=== PATIENT | female | born 1985 | race Caucasian/White ===

== ENCOUNTER 2025-06-04 10:20 | Day surgery (SDC) | payer MEDICAID, SELFPAY ==
--- NOTE | 2025-05-11 07:14 | EKG12_ITS ---
Test Reason : PREOP Blood Pressure : */* mmHG Vent. Rate : 87 BPM Atrial Rate : 87 BPM P-R Int : 132 ms QRS Dur : 80 ms QT Int : 376 ms P-R-T Axes : 75 63 38 degrees QTcB Int : 452 ms Normal sinus rhythm Normal ECG Confirmed by Bossman Krueger ([id number]), department editor JOCELIN HUERTAS ([id number]) on 05/12/2025 7:16:15 AM Referred By: Irene Vazquez Confirmed By: Bossman Krueger
[2025-05-11 07:55] LABS: Hematocrit 38.0 % (37-47); Hemoglobin 13.5 g/dL (12.0-15.0); Mean Corp Hgb Conc 35.5 g/dL (32-36); Mean Corpuscular Volume 86.2 fL (81-99); Mean Platelet Vol. 9.7 fl (6.2-12.0); Platelet Count 249 K/mm3 (150-450); RBC Distribution Width CV 12.2 % (11.6-14.6); RBC Distribution Width SD 38.3 fl (35.1-43.9); Red Blood Count 4.41 M/mm3 (4.2-5.4); White Blood Count 4.8 K/mm3 (4.4-11.0)
[2025-05-11 08:55] LABS: AST(SGOT) 21 U/L (<=31); Alanine Aminotransfer ALT/SGPT 23 U/L (<=34); Albumin, Serum 4.3 g/dL (3.5-5.0); Alkaline Phosphatase 61 U/L (35-104); Anion Gap 11 (5-15); BUN 15 mg/dL (4-19); BUN/Creat Ratio 16.5 RATIO (10-20); Calcium,Total 9.4 mg/dL (7.6-11.0); Carbon Dioxide 27.3 mmol/L (21.0-32.0); Chloride 103 mmol/L (98-108); Globulin 2.2 g/dL (2.2-4.2); Glucose 106 mg/dL (70-99); Potassium 4.1 mmol/L (3.3-5.1)
[2025-05-11 08:56] LABS: Magnesium 2.0 mg/dL (1.5-2.2)
--- NOTE | 2025-05-12 10:08 | PAT.ANESEVAL ---
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 When Was Last Pacemaker Check QUESTION #4 FULL TEXT: You/Your Family Experience fever (hyperthermia) with Anesthesia Last Oral Intake Last Oral intake: Last Oral Intake NPO since Meds taken in AM with sips of water? Meds patient instructed to take am of surgery PONV PONV - hooker machine tender: PONV - hooker machine tender Female Yes 05/07/25 11:04 HX of Motion Sickness Yes 05/07/25 11:04 HX of N/V After Surgery No 05/07/25 11:04 Non-Smoker Yes 05/07/25 11:04 Duration of Surgery greater Yes 05/07/25 11:04 than 60 minutes Number of Risk Factors 4 05/07/25 11:04 PONV Score Severe Risk 05/07/25 11:04 Respiratory Assessment Respiratory Assessment - hooker machine tender: Respiratory Tract Infection Hx - hooker machine tender Hx Respiratory Tract Infection No 05/07/25 11:04 STOP Sleep Apnea STOP Sleep Apnea - hooker machine tender: STOP Sleep Apnea - hooker machine tender Hx Hypertension Yes: CONTROLLED WITH MED 05/07/25 11:04 Hx Sleep Apnea Yes 05/07/25 11:04 CPAP Yes 05/07/25 11:04 BIPAP No 05/07/25 11:04 Do you snore loudly (louder No 05/07/25 11:04 than talking or can be heard Do you often feel tired/ No 05/07/25 11:04 fatigued/ sleepy during daytime? Has anyone observed you stop No 05/07/25 11:04 breathing during sleep? STOP Results Positive 05/07/25 11:04 QUESTION #5 FULL TEXT : Do you snore loudly (louder than talking or can be heard through closed doors)? 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 Specify any problems Hx of Preganancy in last 3 N/A 05/07/25 11:04 Months Nurse Filling Out Transfusion [facility] 05/07/25 11:04 & Questions: Date: 05/07/25 05/07/25 11:04 Time: 11:05 05/07/25 11:04 Patient unable to answer at this time (ie. confused, unrespo /Reproduction History /Reproductive History - hooker machine tender: /Reproductive Hx- hooker machine tender Hx Now No 05/07/25 11:04 Gestational Age (in weeks): EDC: Hx Hx Para Hx Section SAB No 05/07/25 11:04 [facility] [place] Medical History (Updated 05/07/25 @ 11:13 by Janelle Fine) Wears glasses Wears contact lenses Depression Anxiety Marijuana use Blackout Non-smoker Hypertension History of Holter monitoring History of panic attacks History of echocardiogram Cardiology follow-up encounter GERD (gastroesophageal reflux disease) Home Medications ?Medication ?Instructions ?Recorded ?Last Taken ?Type buspirone 5 mg tablet 5 mg PO DAILY PRN anxiety 05/07/25 Unknown History cetirizine 10 mg tablet (24Hour 10 mg PO DAILY 05/07/25 Unknown History Allergy) cyclobenzaprine 10 mg tablet 10 mg PO TID PRN PRN muscle spasm 05/07/25 Unknown History desvenlafaxine succinate 50 mg 50 mg PO DAILY 05/07/25 Unknown History tablet,extended release 24 hr fluticasone propionate 50 1 spray intranasal DAILY 05/07/25 Unknown History mcg/actuation nasal spray,suspension (24 Hour Allergy Relief) hydrochlorothiazide 25 mg tablet 25 mg PO DAILY 05/07/25 Unknown History meloxicam 15 mg tablet 15 mg PO DAILY PRN moderate pain 05/07/25 Unknown History montelukast 10 mg tablet 10 mg PO QHS 05/07/25 Unknown History omeprazole 20 mg capsule,delayed 20 mg PO DAILY 05/07/25 Unknown History release Allergy/AdvReac Type Severity Reaction Status Date / Time No Known Allergies Allergy Verified 05/07/25 11:00 Surgical History (Updated 05/07/25 @ 11:13 by Janelle Fine) History of wisdom tooth extraction History of tubal ligation History of loop electrical excision procedure (LEEP) History of tonsillectomy and adenoidectomy Social History Smoking Status: Never smoker Audit: Pertinent Findings Pertinent Findings EKG Perinent findings: 01/2025: NSR Echo (EF%) pertinent findings: 02/2023: LVEF 60% with no RWM abnormalities; normal study. Consult pertinent findings: 04/2025: Mild ascending aorta dilation noted on noncontrast CT. Health Inspector elect to monitor and repeat chest CT in 1-2 years Additional pertinent findings: 7-day holter: Predominantly SR, overall normal monitor study Recommendation Anesthesia Recommendation Anesthesia recommendation: OPTIMIZED for anesthesia
[2025-06-04] VITALS (12 sets, daily range): BP systolic 128–154; BP diastolic 90–114; PULSE 87–111; RESP 16–18; TEMP 36.1–37; O2SAT 93–108; BMI 32.0
--- NOTE | 2025-06-04 10:54 | PRE.ANES_ITS ---
ASA Classification* ASA Classification ASA Classification: 2 Assessment & Plan Anesthesia* Anesthesia Assessment Anesthesia Assessment: Discussed sedation and/or anesthesia options, risks, benefits, and alternatives with patient/parents/legal guardian/POA. Questions invited. The patient/parents/legal guardian/POA seems to understand and agrees to proceed with anesthesia plan. Reviewed the physical assessment, medical history, allergy history and patient home medications list prior to surgery/procedure/anesthetic and documented any changes. Performed airway and anesthesia risk assessments. Anesthesia Type Anesthesia Type: General Anesthesia Focused Assessment* Airway Assessment Mouth opens: >3 cm Mallampati Score: II Labs Anesthesia Preop lab: CBC WBC, (4.4-11.0) 4.8 K/mm3 05/11/25, : RBC, (4.2-5.4) 4.41 M/mm3 05/11/25, : Hgb, (12.0-15.0) 13.5 g/dL 05/11/25, : Hct, (37-47) 38.0 % 05/11/25, : Plt Count, (150-450) 249 K/mm3 05/11/25, : CHEMISTRY Potassium, (3.3-5.1) 4.1 mmol/L 05/11/25, : Sodium, (133-145) 140 mmol/L 05/11/25, : Magnesium, (1.5-2.2) 2.0 mg/dL 05/11/25, : BUN, (4-19) 15 mg/dL 05/11/25, : Creatinine, (0.70-1.20) 0.88 mg/dL 05/11/25, : Glucose, (70-99) 106 mg/dL H 05/11/25, : COAG Pre-Assessment Diagnosis/Proposed Procedure Planned Operative Procedure(s): (B) Hysterectomy, TLH, Salpingectomy, Cystoscopy Anesthesia History 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 When Was Last Pacemaker Check QUESTION #4 FULL TEXT: You/Your Family Experience fever (hyperthermia) with Anesthesia Last Oral Intake Last Oral intake: Last Oral Intake NPO since Meds taken in AM with sips of water? Meds patient instructed to take am of surgery PONV PONV - natural resources instructor: PONV - natural resources instructor Female Yes 05/07/25 11:04 HX of Motion Sickness Yes 05/07/25 11:04 HX of N/V After Surgery No 05/07/25 11:04 Non-Smoker Yes 05/07/25 11:04 Duration of Surgery greater Yes 05/07/25 11:04 than 60 minutes Number of Risk Factors 4 05/07/25 11:04 PONV Score Severe Risk 05/07/25 11:04 Height & Weight Height & Weight: Anesthesia: Height & Weight Weight: 86.183 kg 05/20/25 08:56 Respiratory Assessment Respiratory Assessment - natural resources instructor: Respiratory Tract Infection Hx - natural resources instructor Hx Respiratory Tract Infection No 05/07/25 11:04 STOP Sleep Apnea STOP Sleep Apnea - natural resources instructor: STOP Sleep Apnea - natural resources instructor Hx Hypertension Yes: CONTROLLED WITH MED 05/07/25 11:04 Hx Sleep Apnea Yes 05/07/25 11:04 CPAP Yes 05/07/25 11:04 BIPAP No 05/07/25 11:04 Do you snore loudly (louder No 05/07/25 11:04 than talking or can be heard Do you often feel tired/ No 05/07/25 11:04 fatigued/ sleepy during daytime? Has anyone observed you stop No 05/07/25 11:04 breathing during sleep? STOP Results Positive 05/07/25 11:04 QUESTION #5 FULL TEXT : Do you snore loudly (louder than talking or can be heard through closed doors)? 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 Specify any problems Hx of Preganancy in last 3 N/A 05/07/25 11:04 Months Nurse Filling Out Transfusion [facility] 05/07/25 11:04 & Questions: Date: 05/07/25 05/07/25 11:04 Time: 11:05 05/07/25 11:04 Patient unable to answer at this time (ie. confused, unrespo /Reproduction History /Reproductive History - natural resources instructor: /Reproductive Hx- natural resources instructor Hx Now No 05/07/25 11:04 Gestational Age (in weeks): EDC: Hx Hx Para Hx Section SAB No 05/07/25 11:04 Does the father of the baby or his family experience fever w Father of the baby Malignant Hypertension history comment Active Medications Active Medications: Current Medications Generic Name Dose Route Start Last Admin Trade Name Freq PRN Reason Stop Dose Admin Lactated Ringer's 1,000 mls @ 40 mls/hr 05/21/25 07:30 IV .Q25H ANIA Lactated Ringer's 1,000 mls @ 40 mls/hr 05/21/25 07:30 IV .Q25H ANIA PFSH Medical History Wears glasses Wears contact lenses Depression Anxiety Marijuana use Blackout Non-smoker Hypertension History of Holter monitoring History of panic attacks History of echocardiogram Cardiology follow-up encounter GERD (gastroesophageal reflux disease) Home Medications ?Medication ?Instructions ?Recorded ?Last Taken ?Type buspirone 5 mg tablet 5 mg PO DAILY PRN anxiety Unknown History cetirizine 10 mg tablet (24Hour 10 mg PO DAILY 5 Unknown History Allergy) cyclobenzaprine 10 mg tablet 10 mg PO TID PRN PRN musc le spasm 05/07/25 Unknown History desvenlafaxine succinate 50 mg 50 mg PO DAILY 05/07/25 Unknown History tablet,extended release 24 hr fluticasone propionate 50 1 spray intranasal DAILY Unknown History mcg/actuation nasal spray,suspension (24 Hour Allergy Relief) hydrochlorothiazide 25 mg tablet 25 mg PO DAILY Unknown History meloxicam 15 mg tablet 15 mg PO DAILY PRN moderate pain 05/07/25 Unknown History montelukast 10 mg tablet 10 mg PO QHS 05/07/25 Unknow n History omeprazole 20 mg capsule,delayed 20 mg PO DAILY Unknown History release Allergy/AdvReac Type Severity Reaction Status Date / Time No Known Allergies Allergy Verified 05/07/25 11:00 Surgical History History of wisdom tooth extraction History of tubal ligation History of loop electrical excision procedure (LEEP) History of tonsillectomy and adenoidectomy Social History Smoking Status: Never smoker Review of Systems (Anesthesia) ROS Narrative System reviewed and no additional complaints, except as documented.
[2025-06-04 11:01] LABS: Internal QC Validated? YES +Cl - CLEAR BKGD; Pregnancy, Urine Negative Negative; Record Kit Lot#,Urine Preg 0000980607
--- OUTSIDE RECORDS SUMMARY | 2025-06-04 11:05 | XMS RPT_ITS | CCD ---
Author Organization [facility] Care Team Providers Care Finished Cigar Maker Name Role Phone No, Physician Unavailable Unavailable NO, PHYSICIAN Unavailable Unavailable CONN, ORIN CAPO Unavailable Unavail able CONN, ORIN CAPO Unavailable Unavail able CONN, ORIN CAPO Unavailable Unavail able NO, PHYSICIAN Unavailable Unavailable Na Arcos Unavailable Unavailable Na Arcos Unavailable Unavailable Gabriel Rivera Unavailable Unavailable Patricia Dominique Unavailable Unavailable None, No PCP Unavailable Unavailable Kobi Fontana Unavailable Unavailable Sepideh Amador Unavailable Unavailable [facility], NEURODIAG Unavailable Eduardo montoya No, Physician Primary Care Provider Unavailabl e Na Arcos Unavailable [phone] Unavailable Unavailable Patricia Dominique Unavailable Na Arcos Unavailable Bilderback, Ramila Unavailable Unavailabl e Unavailable Unavailable Yaneli Malik Unavailable YANELI MALIK Referring Unavailable YANELI MALIK Attending Unavailable YANELI MALIK Primary Care Unavailable Layne Vivar Unavailable [phone] Yaneli Perez Primary Care Provider Yaneli Malik Unavailable Unavailable Marcella Cheung Unavailable Unavailable Ms. Yaneli Malik Primary Care Unavailable Ms. Yaneli Malik Attending Unavailable Ms. Yaneli Malik Referring Unavailable Malik, Ms. Yaneli Marylin Primary Care Unavailable Malik, Ms. Yaneli Marylin Attending Unavailable Malik, Ms. Yaneli Marylin Referring Unavailable Malik, Ms. Yaneli Marylin Referring Unavailable Malik, Ms. Yaneli Marylin Primary Care Unavailable Malik, Ms. Yaneli Marylin Attending Unavailable Malik, Ms. Yaneli Marylin Referring Unavailable Malik, Ms. Yaneli Marylin Attending Unavailable Malik, Ms. Yaneli Marylin Primary Care Unavailable Malik, Ms. Yaneli Marylin Referring Unavailable Malik, Ms. Yaneli Marylin Attending Unavailable Malik, Ms. Yaneli Marylin Primary Care Unavailable Malik, Ms. Yaneli Marylin Referring Unavailable Malik, Ms. Yaneli Marylin Attending Unavailable Malik, Ms. Yaneli Marylin Primary Care Unavailable Malik, Ms. Yaneli Marylin Primary Care Unavailable Malik, Ms. Yaneli Marylin Attending Unavailable Malik, Ms. Yaneli Marylin Referring Unavailable Malik, Ms. Ynaeli Marylin Primary Care Unavailable Malik, Ms. Yaneli Marylin Attending Unavailable Malik, Ms. Yaneli Marylin Referring Unavailable DO MARCELLA CHEUNG Attending Unavailab le Malik, Ms. Yaneli Marylin Primary Care Unavailable Unavailable Primary Care Provider Unavailabl e Pino CHRISTIAN, Yaneli K Primary Care Provider Rosalva SALGADO, Kobi Bansal Unavailable Grayson SALGADO, Elieser Collins Unavailable Pino CHRISTIAN, Yaneli Escamilla Primary Care Provider [phone] Pino SPLICER OPERATOR-GINO, Yaneli K Primary Care Provider Rosalva SALGADO, Kobi Bansal Unavailable Grayson SALGADO, Elieser Collins Unavailable No, Physician Primary Care Provider UnavailYANELI Castro Primary Care Unavailable JOCELIN HOPKINS Attending Unavailable NO, PHYSICIAN Primary Care Unavailable YANELI MALIK Referring Unavailable YANELI MALIK Admitting Unavailable YANELI MALIK K Primary Care Unavailable ESTUARDO DENISE Attending Unavailable FREDERIC MALIK Referring Unavailable YANELI MALIK K Primary Care Unavailable FREDERIC MALIK Referring Unavailable YANELI MALIK Primary Care Unavailable YANELI MALIK Referring Unavailable YANELI MALIK Primary Care Unavailable YANELI MALIK K Referring Unavailable ELIZABETH MALIKIDI K Primary Care Unavailable YANELI MALIK K Referring Unavailable YANELI MALIK K Primary Care Unavailable YANELI MALIK K Primary Care Unavailable KLAUS STRICKLAND Referring Unavailable MALIK, YANELI K Primary Care Unavailable MALIK, YANELI K Referring Unavailable MALIK, YANELI K Primary Care Unavailable KOBI SOL Referring Unavailable MALIK, YANELI K Primary Care Unavailable Rosalva SALGADO, Kobi Bansal Unavailable Elieser Garcia MD Unavailable FREDERIC MALIK Attending Unavailable MALIK, YANELI K Primary Care Unavailable MALIK, YANELI K Attending Unavailable MALIK, YANELI K Primary Care Unavailable RFEDERIC MALIK Attending Unavailable MALIK, YANELI K Primary Care Unavailable FREDERIC MALIK Attending Unavailable MALIK, YANELI K Primary Care Unavailable KLAUS STRICKLAND Attending Unavailable MALIK, YANELI K Primary Care Unavailable MALIK, YANELI K Attending Unavailable MALIK, YANELI K Primary Care Unavailable MALIK, YANELI K Attending Unavailable MALIK, YANELI K Primary Care Unavailable MALIK, YANELI K Attending Unavailable MALIK, YANELI K Primary Care Unavailable MALIK, YANELI K Attending Unavailable MALIK, YANELI K Primary Care Unavailable MALIK, YANELI K Attending Unavailable MALIK, YANELI K Primary Care Unavailable MALIK, YANELI K Attending Unavailable MALIK, YANELI K Primary Care Unavailable KLAUS STRICKLAND Attending Unavailable MALIK, YANELI K Referring Unavailable MALIK, YANELI K Primary Care Unavailable LESLEY VAZQUEZ Attending Unavailable MALIK, YANELI K Primary Care Unavailable WISMIGUEL A, LESLEY Attending Unavailable MALIK, YANELI K Primary Care Unavailable ANGEL CARTER Attending Unavailable MALIK, YANELI K Primary Care Unavailable ANGEL CARTER Referring Unavailable MALIK, YANELI K Primary Care Unavailable HAANGEL RUEDA Referring Unavailable MALIK, YANELI K Primary Care Unavailable LESLEY VAZQUEZ Attending Unavailable MALIK, YANELI K Primary Care Unavailable Lesley Vazquez Referring Unavailable Nathan Francis Unavailable Malik, Yaneli Primary Care Unavailable Lesley Vazquez Attending Unavailable Allergies Allergy Classification Reported Allergen(s) Allergy Type Date of Onset Reaction(s) Facility (11 sources) Seasonal allergy; Translations: [SEASONAL ALLERGIES] Allergy to substance 9 Other: See Comments [facility] Work Phone: Medications Current Medications Medication Drug Class(es) Dates Sig (Normalized) Sig (Original) acetaminophen 325 mg / HYDROcodone bitartrate 5 mg oral tablet (1 source) Opioid Agonist Start: 02-20-2023 take 1 tablet by mouth every six hours hydrocodone-acetam inophen 5 mg-325 mg oral tablet ; 1 tab(s) orally every 6 hours Quantity: 12 Refills: 0 Ordered: 20-Feb-2023 Marcella Cheung Start: 20-Feb-2023 Generic Substitution Allowed Comments: Caution federal law prohibits the transfer of this drug to any person other than the person for whom it was prescribed.May cause drowsiness. Alcohol may intensify this effect. Use care when operating dangerous machinery.This product contains acetaminophen. Do not use with any other product containing acetaminophen to prevent possible liver damage.Using more of this medication than prescribed may cause serious breathing problems. Comment on above: Caution [place] law prohibits the transfer of this drug to any person other than the person for whom it was prescribed.May cause drowsiness. Alcohol may intensify this effect. Use care when operating dangerous machinery.This product contains acetaminophen. Do not use with any other product containing acetaminophen to prevent possible liver damage.Using more of this medication than prescribed may cause serious breathing problems. amoxicillin 875 mg / clavulanate 125 mg oral tablet (4 sources) Penicillin-class Antibacterial Start: 06-09-2024 End: 06-26-2024 take 1 tablet by mouth twice daily amoxicillin-pot clavulanate (Augmentin) 875-125 mg tablet Indications: Acute non-recurrent maxillary sinusitis Take 1 tablet (875 mg) by mouth 2 times a day for 10 days. 20 tablet 06/09/2024 06/26/2024 Discontinued (Therapy completed) Start: 09-09-2023 End: 09-19-2023 take 1 tablet by mouth twice daily amoxicillin-pot clavulanate (Augmentin) 875-125 mg tablet Indications: Left ear pain Take 1 tablet (875 mg) by mouth 2 times a day for 10 days. 20 tablet 0 09/09/2023 09/19/2023 Active azithromycin 250 mg oral tablet (3 sources) Macrolide Antimicrobial Start: 02-05-2023 End: 02-10-2023 azithromycin (Zithromax) 250 mg tablet Indications: Acute non-recurrent maxillary sinusitis Take 2 tablets (500 mg) by mouth once daily for 1 day, THEN 1 tablet (250 mg) once daily for 4 days. Take 2 tabs (500 mg) by mouth today, than 1 daily for 4 days.. 6 tablet 0 02/05/2023 02/10/2023 Active Start: 08-09-2021 Azithromycin 2 50 MG Oral Tablet TAKE 2 TABLETS ON DAY 1 THEN TAKE 1 TABLET A DAY FOR 4 DAYS. Quantity: 1 Refills: 0 Ordered: 09-Aug-2021 Pino JULISYaneli Start : 09-Aug-2021 Active Start: 03-29-2021 Azithromycin 2 50 MG Oral Tablet TAKE 2 TABLETS ON DAY 1 THEN TAKE 1 TABLET A DAY FOR 4 DAYS. Quantity: 1 Refills: 0 Ordered: 29-Mar-2021 Josselyn JLUIS Na Start : 29-Mar-2021 Active baclofen 10 mg oral tablet (5 sources) gamma-Aminobutyric Acid-ergic Agonist Start: 04-17-2018 baclofen (LIORESAL) 10 MG tablet Indications: Trapezius strain, left, subsequent encounter Take one tablet three times a day as needed for back pain and spasms.. 30 tablet 04/17/2018 Active benzonatate 100 mg oral capsule (5 sources) Non-narcotic Antitussive Start: 02-05-2023 End: 02-15-2023 take 1 capsule by mouth three times daily as needed for cough benzonatate (Tessalon) 100 mg capsule Indications: Upper respiratory infection with cough and congestion Take 1 capsule (100 mg) by mouth 3 times a day as needed for cough for up to 10 days. Do not crush or chew. 30 capsule 0 02/05/2023 02/15/2023 Active Start: 11-14-2020 End: 03-27-2021 take 1 capsule by mouth three times daily as needed Benzonatate 100 MG Oral Capsule TAKE 1 CAPSULE 3 TIMES DAILY NEEDED. Quantity: 30 Refills: 0 Ordered: 14-Nov-2020 Patricia Dominique DO Start : 14-Nov-2020 End : 27-Mar-2021 Complete busPIRone hydrochloride 5 mg oral tablet (20 sources) Start: 11-22-2023 take 1 tablet by mouth three times daily busPIRone (Buspar) 5 mg tablet Indications: Anxiety take 1 tablet by mouth three times a day 90 tablet 2 11/22/2023 Active Start: 01-22-2023 take 1 tablet by chau th every eight hours busPIRone (BUSPAR) 5 mg tablet Take 5 mg by mouth q 8 HR. 01/22/2023 Active Start: 01-22-2023 take 1 tablet by chau three times daily busPIRone (Buspar) 5 mg tablet Indications: Anxiety Take 1 tablet (5 mg) by mouth 3 times a day. 90 tablet 0 01/22/2023 Active Comment on above: Take 5 mg by mouth q 8 HR. cetirizine hydrochloride 5 mg oral tablet (20 sources) Histamine-1 Receptor Antagonist take 1 tablet by mouth once daily cetirizine (ZyrTEC) 5 mg tablet Take 1 tablet (5 mg) by mouth once daily. Active take 1 tablet by mouth once thomas y cetirizine (ZYRTEC) 10 mg tablet Take 10 mg by mouth once daily. Active cholecalciferol 0.05 mg oral tablet (20 sources) Vitamin D take 1 tablet by mouth once daily cholecalciferol (Vitamin D-3) 50 MCG (2000 UT) tablet Take 1 tablet (2,000 Units) by mouth once daily. 0 Active Vitamin D TABS R efills: 0 Active Vitamin D TABS R efills: 0 DO Active ciprofloxacin 3 mg/ml / dexamethasone 1 mg/ml otic suspension (2 sources) Corticosteroid, Quinolone Antimicrobial Start: 06-26-2024 End: 07-31-2024 ciprofloxacin-dexamethasone (CiproDEX) otic suspension Indications: Fluid level behind tympanic membrane of right ear Administer 4 drops into the right ear 2 times a day. 7.5 mL 06/26/2024 07/31/2024 Discontinued (Therapy completed) cyclobenzaprine hydrochloride 10 mg oral tablet (20 sources) Muscle Relaxant Start: 06-18-2024 End: 06-26-2024 take 1 tablet by mouth three times daily as needed for muscle spasms cyclobenzaprine (Flexeril) 10 mg tablet Indications: Acute exacerbation of chronic low back pain Take 1 tablet (10 mg) by mouth 3 times a day as needed for muscle spasms. 90 tablet 06/26/2024 Active Start: 02-20-2023 End: 02-26-2023 take 1 tablet by mouth three times daily cyclobenzaprine 10 mg oral tablet ; 1 tab(s) orally 3 times a day Quantity: 21 Refills: 0 Ordered: 20-Feb-2023 Marcella Cheung Start: 20-Feb-2023 End: 26-Feb-2023 Generic Substitution Allowed Comments: May cause drowsiness. Alcohol may intensify this effect. Use care when operating dangerous machinery.Obtain medical advice before taking any non-prescription drugs as some may affect the action of this medication. Start: 06-08-2022 take 1 tablet by chau th at bedtime as needed Cyclobenzaprine HCl - 5 MG Oral Tablet TAKE 1 TABLET AT BEDTIME NEEDED. Quantity: 30 Refills: 1 Ordered: 08-Jun-2022 Yaneli Perez Start : 08-Jun-2022 Active Start: 08-09-2021 take 1 tablet by chau th three times daily as needed Cyclobenzaprine HCl - 5 MG Oral Tablet TAKE 1 TABLET 3 TIMES DAILY NEEDED. Quantity: 21 Refills: 0 Ordered: 09-Aug-2021 Yaneli Perez Start : 09-Aug-2021 Active Comment on above: May cause drowsiness . Alcohol may intensify this effect. Use care when operating dangerous machinery.Obtain medical advice before taking any non-prescription drugs as some may affect the action of this medication. 24 hr desvenlafaxine succinate 50 mg extended release oral tablet (20 sources) Serotonin and Norepinephrine Reuptake Inhibitor Start: 025 take 1 tablet by mouth once daily desvenlafaxine (Pristiq) 50 mg 24 hr tablet Indications: Anxiety Take 1 tablet (50 mg) by mouth once daily. 90 tablet 1 04/27/2025 Active Start: 02-23-2025 End: 04-27-2025 take 1 tablet by mouth once daily desvenlafaxine succinate (Pristiq) 50 mg 24 hr tablet Indications: Anxiety Take 1 tablet (50 mg) by mouth once daily. 30 tablet 1 02/23/2025 04/27/2025 Discontinued (Reorder) Start: 01-13-2025 End: 02-23-2025 take 1 tablet by mouth once daily, then take 1 tablet by mouth every twenty-four hours desvenlafaxine ER (PRISTIQ) 25 mg 24 hr tablet Take 25 mg by mouth once daily. 01/13/2025 Active dextromethorphan hydrobromide 3 mg/ml / promethazine hydrochloride 1.25 mg/ml oral solution (2 sources) Phenothiazine, Uncompetitive H-eigtyl-L-aspartate Receptor Antagonist, Sigma-1 Agonist Start: 07-02-2023 End: 08-01-2023 take 5 mL by mouth every four hours for cough promethazine-DM (Phenergan-DM) 6.25-15 mg/5 mL syrup Indications: Cough present for greater than 3 weeks Take 5 mL by mouth every 4 hours if needed for cough. 240 mL 0 07/02/2023 08/01/2023 Active ergocalciferol, vitamin D2, (VITAMIN D2 ORAL) (7 sources) End: 01-14-2025 take 1 tablet by mouth once daily ergocalciferol, vitamin D2, (VITAMIN D2 ORAL) Take 1 tablet by mouth once daily. 01/14/2025 Discontinued (Other) take 1 tablet by mouth once thomas y ergocalciferol, vitamin D2, (VITAMIN D2 ORAL) Take 1 tablet by mouth once daily. 0 Active ergocalciferol, vitamin D2, (VITAMIN D2 ORAL) Take by mouth. 0 Active Comment on above: Take by mouth. Take 1 tablet by chau once daily. fluticasone propionate 0.05 mg/actuat metered dose nasal spray (20 sources) Corticosteroid take 1 spray(s) nasal route once daily fluticasone (Flonase) 50 mcg/actuation nasal spray Administer 1 spray into each nostril once daily. Shake gently. Before first use, prime pump. After use, clean tip and replace cap. Active take 2 spray(s) nasal route once daily fluticasone (FLONASE ALLERGY RELIEF) 50 mcg/actuation nasal spray Use 2 sprays in each nostril once daily. Active hydroCHLOROthiazide 25 mg oral tablet (20 sources) Thiazide Diuretic Start: 01-13-2025 take 1 tablet by mouth once daily hydroCHLOROthiazide (HYDRODiuril) 25 mg tablet Indications: Primary hypertension Take 1 tablet (25 mg) by mouth once daily. 90 tablet 1 02/18/2025 Active Start: 09-29-2024 End: 01-13-2025 take 1 tablet by mouth once daily hydroCHLOROthiazide (Microzide) 12.5 mg tablet Indications: Primary hypertension Take 1 tablet (12.5 mg) by mouth once daily. 90 tablet 1 09/29/2024 01/13/2025 Discontinued (Dose adjustment) Start: 06-26-2024 End: 07-31-2024 take 1 tablet by mouth once daily hydroCHLOROthiazide (Microzide) 12.5 mg tablet Indications: Primary hypertension Take 1 tablet (12.5 mg) by mouth once daily. 90 tablet 1 07/31/2024 Active ibuprofen 600 mg oral tablet (20 sources) Nonsteroidal Anti-inflammatory Drug Start: 01-10-2024 take 1 tablet by mouth every six hours for pain ibuprofen 600 mg tablet Indications: Acute pain of left knee Take 1 tablet (600 mg) by mouth every 6 hours if needed for mild pain (1 - 3) or moderate pain (4 - 6) for up to 30 doses. 30 tablet 01/10/2024 Active Start: 01-10-2024 End: 01-10-2024 take 600 mg by mouth once at mealtime as needed for pain 600 mg, oral, Once, On Sat01/10/24 at 1010, For 1 dose, May administer with food to reduce GI upset., If ordered PRN for pain, nurse is permitted to administer this medication for higher pain scores based on patient preference? Yes levonorgestrel 0.626672 mg/hr intrauterine system (20 sources) Progestin, Progestin-containing Intrauterine Device Start: 05-01-2023 End: 04-29-2028 levonorgestrel (Mirena) 21 mcg/24 hours (8 yrs) 52 mg IUD 52 mg by intrauterine route. 05/01/2023 04/29/2028 Active Start: 05-01-2023 End: 04-29-2028 levonorgestrel (MIRENA) 21 m cg/24 hours (8 yrs) 52 mg IUD Indications: Encounter for IUD insertion , Menorrhagia with regular cycle 1 Each by INTRAUTERINE route as directed. 1 Each 05/01/2023 04/29/2028 Active Comment on above: 1 Each by INTRAUTERI NE route as directed. lidocaine 0.05 mg/mg medicated patch (1 source) Antiarrhythmic, Amide Local Anesthetic Start: Lidoderm 5% topical film ; Apply topically to affected area every 12 hours Quantity: 12 Refills: 0 Ordered: 20-Feb-2023 Marcella Cheung Start: 20-Feb-2023 Generic Substitution Allowed Comments: For external use only.Remove old patch prior to applying a new patch. Comment on above: For external use onl y.Remove old patch prior to applying a new patch. loratadine 10 mg oral tablet (20 sources) End: loratadine (CLARITIN) 10 mg tablet Take 10 mg by mouth. 01/14/2025 Discontinued Comment on above: Take 10 mg by mouth. meloxicam 15 mg oral tablet (20 sources) Nonsteroidal Anti-inflammatory Drug Start: 3 End: 4 take 1 tablet by mouth once daily as needed for pain meloxicam (Mobic) 15 mg tablet Indications: Acute exacerbation of chronic low back pain Take 1 tablet (15 mg) by mouth once daily as needed for moderate pain (4 - 6). 90 tablet 1 06/26/2024 Active Start: 06-08-2022 take 1 tablet by chau once daily as needed Meloxicam 7.5 MG Oral Tablet TAKE 1 TABLET DAILY NEEDED. Quantity: 30 Refills: 0 Ordered: 08-Jun-2022 Yaneli Perez Start : 08-Jun-2022 Active miSOPROStol 0.2 mg oral tablet (5 sources) Prostaglandin E1 Analog Start: 04-10-2023 End: 01-14-2025 miSOPROStol (CYTOTEC) 200 mcg tablet Indications: Menorrhagia with regular cycle Insert 2 tablets vaginally night prior to EMB and 2 tablets morning of procedure. Each dose should be in vagina for 6-8 hours. 4 tablet 04/10/2023 01/14/2025 Discontinued Comment on above: Insert 2 tablets vag inally night prior to EMB and 2 tablets morning of procedure. Each dose should be in vagina for 6-8 hours. montelukast 10 mg oral tablet (20 sources) Leukotriene Receptor Antagonist Start: 04-27-2025 take 1 tablet by mouth once daily at bedtime montelukast (Singulair) 10 mg tablet Indications: Seasonal allergies Take 1 tablet (10 mg) by mouth once daily at bedtime. 90 tablet 1 04/27/2025 Active Start: 09-25-2018 End: 04-27-2025 take 1 tablet by mouth once daily at bedtime montelukast (Singulair) 10 mg tablet Indications: Seasonal allergies Take 1 tablet (10 mg) by mouth once daily at bedtime. 90 tablet 1 09/29/2024 04/27/2025 Discontinued (Reorder) Comment on above: Take 10 mg by mouth daily at bedtime. omeprazole 20 mg delayed release oral capsule (20 sources) Proton Pump Inhibitor Start: 04-07-2025 take 1 capsule by mouth once daily omeprazole (PriLOSEC) [address] capsule Indications: Heartburn Take 1 capsule (20 mg) by mouth once daily. 90 capsule 1 04/07/2025 Active Start: 03-02-2024 End: 09-08-2024 take 1 capsule by mouth once daily omeprazole (PriLOSEC) [address] capsule Indications: Heartburn Take 1 capsule (20 mg) by mouth once daily. 90 capsule 1 09/08/2024 Active Start: 07-22-2023 take 1 capsule by mo uth once daily omeprazole (PriLOSEC) [address] capsule Indications: Heartburn take 1 capsule by mouth once daily 90 capsule 1 07/22/2023 Active Start: 02-05-2023 omeprazole (DE ILOSEC) 10 mg capsule 02/05/2023 Active Start: 01-22-2023 take 1 capsule by mo uth once daily omeprazole (PriLOSEC) [address] capsule Indications: Heartburn Take 1 capsule (20 mg) by mouth once daily. Do not crush or chew. 90 capsule 1 01/22/2023 Active 24 hr venlafaxine 75 mg extended release oral tablet (20 sources) Serotonin and Norepinephrine Reuptake Inhibitor Start: 08-11-2024 End: 02-23-2025 take 1 tablet by mouth once daily venlafaxine 75 mg 24 hr tablet Indications: Anxiety Take 1 tablet (75 mg) by mouth once daily. 90 tablet 1 08/11/2024 02/23/2025 Discontinued (Side effects) Start: 06-26-2023 take 1 tablet by chau th once daily venlafaxine 75 mg 24 hr tablet Indications: Anxiety take 1 tablet by mouth once daily 90 tablet 1 01/24/2024 Active Start: 01-20-2019 take 1 tablet by chau th once daily venlafaxine 75 mg 24 hr tablet Indications: Anxiety Take 1 tablet (75 mg) by mouth once daily. 30 tablet 5 12/25/2022 Active take 3 tablets by mo uth once daily venlafaxine (EFFEXOR) 25 mg tablet Take 75 mg by mouth once daily. Pt. Weaning off medication Active Comment on above: Take 75 mg by mouth once daily. vitamin b12 0.5 mg oral tablet (20 sources) Vitamin B12 End: 01-14-2025 take 1 tablet by mouth once daily cyanocobalamin (VITAMIN B-12) 500 mcg tab tab(s) Take 1 tablet by mouth once daily. 01/14/2025 Discontinued take 0.5 tablet by mouth once da jerrica cyanocobalamin (Vitamin B-12) 1,000 mcg tablet Take 0.5 tablets (500 mcg) by mouth once daily. 0 Active take 1 tablet by mouth once thomas y Vitamin B-12 1000 MCG Oral Tablet TAKE 1 TABLET DAILY DIRECTED. Quantity: 0 Refills: 0 Ordered: 30-Aug-2020 DO Active Vitamin B12 TABS Refills: 0 Active Vitamin B12 TABS Refills: 0 DO Active Comment on above: Take by mouth. Take 1 tablet by chau th once daily. Completed/Discontinued Medications Medication Drug Class(es) Dates Sig (Normalized) Sig (Original) acetaminophen 325 mg / oxyCODONE hydrochloride 5 mg oral tablet (2 sources) Opioid Agonist Start: 11-12-2021 End: 11-13-2021 take 1 tablet by mouth every eight hours as needed Percocet 5 mg-325 mg oral tablet ; 1 tab(s) orally every 8 hours, As Needed -for pain Quantity: 6 Refills: 0 Ordered: 12-Nov-2021 Carol Cooneyine Start: 12-Nov-2021 End: 13-Nov-2021 Generic Substitution Allowed Comments: Caution federal law prohibits the transfer of this drug to any person other than the person for whom it was prescribed.May cause drowsiness. Alcohol may intensify this effect. Use care when operating dangerous machinery.This prescription cannot be refilled.This product contains acetaminophen. Do not use with any other product containing acetaminophen to prevent possible liver damage.Using more of this medication than prescribed may cause serious breathing problems. Comment on above: Caution federal law prohibits the transfer of this drug to any person other than the person for whom it was prescribed.May cause drowsiness. Alcohol may intensify this effect. Use care when operating dangerous machinery.This prescription cannot be refilled.This product contains acetaminophen. Do not use with any other product containing acetaminophen to prevent possible liver damage.Using more of this medication than prescribed may cause serious breathing problems. amoxicillin 875 mg oral tablet (2 sources) Penicillin-class Antibacterial Start: 04-10-2021 End: 08-09-2021 take 1 tablet by mouth once daily Amoxicillin 875 MG Oral Tablet TAKE 1 TABLET EVERY 12 HOURS DAILY. Quantity: 14 Refills: 0 Ordered: 10-Apr-2021 [id number] Meyer Start : 10-Apr-2021 End : 09-Aug-2021 Complete cephalexin 500 mg oral tablet (4 sources) Cephalosporin Antibacterial Start: 11-21-2020 End: 03-27-2021 take 1 tablet by mouth twice daily Cephalexin 500 MG Oral Tablet TAKE 1 TABLET TWICE DAILY. Quantity: 14 Refills: 0 Ordered: 21-Nov-2020 Na Meyer Start : 21-Nov-2020 End : 27-Mar-2021 Complete cloNIDine hydrochloride 0.1 mg oral tablet (1 source) Central alpha-2 Adrenergic Agonist Start: 06-18-2024 End: 06-18-2024 take 0.1 mg by mouth once 0.1 mg, oral, Once, On Jaky 06/18/24 at 1535, For 1 dose fexofenadine hydrochloride 180 mg oral tablet (6 sources) Histamine-1 Receptor Antagonist Blanca Allergy 180 MG Oral Tablet Refills: 0 Active iohexol (OMNIPaque) 350 mg iodine/mL solution 70 mL (1 source) Start: 01-16-2024 End: 01-16-2024 70 mL, intravenous, Once in imaging, Starting on Jaky 01/16/24 at 1115, For 1 dose 1 ml ketorolac tromethamine 30 mg/ml injection (2 sources) Nonsteroidal Anti-inflammatory Drug, Cyclooxygenase Inhibitor Start: 06-18-2024 End: 06-18-2024 inject 30 mg by intramuscular injection once 30 mg, intramuscular, Once, On Jaky 06/18/24 at 1415, For 1 dose Start: 08-16-2021 take 1 tablet by chau th three times daily after mealtime Ketorolac Tromethamine 10 MG Oral Tablet TAKE 1 TABLET 3 TIMES DAILY AFTER MEALS. Quantity: 6 Refills: 0 Ordered: 16-Aug-2021 Yaneli Perez Start : 16-Aug-2021 Active multivitamin/ferrous sulfate (ONE DAILY MULTIVITAMIN-IRON ORAL) ( sources) End: 12-30-2024 multivitamin/ferrous sulfate (ONE DAILY MULTIVITAMIN-IRON ORAL) Take by mouth. 12/30/2024 Discontinued (Entered in Error) multivitamin/hans corrina sulfate (ONE DAILY MULTIVITAMIN-IRON ORAL) Take by mouth. Active ondansetron 4 mg disintegrating oral tablet (4 sources) Serotonin-3 Receptor Antagonist Start: 11-21-2020 End: 03-27-2021 take 1 tablet by mouth every eight hours as needed for nausea Ondansetron 4 MG Oral Tablet Disintegrating TAKE 1 TABLET Every 8 hours PRN for nausea Quantity: 6 Refills: 0 Ordered: 21-Nov-2020 Na Meyer Start : 21-Nov-2020 End : 27-Mar-2021 Complete 2 ml orphenadrine citrate 30 mg/ml injection (1 source) Muscle Relaxant Start: 06-18-2024 End: 06-18-2024 inject 60 mg by intramuscular injection once 60 mg, intramuscular, Once, On [facility] 06/18/24 at 1415, For 1 dose predniSONE 20 mg oral tablet (20 sources) Corticosteroid Start: 09-08-2024 End: 01-13-2025 predniSONE (Deltasone) 20 mg tablet Indications: Acute exacerbation of chronic low back pain Take 3 tabs (60mg) daily for 3 days, then take 2 tabs (40mg) daily for 3 days, then take 1 tab (20mg) daily for 3 days. 18 tablet 09/08/2024 01/13/2025 Discontinued (Therapy completed) Start: 06-08-2022 predniSONE 20 MG Oral Tablet Take 3 tablets (60 mg) for 3 days, then 2 tablets (40 mg) for 3 days, then 1 tablet (20 mg) for 3 days. Quantity: 18 Refills: 0 Ordered: 08-Jun-2022 Yaneli Perez Start : 08-Jun-2022 Active Start: 03-29-2021 take 2 tablets by [facility] once daily at mealtime predniSONE 20 MG Oral Tablet TAKE 2 TABLETS DAILY WITH FOOD Quantity: 10 Refills: 0 Ordered: 29-Mar-2021 Na Meyer Start : 29-Mar-2021 Active Start: 04-17-2018 End: 05-08-2018 predniSONE (DELTASONE) 20 MG tablet Indications: Trapezius strain, left, subsequent encounter Take 3 tablets for 4 days, 2 tablets for 4 days, 1 tablet for 4 days and 1/2 tablet for 2 days with food.. 25 tablet 0 04/17/2018 05/08/2018 Discontinued End: 05-08-2018 take 1 tablet by mouth once daily predniSONE (DELTASONE) 10 MG tablet Take 10 mg by mouth daily. 05/08/2018 Discontinued sulfamethoxazole 800 mg / trimethoprim 160 mg oral tablet (2 sources) Dihydrofolate Reductase Inhibitor Antibacterial, Sulfonamide Antimicrobial Start: 12-31-2019 take 1 tablet by mouth twice daily at mealtime Sulfamethoxazole-Trimethoprim 800-160 MG Oral Tablet TAKE 1 TABLET TWICE DAILY WITH FOOD. Quantity: 6 Refills: 0 Na Meyer Start : 31-Dec-2019 Active SUMAtriptan 25 mg oral tablet (4 sources) Serotonin-1b and Serotonin-1d Receptor Agonist Start: 11-21-2020 End: 03-27-2021 take 1 tablet by mouth every two hours as needed, then take 8 tablets by mouth once daily as needed SUMAtriptan Succinate 25 MG Oral Tablet TAKE 1 TABLET EVERY 2 HOURS NEEDED FOR MIGRAINE. MAXIMUM 8 TABLETS DAILY. Quantity: 12 Refills: 0 Ordered: 21-Nov-2020 Na Meyer Start : 21-Nov-2020 End : 27-Mar-2021 Complete tiZANidine 4 mg oral capsule (1 source) Central alpha-2 Adrenergic Agonist End: 04-17-2018 tiZANidine (ZANAFLEX) 4 MG capsule Take by mouth 3 (three) times a day. 04/17/2018 Discontinued 1 ml triamcinolone acetonide 40 mg/ml injection (2 sources) Corticosteroid Start: 04-01-2024 End: 04-01-2024 triamcinolone acetonide (Kenalog-40) injection 40 mg Start: 04-01-2024 End: 04-01-2024 40 mg, intra-articular, Once PRN Procedure, Starting on Sat04/01/24 at 1240, For 1 dose Problems Active Problems Problem Classification Problem Date Documented Date Episodic/Chronic Anxiety disorders (20 sources) Anxiety; Translations: [Anxiety state, unspecified] Onset: 02-18-2007 Resolved: 07-29-2015 01-22-2023 Chronic Aortic; peripheral; and visceral artery aneurysms (3 sources) Ascending aorta dilatation; Translations: [Thoracic aortic ectasia] Onset: 04-12-2025 04-12-2025 Chronic Coma; stupor; and brain damage (6 sources) Daytime somnolence; Translations: [Excessive daytime sleepiness] Episodic Deficiency and other anemia (2 sources) Pancytopenia; Translations: [Other pancytopenia] 01-16-2024 Chronic Deficiency and other anemia (2 sources) Other pancytopenia; Translations: [Other pancytopenia (Multi)] Onset: 01-16-2024 Chronic Diseases of white blood cells (1 source) Neutropenia; Translations: [Neutropenia, unspecified] 10-11-2023 Chronic Disorders of lipid metabolism (20 sources) Hyperlipidemia; Translations: [Hyperlipidemia, unspecified] Onset: 12-09-2011 01-22-2023 Chronic Essential hypertension (20 sources) Essential hypertension; Translations: [Essential (primary) hypertension] Onset: 06-26-2024 06-26-2024 Chronic Fever of unknown origin (2 sources) Fever; Translations: [Fever, unspecified] 07-02-2023 Episodic Fracture of lower limb (20 sources) Closed fracture proximal phalanx, toe ; Translations: [Closed fracture of one or more phalanges of foot] Onset: 01-22-2023 Resolved: 01-22-2023 11-12-2021 Episodic Headache; including migraine (20 sources) Migraine; Translations: [Migraine, unspecified, without mention of intractable migraine without mention of status migrainosus] Onset: 06-05-2007 01-22-2023 Chronic Headache; including migraine (2 sources) Headache; including migraine; Translations: [Headache, unspecified] Onset: 12-30-2024 Malaise and fatigue (20 sources) Fatigue; Translations: [Other malaise and fatigue] Episodic Menstrual disorders (7 sources) Menorrhagia; Translations: [Excessive and frequent menstruation with regular cycle] Onset: 01-14-2025 04-10-2023 Chronic Mood disorders (20 sources) Mild major depression, single episode; Translations: [Major depressive disorder, single episode, mild] Onset: 01-22-2023 01-22-2023 Chronic Nonspecific chest pain (9 sources) Chest pain; Translations: [Chest pain, unspecified] Onset: 04-17-2018 12-30-2024 Episodic Other and unspecified benign neoplasm (10 sources) Melanocytic nevus; Translations: [Benign neoplasm of skin, site unspecified] Episodic Other circulatory disease (1 source) Elevated blood pressure; Translations: [Elevated blood-pressure reading, without diagnosis of hypertension] 06-18-2024 Episodic Other connective tissue disease (11 sources) Muscle pain; Translations: [Myalgia and myositis, unspecified] Episodic Other connective tissue disease (14 sources) Synovial cyst of left popliteal space; Translations: [Synovial cyst of popliteal space [Johansen], left knee] Onset: 02-11-2025 02-11-2025 Episodic Other connective tissue disease (2 sources) Synovial cyst of popliteal space [Johansen], left knee; Translations: [Synovial cyst of popliteal space (Johansen), left knee] Onset: 02-11-2025 Episodic Other ear and sense organ disorders (1 source) Otalgia, left ear; Translations: [Otalgia, unspecified] 09-09-2023 Episodic Other female genital disorders (1 source) Abnormal uterine bleeding; Translations: [Abnormal uterine and vaginal bleeding, unspecified] 06-05-2023 Chronic Other female genital disorders (3 sources) Pain in female genitalia on intercourse; Translations: [Unspecified dyspareunia] 01-14-2025 Chronic Other female genital disorders (1 source) Other specified abnormal uterine and vaginal bleeding; Translations: [DUB (dysfunctional uterine bleeding)] Onset: 02-11-2025 Chronic Other female genital disorders (1 source) Unspecified dyspareunia; Translations: [Dyspareunia in female] Onset: 01-14-2025 Chronic Other female genital disorders (1 source) History of dysplasia of cervix; Translations: [Personal history of cervical dysplasia] 04-11-2023 Episodic Other female genital disorders (1 source) Vaginal discharge; Translations: [Other specified noninflammatory disorders of vagina] 01-14-2025 Episodic Other female genital disorders (1 source) Other specified conditions associated with female genital organs and menstrual cycle; Translations: [Uterine cramping] Onset: 02-11-2025 Episodic Other lower respiratory disease (1 source) Cough; Translations: [Acute cough] 02-05-2023 Episodic Other lower respiratory disease (2 sources) Persistent cough; Translations: [Cough present for greater than 3 weeks] 07-02-2023 Episodic Other lower respiratory disease (3 sources) Dyspnea; Translations: [Dyspnea, unspecified] 12-30-2024 Episodic Other lower respiratory disease (2 sources) Dyspnea, unspecified; Translations: [Dyspnea, unspecified] Onset: 12-30-2024 Episodic Other nervous system disorders (15 sources) Carpal tunnel syndrome; Translations: [Carpal tunnel syndrome, unspecified upper limb] Onset: 02-18-2007 Resolved: 07-29-2015 12-04-2011 Chronic Other nervous system disorders (5 sources) Other chronic pain; Translations: [Other chronic pain] Onset: 06-26-2024 Chronic Other nervous system disorders (5 sources) Paresthesia of lower extremity; Translations: [Anesthesia of skin] 09-08-2024 Episodic Other nervous system disorders (1 source) Numbness; Translations: [Anesthesia of skin] 10-26-2024 Episodic Other non-traumatic joint disorders (1 source) Pain in wrist Episodic Other non-traumatic joint disorders (7 sources) Acute ankle pain; Translations: [Pain in right ankle and joints of right foot] 02-11-2025 Episodic Other non-traumatic joint disorders (4 sources) Pain in right ankle and joints of right foot; Translations: [Pain in right ankle and joints of right foot] Onset: 02-11-2025 Episodic Other nutritional; endocrine; and metabolic disorders (14 sources) Body mass index 30+ - obesity; Translations: [Body Mass Index 30.0-30.9, adult] Chronic Other nutritional; endocrine; and metabolic disorders (4 sources) Obesity; Translations: [Obesity, unspecified] Onset: 01-22-2023 01-22-2023 Chronic Other nutritional; endocrine; and metabolic disorders (20 sources) Obesity caused by energy imbalance; Translations: [Obesity, unspecified] Onset: 01-22-2023 03-05-2023 Chronic Other nutritional; endocrine; and metabolic disorders (2 sources) Other obesity due to excess calories; Translations: [Other obesity due to excess calories] Onset: 04-27-2025 Chronic Other nutritional; endocrine; and metabolic disorders (2 sources) Body mass index (BMI) 33.0-33.9, adult; Translations: [Body mass index (BMI) 33.0-33.9, adult] Onset: 04-27-2025 Chronic Other skin disorders (4 sources) Mass of skin of back; Translations: [Localized swelling, mass and lump, trunk] 02-23-2025 Episodic Other skin disorders (4 sources) Localized swelling, mass and lump, trunk; Translations: [Localized swelling, mass and lump, trunk] Onset: 02-23-2025 Episodic Other upper respiratory disease (2 sources) Seasonal allergy; Translations: [Other seasonal allergic rhinitis] Onset: 04-27-2025 04-27-2025 Chronic Other upper respiratory disease (2 sources) Other seasonal allergic rhinitis; Translations: [Other seasonal allergic rhinitis] Onset: 04-27-2025 Chronic Other upper respiratory infections (20 sources) Acute upper respiratory infection; Translations: [Acute upper respiratory infections of unspecified site] Resolved: 08-09-2021 02-05-2023 Episodic Residual codes; unclassified (2 sources) Hypersomnia; Translations: [Hypersomnia, unspecified] 01-15-2025 Chronic Residual codes; unclassified (4 sources) Hypersomnia, unspecified; Translations: [Hypersomnia, unspecified] Onset: 01-13-2025 Chronic Residual codes; unclassified (1 source) Family history of other diseases of the digestive system; Translations: [Family history of other diseases of the digestive system] Onset: 02-20-2023 Episodic Residual codes; unclassified (1 source) Family history of disorders of kidney and ureter; Translations: [Family history of disorders of kidney and ureter] Onset: 02-20-2023 Episodic Residual codes; unclassified (2 sources) Pain; Translations: [Pain] Onset: 03-11-2025 Episodic Spondylosis; intervertebral disc disorders; other back problems (20 sources) Lumbar spondylosis; Translations: [Lumbar spondylosis with myelopathy] Onset: 02-18-2007 Resolved: 07-02-2023 01-22-2023 Chronic Sprains and strains (20 sources) Strain of other muscles, fascia and tendons at shoulder and upper arm level, left arm, subsequent encounter; Translations: [Strain of neck muscle] Onset: 04-17-2018 Resolved: 04-27-2025 01-15-2024 Episodic Unclassified (2 sources) INJURY TO TOE 05-08-2022 Comment on above: INJURY TO TOE Unclassified (1 source) Closed displaced fracture of proximal phalanx of lesser toe of right foot, initial encounter 11-12-2021 Unclassified (1 source) Back pain, acute 02-20-2023 Unclassified (1 source) Cyst of right ovary 02-20-2023 Unclassified (2 sources) Other low back pain; Translations: [Other low back pain] Onset: 02-20-2023 Unclassified (2 sources) Chronic pain of left knee 09-08-2024 Unclassified (4 sources) Sprain of right ankle 02-11-2025 Unclassified (2 sources) Low back pain, unspecified; Translations: [Low back pain, unspecified] Onset: 06-18-2024 Unclassified (1 source) Obesity, class 1; Translations: [Obesity, class 1] Onset: 04-27-2025 Unclassified (1 source) Chronic left-sided low back pain, unspecified whether sciatica present; Translations: [Chronic left-sided low back pain, unspecified whether sciatica present] Onset: 01-14-2025 Urinary tract infections (2 sources) Urinary tract infectious disease; Translations: [UTI (urinary tract infection)] Episodic Past or Other Problems Problem Classification Problem Date Documented Da te Episodic/Chronic Abdominal pain (8 sources) Right flank pain; Translations: [Unspecified abdominal pain] Onset: 3 02-20-2023 Episodic Comment on above: RIGHT FLANK PAIN Calculus of urinary tract (20 sources) Calculus of kidney; Translations: [Kidney stone] Onset: 3 Resolved: 4 03-05-2023 Episodic Cancer of cervix (20 sources) High grade squamous intraepithelial lesion on cervical Papanicolaou smear; Translations: [High grade squamous intraepithelial lesion on cytologic smear of cervix (HGSIL)] Onset: 9 Resolved: 3 01-22-2023 Episodic Cancer; other and unspecified primary (14 sources) H/O: neoplasm; Translations: [Personal history of other specified diseases] Resolved: 2 Episodic Cardiac dysrhythmias (20 sources) Tachycardia; Translations: [Tachycardia, unspecified] Onset: 3 01-22-2023 Episodic Contraceptive and procreative management (3 sources) Intrauterine contraceptive device in situ; Translations: [Encounter for routine checking of intrauterine contraceptive device] Onset: 5 06-05-2023 Episodic Diabetes mellitus without complication (20 sources) Hyperglycemia; Translations: [Impaired fasting glucose] Onset: 3 07-02-2023 Episodic Disorders of teeth and jaw (20 sources) Temporomandibular [id number] syndrome; Translations: [Other specified temporomandibular joint disorders] Onset: 3 07-02-2023 Episodic Genitourinary symptoms and ill-defined conditions (20 sources) Dysuria; Translations: [History of urinary tract infection] Onset: 3 Resolved: 1 Episodic Headache; including migraine (20 sources) Headache; Translations: [Headache] Onset: 7 Resolved: 3 07-29-2015 Episodic Immunizations and screening for infectious disease (20 sources) Contact with or exposure to other viral diseases; Translations: [Exposure to COVID-19 virus] Onset: 5 Resolved: 2 04-11-2023 Episodic Inflammation; infection of eye (except that caused by tuberculosis or sexually transmitteddisease) (20 sources) Punctate keratitis of left eye; Translations: [Punctate keratitis, left eye] Onset: 6 Resolved: 3 01-22-2023 Chronic Lymphadenitis (2 sources) Lymphadenopathy of head AND/OR neck; Translations: [Localized enlarged lymph nodes] 01-16-2024 Episodic Nutritional deficiencies (20 sources) Cobalamin deficiency; Translations: [Other B-complex deficiencies] Onset: 3 07-02-2023 Episodic Other circulatory disease (2 sources) Elevated blood-pressure reading, without diagnosis of hypertension; Translations: [Elevated blood-pressure reading, without diagnosis of hypertension] Onset: 4 Episodic Other connective tissue disease (20 sources) Pain in toe; Translations: [Pain in limb] Resolved: 3 Episodic Other connective tissue disease (9 sources) History of clinical finding in subject; Translations: [Personal history of other musculoskeletal disorders] Resolved: 3 Episodic Other female genital disorders (20 sources) Cervical intraepithelial neoplasia grade 2; Translations: [Moderate cervical dysplasia] Onset: 6 Resolved: 3 01-22-2023 Episodic Other female genital disorders (1 source) Other specified noninflammatory disorders of vagina; Translations: [Vaginal discharge] Onset: 5 Episodic Other gastrointestinal disorders (20 sources) Heartburn; Translations: [Heartburn] Onset: 3 01-22-2023 Episodic Other gastrointestinal disorders (1 source) Heartburn; Translations: [Heartburn] Onset: 3 Episodic Other infections; including parasitic (20 sources) H/O: viral illness; Translations: [Personal history of other infectious and parasitic diseases] Resolved: 1 Episodic Other lower respiratory disease (20 sources) Apnea; Translations: [Apnea] Resolved: 3 Episodic Other lower respiratory disease (20 sources) Snoring; Translations: [Other respiratory abnormalities] Onset: 5 01-15-2025 Episodic Other lower respiratory disease (20 sources) H/O: respiratory disease; Translations: [Personal history of other diseases of respiratory system] Resolved: 3 Episodic Other lower respiratory disease (2 sources) Snoring; Translations: [Snoring] Onset: 5 Episodic Other nervous system disorders (20 sources) Spinal cord disease; Translations: [Unspecified disease of spinal cord] Onset: 3 Resolved: 3 01-22-2023 Chronic Other nervous system disorders (20 sources) Paresthesia; Translations: [Disturbance of skin sensation] Onset: 3 Resolved: 3 01-22-2023 Episodic Other nervous system disorders (14 sources) History of otitis media; Translations: [Personal history of other disorders of nervous system and sense organs] Resolved: 2 Episodic Other nervous system disorders (4 sources) Anesthesia of skin; Translations: [Anesthesia of skin] Onset: 5 Episodic Other nervous system disorders (4 sources) Paresthesia of skin; Translations: [Paresthesia of skin] Onset: 5 Episodic Other non-traumatic joint disorders (20 sources) Joint pain; Translations: [Pain in joint, site unspecified] Onset: 3 Resolved: 3 07-02-2023 Episodic Other non-traumatic joint disorders (20 sources) Pain in left knee; Translations: [Pain in joint, lower leg] Onset: 4 Resolved: 5 01-28-2024 Episodic Other nutritional; endocrine; and metabolic disorders (20 sources) Lactose intolerance, unspecified; Translations: [Intolerance to lactose] Onset: 3 Resolved: 3 01-22-2023 Chronic Other screening for suspected conditions (not mental disorders or infectious disease) (20 sources) Abnormal cytology findings; Translations: [Magnetic resonance imaging of cervical spine abnormal] Onset: 5 Resolved: 2 04-11-2023 Episodic Other skin disorders (20 sources) Loss of hair; Translations: [Alopecia, unspecified] Resolved: 3 Episodic Otitis media and related conditions (20 sources) Acute otitis media; Translations: [Unspecified otitis media] Onset: 4 Resolved: 2 06-26-2024 Episodic Ovarian cyst (20 sources) Cyst of ovary; Translations: [Other and unspecified ovarian cyst] Onset: 3 02-20-2023 Episodic Residual codes; unclassified (20 sources) Daytime somnolence; Translations: [Hypersomnia, unspecified] Resolved: 3 Chronic Residual codes; unclassified (20 sources) H/O: urinary anomaly; Translations: [Personal history of unspecified urinary disorder] Resolved: 1 Episodic Screening and history of mental health and substance abuse codes (20 sources) H/O: anxiety state; Translations: [Personal history of other mental disorders] Onset: 3 Resolved: 3 01-22-2023 Episodic Sexually transmitted infections (not HIV or hepatitis) (20 sources) Human papillomavirus deoxyribonucleic acid test positive, high risk on cervical specimen; Translations: [Cervical high risk human papillomavirus (HPV) DNA test positive] Onset: 9 Resolved: 3 01-22-2023 Episodic Spondylosis; intervertebral disc disorders; other back problems (20 sources) Acute back pain with sciatica; Translations: [Lumbago] Onset: 3 Resolved: 5 02-20-2023 Episodic Unclassified (1 source) Trapezius strain, left, subsequent encounter Unclassified (20 sources) Onset: 3 Resolved: 5 02-05-2023 Unclassified (3 sources) Patient encounter status 01-14-2025 Unclassified (2 sources) Low back pain, unspecified; Translations: [Low back pain, unspecified] Onset: 4 Unclassified (1 source) Obesity, class 1; Translations: [Obesity, class 1] Onset: 5 Viral infection (20 sources) Disease caused by 2019-nCoV; Translations: [Other specified viral infection] Resolved: 2 Episodic NEGATED: Highlighted row has not occurred!Residual codes; unclassified (19 sources) Disease Episodic Results Test Name Value Interpretation Reference Range Facility MR/PATJessica 05-12-2025 MR/PAT.[facility] Medical Records Department [address] [place] [address] PAT - Anesthesia 05/12/25 1008 MR#: [id number] Acct: [id number] Name: WILLIAM SOMMER Rep #: [id number] : [id number] 39 From: Fabrice Bonilla MD PCP: PRICILLA Echeverria [place] [facility] [place] Race: C [place] [facility] [place] Pre-Assessment Diagnosis/Proposed Procedure Planned Operative Procedure(s): (B) Hysterectomy, TLH, Salpingectomy, Cystoscopy Anesthesia History Anesthesia History - photo mask inspector: Anesthesia History - photo mask inspector Hx Hospitalization No 05/07/25 11:04 Any Problems With Anesthesia No 05/07/25 11:04 Cholinesterase deficiency No 05/07/25 11:04 You/Your Family Experience No 05/07/25 11:04 fever (hyperthermia) with Relationship Recent Exposure to Contagious Disease Does patient have nerve No 05/07/25 11:04 stimulator Patient instructed to have device shut off --Does patient have Pacemaker or ICD? When Was Last Pacemaker Check QUESTION #4 FULL TEXT: You/Your Family Experience fever (hyperthermia) with Anesthesia Last Oral Intake Last Oral intake: Last Oral Intake NPO since Meds taken in AM with sips of water? Meds patient instructed to take am of surgery PONV PONV - photo mask inspector: PONV - photo mask inspector Female Yes 05/07/25 11:04 HX of Motion Sickness Yes 05/07/25 11:04 HX of N/V After Surgery No 05/07/25 11:04 Non-Smoker Yes 05/07/25 11:04 Duration of Surgery greater Yes 05/07/25 11:04 than 60 minutes Number of Risk Factors 4 05/07/25 11:04 PONV Score Severe Risk 05/07/25 11:04 Respiratory Assessment Respiratory Assessment - photo mask inspector: Respiratory Tract Infection Hx - photo mask inspector Hx Respiratory Tract Infection No 05/07/25 11:04 STOP Sleep Apnea STOP Sleep Apnea - photo mask inspector: STOP Sleep Apnea - photo mask inspector Hx Hypertension Yes: CONTROLLED WITH MED 05/07/25 11:04 Hx Sleep Apnea Yes 05/07/25 11:04 CPAP Yes 05/07/25 11:04 BIPAP No 05/07/25 11:04 Do you snore loudly (louder No 05/07/25 11:04 than talking or can be heard Do you often feel tired/ No 05/07/25 11:04 fatigued/ sleepy during daytime? Has anyone observed you stop No 05/07/25 11:04 breathing during sleep? STOP Results Positive 05/07/25 11:04 QUESTION #5 FULL TEXT : Do you snore loudly (louder than talking or can be heard through closed doors)? 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 [facility] MCH (RBC) [Entitic mass] 30 pg 26.0 - 34.0 pg [facility] MCHC (RBC) [Mass/Vol] 35.2 g/dL 32.0 - 36.0 g/dL [facility] MCV (RBC) [Entitic vol] 85 fL 80 - 100 fL [facility] Monocytes (Bld) [#/Vol] 0.43 10*3/uL [facility] Monocytes/100 WBC (Bld) 6.5 % 2.0 - 10.0 % [facility] Neutrophils (Bld) [#/Vol] 3.29 10*3/uL [facility] Comment on above: Percent differential counts (%) should be interpreted in the context of the absolute cell counts (cells/uL). Neutrophils/100 WBC (Bld) 50 % 40.0 - 80.0 % [facility] Nucleated RBC/100 WBC (Bld) [Ratio] 0 % [facility] Platelets (Bld) [#/Vol] 297 10*3/uL [facility] RBC (Bld) [#/Vol] 4.86 10*6/uL [facility] WBC (Bld) [#/Vol] 6.6 10*3/uL [facility] Basophils (Bld) [#/Vol] 0.02 x10*3/uL Normal 0.00-0.10 [facility] Comment on above: Performed By: #### 5 7021-8 #### PENNY ARREDONDO ([id number]) [facility] ([facility]) [address] [place] [address] 16631 Basophils/100 WBC (Bld) 0.3 % Normal 0.0-2.0 [facility] Comment on above: Performed By: #### 5 7021-8 #### PENNY ARREDONDO ([id number]) [facility] ([facility]) [address] [place] [address] 81004 Eosinophils (Bld) [#/Vol] 0.05 x10*3/uL Normal 0.00-0.70 [facility] Comment on above: Performed By: #### 5 7021-8 #### PENNY ARREDONDO ([id number]) [facility] ([facility]) [address] [place] [address] 85901 Eosinophils/100 WBC (Bld) 0.8 % Normal 0.0-6.0 [facility] Comment on above: Performed By: #### 5 7021-8 #### PENNY ARREDONDO ([id number]) [facility] ([facility]) [address] [place] [address] 45090 Erythrocyte distribution width (RBC) [Ratio] 12.1 % Normal 11.5-14.5 [facility] Comment on above: Performed By: #### 5 7021-8 #### PENNY ARREDONDO ([id number]) [facility] ([facility]) [address] [place] [address] 08057 Hematocrit (Bld) [Volume fraction] 41.5 % Normal 36.0-46.0 [facility] Comment on above: Performed By: #### 5 7021-8 #### PENNY ARREDONDO ([id number]) [facility] ([facility]) [address] [place] [address] 36348 Hemoglobin (Bld) [Mass/Vol] 14.6 g/dL Normal 12.0-16.0 [facility] Comment on above: Performed By: #### 5 7021-8 #### PENNY ARREDONDO ([id number]) [facility] ([facility]) [address] [place] [address] 83738 Immature granulocytes (Bld) [#/Vol] 0.02 x10*3/uL Normal 0.00-0.70 [facility] Comment on above: Performed By: #### 5 7021-8 #### PENNY ARREDONDO ([id number]) [facility] ([facility]) [address] [place] [address] 86620 Immature granulocytes/100 WBC (Bld) 0.3 % Normal 0.0-0.9 [facility] Comment on above: Result Comment: Amalia ture Granulocyte Count (IG) includes promyelocytes, myelocytes and metamyelocytes but does not include bands. Percent differential counts (%) should be interpreted in the context of the absolute cell counts (cells/UL). Performed By: #### 5 7021-8 #### PENNY ARREDONDO ([id number]) [facility] ([facility]) [address] [place] [address] 37683 Lymphocytes (Bld) [#/Vol] 2.77 x10*3/uL Normal 1.20-4.80 [facility] Comment on above: Performed By: #### 5 7021-8 #### PENNY ARREDONDO ([id number]) [facility] ([facility]) [address] [place] [address] 41391 Lymphocytes/100 WBC (Bld) 42.1 % Normal 13.0-44.0 [facility] Comment on above: Performed By: #### 5 7021-8 #### PENNY ARREDONDO ([id number]) [facility] ([facility]) [address] [place] [address] 34517 MCH (RBC) [Entitic mass] 30.0 pg Normal 26.0-34.0 [facility] Comment on above: Performed By: #### 5 7021-8 #### PENNY ARREDONDO ([id number]) [facility] ([facility]) [address] [place] [address] 03194 MCHC (RBC) [Mass/Vol] 35.2 g/dL Normal 32.0-36.0 [facility] Comment on above: Performed By: #### 5 7021-8 #### PENNY ARREDONDO ([id number]) [facility] ([facility]) [address] [place] [address] 36328 MCV (RBC) [Entitic vol] 85 fL Normal 80-100 [facility] Comment on above: Performed By: #### 5 7021-8 #### PENNY ARREDONDO ([id number]) [facility] ([facility]) [address] [place] [address] 18617 Monocytes (Bld) [#/Vol] 0.43 x10*3/uL Normal 0.10-1.00 [facility] Comment on above: Performed By: #### 5 7021-8 #### PENNY ARREDONDO ([id number]) [facility] ([facility]) [address] [place] [address] 80180 Monocytes/100 WBC (Bld) 6.5 % Normal 2.0-10.0 [facility] Comment on above: Performed By: #### 5 7021-8 #### PENNY ARREDONDO ([id number]) [facility] ([facility]) [address] [place] [address] 20300 Neutrophils (Bld) [#/Vol] 3.29 x10*3/uL Normal 1.20-7.70 [facility] Comment on above: Result Comment: Perc ent differential counts (%) should be interpreted in the context of the absolute cell counts (cells/uL). Performed By: #### 5 7021-8 #### PENNY ARREDONDO ([id number]) [facility] ([facility]) [address] [place] [address] 76474 Neutrophils/100 WBC (Bld) 50.0 % Normal 40.0-80.0 [facility] Comment on above: Performed By: #### 5 7021-8 #### PENNY ARREDONDO ([id number]) [facility] ([facility]) [address] [place] [address] 35427 Nucleated RBC/100 WBC (Bld) [Ratio] 0.0 /100 WBCs Normal 0.0-0.0 [facility] Comment on above: Performed By: #### 5 7021-8 #### PENNY ARREDONDO ([id number]) [facility] ([facility]) [address] [place] [address] 62462 Platelets (Bld) [#/Vol] 297 x10*3/uL Normal 150-450 [facility] Comment on above: Performed By: #### 5 7021-8 #### PENNY ARREDONDO ([id number]) [facility] ([facility]) [address] [place] [address] 95914 RBC (Bld) [#/Vol] 4.86 x10*6/uL Normal 4.00-5.20 [facility] Comment on above: Performed By: #### 5 7021-8 #### PENNY ARREDONDO ([id number]) [facility] ([facility]) [address] [place] [address] 37938 WBC (Bld) [#/Vol] 6.6 x10*3/uL Normal 4.4-11.3 [facility] Comment on above: Performed By: #### 5 7021-8 #### PENNY ARREDONDO ([id number]) [facility] ([facility]) [address] [place] [address] HEAD WO IV CONTRASTon CT HEAD WO IV CONTRAST Interpreted By: Kemar Rosales, STUDY: CT HEAD WO IV CONTRAST; 12/30/2024 3:02 pm INDICATION: Signs/Symptoms:head pressure. hypertension. COMPARISON: None. ACCESSION NUMBER(S): [id number] ORDERING CLINICIAN: ESTUARDO DENISE TECHNIQUE: Noncontrast axial CT scan of head was performed. Angled reformats in brain and bone windows were generated. The images were reviewed in bone, brain, blood and soft tissue windows. FINDINGS: CSF Spaces: The ventricles, sulci and basal cisterns are within normal limits. There is no extraaxial fluid collection. Parenchyma: The finney-white differentiation is intact. There is no mass effect or midline shift. There is no intracranial hemorrhage. Calvarium: The calvarium is unremarkable. Paranasal sinuses and mastoids: Visualized paranasal sinuses and mastoids are clear. IMPRESSION: No evidence of acute cortical infarct or intracranial hemorrhage. No evidence of intracranial hemorrhage or displaced skull fracture. MACRO: None Signed by: Kemar Rosales 12/30/2024 3:14 PM Dictation workstation: [id number] [facility] CT Head WO contraston 2024 No evidence of acute cortical infarct or intracranial hemorrhage. No evidence of intracranial hemorrhage or displaced skull fracture. MACRO: None Signed by: Kemar Rosales 12/30/2024 3:14 PM Dictation workstation: [id number] [facility]ODAL Interpreted By: Kemar Morrison, STUDY: CT HEAD WO IV CONTRAST; 12/30/2024 3:02 pm INDICATION: Signs/Symptoms:head pressure. hypertension. COMPARISON: None. ACCESSION NUMBER(S): [id number] ORDERING CLINICIAN: ESTUARDO DENISE TECHNIQUE: Noncontrast axial CT scan of head was performed. Angled reformats in brain and bone windows were generated. The images were reviewed in bone, brain, blood and soft tissue windows. FINDINGS: CSF Spaces: The ventricles, sulci and basal cisterns are within normal limits. There is no extraaxial fluid collection. Parenchyma: The finney-white differentiation is intact. There is no mass effect or midline shift. There is no intracranial hemorrhage. Calvarium: The calvarium is unremarkable. Paranasal sinuses and mastoids: Visualized paranasal sinuses and mastoids are clear. [facility] Kemar Rosales MD - 12/30/2024 Interpreted By: Kemar Rosales, STUDY: CT HEAD WO IV CONTRAST; 12/30/2024 3:02 pm INDICATION: Signs/Symptoms:head pressure. hypertension. COMPARISON: None. ACCESSION NUMBER(S): [id number] ORDERING CLINICIAN: ESTUARDO LEMASTERS TECHNIQUE: Noncontrast axial CT scan of head was performed. Angled reformats in brain and bone windows were generated. The images were reviewed in bone, brain, blood and soft tissue windows. FINDINGS: CSF Spaces: The ventricles, sulci and basal cisterns are within normal limits. There is no extraaxial fluid collection. Parenchyma: The finney-white differentiation is intact. There is no mass effect or midline shift. There is no intracranial hemorrhage. Calvarium: The calvarium is unremarkable. Paranasal sinuses and mastoids: Visualized paranasal sinuses and mastoids are clear. IMPRESSION: No evidence of acute cortical infarct or intracranial hemorrhage. No evidence of intracranial hemorrhage or displaced skull fracture. MACRO: None Signed by: Kemar Rosales 12/30/2024 3:14 PM Dictation workstation: [id number] [facility] Work Phone: Radiology Study observation (narrative) [facility] Work Phone: CT Head WO contrastOrdered B y: Kemar Rosales on 12-30-2024 [facility] Work Phone: Comprehensive metabolic 2000 panelon 12-30-2024 Albumin BCP dye [Mass/Vol] 4.7 g/dL 3.4 - 5.0 g/dL [facility] ALP [Catalytic activity/Vol] 58 U/L 33 - 110 U/L [facility] ALT With P-5'-P [Catalytic activity/Vol] 22 U/L 7 - 45 U/L [facility] Comment on above: Patients treated wit h Sulfasalazine may generate falsely decreased results for ALT. Anion gap [Moles/Vol] 12 mmol/L 10 - 20 mmol/L [facility] AST With P-5'-P [Catalytic activity/Vol] 21 U/L 9 - 39 U/L [facility] Bilirubin [Mass/Vol] 0.6 mg/dL 0.0 - 1.2 mg/dL [facility] Calcium [Mass/Vol] 9.6 mg/dL 8.6 - 10. 3 mg/dL [facility] Chloride [Moles/Vol] 104 mmol/L 98 - 107 mmol/L [facility] CO2 [Moles/Vol] 25 mmol/L 21 - 32 mmol/L [facility] Creatinine [Mass/Vol] 0.81 mg/dL 0.50 - 1.05 mg/dL [facility] eGFR - PINF [facility] Comment on above: Calculations of cherelle mated GFR are performed using the 2020 CKD-EPI Study Refit equation without the race variable for the IDMS-Traceable creatinine methods. https://jasn.asnjournals.org/content//ASN.610296853 8 Glucose [Mass/Vol] 97 mg/dL 74 - 99 mg/dL [facility] Potassium [Moles/Vol] 3.9 mmol/L 3.5 - 5.3 mmol/L [facility] Protein [Mass/Vol] 7.5 g/dL 6.4 - 8.2 g/dL [facility] Sodium [Moles/Vol] 137 mmol/L 136 - 145 mmol/L [facility] Urea nitrogen [Mass/Vol] 14 mg/dL 6 - 23 mg/dL [facility] Albumin BCP dye [Mass/Vol] 4.7 g/dL Normal 3.4-5.0 [facility] Comment on above: Performed By: #### 2 4323-8 #### PENNY ARREDONDO ([id number]) [facility] ([facility]) [address] [place] [address] ALP [Catalytic activity/Vol] 58 U/L Normal 33-110 [facility] Comment on above: Performed By: #### 2 4323-8 #### PENNY ARREDONDO ([id number]) [facility] ([facility]) [address] [place], [place] [address] ALT With P-5'-P [Catalytic activity/Vol] 22 U/L Normal 7-45 [facility] Comment on above: Result Comment: Melissa ents treated with Sulfasalazine may generate falsely decreased results for ALT. Performed By: #### 2 4323-8 #### PENNY ARREDONDO ([id number]) [facility] ([facility]) [address] [place] [address] 00239 Anion gap [Moles/Vol] 12 mmol/L Normal 10-20 [facility] Comment on above: Performed By: #### 2 4323-8 #### PENNY ARREDONDO ([id number]) [facility] ([facility]) [facility] [place] [address] AST With P-5'-P [Catalytic activity/Vol] 21 U/L Normal 9-39 [facility] Comment on above: Performed By: #### 2 4323-8 #### PENNY ARREDONDO ([id number]) [facility] ([facility]) [address] [place] [address] 96218 Bilirubin [Mass/Vol] 0.6 mg/dL Normal 0.0-1.2 [facility] Comment on above: Performed By: #### 2 4322-8 #### PENNY ARREDONDO ([id number]) [facility] ([facility]) [address] [place] [address] 24432 Calcium [Mass/Vol] 9.6 mg/dL Normal 8.6-10.3 [facility] Comment on above: Performed By: #### 2 4322-8 #### PENNY ARREDONDO ([id number]) [facility] ([facility]) [address] [place] [address] 57043 Chloride [Moles/Vol] 104 mmol/L Normal 98-107 [facility] Comment on above: Performed By: #### 2 432-8 #### PENNY ARREDONDO ([id number]) [facility] ([facility]) [address] [place] [address] 83820 CO2 [Moles/Vol] 25 mmol/L Normal 21-32 [facility] Comment on above: Performed By: #### 2 4323-8 #### PENNY ARREDONDO ([id number]) [facility] ([facility]) [address] [place] [address] 36659 Creatinine [Mass/Vol] 0.81 mg/dL Normal 0.50-1.05 [facility] Comment on above: Performed By: #### 2 4323-8 #### PENNY ARREDONDO ([id number]) [facility] ([facility]) [address] [place] [address] 70344 GFR/1.73 sq M.predicted MDRD (S/P/Bld) [Vol rate/Area] mL/min/{1.73_m2} Normal >60 [facility] Comment on above: Result Comment: Calc ulations of estimated GFR are performed using the 2020 CKD-EPI Study Refit equation without the race variable for the IDMS-Traceable creatinine methods. https://jasn.asnjournals.org/content//ASN.822627112 8 Performed By: #### 2 4323-8 #### PENNY ARREDONDO ([id number]) [facility] ([facility]) [address] [place] [address] 45441 Glucose [Mass/Vol] 97 mg/dL Normal 74-99 [facility] Comment on above: Performed By: #### 2 432-8 #### PENNY ARREDONDO ([id number]) [facility] ([facility]) [address] [place] [address] 47479 Potassium [Moles/Vol] 3.9 mmol/L Normal 3.5-5.3 [facility] Comment on above: Performed By: #### 2 4323-8 #### PENNY ARREDONDO ([id number]) [facility] ([facility]) [address] [place] [address] 41865 Protein [Mass/Vol] 7.5 g/dL Normal 6.4-8.2 [facility] Comment on above: Performed By: #### 2 4323-8 #### PENNY ARREDONDO ([id number]) [facility] ([facility]) [address] [place] [address] 69971 Sodium [Moles/Vol] 137 mmol/L Normal 136-145 [facility] Comment on above: Performed By: #### 2 4323-8 #### PENNY ARREDONDO ([id number]) [facility] ([facility]) [address] [place] [address] 18020 Urea nitrogen [Mass/Vol] 14 mg/dL Normal 6-23 [facility] Comment on above: Performed By: #### 2 4323-8 #### PENNY ARREDONDO ([id number]) [facility] ([facility]) [address] [place] [address] D-Dimer, VTE Exclusionon Fibrin D-dimer FEU (PPP) [Mass/Vol] 373 NINF [facility] ECG 12-LEADon 12-30-2024 ECG 12-LEAD Ventricular Rate 114 Atrial Rate 114 P-R Interval 160 QRS Duration 76 Q-T Interval 340 QTC Calculation(Bazett) 468 P [place] 60 R [place] 13 T [place] -10 QRS Count 19 Q Onset 226 P Onset 146 P Offset 217 T Offset 396 QTC Fredericia 421 Diagnosis Sinus tachycardia Inferior infarct , age undetermined Abnormal ECG When compared with ECG of 30-DEC-2024 10:49, (unconfirmed) Vent. rate has increased BY 44 BPM Non-specific change in ST segment in Inferior leads T wave inversion now evident in Inferior leads T wave inversion now evident in Anterior leads See ED provider note for full interpretation and clinical correlation Confirmed by Sathish Joaquin ([id number]) on 01/01/2025 10:06:54 AM Normal [facility] Fibrin D-dimer FEUon 025 Fibrin D-dimer FEU (PPP) [Mass/Vol] 373 ng/mL FEU Normal <=500 [facility] Comment on above: Order Comment: The V TE Exclusion D-Dimer assay is reported in ng/mL Fibrinogen Equivalent Units (FEU). Per medical receptionist assistant's instructions for use, a value of less than 500 ng/mL (FEU) may help to exclude DVT or PE in outpatients when the assay is used with a clinical pretest probability assessment.(AEMR must utilize and document eCalc 'Wells Score Deep Vein Thrombosis Risk' for DVT exclusion only. Emergency Department should utilize Guidelines for Emergency Department Use of the VTE Exclusion D-Dimer and Clinical Pretest probability assessment model for DVT or PE exclusion.) Performed By: #### 4 8065-7 #### PENNY ARREDONDO ([id number]) [facility] ([facility]) [address] [place] [address] Fibrin D-dimer FEU (PPP) [Ma ss/Vol]on 12-30-2024 Interpretation and review of laboratory results Normal [facility] The VTE Exclusion D- Dimer assay is reported in ng/mL Fibrinogen Equivalent Units (FEU). Per medical receptionist assistant's instructions for use, a value of less than 500 ng/mL (FEU) may help to exclude DVT or PE in outpatients when the assay is used with a clinical pretest probability assessment.(AEMR must utilize and document eCalc 'Wells Score Deep Vein Thrombosis Risk' for DVT exclusion only. Emergency Department should utilize Guidelines for Emergency Department Use of the VTE Exclusion D-Dimer and Clinical Pretest probability assessment model for DVT or PE exclusion.) [facility] Magnesiumon 12-30-2024 Magnesium [Mass/Vol] 2.14 mg/dL 1.60 - 2.40 mg/dL [facility] Magnesium [Mass/Vol] 2.14 mg/dL Normal 1.60-2.40 [facility] Comment on above: Performed By: #### 1 9123-9 #### FRANCIS ARNULFO ([id number]) [facility] ([facility]) [address] [place] [address] No Panel Informationon 12-30 Interpretation and review of laboratory results Normal [facility] Tropinin I.cardiac panel Hig h sensitivity methodon 12-30-2024 Interpretation and review of laboratory results Normal [facility] Less than 99th perce ntile of normal range cutoff- Female and children under 18 years old <14 ng/L; Male <21 ng/L: Negative Repeat testing should be performed if clinically indicated. Female and children under 18 years old 14-50 ng/L; Male 21-50 ng/L: Consistent with possible cardiac damage and possible increased clinical risk. Serial measurements may help to assess extent of myocardial damage. >50 ng/L: Consistent with cardiac damage, increased clinical risk and myocardial infarction. Serial measurements may help assess extent of myocardial damage. NOTE: Children less than 1 year old may have higher baseline troponin levels and results should be interpreted in conjunction with the overall clinical context. NOTE: Troponin I testing is performed using a different testing methodology at [facility] than at other legacy [facility]. Direct result comparisons should only be made within the same method. [facility] Interpretation and review of laboratory results Normal [facility] Less than 99th perce ntile of normal range cutoff- Female and children under 18 years old <14 ng/L; Male <21 ng/L: Negative Repeat testing should be performed if clinically indicated. Female and children under 18 years old 14-50 ng/L; Male 21-50 ng/L: Consistent with possible cardiac damage and possible increased clinical risk. Serial measurements may help to assess extent of myocardial damage. >50 ng/L: Consistent with cardiac damage, increased clinical risk and myocardial infarction. Serial measurements may help assess extent of myocardial damage. NOTE: Children less than 1 year old may have higher baseline troponin levels and results should be interpreted in conjunction with the overall clinical context. NOTE: Troponin I testing is performed using a different testing methodology at [facility] than at other [facility]. Direct result comparisons should only be made within the same method. [facility] Troponin I, High Sensitivity , Initialon 12-30-2024 Tropinin I.cardiac panel High sensitivity method ng/L 0 - 13 ng/L [facility] Troponin I.cardiac panelon 0 12-30-2024 Tropinin I.cardiac panel High sensitivity method <3 Normal 0-13 [facility] Comment on above: Order Comment: Less than 99th percentile of normal range cutoff- Female and children under 18 years old <14 ng/L; Male <21 ng/L: Negative Repeat testing should be performed if clinically indicated. Female and children under 18 years old 14-50 ng/L; Male 21-50 ng/L: Consistent with possible cardiac damage and possible increased clinical risk. Serial measurements may help to assess extent of myocardial damage. >50 ng/L: Consistent with cardiac damage, increased clinical risk and myocardial infarction. Serial measurements may help assess extent of myocardial damage. NOTE: Children less than 1 year old may have higher baseline troponin levels and results should be interpreted in conjunction with the overall clinical context. NOTE: Troponin I testing is performed using a different testing methodology at [facility] than at other [facility]. Direct result comparisons should only be made within the same method. Performed By: #### 8 9577-1 #### FRANCIS ARNULFO ([id number]) [facility] ([facility]) [address] [place] [address] Tropinin I.cardiac panel High sensitivity method <3 Normal 0-13 [facility] Comment on above: Order Comment: Less than 99th percentile of normal range cutoff- Female and children under 18 years old <14 ng/L; Male <21 ng/L: Negative Repeat testing should be performed if clinically indicated. Female and children under 18 years old 14-50 ng/L; Male 21-50 ng/L: Consistent with possible cardiac damage and possible increased clinical risk. Serial measurements may help to assess extent of myocardial damage. >50 ng/L: Consistent with cardiac damage, increased clinical risk and myocardial infarction. Serial measurements may help assess extent of myocardial damage. NOTE: Children less than 1 year old may have higher baseline troponin levels and results should be interpreted in conjunction with the overall clinical context. NOTE: Troponin I testing is performed using a different testing methodology at [facility] than at other [facility]. Direct result comparisons should only be made within the same method. Performed By: #### 8 9577-1 #### FRANCIS ARNULFO ([id number]) [facility] ([facility]) [facility] [place] [address] Troponin, High Sensitivity, 1 Houron 12-30-2024 Tropinin I.cardiac panel High sensitivity method ng/L 0 - 13 ng/L [facility] XR CHEST 1 VIEWon 12-30-2024 XR CHEST 1 VIEW STUDY: Chest Radiograph; 12/30/2024 12:55 PM INDICATION: Chest pain. COMPARISON: CXR 07/02/2023. ACCESSION NUMBER(S): [id number] ORDERING CLINICIAN: ESTUARDO DENISE TECHNIQUE: Frontal chest was obtained at 12:54 hours. FINDINGS: CARDIOMEDIASTINAL SILHOUETTE: Cardiomediastinal silhouette is normal in size and configuration. LUNGS: Lungs are clear. ABDOMEN: No remarkable upper abdominal findings. BONES: No acute osseous changes. IMPRESSION: No acute disease. Signed by Tomas Sin MD [facility] XR Chest Single viewon 12-30 No acute disease. Signed by Tomas Sin MD TELERADIOLOGY STUDY: Chest Radiograph; 12/30/2024 12:55 PM INDICATION: Chest pain. COMPARISON: CXR 07/02/2023. ACCESSION NUMBER(S): [id number] ORDERING CLINICIAN: ESTUARDO DENISE TECHNIQUE: Frontal chest was obtained at 12:54 hours. FINDINGS: CARDIOMEDIASTINAL SILHOUETTE: Cardiomediastinal silhouette is normal in size and configuration. LUNGS: Lungs are clear. ABDOMEN: No remarkable upper abdominal findings. BONES: No acute osseous changes. TELERADIOLOGY Tomas Sin MD - 12/30/2024 STUDY: Chest Radiograph; 12/30/2024 12:55 PM INDICATION: Chest pain. COMPARISON: CXR 07/02/2023. ACCESSION NUMBER(S): [id number] ORDERING CLINICIAN: ESTUARDO DENISE TECHNIQUE: Frontal chest was obtained at 12:54 hours. FINDINGS: CARDIOMEDIASTINAL SILHOUETTE: Cardiomediastinal silhouette is normal in size and configuration. LUNGS: Lungs are clear. ABDOMEN: No remarkable upper abdominal findings. BONES: No acute osseous changes. IMPRESSION: No acute disease. Signed by Tomas Sin MD [facility] Work Phone: Radiology Study observation (narrative) [facility] Work Phone: XR Chest Single viewOrdered By: Tomas Sin on 12-30-2024 [facility] Work Phone: EMGon 10-26-2024 Jocelin Hopkins MD 10/26/2024 12:11 PM EMG Date/Time: 10/26/2024 12:10 PM Performed by: Jocelin Hopkins MD Authorized by: Jocelin Hopkins MD Verbal consent: obtained Consent given by: patient Time out: Immediately prior to procedure a time out was called to verify the correct patient, procedure, equipment, medical support specialist and site/side marked as required. Patient tolerance: Patient tolerated the procedure well with no immediate complications NATUS EMG [facility] COMPREHENSIVE METABOLIC PANE L W/ANION GAPon 09-09-2024 Albumin [Mass/Vol] 4.6 g/dL Normal 3.6-5.1 [facility] Comment on above: Performed By: #### 1 6802, 7600, 18246 #### [facility] [address] [address] Quality Management Nurse: Ata Glasgow MD ALP [Catalytic activity/Vol] 51 U/L Normal 31-125 [facility] Comment on above: Performed By: #### 1 6802, 7600, 92545 #### [facility] of [address], [address] [place] [address] Quality Management Nurse: Ata Glasgow MD ALT [Catalytic activity/Vol] 23 U/L Normal 6-29 [facility] Comment on above: Performed By: #### 1 6802, 7600, 79410 #### [facility] of [address], [address] [place] [address] Quality Management Nurse: Ata Glasgow MD AST [Catalytic activity/Vol] 20 U/L Normal 10-30 [facility] Comment on above: Performed By: #### 1 6802, 7600, 87880 #### [facility] of [address], [address] [place] [address] Quality Management Nurse: Ata Glasgow MD Bilirubin [Mass/Vol] 0.4 mg/dL Normal 0.2-1.2 [facility] Comment on above: Performed By: #### 1 680, 0, 79066 #### [facility] of [address], [address] [place] [address] Quality Management Nurse: Ata Glasgow MD Calcium [Mass/Vol] 9.5 mg/dL Normal 8.6-10.2 [facility] Comment on above: Performed By: #### 1 6802, 7600, 75113 #### [facility] of [place] [address] Quality Management Nurse: Ata Glasgow MD Chloride [Moles/Vol] 102 mmol/L Normal 98-110 [facility] Comment on above: Performed By: #### 1 6802, 7600, 47043 #### [facility] of [place] [address] Quality Management Nurse: Ata Glasgow MD CO2 [Moles/Vol] 27 mmol/L Normal 20-32 [facility] Comment on above: Performed By: #### 1 6802, 7600, 29232 #### [facility] of [place] [address] Quality Management Nurse: Ata Glasgow MD Creatinine [Mass/Vol] 0.78 mg/dL Normal 0.50-0.99 [facility] Comment on above: Performed By: #### 1 6801, 0, 07691 #### [facility] [place] [address] Quality Management Nurse: Ata Glasgow MD ELECTROLYTE BALANCE 8 mmol/L (calc) Normal 7-17 [facility] Comment on above: Performed By: #### 1 6801, 760, 26025 #### [facility] [place] [address] Quality Management Nurse: Ata Glasgow MD GFR/1.73 sq M.predicted among non-blacks MDRD (S/P/Bld) [Vol rate/Area] 98 mL/min/{1.73_m2} Normal > OR = 60 [facility] Comment on above: Performed By: #### 1 6801, 7599, 38298 #### [facility] [place] [address] Quality Management Nurse: Ata Glasgow MD Glucose [Mass/Vol] 107 mg/dL High 65-99 [facility] Comment on above: Result Comment: Fasting reference interval For someone without known diabetes, a glucose value between 100 and 125 mg/dL is consistent with prediabetes and should be confirmed with a follow-up test. Performed By: #### 1 6801, 7599, 49817 #### [facility] [place] [address] Quality Management Nurse: Ata Glasgow MD Potassium [Moles/Vol] 4.1 mmol/L Normal 3.5-5.3 [facility] Comment on above: Performed By: #### 1 6801, 0, 43612 #### [facility] [place] [address] Quality Management Nurse: Ata Glasgow MD Protein [Mass/Vol] 6.9 g/dL Normal 6.1-8.1 [facility] Comment on above: Performed By: #### 1 680, 7600, 15859 #### [facility] of [address], [address] [place] [address] Quality Management Nurse: Ata Glasgow MD Sodium [Moles/Vol] 137 mmol/L Normal 135-146 [facility] Comment on above: Performed By: #### 1 6802, 7600, 67049 #### [facility] of [address], [address] [place] [address] Quality Management Nurse: Ata Glasgow MD Urea nitrogen [Mass/Vol] 14 mg/dL Normal 7-25 [facility] Comment on above: Performed By: #### 1 6802, 7600, 79947 #### [facility] of [address], [address] [place] [address] Quality Management Nurse: Ata Glasgow MD HEMOGLOBIN A1c WITH eAGon eAG (mmol/L) 5.7 mmol/L Normal [facility] Comment on above: Performed By: #### 1 6802, 7600, 72735 #### [facility] of [address], [address] [place] [address] Quality Management Nurse: Ata Glasgow MD HEMOGLOBIN A1c 5.2 % of total Hgb Normal <5.7 [facility] Comment on above: Result Comment: For the purpose of screening for the presence of diabetes: <5.7% Consistent with the absence of diabetes 5.7-6.4% Consistent with increased risk for diabetes (prediabetes) > or =6.5% Consistent with diabetes This assay result is consistent with a decreased risk of diabetes. Currently, no consensus exists regarding use of hemoglobin A1c for diagnosis of diabetes in children. According to [place] [employer] (ADA) guidelines, hemoglobin A1c <7.0% represents optimal control in non- diabetic patients. Different metrics may apply to specific patient populations. Standards of Medical Care in Diabetes(ADA). Performed By: #### 1 6802, 7600, 29296 #### [facility] of [address], [address] [place] [address] Quality Management Nurse: Ata Glasgow MD Magnesium [Mass/Vol] 103 mg/dL Normal [facility] Comment on above: Performed By: #### 1 6802, 7600, 31429 #### [facility] [address], [address] [place] [address] Quality Management Nurse: Ata Glasgow MD LIPID PANEL, [facility] Cholesterol [Mass/Vol] 217 mg/dL High <200 [facility] Comment on above: Order Comment: FASTI NG:YES FASTING: YES Performed By: #### 1 6802, 7600, 71370 #### [facility] [address], [address] [place] [address] Quality Management Nurse: Ata Glasgow MD Cholesterol in HDL [Mass/Vol] 42 mg/dL Low > OR = 50 [facility] Comment on above: Order Comment: FASTI NG:YES FASTING: YES Performed By: #### 1 6802, 7600, 10636 #### [facility] [address], [address] [place] [address] Quality Management Nurse: Ata Glasgow MD Cholesterol in LDL [Mass/Vol] 128 mg/dL High [facility] Comment on above: Order Comment: FASTI NG:YES FASTING: YES Result Comment: Refe rence range: <100 Desirable range <100 mg/dL for primary prevention; <70 mg/dL for patients with CHD or diabetic patients with > or = 2 CHD risk factors. LDL-C is now calculated using the Lorenzo-Pao calculation, which is a validated novel method providing better accuracy than the Friedewald equation in the estimation of LDL-C. Lorenzo MARTINEZ et al. EDIE. 2013;310(19): 8728-0767 (http://education.Vdancer.[address] [employer]/faq/KTM648) Performed By: #### 1 6802, 7600, 71629 #### [facility] [address], [address] [place] [address] Quality Management Nurse: Ata Glasgow MD Cholesterol.total/ Cholesterol in HDL [Mass ratio] 5.2 {ratio} High <5.0 [facility] Comment on above: Order Comment: FASTI NG:YES FASTING: YES Performed By: #### 1 6802, 7600, 81516 #### [facility] [address], [address] Quality Management Nurse: Ata Glasgow MD NON HDL CHOLESTEROL 175 mg/dL (calc) High <130 [facility] Comment on above: Order Comment: FASTI NG:YES FASTING: YES Result Comment: For patients with diabetes plus 1 major ASCVD risk factor, treating to a non-HDL-C goal of <100 mg/dL (LDL-C of <70 mg/dL) is considered a therapeutic option. Performed By: #### 1 6802, 7600, 48105 #### [facility] [address], [address] [place] [address] Quality Management Nurse: Ata Glasgow MD Triglyceride [Mass/Vol] 326 mg/dL High <150 [facility] Comment on above: Order Comment: FASTI NG:YES FASTING: YES Result Comment: If a non-fasting specimen was collected, consider repeat triglyceride testing on a fasting specimen if clinically indicated. Daquan et al. J. of Clin. Lipidol. 2015;9:129-169. Performed By: #### 1 6802, 7600, 74877 #### [facility] [address], [address] [place] [address] Quality Management Nurse: Ata Glasgow MD XR KNEE LEFT 3 VIEWSon 09-08 XR KNEE LEFT 3 VIEWS Interpreted By: Cameron Dooley, STUDY: XR KNEE LEFT 3 VIEWS; 09/08/2024 9:19 am INDICATION: Signs/Symptoms:left knee pain. ,M25.562 Pain in left knee,G89.29 Other chronic pain COMPARISON: Comparison study is from 01/10/2024 ACCESSION NUMBER(S): [id number] ORDERING CLINICIAN: YANELI MALIK TECHNIQUE: 3 views of the left knee were obtained. FINDINGS: No significant osteophytic change. No definite effusion. No lytic or blastic destructive bone lesion. No acute fracture or dislocation. No opaque soft tissue foreign body. No periosteal reaction or erosion. IMPRESSION: Negative exam. MACRO: None Signed by: Cameron Dooley 09/09/2024 9:53 AM Dictation workstation: [id number] [facility] XR LUMBAR SPINE 2-3 VIEWSon 06-18-2024 XR LUMBAR SPINE 2-3 VIEWS Interpreted By: Rom Quick, STUDY: XR LUMBAR SPINE 2-3 VIEWS 06/18/2024 2:26 pm INDICATION: Signs/Symptoms:lower back pain COMPARISON: None. ACCESSION NUMBER(S): [id number] ORDERING CLINICIAN: RAMILA COONEY TECHNIQUE: 3 views of the lumbar spine including AP, lateral and lateral cone-down views were obtained. FINDINGS: There is no acute fracture identified. The vertebral bodies are well aligned without evidence of subluxation. The disc spaces and posterior facet joints are well preserved throughout without significant degenerative changes. IMPRESSION: 1. No evidence of acute fracture. MACRO: None. Signed by: Rom Quick 06/18/2024 2:33 PM Dictation workstation: [id number] [facility] XR Lumbar spine 2 or 3 Views on 06-18-2024 1. No evidence of ac wiyot fracture. MACRO: None. Signed by: Rom Quick 06/18/2024 2:33 PM Dictation workstation: [id number] [facility] Interpreted By: Rom Parmar, STUDY: XR LUMBAR SPINE 2-3 VIEWS 06/18/2024 2:26 pm INDICATION: Signs/Symptoms:lower back pain COMPARISON: None. ACCESSION NUMBER(S): [id number] ORDERING CLINICIAN: RAMILA COONEY TECHNIQUE: 3 views of the lumbar spine including AP, lateral and lateral cone-down views were obtained. FINDINGS: There is no acute fracture identified. The vertebral bodies are well aligned without evidence of subluxation. The disc spaces and posterior facet joints are well preserved throughout without significant degenerative changes. MMODAL Rom Quick MD - 06/18/2024 Interpreted By: Rom Quick, STUDY: XR LUMBAR SPINE 2-3 VIEWS 06/18/2024 2:26 pm INDICATION: Signs/Symptoms:lower back pain COMPARISON: None. ACCESSION NUMBER(S): [id number] ORDERING CLINICIAN: RAMILA COONEY TECHNIQUE: 3 views of the lumbar spine including AP, lateral and lateral cone-down views were obtained. FINDINGS: There is no acute fracture identified. The vertebral bodies are well aligned without evidence of subluxation. The disc spaces and posterior facet joints are well preserved throughout without significant degenerative changes. IMPRESSION: 1. No evidence of acute fracture. MACRO: None. Signed by: Rom Quick 06/18/2024 2:33 PM Dictation workstation: [id number] [facility] Work Phone: Radiology Study observation (narrative) [facility] Work Phone: XR Lumbar spine 2 or 3 Views Ordered By: Rom Quick on 06-18-2024 [facility] Work Phone: L Inj/Asp: L kneeon 04-01-20 Layne Temple, SPLICER OPERATOR-PROJECT CONTROL OFFICER 04/02/2024 10:02 AM L Inj/Asp: L knee on 04/01/2024 12:40 PM Indications: pain and joint swelling Details: 22 G needle, medial approach Medications: 40 mg triamcinolone acetonide 40 mg/mL Outcome: tolerated well, no immediate complications We discussed risk and benefits of cortisone injection, patient wishes to proceed via verbal consent. Skin was prepped with Betadine, vapo coolant spray and alcohol. Administered injection of 40 mg Kenalog, 3 cc 2% lidocaine and 3 cc of 0.25% bupivacaine. Patient tolerated injection well with lidocaine suppression. No active bleeding, bandage applied to site. Procedure, treatment alternatives, risks and benefits explained, specific risks discussed. Consent was given by the patient. Immediately prior to procedure a time out was called to verify the correct patient, procedure, equipment, medical support specialist and site/side marked as required. Patient was prepped and draped in the usual sterile fashion. [facility] Work Phone: [facility] Work Phone: XR ABDOMEN 1 VIEWon 03-25-20 XR ABDOMEN 1 VIEW Interpreted By: Hesham Tillman, STUDY: XR ABDOMEN 1 VIEW; 03/25/2024 2:14 pm INDICATION: Signs/Symptoms:KIDNEY STONES. ,Z87.442 Personal history of urinary calculi COMPARISON: CT abdomen/pelvis of 02/20/2023. ACCESSION NUMBER(S): [id number] ORDERING CLINICIAN: KOBI SOL FINDINGS: 2 frontal views of the abdomen were obtained. Lung bases are clear. A nonspecific nonobstructive bowel gas pattern is demonstrated. No appreciable renal calculi. Left mid abdominal and right pelvic surgical clips are noted. Central pelvic T-shaped IUD is present. Small pelvic calcifications correspond to phleboliths. Bones are intact. IMPRESSION: 1. Nonspecific nonobstructive bowel gas pattern. 2. No appreciable renal calculi by x-ray. Signed by: Hesham Zamora 03/26/2024 8:07 AM Dictation workstation: [id number] [facility] MR Knee - left WO contraston 01-20-2024 Grade 2 sprain media l collateral ligament. No meniscus tear. MACRO: None Signed by: Matt Hollingsworth 01/20/2024 2:25 PM Dictation workstation: [id number] [facility] Interpreted By: Matt Hollingsworth, STUDY: MRI of the left knee without IV contrast; 01/20/2024 9:57 am INDICATION: Medial knee pain after twisting and falling injury on 01/09/2024. COMPARISON: Radiographs 01/10/2024. ACCESSION NUMBER(S): [id number] ORDERING CLINICIAN: LAYNE TEMPLE TECHNIQUE: MR imaging of the left knee was obtained without IV contrast. FINDINGS: LIGAMENTS AND TENDONS: ACL: Intact. PCL: Intact. MCL: Moderate peritendinous and intrasubstance edema in the mid segment with partial fiber disruption anteriorly. LCL complex: Intact. Quadriceps and patellar tendons: Intact. MENISCI: Medial meniscus: Intact. Lateral meniscus: Intact. JOINTS: Medial compartment: No cartilage defect. Lateral compartment: Small full-thickness chondral fissuring in the femoral condyle posteriorly with subchondral reactive change. Patellofemoral compartment: No cartilage defect. No patellar subluxation. Joint fluid: Trace. Popliteal cyst: None. OSSEOUS STRUCTURES: No focal marrow replacing lesion. No fracture. SOFT TISSUES: No muscle atrophy or tear. Rgql-gp-snpepsim subcutaneous edema along the medial knee. [facility] Matt Hollingsworth, DO - 01/20/2024 Interpreted By: Matt Hollingsworth, STUDY: MRI of the left knee without IV contrast; 01/20/2024 9:57 am INDICATION: Medial knee pain after twisting and falling injury on 01/09/2024. COMPARISON: Radiographs 01/10/2024. ACCESSION NUMBER(S): [id number] ORDERING CLINICIAN: LAYNE TEMPLE TECHNIQUE: MR imaging of the left knee was obtained without IV contrast. FINDINGS: LIGAMENTS AND TENDONS: ACL: Intact. PCL: Intact. MCL: Moderate peritendinous and intrasubstance edema in the mid segment with partial fiber disruption anteriorly. LCL complex: Intact. Quadriceps and patellar tendons: Intact. MENISCI: Medial meniscus: Intact. Lateral meniscus: Intact. JOINTS: Medial compartment: No cartilage defect. Lateral compartment: Small full-thickness chondral fissuring in the femoral condyle posteriorly with subchondral reactive change. Patellofemoral compartment: No cartilage defect. No patellar subluxation. Joint fluid: Trace. Popliteal cyst: None. OSSEOUS STRUCTURES: No focal marrow replacing lesion. No fracture. SOFT TISSUES: No muscle atrophy or tear. Jevd-ux-tjainsde subcutaneous edema along the medial knee. IMPRESSION: Grade 2 sprain medial collateral ligament. No meniscus tear. MACRO: None Signed by: Matt Hollingsworth 01/20/2024 2:25 PM Dictation workstation: [id number] [facility] Work Phone: Radiology Study observation (narrative) [facility] Work Phone: MR Knee - left WO contrastOr dered By: Matt Hollingsworth on 01-20-2024 [facility] Work Phone: CBC W Auto Differential pane l (Bld)on 01-16-2024 Basophils (Bld) [#/Vol] 0.02 x10*3/uL Normal 0.00-0.10 [facility] Comment on above: Performed By: #### 5 7021-8 #### PENNY ARREDONDO ([id number]) [facility]) [address] [place] [address] Basophils/100 WBC (Bld) 0.4 % Normal 0.0-2.0 [facility] Comment on above: Performed By: #### 5 7021-8 #### PENNY ARREDONDO ([id number]) [facility] ([facility]) [address] [place] [address] Eosinophils (Bld) [#/Vol] 0.10 x10*3/uL Normal 0.00-0.70 [facility] Comment on above: Performed By: #### 5 7021-8 #### PENNY ARREDONDO ([id number]) [facility] ([facility]) [address] [place] [address] Eosinophils/100 WBC (Bld) 1.8 % Normal 0.0-6.0 [facility] Comment on above: Performed By: #### 7021-8 #### PENNY ARREDONDO ([id number]) [facility] ([facility]) [address] [place] [address] Erythrocyte distribution width (RBC) [Ratio] 13.0 % Normal 11.5-14.5 [facility] Comment on above: Performed By: #### 5 7021-8 #### PENNY ARREDONDO ([id number]) [facility] ([facility]) [address] [place] [address]75 Hematocrit (Bld) [Volume fraction] 40.0 % Normal 36.0-46.0 [facility] Comment on above: Performed By: #### 5 7021-8 #### PENNY ARREDONDO ([id number]) [facility] ([facility]) [address] [place] [address]23[address] Hemoglobin (Bld) [Mass/Vol] 13.5 g/dL Normal 12.0-16.0 [facility] Comment on above: Performed By: #### 5 7021-8 #### PENNY ARREDONDO ([id number]) [facility] ([facility]) [address] [place] [address] Immature granulocytes (Bld) [#/Vol] 0.01 x10*3/uL Normal 0.00-0.70 [facility] Comment on above: Performed By: #### 5 7021-8 #### PENNY ARREDONDO ([id number]) [facility] ([facility]) [address] [place] [address] Immature granulocytes/100 WBC (Bld) 0.2 % Normal 0.0-0.9 [facility] Comment on above: Result Comment: Amalia ture Granulocyte Count (IG) includes promyelocytes, myelocytes and metamyelocytes but does not include bands. Percent differential counts (%) should be interpreted in the context of the absolute cell counts (cells/UL). Performed By: #### 5 7021-8 #### PENNY ARREDONDO ([id number]) [facility] ([facility]) [address] [place] [address] 46695 Lymphocytes (Bld) [#/Vol] 1.89 x10*3/uL Normal 1.20-4.80 [facility] Comment on above: Performed By: #### 5 7021-8 #### PENNY ARREDONDO ([id number]) [facility] ([facility]) [address] [place] [address] 58435 Lymphocytes/100 WBC (Bld) 34.8 % Normal 13.0-44.0 [facility] Comment on above: Performed By: #### 5 7021-8 #### PENNY ARREDONDO ([id number]) [facility] ([facility]) [address] [place] [address] 97934 MCH (RBC) [Entitic mass] 31.1 pg Normal 26.0-34.0 [facility] Comment on above: Performed By: #### 5 7021-8 #### PENNY ARREDONDO ([id number]) [facility] ([facility]) [address] [place] [address] 59152 MCHC (RBC) [Mass/Vol] 33.8 g/dL Normal 32.0-36.0 [facility] Comment on above: Performed By: #### 5 7021-8 #### PENNY ARREDONDO ([id number]) [facility] ([facility]) [address] [place] [address] 82594 MCV (RBC) [Entitic vol] 92 fL Normal 80-100 [facility] Comment on above: Performed By: #### 5 7021-8 #### PENNY ARREDONDO ([id number]) [facility] ([facility]) [address] [place] [address] 35207 Monocytes (Bld) [#/Vol] 0.54 x10*3/uL Normal 0.10-1.00 [facility] Comment on above: Performed By: #### 5 7021-8 #### PENNY ARREDONDO ([id number]) [facility] ([facility]) [address] [place] [address] 16550 Monocytes/100 WBC (Bld) 9.9 % Normal 2.0-10.0 [facility] Comment on above: Performed By: #### 5 7021-8 #### PENNY ARREDONDO ([id number]) [facility] ([facility]) [address] [place] [address] 57632 Neutrophils (Bld) [#/Vol] 2.87 x10*3/uL Normal 1.20-7.70 [facility] Comment on above: Result Comment: Perc ent differential counts (%) should be interpreted in the context of the absolute cell counts (cells/uL). Performed By: #### 5 7021-8 #### PENNY ARREDONDO ([id number]) [facility] ([facility]) [address] [place] [address] 73499 Neutrophils/100 WBC (Bld) 52.9 % Normal 40.0-80.0 [facility] Comment on above: Performed By: #### 5 7021-8 #### PENNY ARREDONDO ([id number]) [facility] ([facility]) [address] [place] [address] 10506 Nucleated RBC/100 WBC (Bld) [Ratio] 0.0 /100 WBCs Normal 0.0-0.0 [facility] Comment on above: Performed By: #### 5 7021-8 #### PENNY ARREDONDO ([id number]) [facility] ([facility]) [address] [place] [address] 65263 Platelets (Bld) [#/Vol] 186 x10*3/uL Normal 150-450 [facility] Comment on above: Performed By: #### 5 7021-8 #### PENNY ARREDONDO ([id number]) [facility] ([facility]) [address] [place] [address] 04953 RBC (Bld) [#/Vol] 4.34 x10*6/uL Normal 4.00-5.20 [facility] Comment on above: Performed By: #### 5 7021-8 #### PENNY ARNULFO ([id number]) [facility] ([facility]) [address] [place] [address] WBC (Bld) [#/Vol] 5.4 x10*3/uL Normal 4.4-11.3 [facility] Comment on above: Performed By: #### 5 7021-8 #### PENNY ARNULFO ([id number]) [facility] ([facility]) [address] [place] [address] CT Neck W contrast Emiliano 07 No cervical lymphadenopathy by size criteria. This study was interpreted at [facility]. MACRO: None Signed by: Victoriano Louis 01/16/2024 1:53 PM Dictation workstation: [id number] [facility] Interpreted By: Victoriano Yarbrough, STUDY: CT SOFT TISSUE NECK W IV CONTRAST; 01/16/2024 11:14 am INDICATION: Signs/Symptoms:enlarged lymph nodes in her neck. COMPARISON: CT head from 08/31/2021. MRI cervical spine from 09/14/2019 ACCESSION NUMBER(S): [id number] ORDERING CLINICIAN: ELIESER GARCIA TECHNIQUE: Axial CT images of the neck were obtained. The patient received 70 mL of Omnipaque 350 intravenous contrast agent. The images were reformatted in angled axial, coronal and sagittal planes. FINDINGS: A skin marker was placed over the left occipital bone. Underlying the skin marker, there is no mass or abnormal lymph node. More inferiorly, there are few slightly prominent suboccipital lymph nodes which are within normal limits. Oral Cavity, Pharynx and Larynx: Evaluation oral cavity is limited by streak artifact from dental hardware. The nasopharyngeal and oropharyngeal structures are unremarkable. The hypopharyngeal and laryngeal structures are unremarkable. Retropharyngeal and Prevertebral Soft Tissues: Unremarkable. Lymph nodes: There is no cervical lymphadenopathy by size criteria. Few prominent lymph nodes within the bilateral neck are within normal limits. Neck vessels: Bilateral neck vessels are normal in course and caliber and appear patent. Thyroid gland: The thyroid gland is unremarkable in size and appearance. Parotid and submandibular glands: Bilateral parotid and submandibular glands are unremarkable in appearance. Paranasal Sinuses and Mastoids: Tiny mucosal cyst within the floor of the left maxillary sinus, otherwise the visualized paranasal sinuses and bilateral mastoid air cells are essentially clear. Visualized orbital structures are unremarkable. Visualized upper lungs are clear. There are osseous degenerative changes of the cervical spine. [facility] Victoriano Louis MD - 01/16/2024 Interpreted By: Victoriano Louis, STUDY: CT SOFT TISSUE NECK W IV CONTRAST; 01/16/2024 11:14 am INDICATION: Signs/Symptoms:enlarged lymph nodes in her neck. COMPARISON: CT head from 08/31/2021. MRI cervical spine from 09/14/2019 ACCESSION NUMBER(S): [id number] ORDERING CLINICIAN: ELIESER GARCIA TECHNIQUE: Axial CT images of the neck were obtained. The patient received 70 mL of Omnipaque 350 intravenous contrast agent. The images were reformatted in angled axial, coronal and sagittal planes. FINDINGS: A skin marker was placed over the left occipital bone. Underlying the skin marker, there is no mass or abnormal lymph node. More inferiorly, there are few slightly prominent suboccipital lymph nodes which are within normal limits. Oral Cavity, Pharynx and Larynx: Evaluation oral cavity is limited by streak artifact from dental hardware. The nasopharyngeal and oropharyngeal structures are unremarkable. The hypopharyngeal and laryngeal structures are unremarkable. Retropharyngeal and Prevertebral Soft Tissues: Unremarkable. Lymph nodes: There is no cervical lymphadenopathy by size criteria. Few prominent lymph nodes within the bilateral neck are within normal limits. Neck vessels: Bilateral neck vessels are normal in course and caliber and appear patent. Thyroid gland: The thyroid gland is unremarkable in size and appearance. Parotid and submandibular glands: Bilateral parotid and submandibular glands are unremarkable in appearance. Paranasal Sinuses and Mastoids: Tiny mucosal cyst within the floor of the left maxillary sinus, otherwise the visualized paranasal sinuses and bilateral mastoid air cells are essentially clear. Visualized orbital structures are unremarkable. Visualized upper lungs are clear. There are osseous degenerative changes of the cervical spine. IMPRESSION: No cervical lymphadenopathy by size criteria. This study was interpreted at [facility]. MACRO: None Signed by: Victoriano Louis 01/16/2024 1:53 PM Dictation workstation: [id number] [facility] Work Phone: Radiology Study observation (narrative) [facility] Work Phone: CT Neck W contrast IVOrdered By: Victoriano Louis on 01-16-2024 [facility] Work Phone: Comprehensive metabolic 2000 panelon 01-16-2024 Albumin BCP dye [Mass/Vol] 4.2 g/dL Normal 3.4-5.0 [facility] Comment on above: Performed By: #### 2 4323-8 #### PENNY ARREDONDO ([id number]) [facility] ([facility]) [address] [place] [address] ALP [Catalytic activity/Vol] 50 U/L Normal 33-110 [facility] Comment on above: Performed By: #### 2 4323-8 #### PENNY ARREDONDO ([id number]) [facility] ([facility]) [address] [place] [address] 61365 ALT With P-5'-P [Catalytic activity/Vol] 20 U/L Normal 7-45 [facility] Comment on above: Result Comment: Melissa ents treated with Sulfasalazine may generate falsely decreased results for ALT. Performed By: #### 2 4323-8 #### PENNY ARREDONDO ([id number]) [facility] ([facility]) [address] [place] [address] 67596 Anion gap [Moles/Vol] 10 mmol/L Normal 10-20 [facility] Comment on above: Performed By: #### 2 4323-8 #### PENNY ARREDONDO ([id number]) [facility] ([facility]) [address] [place] [address] 74474 AST With P-5'-P [Catalytic activity/Vol] 21 U/L Normal 9-39 [facility] Comment on above: Performed By: #### 2 4323-8 #### PENNY ARREDONDO ([id number]) [facility] ([facility]) [address] [place] [address] 85149 Bilirubin [Mass/Vol] 0.3 mg/dL Normal 0.0-1.2 [facility] Comment on above: Performed By: #### 2 4323-8 #### PENNY ARREDONDO ([id number]) [facility] ([facility]) [facility] [place] [address] Calcium [Mass/Vol] 9.0 mg/dL Normal 8.6-10.3 [facility] Comment on above: Performed By: #### 2 4323-8 #### PENNY ARREDONDO ([id number]) [facility] ([facility]) [address] [place] [address] 85636 Chloride [Moles/Vol] 107 mmol/L Normal 98-107 [facility] Comment on above: Performed By: #### 2 4323-8 #### PENNY ARREDONDO ([id number]) [facility] ([facility]) [address] [place] [address] 75535 CO2 [Moles/Vol] 26 mmol/L Normal 21-32 [facility] Comment on above: Performed By: #### 2 4323-8 #### PENNY ARREDONDO ([id number]) [facility] ([facility]) [address] [place] [address] 10082 Creatinine [Mass/Vol] 0.68 mg/dL Normal 0.50-1.05 [facility] Comment on above: Performed By: #### 2 4323-8 #### PENNY ARREDONDO ([id number]) [facility] ([facility]) [address] [place] [address] 42970 GFR/1.73 sq M.predicted MDRD (S/P/Bld) [Vol rate/Area] mL/min/{1.73_m2} Normal >60 [facility] Comment on above: Result Comment: Calc ulations of estimated GFR are performed using the 2020 CKD-EPI Study Refit equation without the race variable for the IDMS-Traceable creatinine methods. https://jasn.asnjournals.org/content/early/ASN.666989523 8 Performed By: #### 2 4323-8 #### PENNY ARREDONDO ([id number]) [facility] ([facility]) [facility] [place] [address] Glucose [Mass/Vol] 102 mg/dL High 74-99 [facility] Comment on above: Performed By: #### 2 4323-8 #### PENNY ARREDONDO ([id number]) [facility] ([facility]) [address] [place] [address] 45271 Potassium [Moles/Vol] 4.4 mmol/L Normal 3.5-5.3 [facility] Comment on above: Performed By: #### 2 4323-8 #### PENNY ARREDONDO ([id number]) [facility] ([facility]) [address] [place] [address] 65811 Protein [Mass/Vol] 6.6 g/dL Normal 6.4-8.2 [facility] Comment on above: Performed By: #### 2 4323-8 #### PENNY ARREDONDO ([id number]) [facility] ([facility]) [address] [place] [address] 16491 Sodium [Moles/Vol] 139 mmol/L Normal 136-145 [facility] Comment on above: Performed By: #### 2 4323-8 #### PENNY ARREDONDO ([id number]) [facility] ([facility]) [address] [place] [address] 45073 Urea nitrogen [Mass/Vol] 13 mg/dL Normal 6-23 [facility] Comment on above: Performed By: #### 2 4323-8 #### PENNY ARREDONDO ([id number]) [facility] ([facility]) [address] [place] [address] 65192 XR Knee - left 1 or 2 Viewso n 01-10-2024 No acute fracture or dislocation. Signed by: Kemar Rosales 01/10/2024 10:36 AM Dictation workstation: [id number] [facility] Interpreted By: Kemar Morrison, STUDY: XR KNEE LEFT 1-2 VIEWS; 01/10/2024 10:16 am INDICATION: Signs/Symptoms:pain. COMPARISON: None. ACCESSION NUMBER(S): [id number] ORDERING CLINICIAN: SATHISH JOAQUIN FINDINGS: No acute fracture or dislocation. No lytic or blastic lesions or periosteal reaction. No significant arthritic changes. [facility] Kemar Rosales MD - 01/10/2024 Interpreted By: Kemar Rosales, STUDY: XR KNEE LEFT 1-2 VIEWS; 01/10/2024 10:16 am INDICATION: Signs/Symptoms:pain. COMPARISON: None. ACCESSION NUMBER(S): [id number] ORDERING CLINICIAN: SATHISH JOAQUIN FINDINGS: No acute fracture or dislocation. No lytic or blastic lesions or periosteal reaction. No significant arthritic changes. IMPRESSION: No acute fracture or dislocation. Signed by: Kemar Rosales 01/10/2024 10:36 AM Dictation workstation: [id number] [facility] Work Phone: Radiology Study observation (narrative) [facility] Work Phone: XR Knee - left 1 or 2 ViewsO rdered By: Kemar Rosales on 01-10-2024 [facility] Work Phone: Immunoglobulins (IgG, IgA, I gM)Ordered By: Zita Roman on 10-12-2023 IgA [Mass/Vol] 261 mg/dL 70 - 400 mg/dL [facility] IgG [Mass/Vol] 923 mg/dL 700 - 1600 mg/dL [facility] IgM [Mass/Vol] 194 mg/dL 40 - 230 mg/dL [facility] Interpretation and review of laboratory results Normal [facility] MONOCLONAL PROTEINS MAY CAUSE FALSELY LOW RESULTS IN THIS ASSAY. SERUM PROTEIN ELECTROPHORESIS SHOULD BE DONE THE FIRST TEST TO EVALUATE MONOCLONAL GAMMOPATHY. [facility] C-Reactive Proteinon 024 CRP [Mass/Vol] 0.42 mg/dL NINF - 1.00 mg/dL [facility] CBC W Auto Differential pane l (Bld)on 10-11-2023 Basophils (Bld) [#/Vol] 0.02 10*3/uL [facility] Basophils/100 WBC (Bld) 0.5 % 0.0 - 2.0 % [facility] Eosinophils (Bld) [#/Vol] 0.05 10*3/uL [facility] Eosinophils/100 WBC (Bld) 1.2 % 0.0 - 6.0 % [facility] Erythrocyte distribution width (RBC) [Ratio] 12.6 % 11.5 - 14.5 % [facility] Hematocrit (Bld) [Volume fraction] 36.4 % 36.0 - 46.0 % [facility] Hemoglobin (Bld) [Mass/Vol] 12.5 g/dL 12.0 - 16.0 g/dL [facility] Immature granulocytes (Bld) [#/Vol] 0.02 10*3/uL [facility] Immature granulocytes/100 WBC (Bld) 0.5 % 0.0 - 0.9 % [facility] Comment on above: Immature Granulocyte Count (IG) includes promyelocytes, myelocytes and metamyelocytes but does not include bands. Percent differential counts (%) should be interpreted in the context of the absolute cell counts (cells/UL). Interpretation and review of laboratory results Abnormal [facility] Lymphocytes (Bld) [#/Vol] 1.48 10*3/uL [facility] Lymphocytes/100 WBC (Bld) 35.5 % 13.0 - 44.0 % [facility] MCH (RBC) [Entitic mass] 29.3 pg 26.0 - 34.0 pg [facility] MCHC (RBC) [Mass/Vol] 34.3 g/dL 32.0 - 36.0 g/dL [facility] MCV (RBC) [Entitic vol] 85 fL 80 - 100 fL [facility] Monocytes (Bld) [#/Vol] 0.35 10*3/uL [facility] Monocytes/100 WBC (Bld) 8.4 % 2.0 - 10.0 % [facility] Neutrophils (Bld) [#/Vol] 2.25 10*3/uL [facility] Comment on above: Percent differential counts (%) should be interpreted in the context of the absolute cell counts (cells/uL). Neutrophils/100 WBC (Bld) 53.9 % 40.0 - 80.0 % [facility] Nucleated RBC/100 WBC (Bld) [Ratio] 0.0 % [facility] Platelets (Bld) [#/Vol] 205 10*3/uL [facility] RBC (Bld) [#/Vol] 4.27 10*6/uL [facility] WBC (Bld) [#/Vol] 4.2 10*3/uL [facility] CRP [Mass/Vol]on 10-11-2023 Interpretation and review of laboratory results Normal [facility] ESR Westergren method (Bld) [Velocity]on 10-11-2023 ESR (Bld) [Velocity] 9 mm/h 0 - 20 mm/h [facility] Interpretation and review of laboratory results Normal [facility] Iron and Iron binding capaci ty panelon 10-11-2023 Interpretation and review of laboratory results Abnormal [facility] Iron [Mass/Vol] 65 ug/dL 35 - 150 ug/dL [facility] Iron binding capacity [Mass/Vol] 412 ug/dL 240 - 445 ug/dL [facility] Iron binding capacity.unsaturat ed [Mass/Vol] 347 ug/dL 110 - 370 ug/dL [facility] Iron saturation [Mass fraction] 16 % Low 25 - 45 % [facility] No Panel Informationon 10-10 [facility] XR Chest 2 Viewson 3 No focal infiltrate or pneumothorax. MACRO: None. Signed by: Rom Quick 07/02/2023 2:24 PM Dictation workstation: [id number] Interpreted By: Rom Parmar, STUDY: XR CHEST 2 VIEWS 07/02/2023 2:11 pm INDICATION: Signs/Symptoms:lingering cough and fever COMPARISON: None. ACCESSION NUMBER(S): [id number] ORDERING CLINICIAN: YANELI MALIK TECHNIQUE: PA and lateral views of the chest were obtained. FINDINGS: No focal infiltrate, pleural effusion or pneumothorax is identified. The cardiac silhouette is within normal limits for size. MMODAL Rom Quick MD - 07/02/2023 Interpreted By: Rom Quick, STUDY: XR CHEST 2 VIEWS 07/02/2023 2:11 pm INDICATION: Signs/Symptoms:lingering cough and fever COMPARISON: None. ACCESSION NUMBER(S): [id number] ORDERING CLINICIAN: YANELI AMLIK TECHNIQUE: PA and lateral views of the chest were obtained. FINDINGS: No focal infiltrate, pleural effusion or pneumothorax is identified. The cardiac silhouette is within normal limits for size. IMPRESSION: No focal infiltrate or pneumothorax. MACRO: None. Signed by: Rom Quick 07/02/2023 2:24 PM Dictation workstation: [id number] [facility] Work Phone: Radiology Study observation (narrative) [facility] Work Phone: XR Chest 2 ViewsOrdered By: Rom Quick on 07-02-2023 [facility] Work Phone: Office Visit (Urology)on Follow-up visit Diagnoses/Problems Assessed Flank pain (789.09) (R10.9) Patient Discussion/Summary CT reviewed KUB ordered at F/U Stone prevention discussed. Diet reviewed. Discussed fluid intake Treatment options for LUTS reviewed Discussed timed voiding. Discussed fluid and caffeine intake Lifestyle change to help prevent UTIs discussed. Encouraged fluid intake. F/u 1 year with [facility] Chief Complaint kidney stone History of Present IllnessPatient is here today for kidney stone...Patient was seen in ED 02/27 for right side flank pain...No N/V..No F/C... CT on 02/27 showed nonobstructive right sided stones...Patient states she has been having flank pain,N/V increased urgency and frequency...No dysuria..she states it is uncomfortable when her bladder gets to full...No hematuria..Patient states this is her first stone..No hx of UTI's.. Review of Systems Constitutional: No fever, No chills. Eye: Negative. Ear/Nose/Mouth/Throat: Negative. Respiratory: No shortness of breath, No cough. Cardiovascular: No chest pain, No peripheral edema. Gastrointestinal: No nausea, Genitourinary: Negative except as documented in history of present illness. Hematology/Lymphatics: Patient denies being on blood thinners.. Endocrine: Negative. Immunologic: Not immunocompromised. Musculoskeletal: Negative Integumentary: Negative. Neurologic: Alert and oriented X4. Psychiatric: Negative. 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) Palpitations (785.1) (R00.2) 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) Vitamin B12 deficiency (266.2) (E53.8) Past Medical History Problems History of Abnormal MRI, cervical spine (793.7) (R93.7) Resolved Date: 08 Jun 2022 History of Acute otitis media, left (382.9) (H66.92) Resolved Date: 09 Aug 2021 History of Acute URI (465.9) (J06.9) Resolved Date: 09 Aug 2021 Anxiety (300.00) (F41.9) History of Closed displaced fracture of phalanx of lesser toe of right foot with routine healing (V54.19) (S92.501D) Resolved Date: 06 Sep 2022 History of Closed fracture of phalanx of right third toe, initial encounter (826.0) (S92.501A) Resolved Date: 06 Sep 2022 History of COVID-19 (079.89) (U07.1) Resolved Date: 09 Aug 2021 History of Excessive daytime sleepiness (780.54) (G47.19) Resolved Date: 06 Sep 2022 History of Exposure to COVID-19 virus (V01.79) (Z20.822) Resolved Date: 09 Aug 2021 History of Hair loss (704.00) (L65.9) Resolved Date: 06 Sep 2022 History of Headache, worsening (784.0) (R51.9) Resolved Date: 06 Sep 2022 History of acute otitis media (V12.49) (Z86.69) Resolved Date: 08 Jun 2022 History of acute sinusitis (V12.69) (Z87.09) Resolved Date: 09 Aug 2021 History of Atypical mole (V13.89) (Z86.018) Resolved Date: 08 Jun 2022 History of claustrophobia (V11.8) (Z86.59) Resolved Date: 06 Sep 2022 History of dysuria (V13.00) (Z87.898) Resolved Date: 21 Nov 2020 History of fatigue (V13.89) (Z87.898) Resolved Date: 06 Sep 2022 History of muscle pain (V13.59) (Z87.39) Resolved Date: 06 Sep 2022 History of paresthesia (V15.89) (Z87.898) Resolved Date: 06 Sep 2022 History of snoring (V15.89) (Z87.898) Resolved Date: 06 Sep 2022 History of urinary tract infection (V13.02) (Z87.440) Resolved Date: 21 Nov 2020 History of viral infection (V12.09) (Z86.19) Resolved Date: 21 Nov 2020 History of Lactose intolerance (271.3) (E73.9) Resolved Date: 06 Sep 2022 History of Neck strain (847.0) (S16.1XXA) Resolved Date: 06 Sep 2022 History of Pain of toe of right foot (729.5) (M79.674) Resolved Date: 06 Sep 2022 History of Witnessed episode of apnea (786.03) (R06.81) Resolved Date: 06 Sep 2022 Surgical History Problems History of Loop electrosurgical excision procedure History of Tonsillectomy with adenoidectomy History of Tubal ligation bilateral History of Trappe tooth extraction Family History Mother Family history of Anxiety Father Family history of malignant neoplasm of colon (V16.0) (Z80.0) Sister Family history of Anxiety Grandparent Family history of malignant neoplasm (V16.9) (Z80.9) Family history of type 2 diabetes mellitus (V18.0) (Z83.3) Maternal Grandmother Family history of cerebrovascular accident (CVA) (V17.1) (Z82.3) Social History Problems Consumes alcohol (V49.89) (Z78.9) Daily caffeinated coffee consumption Never smoker No advance directives (V (more content not included)... Normal [employer] Tobacco Screening.on 023 Fall risk assessment a) No falls within the last year [facility] 232 DO Work Phone: Tobacco use status CPHS b) No BB-Wfaldbd[facility] 232 DO Work Phone: Tobacco Screening. Yes MP-Uro logy[facility] 232 DO Work Phone: PELVIC US WHIon 02-26-2023 [facility] CBC AND DIFFERENTIALon 02-20 % AUTOMATED IMMATURE GRAN 0.4 % Normal 0.0 - 0.9 [facility] Comment on above: Result Comment: Amalia ture Granulocyte Count (IG) includes promyelocytes, myelocytes and metamyelocytes but does not include bands. Percent differential counts (%) should be interpreted in the context of the absolute cell counts (cells/L). Performed By: #### C BCDF #### [address] [address] Basophils (Bld) [#/Vol] 0.04 10*3/uL Normal 0.00 - 0.10 [facility] Comment on above: Performed By: #### C BCDF #### [address] [address] Basophils/100 WBC (Bld) 0.6 % Normal 0.0 - 2.0 [facility] Comment on above: Performed By: #### C BCDF #### [address] [address] Eosinophils (Bld) [#/Vol] 0.08 10*3/uL Normal 0.00 - 0.70 [facility] Comment on above: Performed By: #### C BCDF #### [address] [address] Eosinophils/100 WBC (Bld) 1.2 % Normal 0.0 - 6.0 [facility] Comment on above: Performed By: #### C BCDF #### [address] [address] Erythrocyte distribution width (RBC) [Ratio] 12.7 % Normal 11.5 - 14.5 [facility] Comment on above: Performed By: #### C BCDF #### [address] [address] Hematocrit (Bld) [Volume fraction] 39.6 % Normal 36.0 - 46.0 [facility] Comment on above: Performed By: #### C BCDF #### [address] [address] Hemoglobin (Bld) [Mass/Vol] 13.6 g/dL Normal 12.0 - 16.0 [facility] Comment on above: Performed By: #### C BCDF #### [address] [address] Lymphocytes (Bld) [#/Vol] 1.94 10*3/uL Normal 1.20 - 4.80 [facility] Comment on above: Performed By: #### C BCDF #### [address] [address] Lymphocytes/100 WBC (Bld) 28.6 % Normal 13.0 - 44.0 [facility] Comment on above: Performed By: #### C BCDF #### [address] [address] MCHC (RBC) [Mass/Vol] 34.3 g/dL Normal 32.0 - 36.0 [facility] Comment on above: Performed By: #### C BCDF #### [address] [address] MCV (RBC) [Entitic vol] 90 fL Normal 80 - 100 [facility] Comment on above: Performed By: #### C BCDF #### [address] [address] Monocytes (Bld) [#/Vol] 0.49 10*3/uL Normal 0.10 - 1.00 [facility] Comment on above: Performed By: #### C BCDF #### [address] [address] Monocytes/100 WBC (Bld) 7.2 % Normal 2.0 - 10.0 [facility] Comment on above: Performed By: #### C BCDF #### [address] [address] Neutrophils (Bld) [#/Vol] 4.21 10*3/uL Normal 1.20 - 7.70 [facility] Comment on above: Result Comment: Perc ent differential counts (%) should be interpreted in the context of the absolute cell counts (cells/L). Performed By: #### C BCDF #### [address] [address] Neutrophils/100 WBC (Bld) 62.0 % Normal 40.0 - 80.0 [facility] Comment on above: Performed By: #### C BCDF #### [address] [address] Platelets (Bld) [#/Vol] 267 10*3/uL Normal 150 - 450 [facility] Comment on above: Performed By: #### C BCDF #### [address] [address] RBC 4.38 x10E12/L Normal 4.00 - 5.20 [facility] Comment on above: Performed By: #### C BCDF #### [address] [address] WBC (Bld) [#/Vol] 6.8 10*3/uL Normal 4.4 - 11.3 [facility] Comment on above: Performed By: #### C BCDF #### [address] [address] COMPREHENSIVE PANELon 2022 Albumin [Mass/Vol] 4.2 g/dL Normal 3.4 - 5.0 [facility] Comment on above: Performed By: #### C MP #### [address] [address] ALP [Catalytic activity/Vol] 65 U/L Normal 33 - 110 [facility] Comment on above: Performed By: #### C MP #### [address] [address] ALT [Catalytic activity/Vol] 17 U/L Normal 7 - 45 [facility] Comment on above: Result Comment: Melissa ents treated with Sulfasalazine may generate falsely decreased results for ALT. Performed By: #### C MP #### [place] [address] Anion gap [Moles/Vol] 14 mmol/L Normal 10 - 20 [facility] Comment on above: Performed By: #### C MP #### [place] [address] AST [Catalytic activity/Vol] 20 U/L Normal 9 - 39 [facility] Comment on above: Performed By: #### C MP #### [address] [address] Bilirubin [Mass/Vol] 0.4 mg/dL Normal 0.0 - 1.2 [facility] Comment on above: Performed By: #### C MP #### [address] [address] Calcium [Mass/Vol] 9.3 mg/dL Normal 8.6 - 10.3 [facility] Comment on above: Performed By: #### C MP #### [address] [address] Chloride [Moles/Vol] 104 mmol/L Normal 98 - 107 [facility] Comment on above: Performed By: #### C MP #### [address] [address] Creatinine [Mass/Vol] 0.73 mg/dL Normal 0.50 - 1.05 [facility] Comment on above: Performed By: #### C MP #### [address] [address] eGFR FEMALE >90 Normal >90 [facility] Comment on above: Result Comment: CALC ULATIONS OF ESTIMATED GFR ARE PERFORMED USING THE 2020 CKD-EPI STUDY REFIT EQUATION WITHOUT THE RACE VARIABLE FOR THE IDMS-TRACEABLE CREATININE METHODS. https://jasn.asnjournals.org/content//ASN.962480819 8 Performed By: #### C MP #### [address] [address] Glucose [Mass/Vol] 95 mg/dL Normal 74 - 99 [facility] Comment on above: Performed By: #### C MP #### [address] [address] HCO3 (Bld) [Moles/Vol] 23 mmol/L Normal 21 - 32 [facility] Comment on above: Performed By: #### C MP #### [address] [address] Potassium [Moles/Vol] 4.0 mmol/L Normal 3.5 - 5.3 [facility] Comment on above: Performed By: #### C MP #### [address] [address] Protein [Mass/Vol] 6.7 g/dL Normal 6.4 - 8.2 [facility] Comment on above: Performed By: #### C MP #### [address] [address] Sodium [Moles/Vol] 137 mmol/L Normal 136 - 145 [facility] Comment on above: Performed By: #### C MP #### [address] [address] Urea nitrogen [Mass/Vol] 13 mg/dL Normal 6 - 23 [facility] Comment on above: Performed By: #### C MP #### [address] [address] [address] ABDOMEN AND PELVIS WO CON TRASTon 02-20-2023 CT ABDOMEN AND PELVIS WO CONTRAST Patient Name: WILLIAM SOMMER STUDY: CT ABDOMEN AND PELVIS WO CONTRAST; 02/20/2023 1:38 pm INDICATION: Right back pain . COMPARISON: 07/19/2014 ACCESSION NUMBER(S): [id number] ORDERING CLINICIAN: MARCELLA CHEUNG TECHNIQUE: Contiguous axial images were obtained through the abdomen and pelvis without the use of contrast. Coronal and sagittal reconstructions were performed. FINDINGS: LOWER CHEST: Images through the lung bases demonstrate mild areas of atelectasis. Tiny calcified granuloma in the right middle lobe. ABDOMEN AND PELVIS: LIVER: Within normal limits. BILE DUCTS: Not abnormally dilated. GALLBLADDER: No calcified stones. No wall thickening. PANCREAS: Appears unremarkable. SPLEEN: No acute process. No significant change. ADRENAL GLANDS: Appear unremarkable. KIDNEYS, URETERS, AND BLADDER: 2 mm nonobstructing calculus within the midpole of the right kidney. No radiopaque calculi within the left kidney. No hydronephrosis. The urinary bladder appears grossly unremarkable. BOWEL: The small and large bowel are normal in caliber and demonstrate no wall thickening. There is no evidence of a bowel obstruction. Appendix is normal in caliber. Although CT has limited sensitivity and specificity for gastric pathology, the stomach appears grossly unremarkable. RETROPERITONEUM, VESSELS: There is no aneurysmal dilatation of the abdominal aorta. The IVC is within normal limits. No pathologically enlarged retroperitoneal lymph nodes are noted. PERITONEUM: There is no evidence of pneumoperitoneum. No ascites or loculated fluid collection noted. Uterus is unchanged in size. There is a 3.3 cm cyst within the right ovary. There is tubal ligation clip just anterior to the uterus at the midline. There is a 2nd tubal ligation clip along the anterior abdominal wall within the left lower quadrant. No pathologically enlarged mesenteric lymph nodes are identified. ABDOMINAL WALL, SOFT TISSUES: Small fat containing umbilical/paraumbilical hernia. SKELETON: Degenerative changes. No acute process. IMPRESSION: Nonobstructive right-sided nephrolithiasis. No hydronephrosis. No signs of obstructive uropathy. 3.3 cm right ovarian cyst. Additional findings as above. Electronically signed by: TAYLOR ENCARNACION MD [facility] CT Abdomen and Pelvis withou t Contraston 02-20-2023 CT Abdomen and Pelvis WO contrast Normal WZ-Yzooyym-Qa land HC 232 DO Work Phone: Complete Blood Count + Diffe rentialon 02-20-2023 Basophils/100 WBC (Bld) 0.6 % 0.0 - 2.0 ZI-Llpthyb-Ycmb land 232 DO Work Phone: Erythrocyte distribution width (RBC) [Ratio] 12.7 % See Below LX-Zagpynk-Olmu land [facility] 232 DO Work Phone: Comment on above: Reference Range: 11. 5 - 14.5 Hematocrit (Bld) [Volume fraction] 39.6 % See Below IG-Tqulixe-Qje h land [facility] 232 DO Work Phone: Comment on above: Reference Range: 36. 0 - 46.0 Hemoglobin (Bld) [Mass/Vol] 13.6 g/dL See Below DX-Oollpnn-Pzkl land 232 DO Work Phone: Comment on above: Reference Range: 12. 0 - 16.0 Lymphocytes/100 WBC (Bld) 28.6 % See Below WD-Fzejvmn-Bfiz land 232 DO Work Phone: Comment on above: Reference Range: 13. 0 - 44.0 MCHC (RBC) [Mass/Vol] 34.3 g/dL See Below UV-Ckhqgus-Rluo land 232 DO Work Phone: Comment on above: Reference Range: 32. 0 - 36.0 MCV (RBC) [Entitic vol] 90 fL 80 - 100 JN-Ydhiaef-Nhcd land 232 DO Work Phone: Monocytes/100 WBC (Bld) 7.2 % 2.0 - 10.0 AA-Sisewuj-Iift land 232 DO Work Phone: Neutrophils/100 WBC (Bld) 62.0 % See Below TZ-Knrwqkk-Nszb [facility] 232 DO Work Phone: Comment on above: Reference Range: 40. 0 - 80.0 Platelets (Bld) [#/Vol] 267 10*3/uL 150 - 450 KN-Aqqrcsv-Lnju land 232 DO Work Phone: RBC (Bld) [#/Vol] 4.38 {x10E12/L} See Below MP -Urology-Rich land 232 DO Work Phone: Comment on above: Reference Range: 4.0 0 - 5.20 WBC (Bld) [#/Vol] 6.8 10*3/uL 4.4 - 11.3 MP-Uro logy-Rich land 232 DO Work Phone: Complete Blood Count + Differential 0.04 {x10E9/L} See Below VQ-Azcxgdd-Hzmc land 232 DO Work Phone: Comment on above: Reference Range: 0.0 0 - 0.10 Complete Blood Count + Differential 0.08 {x10E9/L} See Below JH-Gscngmq-Obif [facility] 232 DO Work Phone: Comment on above: Reference Range: 0.0 0 - 0.70 Complete Blood Count + Differential 0.49 {x10E9/L} See Below DN-Biuczpu-Stdq [facility] 232 DO Work Phone: Comment on above: Reference Range: 0.1 0 - 1.00 Complete Blood Count + Differential 1.94 {x10E9/L} See Below XI-Ldumnuh-Mytm [facility] 232 DO Work Phone: Comment on above: Reference Range: 1.2 0 - 4.80 Complete Blood Count + Differential 4.21 {x10E9/L} See Below AD-Seullko-Zrys [facility] 232 DO Work Phone: Comment on above: Reference Range: 1.2 0 - 7.70 Percent differential counts (%) should be interpreted in the context of the absolute cell counts (cells/L). Complete Blood Count + Differential 1.2 % 0.0 - 6.0 HH-Mvztaet-Okfl [facility] 232 DO Work Phone: Complete Blood Count + Differential 0.4 % 0.0 - 0.9 QQ-Krzqzus-Hkiz [facility] 232 DO Work Phone: Comment on above: Immature Granulocyte Count (IG) includes promyelocytes, myelocytes and metamyelocytes but does not include bands. Percent differential counts (%) should be interpreted in the context of the absolute cell counts (cells/L). HCG,URINEon 02-20-2023 Beta HCG ( test) Ql (U) Negative Normal Negative [facility] Comment on above: Performed By: #### H U #### [address] [address] LACTATEon 02-20-2023 Lactate [Moles/Vol] 1.3 mmol/L Normal 0.4 - 2.0 [facility] Comment on above: Result Comment: Debra puncture immediately after or during the administration of Metamizole may lead to falsely low results. Testing should be performed immediately prior to Metamizole dosing. Performed By: #### L ACT #### [address] [address] LIPASEon 02-20-2023 Lipase [Catalytic activity/Vol] 56 U/L Normal 9 - 82 [facility] Comment on above: Result Comment: Debra puncture immediately after or during the administration of Metamizole may lead to falsely low results. Testing should be performed immediately prior to Metamizole dosing. S-zfzspq-x-benzoquinone imine (metabolite of Acetaminophen) will generate erroneously low results in samples for patients that have taken toxic doses of acetaminophen. Performed By: #### L IPAS ####[address] [address] Laboratory - Chemistry and C hemistry - challengeon 02-20-2023 Albumin BCP dye [Mass/Vol] 4.2 g/dL 3.4 - 5.0 SM-Xdqfgsn-Krmh land [facility] DO Work Phone: ALP [Catalytic activity/Vol] 65 U/L 33 - 110 KC-Pcjgfkl-Fpah [place] [address] DO Work Phone: ALT With P-5'-P [Catalytic activity/Vol] 17 U/L 7 - 45 YS-Nbugyzj-Fymm [place] [address] DO Work Phone: Comment on above: Patients treated wit h Sulfasalazine may generate falsely decreased results for ALT. Anion gap [Moles/Vol] 14 mmol/L 10 - 20 ZN-Ybedsxx-Bbyv land [facility] DO Work Phone: AST With P-5'-P [Catalytic activity/Vol] 20 U/L 9 - 39 OC-Bvbginy-Dihk [place] [address] DO Work Phone: Bilirubin [Mass/Vol] 0.4 mg/dL 0.0 - 1.2 YZ-Gmbveiv-Vuty [place] [address] DO Work Phone: Calcium [Mass/Vol] 9.3 mg/dL 8.6 - 10.3 MP-Uro logy-Rich land [facility] 232 DO Work Phone: Chloride [Moles/Vol] 104 mmol/L 98 - 107 EF-Bdulott-Gzjq land [facility] 232 DO Work Phone: CO2 [Moles/Vol] 23 mmol/L 21 - 32 MP-Urolog y-Rich land [facility] 232 DO Work Phone: Creatinine [Mass/Vol] 0.73 mg/dL See Below NO-Pjfoqfk-Mpad land [facility] 232 DO Work Phone: Comment on above: Reference Range: 0.5 0 - 1.05 Glucose [Mass/Vol] 95 mg/dL 74 - 99 MP-Uro logy-Rich land 232 DO Work Phone: Potassium [Moles/Vol] 4.0 mmol/L 3.5 - 5.3 OD-Xilnhcp-Fucq land 232 DO Work Phone: Protein [Mass/Vol] 6.7 g/dL 6.4 - 8.2 MP-Uro logy-Rich land 232 DO Work Phone: Sodium [Moles/Vol] 137 mmol/L 136 - 145 MP-Uro logy-Rich land 232 DO Work Phone: Urea nitrogen [Mass/Vol] 13 mg/dL 6 - 23 XB-Jtccamr-Lsmr land 232 DO Work Phone: Lactate, Levelon 02-20-2023 Lactate [Moles/Vol] 1.3 mmol/L 0.4 - 2.0 RA-Ghpwnjt-Qxwo land 232 DO Work Phone: Comment on above: Venipuncture immedia tely after or during the administration of Metamizole may lead to falsely low results. Testing should be performed immediately prior to Metamizole dosing. Lipase, Serumon 02-20-2023 Lipase [Catalytic activity/Vol] 56 U/L 9 - 82 SE-Ckiquyz-Fgvl land 232 DO Work Phone: Comment on above: Venipuncture immedia tely after or during the administration of Metamizole may lead to falsely low results. Testing should be performed immediately prior to Metamizole dosing. C-onlumc-y-benzoquinone imine (metabolite of Acetaminophen) will generate erroneously low results in samples for patients that have taken toxic doses of acetaminophen. No Panel Informationon 02-20 >90 >90 OE-Gydynua-Zqq h land 232 DO Work Phone: Comment on above: CALCULATIONS OF CHERELLE MATED GFR ARE PERFORMED USING THE 2020 CKD-EPI STUDY REFIT EQUATION WITHOUT THE RACE VARIABLE FOR THE IDMS-TRACEABLE CREATININE METHODS.https://jasn.asnjournals.org/content//09/22/ASN.2 315105687 Provider Note - ED v3on 02-05 Provider Note - ED v3 Provider Note: Results/Vital Signs: Pediatric Clinical Scoring (NABOR) is no recent NABOR charted on this account Chart Review: ED NOTES ED NOTES: Source of Information: Patient. EMR was reviewed for previous records. ----- HPI: Right-sided back pain. This is a 37-year-old white female who states that during the evening she was experiencing right-sided back and flank pain she states that the pain was worse with any type of movement. She states that this morning when she got up from her bed she had increased pain. She denies any nausea or vomiting or other systemic symptoms like fevers or chills. She does admit to some urinary frequency over the past week or so. She denies any dysuria or hematuria or previous history of kidney stones. She states movement makes her symptoms worse rest helps to some extent. She does admit to some family history of gallstones and kidney stones. ----- PMH: Anxiety, GERD, cervical dysplasia PSH: T&A, bilateral tube ligation, LEEP, wisdom teeth extraction Social Hx: The patient denies any use of tobacco or illicit drugs. Admits to occasional use of alcohol. Fam: MEDS: Venlafaxine, vitamin B12, vitamin D, buspirone, Singulair, omeprazole ALLERGIES: NKDA ----- PHYSICAL EXAM: General: Patient alert, awake, oriented X3, appears to be in no obvious distress, nontoxic, cooperative Skin: Warm. Dry. Intact. No rash. Eyes: PEARTLA, EOMIs intact, sclera white, conjunctiva clear HEENT: Atraumatic. Normo-cephalic. Oral and nasal mucosa pink and moist. Neck: Supple without meningismus, no lymphadenopathy. CV: Regular rate and rhythm without murmurs, heaves, lifts or thrills. Respiratory: Nonlabored breathing. There are no retractions or tachypnea. Lungs are clear to auscultation bilaterally. GI: Soft, nontender, without gross distention, bowel sounds present in all 4 quadrants. There is no pulsatile masses. There is no CVA tenderness. No rebound, rigidity or guarding. MUSC: Patient has no true CVA tenderness and negative Dre's bilaterally. She does have tenderness to palpation in the paraspinal muscles of the lower lumbar spine. Neuro: Cranial nerves II - XII grossly intact. No focal neurologic deficits are noted on exam. Lower extremities: There is no peripheral edema bilaterally, negative Homans sign. No palpable cords. Distal pulses are +2/4 and present in both lower extremities. Psych: Maintains eye contact. Cooperative. ----- ED course: The patient was seen and evaluated due to complaints of right-sided back pain she states that symptoms started when she was sleeping. She had no history of injury that she remembers. Patient states that the pain is far worse different than when she is injured her back in the past. Initially a urine test and urinalysis was obtained. test was negative and urinalysis was without evidence of infection. I then went back into the room and talk to the patient about her urine and urine results she stated that she would like further evaluation to rule out the possibility of kidney stone due to the fact that the pain is so severe or unusual compared to her previous back pain. Subsequently I ordered blood work and a CT scan of the abdomen pelvis without contrast to further evaluate the patient back pain symptoms. The patient's CBC was unremarkable. CMP was normal. Lactate was normal at 1.3. CT scan imaging of the abdomen pelvis revealed nonobstructing right-sided nephrolithiasis with no hydronephrosis or signs of obstructive uropathy. There is a 3.3 cm right ovarian cyst. I then had a detailed discussion with the patient concerning blood work and CT scan results. Patient was referred back to her FIELD SERVICE TECH for follow-up concerning her ovarian cyst. She was discharged home in stable satisfactory condition. This chart was dictated with the use of [employer] software within the framework of the current electronic medical records software. Attempts were made to edit in real time, given time constraints there is the potential for inaccuracies in my dictation. Marcella Cheung DO HISTORY OF PRESENTING ILLNESS WILLIAM is a 37 year old Female and was seen by me at 20-Feb-2023 11:48 for a chief complaint of flank pain (Patient to ED reference right sided back pain that radiates into right flank that started sometime overnight waking her up. Sh (more content not included)... Normal [facility] Triage - EDon 02-20-2023 Triage - ED Quick Triage: Are You no Have You Given In The Last 6 Weeksno Are You Currently Breastfeedingno The patient and/or guardian verbally acknowledges placement for services into the following (when Urgent Care Service hours are operating):emergency department Chart Review: ARRIVAL INFORMATION Mode of Arrival: private vehicle CHIEF COMPLAINT WILLIAM SOMMER is a Female patient with a chief complaint of flank pain (Patient to ED reference right sided back pain that radiates into right flank that started sometime overnight waking her up. She states it is better lying on her back. She has recently had frequent urination. Negative any nausea/vomiting. Negative any trauma that she recalls.). Onset of the Complaint: 20-Feb-2023 Triage Date/Time: 20-Feb-2023 11:48 KENISHA: 3 Pain Rating (0-10): 9 = Severe Vital Signs: Temperature: 97.7F ( 36.5C) taken temporal Blood Pressure: 152/95 Mean: Heart Rate: 106 Respiratory Rate: 18 Pulse Oximetry: 100% on room air, no respiratory support. Height: 5 feet 3.00 inches. 160.0 CM Weight: 180.1 pounds. Calculated 81.7 kg. (stated) Calculated BMI (kg/m2): 31.914 Calculated BSA (m2) 1.91 Stacy Coma Scale: Best Eye Response: (E4) spontaneous Best Motor Response: (M6) obeys commands Best Verbal Response: (V5) oriented [place] Score: 15 [place] Assessment Qualifiers: patient not sedated/intubated Cough lasting greater than 3 weeks: no Allergies: no Mask applied: no Last menstrual period: 25-Jan-2023 Patient has homicidal thoughts: no Symptoms Are Negative For: anorexia, chills, dysuria, fever, flank pain, frequency, hematuria, malaise, nausea and urgency. Risk Screens Suicide Risk Screen In the Past Month: Have you wished you were or wished you could go to sleep and not wake up no In the Past Month: Have you had any actual thoughts of killing yourself no In Your Lifetime: Have you ever done anything, started to do anything, or prepared to do anything to end your life no [place] Fall Scale Screening Has the patient fallen before (or is the patient in the ED as a result of a fall) has not had a fall Does the patient have an impaired gait does not have impaired gait Is the patient cognitively impaired not cognitively impaired Interventions: Moseley Fall Interventions: LOW INTERVENTIONS: *patient oriented to surroundings and call system, * patient/family falls education completed and documented, *patients fall status communicated during bedside handoff, *whiteboard updated, *mode of toileting discussed with patient, *bed in low position with brakes locked, *call light in reach, * non-skid footwear TRAVEL HISTORY Travel History Coronavirus Screening: no exposure or symptoms Travel Exposure History: NO travel to International locations in the past 30 days PAIN Pain Scale Used: ASIA Pain Rating (0-10): 9 = Severe Past Medical History: Past Medical History Reviewedyes Electronic Signatures: Joey Dominique (EMT-P) (Signed 20-Feb-2023 11:52) Entered: Risk Screens, Pain, Travel History, Chart Review, Scores Authored: Quick Triage, Risk Screens, Pain, Travel History, Chart Review, Scores Tanya Bryant (JIN) (Signed 20-Feb-2023 13:35) Authored: Quick Triage, Chart Review, Past Medical History Last Updated: 20-Feb-2023 13:35 by Tanya Bryant (JIN) Normal [facility] URINALYSIS WITH CULTURE IF I NDICATEDon 02-20-2023 Appearance (U) HAZY Normal CLEAR [facility] Comment on above: Performed By: #### U ARFX #### [place] [address] Bilirubin Ql (U) Negative Normal NEGATIVE [facility] Comment on above: Performed By: #### U ARFX #### [place] [address] Color (U) Yellow Normal STRAW,YELLO W [facility] Comment on above: Performed By: #### U ARFX #### [place] [address] Glucose Ql (U) Negative Normal NEGATIVE [facility] Comment on above: Performed By: #### U ARFX #### [place] [address] Hemoglobin Ql (U) Negative Normal NEGATIVE [facility] Comment on above: Performed By: #### U ARFX #### [place] [address] Ketones Ql (U) Negative Normal NEGATIVE [facility] Comment on above: Performed By: #### U ARFX #### [place] [address] Leukocyte esterase Test strip Ql (U) Negative Normal NEGATIVE [facility] Comment on above: Performed By: #### U ARFX #### [place] [address] Nitrite Ql (U) Negative Normal NEGATIVE [facility] Comment on above: Performed By: #### U ARFX #### [place] [address] pH (U) 6.0 [pH] Normal 5.0 - 8.0 [facility] Comment on above: Performed By: #### U ARFX #### [place] [address] Protein Ql (U) Negative Normal NEGATIVE [facility] Comment on above: Performed By: #### U ARFX #### [place] [address] Specific gravity (U) [Rel density] 1.015 Normal 1.005 - 1.035 [facility] Comment on above: Performed By: #### U ARFX #### [facility] [facility] [address] [place] [address] Urobilinogen (U) [Mass/Vol] mg/dL Normal 0.0 - 1.9 [facility] Comment on above: Performed By: #### U ARFX #### [id number] [place] [address] Color (U) Yellow See Below MK-Stluisx-Ion h land [facility] 232 DO Work Phone: Comment on above: Reference Range: STR AW,YELLOW Glucose Ql (U) Negative NEGATIVE MP-[facility] -[place] [facility] 232 DO Work Phone: Ketones Ql (U) Negative NEGATIVE [facility] [facility] 232 DO Work Phone: Leukocyte esterase Test strip Ql (U) Negative NEGATIVE OO-Bguwmmu-Siz h land HC 232 DO Work Phone: pH (U) 6.0 [pH] 5.0 - 8.0 QX-Zlteavf-Gay h land HC 232 DO Work Phone: Protein (U) [Mass/Vol] Negative NEGATIVE WI-Amodgxu-Ghds land HC 232 DO Work Phone: RBC (U) [#/Vol] Negative NEGATIVE MP-Urolog y-[place] [facility] 232 DO Work Phone: Specific gravity (U) [Rel density] 1.015 1 See Below VZ-Ivsvxie-Yhy h land HC 232 DO Work Phone: Comment on above: Reference Range: 1.0 05 - 1.035 URINALYSIS WITH CULTURE IF INDICATED Negative NEGATIVE VC-Cgmeolb-Dqlg land HC 232 DO Work Phone: URINALYSIS WITH CULTURE IF INDICATED <2.0 0.0 - 1.9 OF-Qntrkvr-Hibq land HC 232 DO Work Phone: URINALYSIS WITH CULTURE IF INDICATED HAZY CLEAR FD-Drokwfd-Cjyd land HC 232 DO Work Phone: Urine Teston 02-20 HCG ( test) Ql (U) Negative Negative IT-Szuefoa-Vhox land HC 232 DO Work Phone: CORONAVIRUS 2019 BY PCRon SARS-CoV-2 (COVID-19) RNA HOWARD+probe Ql (Unsp spec) Not detected Normal Not Detected [facility] Comment on above: Result Comment: . This assay is designed to detect the ORF1ab and/or S genes of SARS-CoV-2 via nucleic acid amplification. A Not Detected result does not preclude 2019-nCoV infection since the adequacy of sample collection and/or low viral burden may result in presence of viral nucleic acids below the clinical sensitivity of this test method. Fact sheet for providers: www.fda.gov/media/025103/download Fact sheet for patients: www.fda.gov/media/268277/download This test has received FDA Emergency Use Authorization (EUA) and has been verified by [facility] ([facility]). This test is only authorized for the duration of time that circumstances exist to justify the authorization of the emergency use of in vitro diagnostic tests for the detection of SARS-CoV-2 virus and/or diagnosis of COVID-19 infection under section 564(b)(1) of the Act, 21 U.S.C. 360bbb-3(b)(1), unless the authorization is terminated or revoked sooner. [facility] is certified under CLIA-88 as qualified to perform high complexity testing. Testing is performed in the [facility] laboratories located at [address] [place] [address]. Performed By: #### C OV19 #### [place] [address] CORONAVIRUS 2019 BY PCRon Lab Specimen Source Normal [facility] Comment on above: Performed By: #### C OV19 #### [place] [address] TSH WITH REFLEX TO FREE T4 I F ABNORMALon 01-22-2023 TSH Qn 1.92 m[IU]/L Normal 0.44 - 3.98 [facility] Comment on above: Result Comment: TSH testing is performed using different testing methodology at [facility] than at other legacy [facility]. Direct result comparisons should only be made within the same method. Performed By: #### T HYDS #### [address] [place] [address] Lab Specimen Source Normal [facility] Comment on above: Performed By: #### T HYDS #### [address] [address] C Reactive Protein, Serumon 09-06-2022 CRP [Mass/Vol] 0.20 mg/dL [facility] 205 DO Work Phone: Comment on above: REF VALUE< 1.00 Complete Blood Count + Diffe rentialon 09-06-2022 Basophils/100 WBC (Bld) 0.6 % 0.0 - 2.0 [facility] 205 DO Work Phone: Erythrocyte distribution width (RBC) [Ratio] 12.6 % See Below [facility] 205 DO Work Phone: Comment on above: Reference Range: 11. 5 - 14.5 Hematocrit (Bld) [Volume fraction] 40.1 % See Below [facility] 205 DO Work Phone: Comment on above: Reference Range: 36. 0 - 46.0 Hemoglobin (Bld) [Mass/Vol] 13.2 g/dL See Below [facility] 205 DO Work Phone: Comment on above: Reference Range: 12. 0 - 16.0 Lymphocytes/100 WBC (Bld) 32.9 % See Below [facility] 205 DO Work Phone: Comment on above: Reference Range: 13. 0 - 44.0 MCHC (RBC) [Mass/Vol] 32.9 g/dL See Below [facility] 205 DO Work Phone: Comment on above: Reference Range: 32. 0 - 36.0 MCV (RBC) [Entitic vol] 93 fL 80 - 100 [facility] 205 DO Work Phone: Monocytes/100 WBC (Bld) 8.7 % 2.0 - 10.0 [facility] 205 DO Work Phone: Neutrophils/100 WBC (Bld) 56.6 % See Below [facility] 205 DO Work Phone: Comment on above: Reference Range: 40. 0 - 80.0 Platelets (Bld) [#/Vol] 243 10*3/uL 150 - 450 [facility] 205 DO Work Phone: RBC (Bld) [#/Vol] 4.33 {x10E12/L} See Below [facility] 205 DO Work Phone: Comment on above: Reference Range: 4.0 0 - 5.20 WBC (Bld) [#/Vol] 4.9 10*3/uL 4.4 - 11.3 [facility] 205 DO Work Phone: Complete Blood Count + Differential 0.03 {x10E9/L} See Below [facility] 205 DO Work Phone: Comment on above: Reference Range: 0.0 0 - 0.10 Complete Blood Count + Differential 0.05 {x10E9/L} See Below [facility] 205 DO Work Phone: Comment on above: Reference Range: 0.0 0 - 0.70 Complete Blood Count + Differential 0.43 {x10E9/L} See Below [facility] 205 DO Work Phone: Comment on above: Reference Range: 0.1 0 - 1.00 Complete Blood Count + Differential 1.62 {x10E9/L} See Below [facility] 205 DO Work Phone: Comment on above: Reference Range: 1.2 0 - 4.80 Complete Blood Count + Differential 2.79 {x10E9/L} See Below [facility] 205 DO Work Phone: Comment on above: Reference Range: 1.2 0 - 7.70 Percent differential counts (%) should be interpreted in the context of the absolute cell counts (cells/L). Complete Blood Count + Differential 1.0 % 0.0 - 6.0 [facility] 205 DO Work Phone: Complete Blood Count + Differential 0.2 % 0.0 - 0.9 [facility] 205 DO Work Phone: Comment on above: Immature Granulocyte Count (IG) includes promyelocytes, myelocytes and metamyelocytes but does not include bands. Percent differential counts (%) should be interpreted in the context of the absolute cell counts (cells/L). Falls Screening (Age 18+)on 09-06-2022 Fall risk assessment b) One or more falls in the last year [facility] 205 DO Work Phone: Tobacco use status CPHS b) No [facility] 205 DO Work Phone: Laboratory - Chemistry and C hemistry - challengeon 09-06-2022 Albumin BCP dye [Mass/Vol] 4.3 g/dL 3.4 - 5.0 [facility] 205 DO Work Phone: ALP [Catalytic activity/Vol] 70 U/L 33 - 110 [facility] 205 DO Work Phone: ALT With P-5'-P [Catalytic activity/Vol] 18 U/L 7 - 45 [facility] 205 DO Work Phone: Comment on above: Patients treated wit h Sulfasalazine may generate falsely decreased results for ALT. Anion gap [Moles/Vol] 10 mmol/L 10 - 20 [facility] 205 DO Work Phone: AST With P-5'-P [Catalytic activity/Vol] 18 U/L 9 - 39 [facility] 205 DO Work Phone: Bilirubin [Mass/Vol] 0.3 mg/dL 0.0 - 1.2 [facility] 205 DO Work Phone: Calcium [Mass/Vol] 9.4 mg/dL 8.6 - 10.3 [facility] 205 DO Work Phone: Chloride [Moles/Vol] 105 mmol/L 98 - 107 [facility] 205 DO Work Phone: CO2 [Moles/Vol] 29 mmol/L 21 - 32 [facility] 205 DO Work Phone: Creatinine [Mass/Vol] 0.81 mg/dL See Below [facility] DO Work Phone: Comment on above: Reference Range: 0.5 0 - 1.05 Glucose [Mass/Vol] 96 mg/dL 74 - 99 [facility] 205 DO Work Phone: Potassium [Moles/Vol] 4.8 mmol/L 3.5 - 5.3 [facility] 205 DO Work Phone: Protein [Mass/Vol] 6.6 g/dL 6.4 - 8.2 [facility] 205 DO Work Phone: Sodium [Moles/Vol] 139 mmol/L 136 - 145 [facility] 205 DO Work Phone: Urea nitrogen [Mass/Vol] 14 mg/dL 6 - 23 [facility] 205 DO Work Phone: Laboratory - Serology - non- microon 09-06-2022 Nuclear Ab Hep2 substrate Ql (S) Negative NEGATIVE [facility] 205 DO Work Phone: Comment on above: The Antinuclear Anti body (ELIZABETH) test was performed using indirect immunofluorescence assay with HEp-2 cells slide. No Panel Informationon 09-06 >90 >90 [facility] 205 DO Work Phone: Comment on above: CALCULATIONS OF CHERELLE MATED GFR ARE PERFORMED USING THE 2020 CKD-EPI STUDY REFIT EQUATION WITHOUT THE RACE VARIABLE FOR THE IDMS-TRACEABLE CREATININE METHODS.https://jasn.asnjournals.org/content/early//ASN.2 554241501 Office Visit (Primary Care F orne)on 09-06-2022 Follow-up visit Diagnosis/Problems Assessed Vitamin B12 deficiency (266.2) (E53.8) BMI 30.0-30.9,adult (V85.30) (Z68.30) Class 1 obesity due to excess calories without serious comorbidity with body mass index (BMI) of 30.0 to 30.9 in adult (278.00,V85.30) (E66.09,Z68.30) 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 Encouraged her to wear her convict guard nightly. Orders Vitamin B12 deficiency Vitamin B12, Serum; Status:In Progress - Specimen/Data Collected; Done: 06Sep2022 Perform:Lab Services - Lab To Draw (Blood Test); Due:05Dec2022;Ordered; For:Vitamin B12 deficiency; Ordered By:Yaneli Malik; Patient Discussion/Summary TMJ/teeth grinding: wear convict guard nightly. If symptoms do not improve, will refer to possible ENT or TMJ specialist. Vitamin B12 def: will get labs and call with results. follow up in 1 year for wellness exam. Chief Complaint Pt presents for 3 mos check up since last apt and having blood work done. History of Present IllnessDana returns for follow up. had increased B12 levels. has been taking it Sat, sat, and Saturday. Ear pain: ears are still sensitive. sore ears randomly or has ear pain when wind blows. she reports the pain is bilaterally but left side is worse than right. She has been taking the nasal spray and her Claritin daily without symptom relief. She reports she has history of TMJ and grinding her teeth at night. She does wear a convict guard but only when her teeth start hurting. Not every night. No other concerns. Review of Systems Constitutional: not feeling tired. ENT: ear pain, nose drainage and post nasal drip, but normal hearing, no ear fullness, no ringing in ears and no drainage from the ears. Cardiovascular: no chest pain, no palpitations, no shortness of breath and no chest pressure. Respiratory: no dyspnea with exertion. Gastrointestinal: no abdominal pain. Musculoskeletal: no joint pain. Neurological: no headache and no dizziness. 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) Past Medical History Problems History of Abnormal MRI, cervical spine (793.7) (R93.7) Resolved Date: 08 Jun 2022 History of Acute otitis media, left (382.9) (H66.92) Resolved Date: 09 Aug 2021 History of Acute URI (465.9) (J06.9) Resolved Date: 09 Aug 2021 Anxiety (300.00) (F41.9) History of Closed displaced fracture of phalanx of lesser toe of right foot with routine healing (V54.19) (S92.501D) History of Closed fracture of phalanx of right third toe, initial encounter (826.0) (S92.501A) History of COVID-19 (079.89) (U07.1) Resolved Date: 09 Aug 2021 History of Excessive daytime sleepiness (780.54) (G47.19) History of Exposure to COVID-19 virus (V01.79) (Z20.822) Resolved Date: 09 Aug 2021 History of Hair loss (704.00) (L65.9) History of Headache, worsening (784.0) (R51.9) History of acute otitis media (V12.49) (Z86.69) Resolved Date: 08 Jun 2022 History of acute sinusitis (V12.69) (Z87.09) Resolved Date: 09 Aug 2021 History of Atypical mole (V13.89) (Z86.018) Resolved Date: 08 Jun 2022 History of claustrophobia (V11.8) (Z86.59) History of dysuria (V13.00) (Z87.898) Resolved Date: 21 Nov 2020 History of fatigue (V13.89) (Z87.898) History of muscle pain (V13.59) (Z87.39) History of paresthesia (V15.89) (Z87.898) History of snoring (V15.89) (Z87.898) History of urinary tract infection (V13.02) (Z87.440) Resolved Date: 21 Nov 2020 History of viral infection (V12.09) (Z86.19) Resolved Date: 21 Nov 2020 History of Lactose intolerance (271.3) (E73.9) History of Neck strain (847.0) (S16.1XXA) History of Pain of toe of right foot (729.5) (M79.674) History of Witnessed episode of apnea (786.03) (R06.81) Surgical History Problems History of Loop electrosurgical excision procedure History of Tonsillectomy with adenoidectomy History of Tubal ligation bilateral History of Trappe tooth extraction Family History Mother Family history of Anxiety Father Family history of malignant neoplasm of colon (V16.0) (Z80.0) Sister Family history of Anxiety Grandparent Family history of malignant neoplasm (V16.9) (Z80.9) Family history of type 2 diabetes mellitus (V18.0) (Z83.3) Maternal Grandmother Family history of cerebrovascular accident (CVA) (V17.1) (Z82.3) Social History Problems Consumes alcohol (V49.89) (Z78.9) Daily caffeinated coffee consumption Never smoker No advance directives (V49.89) (Z78.9) No illicit drug use Current Meds Medication NameInstruction Claritin 10 MG Oral TabletTAKE 1 TABLET DAILY. (more content not included)... Normal [facility] Rheumatoid Factor, Serum or Plasmaon 09-06-2022 Rheumatoid factor Nephelometry Qn (S) <10 0 - 15 [facility] RH 205 DO Work Phone: Sedimentation Rate, Erythroc yteon 09-06-2022 ESR (Bld) [Velocity] 3 mm/h 0 - 20 [facility] RH 205 DO Work Phone: Vitamin B12, Serumon 023 Cobalamin (Vitamin B12) [Mass/Vol] 690 pg/mL 211 - 911 [facility] 205 DO Work Phone: Vitamin D 25-Hydroxyon 09-06 25-hydroxyvitamin D3 [Mass/Vol] 49 ng/mL [facility] 205 DO Work Phone: Comment on above: .DEFICIENCY: < 20 NG /MLINSUFFICIENCY: 20-29 NG/MLSUFFICIENCY: 30-100 NG/MLTHIS ASSAY ACCURATELY QUANTIFIES THE SUM OFVITAMIN D3, 25-HYDROXY AND VIT D2,25-HYDROXY. 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 By discharge WILLIAM SOMMER will achieve the following goals: Pt will demo and report compliance with HEP in order to augment POC goals and progression toward independence with symptom management for better outcomes once D/C from POC. , by week 2, goal met Activity Limitation: Pt will demo improved sitting tolerance to >/= 60 min in order to improve ease with ADL?s and IADL?s and tolerance to sitting for driving with work. , goal met Strength: Pt will demo improved MMT by >/= 1 point on 0-5 point scale in BLE's for improved strength and stability, and improved ease with transfers, lifting/carrying, and proper mechanics with ADL?s AND IADL?s. , goal met Transfers: Pt will demo improved ease with sit<>stand with min UE A and improved eccentric control for decreased fall risk and improved ease with transfers. , goal met LAVERNE, Pt will report subjective improvement with score on LAVERNE improved by >/= 5 points for return to PLOF, improved QOL, and improved ease with ADL?s AND IADL?s. , goal met Planned interventions include: aquatic therapy, cryotherapy, dry needling, education/instruction, electrical stimulation, gait training, home program, hot pack, kinesiotaping, manual therapy, neuromuscular re-education, self care/home management, therapeutic activities, ultrasound and IASMT/CUPPING. Frequency and duration: No further visits planned. Potential to achieve rehab goals is excellent Pt being placed on hold for 30 days at this time and is going to attempt independence with HEP. If pt does not elect to resume PT within 30 days, this will serve as his D/C. Refer back in future if necessary. Monitor home program. Discharge patient:. Assessment Pt reassessed this date by supervising PT with improvements noted in lumbar AROM, MMT in BLE's, as well as significant improvement in LAVERNE score to 2% disability now. Pt reported good understanding of all edu and updates to HEP made this date and is appropriate to attempt independence with HEP and symptom management at this time. Adult Risk Screening There are no spiritual/cultural practices/values/needs that are important to know Initial Fall Risk Screening: WILLIAM has not fallen in the last 6 months. WILLIAM does not have a fear of falling. She does not need assistance with sitting, standing or walking. Does not need assistance walking in her home. She does not need assistance in an unfamiliar setting. The patient is not using an assistive device. Pain Scale: On a scale of 0 to 10, the patient rates the pain at 4. Please identify location of pain: B/L low back. Pain Quality: sore/tenderness. The pain makes it hard for the patient to do these things: exercise, sleep, house work and self-care (bathing, dressing, eating). Living Will. Patient Declined. Healthcare POA: Patient Declined. Declaration of Mental Health Treatment: Patient Declined. Domestic Violence Screen: Does not feel threatened or abused physically, emotionally or sexually. Do you feel UNSAFE? The patient feels safe in the home. Depression/Suicide Screening: During the past 2 weeks, the patient has not felt down, depressed or hopeless. During the past 2 weeks, the patient has not felt little interest or pleasure in doing things. Insurance Insurance reviewed Visit number: 7 Authorization required after evaluation POC: 01/13 [facility] Comm Plan Supervising PT: Columba Gleason PT, DPT, Haim DN PT Dx: M54.42; M47.816 Onset Date: 2021 Subjective Patient reports:. Pt notes back is just sore but pain has not been as bad as before therapy. Did have one episode of radicular pain but felt that was more due to hurting her upper back. Does not have F/U with MD. Precautions: Fall Risk: none Objective Ortho Lumbar AROM: Flex: 100% -->100% Ext: 100% -->100% R Rotation: 100%-->100% L Rotation: 100% mild P! and Pinch on left -->100% R Sidebend: 100% L Sidebend: 100% sharp P! on Left-->100% MMT: (RLE/LLE) Hip Flex: 4+/4 mild --> 5/5 Hip Ext: 4+/4+-->5/5 Hip ABD: 4/4- -->5/5 Hip IR/ER: 4+/4+ -->5/5 Knee Flex: 4+/4+ -->5/5 Knee Ext: 4+/4+ -->5/5 Ankle DF: 5/5 Ankle PF: 5/5 Palpation: restriction throughout lumbosacral musculature Joint Mobility: CPA: 2-3/6 R UPA: 2-3/6 L UPA: 1-2/6 . Outcome Measures Modified Oswestry Low Back Pain Disability Index score: 20%-->2% Treatment Time in clinic started at 0730 am Time in clinic ended at 0808 am Total time in clinic is 39 minutes. Total timed code time is 38 minutes. Therapeutic exercise (65314): timed minutes 28, units 2 . SciFit x5' Lv 1.5 (X) 4 way Treadmill x2' Fwd 1.5 mph/x2' lateral each.7 mph/x2' Bkwd.7 mph Pt re-assessed for updated POC, updated/reviewed HEP, and discussed continued symptom man (more content not included)... Normal [facility] Therapy Re-eval Noteon 07-27 Therapy Re-eval Note Therapy Diagnosis Assessed 1. 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 Acute left-sided low back pain with left-sided sciatica (724.2,724.3) (M54.42) Plan Goals: Goals set and discussed today. By discharge WILLIAM SOMMER will achieve the following goals: Pt will demo and report compliance with HEP in order to augment POC goals and progression toward independence with symptom management for better outcomes once D/C from POC. , by week 2, goal met Activity Limitation: Pt will demo improved sitting tolerance to >/= 60 min in order to improve ease with ADL?s and IADL?s and tolerance to sitting for driving with work. , goal met Strength: Pt will demo improved MMT by >/= 1 point on 0-5 point scale in BLE's for improved strength and stability, and improved ease with transfers, lifting/carrying, and proper mechanics with ADL?s AND IADL?s. , goal met Transfers: Pt will demo improved ease with sit<>stand with min UE A and improved eccentric control for decreased fall risk and improved ease with transfers. , goal met LAVERNE, Pt will report subjective improvement with score on LAVERNE improved by >/= 5 points for return to PLOF, improved QOL, and improved ease with ADL?s AND IADL?s. , goal met Planned interventions include: aquatic therapy, cryotherapy, dry needling, education/instruction, electrical stimulation, gait training, home program, hot pack, kinesiotaping, manual therapy, neuromuscular re-education, self care/home management, therapeutic activities, ultrasound and IASMT/CUPPING. Frequency and duration: No further visits planned. Potential to achieve rehab goals is excellent Pt being placed on hold for 30 days at this time and is going to attempt independence with HEP. If pt does not elect to resume PT within 30 days, this will serve as his D/C. Refer back in future if necessary. Monitor home program. Discharge patient:. Assessment Pt reassessed this date by supervising PT with improvements noted in lumbar AROM, MMT in BLE's, as well as significant improvement in LAVERNE score to 2% disability now. Pt reported good understanding of all edu and updates to HEP made this date and is appropriate to attempt independence with HEP and symptom management at this time. Adult Risk Screening There are no spiritual/cultural practices/values/needs that are important to know Initial Fall Risk Screening: WILLIAM has not fallen in the last 6 months. WILLIAM does not have a fear of falling. She does not need assistance with sitting, standing or walking. Does not need assistance walking in her home. She does not need assistance in an unfamiliar setting. The patient is not using an assistive device. Pain Scale: On a scale of 0 to 10, the patient rates the pain at 4. Please identify location of pain: B/L low back. Pain Quality: sore/tenderness. The pain makes it hard for the patient to do these things: exercise, sleep, house work and self-care (bathing, dressing, eating). Living Will. Patient Declined. Healthcare POA: Patient Declined. Declaration of Mental Health Treatment: Patient Declined. Domestic Violence Screen: Does not feel threatened or abused physically, emotionally or sexually. Do you feel UNSAFE? The patient feels safe in the home. Depression/Suicide Screening: During the past 2 weeks, the patient has not felt down, depressed or hopeless. During the past 2 weeks, the patient has not felt little interest or pleasure in doing things. Insurance Insurance reviewed Visit number: 7 Authorization required after evaluation POC: 01/13 [facility] Comm Plan Supervising PT: Columba Gleason PT, DPT, Cert DN PT Dx: M54.42; M47.816 Onset Date: 2021 Subjective Patient reports:. Pt notes back is just sore but pain has not been as bad as before therapy. Did have one episode of radicular pain but felt that was more due to hurting her upper back. Does not have F/U with MD. Precautions: Fall Risk: none Objective Ortho Lumbar AROM: Flex: 100% -->100% Ext: 100% -->100% R Rotation: 100%-->100% L Rotation: 100% mild P! and Pinch on left -->100% R Sidebend: 100% L Sidebend: 100% sharp P! on Left-->100% MMT: (RLE/LLE) Hip Flex: 4+/4 mild --> 5/5 Hip Ext: 4+/4+-->5/5 Hip ABD: 4/4- -->5/5 Hip IR/ER: 4+/4+ -->5/5 Knee Flex: 4+/4+ -->5/5 Knee Ext: 4+/4+ -->5/5 Ankle DF: 5/5 Ankle PF: 5/5 Palpation: restriction throughout lumbosacral musculature Joint Mobility: CPA: 2-3/6 R UPA: 2-3/6 L UPA: 1-2/6 . Outcome Measures Modified Oswestry Low Back Pain Disability Index score: 20%-->2% Treatment Time in clinic started at 0730 am Time in clinic ended at 0808 am Total time in clinic is 39 minutes. Total timed code time is 38 minutes. Therapeutic exercise (17310): timed minutes 28, units 2 . SciFit x5' Lv 1.5 (X) 4 way Treadmill x2' Fwd 1.5 mph/x2' lateral each.7 mph/x2' Bkwd.7 mph Pt re-assessed for updated POC, updated/reviewed HEP, and discussed continued sympt (more content not included)... 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 By discharge WILLIAM SOMMER will achieve the following goals: Pt will demo and report compliance with HEP in order to augment POC goals and progression toward independence with symptom management for better outcomes once D/C from POC. , by week 2 Activity Limitation: Pt will demo improved sitting tolerance to >/= 60 min in order to improve ease with ADL?s and IADL?s and tolerance to sitting for driving with work. Strength: Pt will demo improved MMT by >/= 1 point on 0-5 point scale in BLE's for improved strength and stability, and improved ease with transfers, lifting/carrying, and proper mechanics with ADL?s AND IADL?s. Transfers: Pt will demo improved ease with sit<>stand with min UE A and improved eccentric control for decreased fall risk and improved ease with transfers. LAVERNE, Pt will report subjective improvement with score on LAVERNE improved by >/= 5 points for return to PLOF, improved QOL, and improved ease with ADL?s AND IADL?s. Planned interventions include: aquatic therapy, cryotherapy, dry needling, education/instruction, electrical stimulation, gait training, home program, hot pack, kinesiotaping, manual therapy, neuromuscular re-education, self care/home management, therapeutic activities, ultrasound and IASMT/CUPPING. Frequency and duration: 2 time(s) a week, for 4 weeks, for 8 visits. Potential to achieve rehab goals is excellent will continue to work on progressing toward plan of care as tolerated to continue improving strength and decreasing restriction in myofascia to be able to tolerate bending over at work with decreased symptoms. Assessment Patient identified by name and Allen's restriction in R QL this date with good tolerance to STM. Strengthening not incorporated this date d/t increased symptoms over weekend and at beginning of session. Allen's good tolerance to stretching, joint mobs, and STM. Demo's improvements in mobility of lumbar spine post treatment and decreased symptoms at end of session. Adult Risk Screening There are no spiritual/cultural practices/values/needs that are important to know Initial Fall Risk Screening: WILLIAM has not fallen in the last 6 months. WILLIAM does not have a fear of falling. She does not need assistance with sitting, standing or walking. Does not need assistance walking in her home. She does not need assistance in an unfamiliar setting. The patient is not using an assistive device. Pain Scale: On a scale of 0 to 10, the patient rates the pain at 5. Please identify location of pain: L low back. Pain Quality: sore/tenderness. The pain makes it hard for the patient to do these things: exercise, sleep, house work and self-care (bathing, dressing, eating). Living Will. Patient Declined. Healthcare POA: Patient Declined. Declaration of Mental Health Treatment: Patient Declined. Domestic Violence Screen: Does not feel threatened or abused physically, emotionally or sexually. Do you feel UNSAFE? The patient feels safe in the home. Depression/Suicide Screening: During the past 2 weeks, the patient has not felt down, depressed or hopeless. During the past 2 weeks, the patient has not felt little interest or pleasure in doing things. Insurance Insurance reviewed Visit number: 7 Authorization required after evaluation POC: 01/13 [facility] Comm Plan Supervising PT: Columba Gleason PT, DPT, Haim DN PT Dx: M54.42; M47.816 Onset Date: 2021 Subjective Patient reports:. Patient states that she noticed some tightness around her rib cage on Saturday, and states that she wasn't sure if she was babying it or not d/t increased tightness. States that the discomfort lasted about 3 days and states that she had extra time this morning so she laid back down in bed and curled up and had the pain going down her LE's which she states she hasn't had for a while. Once she straightened back out the pain went away. Precautions: Fall Risk: none Treatment Time in clinic started at 658 am Time in clinic ended at 741 am Total time in clinic is 43 minutes. Total timed code time is 41 minutes. Therapeutic exercise (65192): timed minutes 18, units 1 . SciFit x5' Lv 1.5 (X) 4 way Treadmill x2' Fwd 1.5 mph/x2' lateral each.7 mph/x2' Bkwd.7 mph Slantboard 2x1' Cat/Camel 15x5 holds Moses pose 3x30 hold IRIS x2' (N) LTR on ethiopian ball x2' 5 hold (N) Hook lying TrA iso with Alt UE flexion with hip adduction x15 (P hip ADD) (X, not today) Hook lying TrA iso with Alt LE marching x15 (X, not today) Bridge hip ABD Blue band x15 (P, resistance) Bridge w/ september Blue band x15 (05 september ea LE/rep) (P, resistance) S/L TrA AND Clamshell Blue band x15 B/L (P, resistance) Standing TrA iso with mid row pink tube 2x10 on ethiopian ball (P, surface) Standing (more content not included)... 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 By discharge WILLIAM SOMMER will achieve the following goals: Pt will demo and report compliance with HEP in order to augment POC goals and progression toward independence with symptom management for better outcomes once D/C from POC. , by week 2 Activity Limitation: Pt will demo improved sitting tolerance to >/= 60 min in order to improve ease with ADL?s and IADL?s and tolerance to sitting for driving with work. Strength: Pt will demo improved MMT by >/= 1 point on 0-5 point scale in BLE's for improved strength and stability, and improved ease with transfers, lifting/carrying, and proper mechanics with ADL?s AND IADL?s. Transfers: Pt will demo improved ease with sit<>stand with min UE A and improved eccentric control for decreased fall risk and improved ease with transfers. LAVERNE, Pt will report subjective improvement with score on LAVERNE improved by >/= 5 points for return to PLOF, improved QOL, and improved ease with ADL?s AND IADL?s. Planned interventions include: aquatic therapy, cryotherapy, dry needling, education/instruction, electrical stimulation, gait training, home program, hot pack, kinesiotaping, manual therapy, neuromuscular re-education, self care/home management, therapeutic activities, ultrasound and IASMT/CUPPING. Frequency and duration: 2 time(s) a week, for 4 weeks, for 8 visits. Potential to achieve rehab goals is excellent will continue to work on progressing toward plan of care as tolerated to continue improving lumbar mobility with decreased tightness/soreness at end of work day. Assessment Patient identified by name and Patient able to tolerate progressions and new exercises with no c/o increased symptoms. Demo's improvements in lumbar mobility. Able to be challenged with changes in proprioception to challenge lumbar musculature with good tolerance. Adult Risk Screening There are no spiritual/cultural practices/values/needs that are important to know Initial Fall Risk Screening: WILLIAM has not fallen in the last 6 months. WILLIAM does not have a fear of falling. She does not need assistance with sitting, standing or walking. Does not need assistance walking in her home. She does not need assistance in an unfamiliar setting. The patient is not using an assistive device. Please identify location of pain: L low back. Pain Quality: aching, dull, pressure and tightness. The pain makes it hard for the patient to do these things: exercise, sleep, house work and self-care (bathing, dressing, eating). Living Will. Patient Declined. Healthcare POA: Patient Declined. Declaration of Mental Health Treatment: Patient Declined. Domestic Violence Screen: Does not feel threatened or abused physically, emotionally or sexually. Do you feel UNSAFE? The patient feels safe in the home. Depression/Suicide Screening: During the past 2 weeks, the patient has not felt down, depressed or hopeless. During the past 2 weeks, the patient has not felt little interest or pleasure in doing things. Insurance Insurance reviewed Visit number: 6 Authorization required after evaluation POC: 10/14 [facility] Comm Plan Supervising PT: Columba Gleason PT, DPT, Haim DN PT Dx: M54.42; M47.816 Onset Date: 2021 Subjective Patient reports:. Patient states that she's not having pain this morning, just the normal tightness that she exhibits. Patient states that after the last session she didn't have any increased pain and was able to work with no pain or tightness throughout the day. Precautions: Fall Risk: none Treatment Time in clinic started at 700 am Time in clinic ended at 742 am Total time in clinic is 42 minutes. Total timed code time is 40 minutes. Therapeutic exercise (77379): timed minutes 40, units 3 . SciFit x5' Lv 1.5 (X) 4 way Treadmill x2' Fwd 1.5 mph/x2' lateral each.7 mph/x2' Bkwd.7 mph Slantboard 2x1' Cat/Camel 15x5 holds Moses pose 3x30 hold LTR on ethiopian ball x2' 5 hold (N) Hook lying TrA iso with Alt UE flexion with hip adduction x15 (P hip ADD) (X, not today) Hook lying TrA iso with Alt LE marching x15 (X, not today) Bridge hip ABD Blue band x15 (P, resistance) Bridge w/ march Blue band x15 (05 september ea LE/rep) (P, resistance) S/L TrA AND Clamshell Blue band x15 B/L (P, resistance) Standing TrA iso with mid row pink tube 2x10 on ethiopian ball (P, surface) Standing TrA iso with B shoulder ext [place] tube 2x10 on ethiopian ball (P, surface) Paloff press x10 Bilat [place] Tube on ethiopian ball (P, surface) bug on ethiopian ball x10 (N) Hook lying L piriformis stretch, figure 4 AND pulling knee to opposite shoulder 20 x3 (X, not today) Standing IT/QL stretch (X, not today) Not 07/13/22: - Manual therapy MET, done 1st, followed by: 1/2 kneel Hip flexor AND QL str (more content not included)... Normal [employer] PT Progress Noteon 3 PT Progress Note Therapy Diagnosis Assessed Acute left-sided low back pain with left-sided sciatica (724.2,724.3) (M54.42) 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) Plan Goals: Goals set and discussed today. By discharge WILLIAM SOMMER will achieve the following goals: Pt will demo and report compliance with HEP in order to augment POC goals and progression toward independence with symptom management for better outcomes once D/C from POC. , by week 2 Activity Limitation: Pt will demo improved sitting tolerance to >/= 60 min in order to improve ease with ADL?s and IADL?s and tolerance to sitting for driving with work. Strength: Pt will demo improved MMT by >/= 1 point on 0-5 point scale in BLE's for improved strength and stability, and improved ease with transfers, lifting/carrying, and proper mechanics with ADL?s AND IADL?s. Transfers: Pt will demo improved ease with sit<>stand with min UE A and improved eccentric control for decreased fall risk and improved ease with transfers. LAVERNE, Pt will report subjective improvement with score on LAVERNE improved by >/= 5 points for return to PLOF, improved QOL, and improved ease with ADL?s AND IADL?s. Planned interventions include: aquatic therapy, cryotherapy, dry needling, education/instruction, electrical stimulation, gait training, home program, hot pack, kinesiotaping, manual therapy, neuromuscular re-education, self care/home management, therapeutic activities, ultrasound and IASMT/CUPPING. Frequency and duration: 2 time(s) a week, for 4 weeks, for 8 visits. 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 Assessment Patient identified by name and Patient appropriately challenged. Tolerates progressions with mild difficulty and no c/o increased pain, but does not stiffness with progressions. Able to incorporate more stretching this date and lumbar joint mobs to help reduce restriction/tightness at end of session with good tolerance noted from patient. HEP updated and reviewed with patient allen'g good understanding. No MET intervention needed this date. Adult Risk Screening There are no spiritual/cultural practices/values/needs that are important to know Initial Fall Risk Screening: WILLIAM has not fallen in the last 6 months. WILLIAM does not have a fear of falling. She does not need assistance with sitting, standing or walking. Does not need assistance walking in her home. She does not need assistance in an unfamiliar setting. The patient is not using an assistive device. Please identify location of pain: L low back. Pain Quality: aching, dull, pressure and tightness. The pain makes it hard for the patient to do these things: exercise, sleep, house work and self-care (bathing, dressing, eating). Living Will. Patient Declined. Healthcare POA: Patient Declined. Declaration of Mental Health Treatment: Patient Declined. Domestic Violence Screen: Does not feel threatened or abused physically, emotionally or sexually. Do you feel UNSAFE? The patient feels safe in the home. Depression/Suicide Screening: During the past 2 weeks, the patient has not felt down, depressed or hopeless. During the past 2 weeks, the patient has not felt little interest or pleasure in doing things. Insurance Insurance reviewed Visit number: 5 Authorization required after evaluation POC: 10/14 [facility] Comm Plan Supervising PT: Columba Gleason PT, DPT, Haim DN PT Dx: M54.42; M47.816 Onset Date: 2021 Subjective Patient reports:. Patient states that she isn't having pain currently. States that today is her first day back after 3 days off so she is anticipating feeling stiff later. Precautions: Fall Risk: none Treatment Time in clinic started at 700 am Time in clinic ended at 742 am Total time in clinic is 42 minutes. Total timed code time is 40 minutes. Therapeutic exercise (58394): timed minutes 32, units 2 . SciFit x5' Lv 1.5 (X) 4 way Treadmill x2' Fwd/x2' lateral each/x2' Bkwd (N) Cat/Camel 15x5 holds (P, reps) Moses pose 3x30 hold (N) Hook lying TrA iso with Alt UE flexion with hip adduction x15 (P hip ADD) Hook lying TrA iso with Alt LE marching x15 Bridge hip ABD Green band x15 (P, resistance) Bridge w/ september Green band x15 (05 september ea LE/rep) (P, resistance) S/L TrA AND Clamshell Green band x15 B/L (N) Standing TrA iso with mid row pink tube 2x10 (P, resistance) Standing TrA iso with B shoulder ext [place] tube 2x10 (P, resistance) Paloff press x10 Bilat [place] Tube (P, resistance) Hook lying L piriformis stretch, figure 4 AND pulling knee to opposite shoulder 20 x3 (X, not today) Standing IT/QL stretch (X, not today) Not 07/13/22: Slantboard 2x1' (X) - Manual therapy MET, done 1st, followed by: 1/2 kneel Hip flexor AND QL st (more content not included)... 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 By discharge WILLIAM SOMMER will achieve the following goals: Pt will demo and report compliance with HEP in order to augment POC goals and progression toward independence with symptom management for better outcomes once D/C from POC. , by week 2 Activity Limitation: Pt will demo improved sitting tolerance to >/= 60 min in order to improve ease with ADL?s and IADL?s and tolerance to sitting for driving with work. Strength: Pt will demo improved MMT by >/= 1 point on 0-5 point scale in BLE's for improved strength and stability, and improved ease with transfers, lifting/carrying, and proper mechanics with ADL?s AND IADL?s. Transfers: Pt will demo improved ease with sit<>stand with min UE A and improved eccentric control for decreased fall risk and improved ease with transfers. LAVERNE, Pt will report subjective improvement with score on LAVERNE improved by >/= 5 points for return to PLOF, improved QOL, and improved ease with ADL?s AND IADL?s. Planned interventions include: aquatic therapy, cryotherapy, dry needling, education/instruction, electrical stimulation, gait training, home program, hot pack, kinesiotaping, manual therapy, neuromuscular re-education, self care/home management, therapeutic activities, ultrasound and IASMT/CUPPING. Frequency and duration: 2 time(s) a week, for 4 weeks, for 8 visits. 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 Progress with POC, as tolerated. Assessment Patient identified by name and Added Lumbar joint mobs this date due to lingering restriction in joint mobility, with good response from patient. No other manual techniques needed and no MET required as pt presented with good alignment this date. Able to progress with glute retraining and core stabilization exercises well this date without pain and only mild cues for form. Ended session with stretches from HEP due to patient not having time to do them this morning, but focused more on progression of ther-ex in clinic due to good compliance with HEP most days. Pt able to tolerate exercises in all positions due to no radicular pain in last few weeks, but understands edu to continue to utilize extension biased when/if radicular symptoms return. Adult Risk Screening There are no spiritual/cultural practices/values/needs that are important to know Initial Fall Risk Screening: WILLIAM has not fallen in the last 6 months. WILLIAM does not have a fear of falling. She does not need assistance with sitting, standing or walking. Does not need assistance walking in her home. She does not need assistance in an unfamiliar setting. The patient is not using an assistive device. Please identify location of pain: L low back. Pain Quality: aching, dull, pressure and tightness. The pain makes it hard for the patient to do these things: exercise, sleep, house work and self-care (bathing, dressing, eating). Living Will. Patient Declined. Healthcare POA: Patient Declined. Declaration of Mental Health Treatment: Patient Declined. Domestic Violence Screen: Does not feel threatened or abused physically, emotionally or sexually. Do you feel UNSAFE? The patient feels safe in the home. Depression/Suicide Screening: During the past 2 weeks, the patient has not felt down, depressed or hopeless. During the past 2 weeks, the patient has not felt little interest or pleasure in doing things. Insurance Insurance reviewed Visit number: 4 Authorization required after evaluation POC: 10/14 [facility] Comm Plan Supervising PT: Columba Gleason PT, DPT, Haim DN PT Dx: M54.42; M47.816 Onset Date: 2021 Subjective Patient reports:. Pt notes she is now able to sleep through the night and has not had the sciatic pain for a few weeks now. Precautions: Fall Risk: none Treatment Time in clinic started at 730 am Time in clinic ended at am Total time in clinic is 42 minutes. Total timed code time is 40 minutes. Therapeutic exercise (46761): timed minutes 32, units 2 . SciFit x5' Lv 1.[address]mill (A-next) Cat/Camel 5x5 holds Hook lying TrA iso with Alt UE flexion x15 (P hip ADD) Hook lying TrA iso with Alt LE marching x15 (P, reps) Bridge hip ABD orange band x15 (N) Bridge w/ march no band x15 (05 september ea LE/rep) (N) S/L TrA AND Clamshell orange band x15 B/L (N) Standing TrA iso with mid row purple tube 2x10 Standing TrA iso with B shoulder ext Purple tube 2x10 Paloff press x10 Bilat Purple Tube Hook lying L piriformis stretch, figure 4 AND pulli (more content not included)... 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 By discharge WILLIAM SOMMER will achieve the following goals: Pt will demo and report compliance with HEP in order to augment POC goals and progression toward independence with symptom management for better outcomes once D/C from POC. , by week 2 Activity Limitation: Pt will demo improved sitting tolerance to >/= 60 min in order to improve ease with ADL?s and IADL?s and tolerance to sitting for driving with work. Strength: Pt will demo improved MMT by >/= 1 point on 0-5 point scale in BLE's for improved strength and stability, and improved ease with transfers, lifting/carrying, and proper mechanics with ADL?s AND IADL?s. Transfers: Pt will demo improved ease with sit<>stand with min UE A and improved eccentric control for decreased fall risk and improved ease with transfers. LAVERNE, Pt will report subjective improvement with score on LAVERNE improved by >/= 5 points for return to PLOF, improved QOL, and improved ease with ADL?s AND IADL?s. Planned interventions include: aquatic therapy, cryotherapy, dry needling, education/instruction, electrical stimulation, gait training, home program, hot pack, kinesiotaping, manual therapy, neuromuscular re-education, self care/home management, therapeutic activities, ultrasound and IASMT/CUPPING. Frequency and duration: 2 time(s) a week, for 4 weeks, for 8 visits. Potential to achieve rehab goals is excellent will continue to work on progressing toward plan of care as tolerated to be able to improve sitting tolerance to be able to perform job duties with no exacerbation of symptoms. Assessment Patient identified by name and Appropriately challenged. Able to tolerate new standing PRE's with no c/o exacerbation of symptoms. Patient pelvis checked for malalignment with no intervention needed this date for rotation. Ice given at end of session to help manage symptoms while patient is at work, and education provided for symptom management at home with patient allen'flower understanding. Adult Risk Screening There are no spiritual/cultural practices/values/needs that are important to know Initial Fall Risk Screening: WILLIAM has not fallen in the last 6 months. WILLIAM does not have a fear of falling. She does not need assistance with sitting, standing or walking. Does not need assistance walking in her home. She does not need assistance in an unfamiliar setting. The patient is not using an assistive device. Please identify location of pain: L low back. Pain Quality: aching, dull, pressure and tightness. The pain makes it hard for the patient to do these things: exercise, sleep, house work and self-care (bathing, dressing, eating). Living Will. Patient Declined. Healthcare POA: Patient Declined. Declaration of Mental Health Treatment: Patient Declined. Domestic Violence Screen: Does not feel threatened or abused physically, emotionally or sexually. Do you feel UNSAFE? The patient feels safe in the home. Depression/Suicide Screening: During the past 2 weeks, the patient has not felt down, depressed or hopeless. During the past 2 weeks, the patient has not felt little interest or pleasure in doing things. Insurance Insurance reviewed Visit number: 3 Authorization required after evaluation POC: 08/16 [facility] Comm Plan Supervising PT: Columba Gleason PT, DPT, Cert DN PT Dx: M54.42; M47.816 Onset Date: 2021 Subjective Patient reports:. Patient states that she isn't having any of the sharp pain anymore, but states that she's just feeling achy now. Precautions: Fall Risk: none Treatment Time in clinic started at 701 am Time in clinic ended at 743 am Total time in clinic is 42 minutes. Total timed code time is 40 minutes. Therapeutic exercise (20858): timed minutes 40, units 3 . SciFit x5' (N) Slantboard 2x1' (N) - Manual therapy MET, done 1st, followed by: Hook lying L piriformis stretch, figure 4 AND pulling knee to opposite shoulder 20 x3 (N) 1/2 kneel Hip flexor AND QL stretch 30 x3 ea side Hook lying TrA isometric 5 x10 Hook lying TrA iso with Alt UE flexion x15 (P, reps) Hook lying TrA iso with Alt LE marching x15 (P, reps) Standing TrA isometric 5 x5 (N) Review of extension bias and when to do extension positioning. (N) 4 way Treadmill (A, per POC) Hook lying TrA iso with UE/LE combo 2x10 (N) Standing TrA iso with mid row purple tube 2x10 (N) Standing TrA iso with B shoulder ext Purple tube 2x10 (N) Paloff press x10 Bilat Purple Tube (N) Seated hip adduction x15 5 hold (N) Seated hip abdcution x15 Green TBand (N). Manual Therapy (59732): timed minutes , units . - MET for L anterior rotation: iso L hip ext w/ iso R hip flexion 5 x5, followed by gradual iso hip Add 5 x5, and then gradual iso hip ABD 5 x5 (N) - B (more content not included)... 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 By discharge WILLIAM SOMMER will achieve the following goals: Pt will demo and report compliance with HEP in order to augment POC goals and progression toward independence with symptom management for better outcomes once D/C from POC. , by week 2 Activity Limitation: Pt will demo improved sitting tolerance to >/= 60 min in order to improve ease with ADL?s and IADL?s and tolerance to sitting for driving with work. Strength: Pt will demo improved MMT by >/= 1 point on 0-5 point scale in BLE's for improved strength and stability, and improved ease with transfers, lifting/carrying, and proper mechanics with ADL?s AND IADL?s. Transfers: Pt will demo improved ease with sit<>stand with min UE A and improved eccentric control for decreased fall risk and improved ease with transfers. LAVERNE, Pt will report subjective improvement with score on LAVERNE improved by >/= 5 points for return to PLOF, improved QOL, and improved ease with ADL?s AND IADL?s. Planned interventions include: aquatic therapy, cryotherapy, dry needling, education/instruction, electrical stimulation, gait training, home program, hot pack, kinesiotaping, manual therapy, neuromuscular re-education, self care/home management, therapeutic activities, ultrasound and IASMT/CUPPING. Frequency and duration: 2 time(s) a week, for 4 weeks, for 8 visits. Potential to achieve rehab goals is excellent Plan to check pelvic alignment and progress core ex's next session for pain reduction and ease of ADL's and houshold tasks. -MA. Assessment Patient identified by name AND . Patient wore a mask during treatment d/t Covid-19 precautions. Treatment consisted of MET for correcting pelvic alignment and manual theray for B psoas release followed by ther ex's for core strengthening and hip and LE ROM. Patient tolerated treatment well and pain was abolished and she felt looser. Adult Risk Screening There are no spiritual/cultural practices/values/needs that are important to know Initial Fall Risk Screening: WILLIAM has not fallen in the last 6 months. WILLIAM does not have a fear of falling. She does not need assistance with sitting, standing or walking. Does not need assistance walking in her home. She does not need assistance in an unfamiliar setting. The patient is not using an assistive device. Pain Scale: On a scale of 0 to 10, the patient rates the pain at 3. Please identify location of pain: L low back. Pain Quality: aching, dull, pressure and tightness. The pain makes it hard for the patient to do these things: exercise, sleep, house work and self-care (bathing, dressing, eating). Living Will. Patient Declined. Healthcare POA: Patient Declined. Declaration of Mental Health Treatment: Patient Declined. Domestic Violence Screen: Does not feel threatened or abused physically, emotionally or sexually. Do you feel UNSAFE? The patient feels safe in the home. Depression/Suicide Screening: During the past 2 weeks, the patient has not felt down, depressed or hopeless. During the past 2 weeks, the patient has not felt little interest or pleasure in doing things. Insurance Insurance reviewed Visit number: 2 Authorization required after evaluation POC: 08/16 [facility] Comm Plan Supervising PT: Cloumba Gleason PT, DPT, Cert DN PT Dx: M54.42; M47.816 Onset Date: 2021 Subjective Patient reports:. Pretreatment pain: 3/10 L low back Post treatment pain: 0/10 low back AND looser Soreness in left side low back. States she does not have as many incidents of sharp pain. States overall she has less pain than she did. Not having shooting pain down left leg anymore for over a week. Precautions: Fall Risk: none Treatment Time in clinic started at 8:34 am Time in clinic ended at 9:17 am Total time in clinic is 43 minutes. Total timed code time is 40 minutes. Therapeutic exercise (95078): timed minutes 30, units 2 . - Manual therapy MET, done 1st, followed by: Hool lying L piriformis stretch, figure 4 AND pulling knee to opposite shoulder 20 x3 (N) 1/2 kneel Hip flexor AND QL stretch 30 x3 ea side Hook lying TrA isometric 5 x10 Hook lying TrA iso with Alt UE flexion x10 (N) Hook lying TrA iso with Alt LE marching x10 (N) Standing TrA isometric 5 x5 (N) Review of extension bias and when to do extension positioning. (N) 4 way Treadmill (A, per POC) Piriformis stretch (A, per POC) Hook lying TrA iso with UE/LE combo (A) Standing TrA iso with mid row (A) Standing TrA iso with B shoulder ext (A). Manual Therapy (42650): timed minutes 10, units . - MET for L anterior rotation: iso L hip ext w/ iso R hip flexion 5 x5, followed by gradual iso hip Add 5 x5, and then gradual iso hip ABD 5 x5 (N) - B psoas release (N) - STM (A, per PO (more content not included)... Normal [place] Hemoglobin A1Con 06-26-2022 Glucose [Mass/Vol] 100 mg/dL [facility] ruvalcaba Work Phone: HbA1c (Bld) [Mass fraction] 5.1 % [facility] Work Phone: Comment on above: Diagnosis of Diabete s-Adults Non-Diabetic: < or = 5.6% Increased risk for developing diabetes: 5.7-6.4% Diagnostic of diabetes: > or = 6.5%. Monitoring of Diabetes Age (y) Therapeutic Goal (%) Adults: >18 <7.0 Pediatrics: 13-18 <7.5 7-12 <8.0 0- 6 7.5-8.5 [employer]. Diabetes Care 33(S1), Jul 2009. 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 By discharge WILLIAM SOMMER will achieve the following goals: Pt will demo and report compliance with HEP in order to augment POC goals and progression toward independence with symptom management for better outcomes once D/C from POC. , by week 2 Activity Limitation: Pt will demo improved sitting tolerance to >/= 60 min in order to improve ease with ADL?s and IADL?s and tolerance to sitting for driving with work. Strength: Pt will demo improved MMT by >/= 1 point on 0-5 point scale in BLE's for improved strength and stability, and improved ease with transfers, lifting/carrying, and proper mechanics with ADL?s AND IADL?s. Transfers: Pt will demo improved ease with sit<>stand with min UE A and improved eccentric control for decreased fall risk and improved ease with transfers. LVAERNE, Pt will report subjective improvement with score on LAVERNE improved by >/= 5 points for return to PLOF, improved QOL, and improved ease with ADL?s AND IADL?s. Planned interventions include: aquatic therapy, cryotherapy, dry needling, education/instruction, electrical stimulation, gait training, home program, hot pack, kinesiotaping, manual therapy, neuromuscular re-education, self care/home management, therapeutic activities, ultrasound and IASMT/CUPPING. Frequency and duration: 2 time(s) a week, for 4 weeks, for 8 visits. Potential to achieve rehab goals is excellent Plan of care was developed with input and agreement by the patient. Assessment Ms. 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 Pt appears to be more extension biased, so focused on extension based exercises with good response. Pt edu on radicular symptoms and centralization process and verbal review of HEP with HO given. Amelia Johansen PTA performed HEP with pt at end of session. They would benefit from skilled Physical Therapy with combination of manual therapy techniques to decrease myofascial and joint restrictions, as well as progression of exercises for ROM, flexibility, strength, core stabilization, and glute retraining, and body mechanics education throughout POC to progress towards independence with ADL?s/IADL?s and return to PLOF. Clinical Presentation: Stable and/or uncomplicated characteristics. Level of Complexity: low Problem List: activity limitations, ADLs/IADLs/self care skills, decreased functional level, flexibility, gait/locomotion, motor function/control/tone, pain, participation restrictions, posture, range of motion/joint mobility, strength and transfers. Reason For Visit Initial Evaluation . DDD Lumbar Spine. Referred by: Yaneli Malik Adult Risk Screening There are no spiritual/cultural practices/values/needs that are important to know Initial Fall Risk Screening: WILLIAM has not fallen in the last 6 months. WILLIAM does not have a fear of falling. She does not need assistance with sitting, standing or walking. Does not need assistance walking in her home. She does not need assistance in an unfamiliar setting. The patient is not using an assistive device. Pain Scale: On a scale of 0 to 10, the patient rates the pain at 6. Please identify location of pain: across lower back and worse on Left and into Left leg to posterior and lateral thigh/hip. Pain Quality: aching, dull, pressure and tightness. The pain makes it hard for the patient to do these things: exercise, sleep, house work and self-care (bathing, dressing, eating). Living Will. Patient Declined. Healthcare POA: Patient Declined. Declaration of Mental Health Treatment: Patient Declined. Domestic Violence Screen: Does not feel threatened or abused physically, emotionally or sexually. Do you feel UNSAFE? The patient feels safe in the home. Depression/Suicide Screening: During the past 2 weeks, the patient has not felt down, depressed or hopeless. During the past 2 weeks, the patient has not felt little interest or pleasure in doing things. Insurance Insurance reviewed Visit number: 1 Authorization required after evaluation POC: 1/? [facility] Comm Plan Supervising PT: Columba Gleason PT, DPT, Cert DN PT Dx: M54.42; M47.816 Onset Date: 2021 Subjective Current Episode of Functional Impairment and/or Pain Date of onset: 05/28/22 Mechanism of Injury:. Pt is a 36 year female presenting today with c/o Low back pain that started around May 2022 that started one morning when she woke up she was sore. Pt notes pain started in lumbar spine an (more content not included)... Normal [facility] ELIZABETH W/REFLEX IF POSon 2021 ELIZABETH-DIRECT Negative Normal [facility] Comment on above: Result Comment: Refe rence range: Negative PERFORMED AT [facility] Performed By: #### E SR, FX, CMPF, CREACT, ACBC #### Testing performed at [address] [address] #### MARIANA #### Testing performed at [address] [address] 25 0H VITAMIN D LEVELon 25 0H VITAMIN D LEVEL 56.3 NG/ML Normal >30 [facility] Comment on above: Result Comment: DEFICIENT <20 NG/ML INSUFFICIENT 20-<30 NG/ML SUFFICIENT 30-100 NG/ML POTENTIAL TOXICITY >100 NG/ML Performed By: #### F X, VITD, B12 #### Testing performed at [address] [address] C REACTIVE PROTEINon 022 CRP [Mass/Vol] 8.2 mg/L Normal 0-10.0 [facility] Comment on above: Performed By: #### E SR, FX, CMPF, CREACT, ACBC #### Testing performed at [address] [address] #### MARIANA #### Testing performed at [address] [place] [address] CBCon 06-08-2022 ABSOLUTE BAS 0.0 10*3/uL Normal 0.0-0.2 [facility] Comment on above: Performed By: #### E SR, FX, CMPF, CREACT, ACBC #### Testing performed at [address] [address] #### MARIANA #### Testing performed [address] [place] [address] ABSOLUTE EOS 0.1 10*3/uL Normal 0.0-0.7 [facility] Comment on above: Performed By: #### E SR, FX, CMPF, CREACT, ACBC #### [place] [address] #### MARIANA #### Testing performed at [address] [place] [address] ABSOLUTE NEUTROPHIL COUNT 3.1 10*3/uL Normal 1.4-6.5 [facility] Comment on above: Performed By: #### E SR, FX, CMPF, CREACT, ACBC #### Testing performed at [address] [address] #### MARIANA #### Testing performed at [address] [address] Basophils/100 WBC (Bld) 0.3 % Normal 0.0-2.0 [facility] Comment on above: Performed By: #### E SR, FX, CMPF, CREACT, ACBC #### Testing performed at [address] [address] #### MARIANA #### Testing performed at [address] [place] [address] DTYPE AUTO DIFF Normal [facility] Comment on above: Performed By: #### E SR, FX, CMPF, CREACT, ACBC #### Testing performed at [address] [address] #### MARIANA #### Testing performed at [address] [place] [address] Eosinophils/100 WBC (Bld) 1.7 % Normal 0.0-11.0 [facility] Comment on above: Performed By: #### E SR, FX, CMPF, CREACT, ACBC #### Testing performed at [address] [address] #### MAIRANA #### Testing performed at [address] [place] [address] Lymphocytes (Bld) [#/Vol] 1.6 10*3/uL Normal 1.2-3.4 [facility] Comment on above: Performed By: #### E SR, FX, CMPF, CREACT, ACBC #### [place] [address] #### MARIANA #### Testing performed at [address] [address] Lymphocytes/100 WBC (Bld) 31.9 % Normal 20.0-55.0 [facility] Comment on above: Performed By: #### E SR, FX, CMPF, CREACT, ACBC #### [place] [address] #### MARIANA #### Testing performed at [address] [address] Monocytes (Bld) [#/Vol] 0.3 10*3/uL Normal 0.0-0.7 [facility] Comment on above: Performed By: #### E SR, FX, CMPF, CREACT, ACBC #### Testing performed at [address] [address] #### MARIANA #### Testing performed at [address] [address] Monocytes/100 WBC (Bld) 6.1 % Normal 0.0-10.0 [facility] Comment on above: Performed By: #### E SR, FX, CMPF, CREACT, ACBC #### Testing performed at [address] [address] #### MARIANA #### Testing performed at [facility] [address] Neutrophils/100 WBC (Bld) 60.0 % Normal 37.0-75.0 [facility] Comment on above: Performed By: #### E SR, FX, CMPF, CREACT, ACBC #### Testing performed at [address] [address] #### MARIANA #### Testing performed at [address] [address] Erythrocyte distribution width (RBC) [Ratio] 13.9 % Normal 11.5-14.5 [facility] Comment on above: Performed By: #### E SR, FX, CMPF, CREACT, ACBC #### [place] [address] #### MARIANA #### [place] [address] Hematocrit (Bld) [Volume fraction] 40.6 % Normal 36.0-48.0 [facility] Comment on above: Performed By: #### E SR, FX, CMPF, CREACT, ACBC #### [place] [address] #### MARIANA #### Testing performed at [address] [address] Hemoglobin (Bld) [Mass/Vol] 13.6 g/dL Normal 12.0-16.0 [facility] Comment on above: Performed By: #### E SR, FX, CMPF, CREACT, ACBC #### Testing performed at [address] [address] #### MARIANA #### Testing performed at [address] [address] MCH (RBC) [Entitic mass] 30.9 pg Normal 26.0-35.0 [facility] Comment on above: Performed By: #### E SR, FX, CMPF, CREACT, ACBC #### Testing performed at [address] [address] #### MARIANA #### Testing performed at [address] [place] [address] MCHC (RBC) [Mass/Vol] 33.5 g/dL Normal 27.0-37.0 [facility] Comment on above: Performed By: #### E SR, FX, CMPF, CREACT, ACBC #### [place] [address] #### MARIANA #### Testing performed at [address] [place] [address] MCV (RBC) [Entitic vol] 92.2 fL Normal 80.0-100.0 [facility] Comment on above: Performed By: #### E SR, FX, CMPF, CREACT, ACBC #### [place] [address] #### MARIANA #### Testing performed at [address] [address] Platelet mean volume (Bld) [Entitic vol] 8.3 fL Normal 7.4-11.0 [facility] Comment on above: Performed By: #### E SR, FX, CMPF, CREACT, ACBC #### Testing performed at [place] [id number] #### MARIANA #### Testing performed at [address] [address] Platelets (Bld) [#/Vol] 235 10*3/uL Normal 130.0-400.0 [facility] Comment on above: Performed By: #### E SR, FX, CMPF, CREACT, ACBC #### Testing performed at [address] [address] #### MARIANA #### Testing performed at [address] [address] RBC (Bld) [#/Vol] 4.41 10*6/uL Normal 4.0-5.4 [facility] Comment on above: Performed By: #### E SR, FX, CMPF, CREACT, ACBC #### Testing performed at [address] [address] #### MARIANA #### Testing performed at [address] [place] [address] WBC (Bld) [#/Vol] 5.1 10*3/uL Normal 3.6-11.0 [facility] Comment on above: Performed By: #### E SR, FX, CMPF, CREACT, ACBC #### Testing performed at [address] [address] #### MARIANA #### Testing performed at [address] [place] [address] CMP FASTINGon 06-08-2022 A:G RATIO 1.2 RATIO Low 1.3-2.2 [facility] Comment on above: Performed By: #### E SR, FX, CMPF, CREACT, ACBC #### [place] [address] #### MARIANA #### Testing performed at [address] [address] ALBUMIN 3.8 G/dl Normal 3.5-5.0 [facility] Comment on above: Performed By: #### E SR, FX, CMPF, CREACT, ACBC #### Testing performed at [address] [address] #### MARIANA #### Testing performed at [address] [address] ALP [Catalytic activity/Vol] 70 U/L Normal 38-126 [facility] Comment on above: Performed By: #### E SR, FX, CMPF, CREACT, ACBC #### Testing performed at [address] [address] #### MARIANA #### Testing performed at [address] [address] ALT [Catalytic activity/Vol] 20 U/L Normal 14-54 [facility] Comment on above: Performed By: #### E SR, FX, CMPF, CREACT, ACBC #### Testing performed at [address] [address] #### MARIANA #### Testing performed at [address] [place] [address] AST [Catalytic activity/Vol] 20 U/L Normal 15-41 [facility] Comment on above: Performed By: #### E SR, FX, CMPF, CREACT, ACBC #### Testing performed at [address] [address] #### MARIANA #### Testing performed at [address] [place] [address] Bilirubin [Mass/Vol] 0.6 mg/dL Normal 0.2-1.2 [facility] Comment on above: Performed By: #### E SR, FX, CMPF, CREACT, ACBC #### Testing performed at [address] [address] #### MARIANA #### Testing performed at [address] [place] [address] Calcium [Mass/Vol] 9.4 mg/dL Normal 8.4-10.2 [facility] Comment on above: Performed By: #### E SR, FX, CMPF, CREACT, ACBC #### Testing performed at [address] [address] #### MARIANA #### Testing performed at [address] [address] Chloride [Moles/Vol] 104 mmol/L Normal 98-107 [facility] Comment on above: Performed By: #### E SR, FX, CMPF, CREACT, ACBC #### Testing performed at [address] [address] #### MARIANA #### Testing performed at [address] [place] [address] CO2 [Moles/Vol] 26 mmol/L Normal 22-30 [facility] Comment on above: Performed By: #### E SR, FX, CMPF, CREACT, ACBC #### Testing performed at [address] [place] [address] #### MARIANA #### [facility] [address] [place] [address] [place] [address] Creatinine [Mass/Vol] 0.66 mg/dL Normal 0.52-1.04 [facility] Comment on above: Performed By: #### E SR, FX, CMPF, CREACT, ACBC #### Testing performed at [address] [address] #### MARIANA #### [facility] [place] [address] [place] [address] [place] [address] EST. GFR, 129 ml/min/1.73sq.m [facility] Comment on above: Performed By: #### E SR, FX, CMPF, CREACT, ACBC #### Testing performed at [address] [address] #### MARIANA #### Testing performed at [address] [place] [address] EST. GFR,Non 107 ml/min/1.73sq.m [facility] Comment on above: Performed By: #### E SR, FX, CMPF, CREACT, ACBC #### Testing performed at [address] [address] #### MARIANA #### Testing performed at [place] [address] [place] [address] GFR Information Average GFR for 30-3 9 years old = 107. [facility] Comment on above: Result Comment: [employer] leatha Kidney disease, GFR = <60. Kidney failure, GFR = <15. The GFR estimate is not adjusted for extreme body surface area or acute process, nor has it been validated for women or ethnic groups other than and . Performed By: #### E SR, FX, CMPF, CREACT, ACBC #### Testing performed at [address] [address] #### MARIANA #### Testing performed at [place] [address] [place] [address] Glucose [Mass/Vol] 110 mg/dL High 70-100 [facility] Comment on above: Result Comment: NORMAL <100 mg/dL PREDIABETES 101-126 mg/dL DIABETES 126 mg/dL or higher Performed By: #### E SR, FX, CMPF, CREACT, ACBC #### Testing performed at [address] [address] #### MARIANA #### Testing performed at [place] [address] [place] [address] Potassium [Moles/Vol] 4.1 mmol/L Normal 3.5-5.1 [facility] Comment on above: Performed By: #### E SR, FX, CMPF, CREACT, ACBC #### Testing performed at [address] [address] #### MARIANA #### Testing performed at [address] [place] [address] Protein [Mass/Vol] 7.1 g/dL Normal 6.3-8.2 [facility] Comment on above: Performed By: #### E SR, FX, CMPF, CREACT, ACBC #### Testing performed at [address] [address] #### MARIANA #### Testing performed at [address] [place] [address] Sodium [Moles/Vol] 139 mmol/L Normal 136-145 [facility] Comment on above: Performed By: #### E SR, FX, CMPF, CREACT, ACBC #### Testing performed at [address] [address] #### MARIANA #### Testing performed at [address] [place] [address] Urea nitrogen [Mass/Vol] 15 mg/dL Normal 7-20 [facility] Comment on above: Performed By: #### E SR, FX, CMPF, CREACT, ACBC #### Testing performed at [address] [address] #### MARIANA #### Testing performed at [address] [place] [address] ESRon 06-08-2022 ESR (Bld) [Velocity] 2 mm/h Normal 0-15 [facility] Comment on above: Performed By: #### E SR, FX, CMPF, CREACT, ACBC #### Testing performed at [address] [address] #### MARIANA #### Testing performed at [address] [address] FAX REQUESTon 06-08-2022 FAX TO [phone] Normal [facility] Comment on above: Performed By: #### E SR, FX, CMPF, CREACT, ACBC #### Testing performed at [address] [address] #### MARIANA #### Testing performed at [address] [address] FAX TO [phone] Normal [facility] Comment on above: Performed By: #### F X, VITD, B12 #### Testing performed at [address] [address] Office Visit (Primary Care F orms)on 06-08-2022 Follow-up visit Diagnosis/Problems Assessed Fatigue (780.79) (R53.83) Joint pain (719.40) (M25.50) Muscle pain (729.1) (M79.10) 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) Anxiety (300.00) (F41.9) BMI 30.0-30.9,adult (V85.30) (Z68.30) Orders Anxiety Renew: Venlafaxine HCl ER 75 MG Oral Tablet Extended Release 24 Hour; take 1 tablet by mouth once daily Rx By: Yaneli Malik; Dispense: 0 Days ; #:30 Tablet; Refill: 5;For: Anxiety; CHERELLE = N; Verified Transmission to [address]; Last Updated By: DainaDayima; 06/08/2022 9:21:44 AM Degenerative joint disease (DJD) of lumbar spine Start: Cyclobenzaprine HCl - 5 MG Oral Tablet; TAKE 1 TABLET AT BEDTIME NEEDED Rx By: Yaneli Malik; Dispense: 30 Days ; #:30 Tablet; Refill: 1;For: Degenerative joint disease (DJD) of lumbar spine; CHERELLE = N; Verified Transmission to [address]; Last Updated By: [employer]; 06/08/2022 9:21:47 AM Physical Therapy - General Referral Evaluation and Treatment Evaluate AND Treat Status: Active Requested for: [id number] Ordered;For: Degenerative joint disease (DJD) of lumbar spine; Ordered By: Yaneli Malik Performed: Due: 06Sep2022; Last Updated By: Xander Holt; 06/08/2022 9:36:46 AM AMA Intake Activity Log Entry by [facility] on 2022-06-08 09:34 Status Change : Confirmed - [facility] Module AMA Intake updated by [facility] on 2022-06-08 09:34 New Recipient: oClumba Gleason New Appointment Date: 2022-06-15 07:30 Start: Meloxicam 7.5 MG Oral Tablet; TAKE 1 TABLET DAILY NEEDED Rx By: Yaneli Malik; Dispense: 30 Days ; #:30 Tablet; Refill: 0;For: Degenerative joint disease (DJD) of lumbar spine; CHERELLE = N; Verified Transmission to [address]; Last Updated By: [employer]; 06/08/2022 9:21:48 AM Start: predniSONE 20 MG Oral Tablet; Take 3 tablets (60 mg) for 3 days, then 2 tablets (40 mg) for 3 days, then 1 tablet (20 mg) for 3 days Rx By: Yaneli Malik; Dispense: 0 Days ; #:18 Tablet; Refill: 0;For: Degenerative joint disease (DJD) of lumbar spine; CHERELLE = N; Verified Transmission to [address]; Last Updated By: [employer]; 06/08/2022 9:21:45 AM Fatigue Vitamin B12, Serum; Status:Active; Requested for:[id number]; Perform:Lab Services - Lab To Draw (Blood Test); Due:06Sep2022;Ordered; For:Fatigue; Ordered By:Yaneli Malik; Vitamin D 25-Hydroxy; Status:Active; Requested for:08Jun2022; Perform:Lab Services - Lab To Draw (Blood Test); Due:06Sep2022;Ordered; For:Fatigue; Ordered By:Yaneli Malik; Health Maintenance Renew: Montelukast Sodium 10 MG Oral Tablet; take 1 tablet by mouth every evening Rx By: Yaneli Malik; Dispense: 30 Days ; #:30 Tablet; Refill: 5;For: Health Maintenance; CHERELLE = N; Verified Transmission to [address]; Last Updated By: DainaDayima; 06/08/2022 9:21:44 AM Muscle pain ELIZABETH-WITH REFLEX TO ANABELLA; Status:Active; Requested for:08Jun2022; Perform:Lab Services - Lab To Draw (Blood Test); Due:06Sep2022;Ordered; For:Muscle pain; Ordered By:Yaneli Malik; C Reactive Protein, Serum; Status:Active; Requested for:08Jun2022; Perform:Lab Services - Lab To Draw (Blood Test); Due:06Sep2022;Ordered; For:Muscle pain; Ordered By:Yaneli Malik; Complete Blood Count + Differential; Status:Active; Requested for:08Jun2022; Perform:Lab Services - Lab To Draw (Blood Test); Due:06Sep2022;Ordered; For:Muscle pain; Ordered By:Yaneli Malik; Comprehensive Metabolic Panel; Status:Active; Requested for:08Jun2022; Perform:Lab Services - Lab To Draw (Blood Test); Due:06Sep2022;Ordered; For:Muscle pain; Ordered By:Yaneli Malik; Rheumatoid Factor, Serum or Plasma; Status:Active; Requested for:08Jun2022; Perform:Lab Services - Lab To Draw (Blood Test); Due:06Sep2022;Ordered; For:Muscle pain; Ordered By:Yaneli Malik; Sedimentation Rate, Erythrocyte; Status:Active; Requested for:08Jun2022; Perform:Lab Services - Lab To Draw (Blood Test); Due:06Sep2022;Ordered; For:Muscle pain; Ordered By:Yaneli Malik; Patient Discussion/Summary back pain: Will start Meloxicam, cyclobenzaprine, and do short burst of steroids. WE discussed trial of physical therapy to help with pain. She is agreeable to this. allergies: continue montelukast, advised her to take Flonase BID for 2 weeks and then can continue daily. anxiety: continue venlafaxine 75 mg daily Fatigue: will check Rheum and vitamin deficiency labs. WE will call with her results of her lab work and treat or refer as needed. She will follow up in 3 months. She will call in if she needs refills on medications prior to visit. Chief Complaint check up medication refills History of Present IllnessDana returns for follow up. left ear pain: has been chronic, keeps getting ATB for ear infection but does not believe it is infected. Feels like anytime anything gets in her ear, drop of water, etc...she will have pain and will have to take Tylenol. Fatigue/joint/muscle pa (more content not included)... Normal [facility] RHEUMATOID FACTORon 06-08-20 22 RHEUMATOID FACTOR <8.6 Normal <12 [facility] Comment on above: Performed By: #### E SR, FX, CMPF, CREACT, ACBC #### Testing performed at [place] [id number] #### MARIANA #### Testing performed at [facility] [address] [place] [address] [place] [address] Tobacco Screening.on 022 Tobacco use status CPHS b) No [facility] 205 DO Work Phone: VITAMIN B12on 06-08-2022 Cobalamin (Vitamin B12) [Mass/Vol] pg/mL High 180-914 [facility] Comment on above: Performed By: #### F X, VITD, B12 #### Testing performed at [address] [address] Radiologyon 12-27-2021 XR Foot 2 Views Please click on the link to view the study images Normal [facility] 300 Work Phone: XR Foot 2 Views Normal [facility] 300 Work Phone: Tobacco Screening.on Tobacco use status CPHS b) No [facility] 300 Work Phone: Radiologyon 12-13-2021 XR Foot 2 Views [facility] 300 Work Phone: Tobacco Screening.on Tobacco use status CPHS b) No [facility] 300 Work Phone: Radiologyon 11-28-2021 XR Foot 2 Views Please click on the link to view the study images Normal [facility] 300 Work Phone: XR Foot 2 Views Normal [facility] 300 Work Phone: Tobacco Screening.on Fall risk assessment b) One or more falls in the last year [facility] 300 Work Phone: Tobacco use status CPHS b) No [facility] 300 Work Phone: Radiologyon 11-12-2021 XR Toes 2 Views Normal [facility] 300 Work Phone: Tobacco Screening.on Fall risk assessment a) No falls within the last year -[facility] 205 DO Work Phone: Tobacco use status [facility] b) No [facility] 205 DO Work Phone: Coronavirus 2019 RNA by PCR, Symptomaticon 03-28-2021 Date and time of symptom onset [id number] -[facility] Work Phone: Coronavirus 2019 RNA by PCR, Symptomatic Not detected Normal See Below -[facility] Work Phone: Comment on above: SOURCE: Nasal, Nasop haryngealReference Range: Not Detected.This assay is designed to detect the N, ORF1ab and/or S genes of SARS-CoV-2 via nucleic acid amplification. A Negative (NOT DETECTED) result does not preclude 2019-nCoV infection since the adequacy of sample collection and/or low viral burden may result in presence of viral nucleic acids below the clinical sensitivity of this test method. Negative (NOT DETECTED) result should not be used as the sole basis for treatment or other patient management decisions. Rather negative results should be combined with clinical observations, patient history, and epidemiological information to make patient management decisions.Fact sheet for providers: https://www.fda.gov/media/752184/downloadFact sheet for patients: https://www.fda.gov/media/667039/downloadThis test has received FDA Emergency Use Authorization (EUA) and has been verified by [facility] ([facility]). This test is only authorized for the duration of time that circumstances exist to justify the authorization of the emergency use of in vitro diagnostic tests for the detection of SARS-CoV-2 virus and/or diagnosis of COVID-19 infection under section 564(b)(1) of the Act, 21 U.S.C. 360bbb-3(b)(1), unless the authorization is terminated or revoked sooner. [facility] is certified under CLIA-88 as qualified to perform high complexity testing. Testing is performed in the [facility] laboratories located at [address] [place] [address]. Otheron 09-14-2019 Interpreted by: BECCA AHUJA YIOGUO41/09/20 10:46MRN: [id number] Name: WILLIAM SOMMER STUDY:MR CERVICAL WO/W CONTRAST;; 09/14/2019 9:37 am INDICATION:abnormal MRI c-spine. COMPARISON:MRI of the cervical spine from 06/22/2019. ORDERING CLINICIAN:KOBI FONTANA TECHNIQUE:MRI of the cervical spine was performed with acquisition of sagittalT2, sagittal T1, sagittal STIR, axial T1, axial T2 gradient echo, andsagittal and axial T1 weighted postcontrast sequences. Contrast: 13 mL of MultiHance was injected intravenously. FINDINGS:There is stable reversal of normal cervical lordosis. Vertebral bodyand intervertebral disc heights are maintained. There are stable mildchronic degenerative endplate changes at few levels. The cervical spinal cord is normal in signal and caliber.Specifically, signal abnormality within the ventral portion of thecervical spinal cord at the level of C4-C5 on the prior MRI is notpresent and was likely artifactual. There is no mass or abnormalenhancement within the cervical spinal cord or canal. At C2-C3, there is no posterior disc contour abnormality. There is nospinal canal stenosis or neural foraminal narrowing. There is nofacet osteoarthropathy. At C3-C4, there is a small disc osteophyte complex, unchanged whichpartially effaces the ventral thecal sac. There is no spinal canalstenosis or neural foraminal narrowing. There is no facetosteoarthropathy. At C4-C5, there is a stable small disc osteophyte complex. There isno spinal canal stenosis or neural foraminal narrowing. There is nofacet osteoarthropathy. At C5-C6, there is a stable disc osteophyte complex which causes atmost mild spinal canal stenosis. There is no neural foraminalnarrowing or facet osteoarthropathy. At C6-C7, there is a disc osteophyte complex including a rightparacentral disc protrusion which partially effaces the ventralthecal sac but causes no significant spinal canal stenosis. There isno neural foraminal narrowing. There is no facet osteoarthropathy. At C7-T1, there is no posterior disc contour abnormality. There is nospinal canal stenosis or neural foraminal narrowing. There is nofacet osteoarthropathy. IMPRESSION:1. Unremarkable appearance of the cervical spinal cord, specificallythe questionable T2 hyperintense signal within the ventral cord atthe level of C4-C5 seen on the prior MRI is not seen on today's studyand was artifactual. 2. Stable multilevel degenerative changes of the cervical spine asdetailed above. This study was interpreted at [facility]. Electronically signed by: VICTORIANO LOUIS 09/14/19 10:46 Normal [id number] 204 Work Phone: Auto Diffon 04-02-2019 Basophils (Bld) [#/Vol] 0.0 E3/mcL Normal 0.0-0.2 [facility] Comment on above: Order Comment: Order Added by Discern Expert. Performed By: #### 2 [id number] #### CL Rem[facility] [address] [place] [address] Basophils/100 WBC (Bld) 0.4 % Normal 0.0-2.0 [facility] Comment on above: Order Comment: Order Added by Discern Expert. Performed By: #### 2 [id number] #### CL Rem[facility]emo [address] [place] [address] Eos Absolute 0.1 E3/mcL Normal 0.0-0.7 [facility] Comment on above: Order Comment: Order Added by Discern Expert. Performed By: #### 2 [id number] #### CL Rem[facility] [address] [place] [address] Eosinophils/100 WBC (Bld) 1.1 % Normal 0.0-11.0 [facility] Comment on above: Order Comment: Order Added by Discern Expert. Performed By: #### 2 [id number] #### CL Rem[facility] [address] [place] [address] Lymphocytes (Bld) [#/Vol] 1.9 E3/mcL Normal 1.2-3.4 [facility] Comment on above: Order Comment: Order Added by Discern Expert. Performed By: #### 2 265232 #### CL WhelanHemo [address] [place] [address] Lymphocytes/100 WBC (Bld) 28.7 % Normal 20.0-55.0 [facility] Comment on above: Order Comment: Order Added by Discern Expert. Performed By: #### 2 [id number] #### CL Rem[facility] [address] [place] [address] [place] Absolute 0.5 E3/mcL Normal 0.0-0.7 [facility] Comment on above: Order Comment: Order Added by Discern Expert. Performed By: #### 2 [id number] #### CL Rem[facility] [address] [place] [address] Monocytes/100 WBC (Bld) 7.3 % Normal 0.0-10.0 [facility] Comment on above: Order Comment: Order Added by Discern Expert. Performed By: #### 2 050921 #### CL Rem[facility] [address] [place] [address] Neutro Absolute 4.1 E3/mcL Normal 1.4-6.5 [facility] Comment on above: Order Comment: Order Added by Discern Expert. Performed By: #### 2 536139 #### CL [address] [address] [place] [address] Neutro Auto 62.5 % Normal 37.0-75.0 [facility] Comment on above: Order Comment: Order Added by Discern Expert. Performed By: #### 2 [id number] #### CL [facility] [address] [place] [address] BMPon 04-02-2019 Anion gap [Moles/Vol] 14 mmol/L Normal 10-20 [facility] Comment on above: Performed By: #### 2 489681 #### CL [address] [address] [place] [address] Calcium [Mass/Vol] 10.3 mg/dL Normal 8.6-10.3 [facility] Comment on above: Performed By: #### 2 [id number] #### CL [address] [address] [place] [address] Chloride [Moles/Vol] 105 mmol/L Normal 98-107 [facility] Comment on above: Performed By: #### 2 [id number] #### CL [address] [address] [place] [address] CO2 [Moles/Vol] 23.0 mmol/L Normal 21.0-32.0 [facility] Comment on above: Performed By: #### 2 [id number] #### CL [address]emo [address] [place] [address] Creatinine [Mass/Vol] 0.7 mg/dL Normal 0.5-1.1 [facility] Comment on above: Performed By: #### 2 021414 #### CL Rem[facility] [address] [place] [address] Glucose [Mass/Vol] 98 mg/dL Normal 70-99 [facility] Comment on above: Performed By: #### 2 [id number] #### CL Rem[facility] [address] [place] [address] Potassium [Moles/Vol] 4.1 mmol/L Normal 3.5-5.3 [facility] Comment on above: Performed By: #### 2 [id number] #### CL [facility] [place] [address] Sodium [Moles/Vol] 138 mmol/L Normal 136-145 [facility] Comment on above: Performed By: #### 2 410507 #### CL [facility] [place] [address] Urea nitrogen [Mass/Vol] 22 mg/dL Normal 6-23 [facility] Comment on above: Performed By: #### 2 964192 #### CL [facility] [place] [address] Urea nitrogen/Creatinin e [Mass ratio] 31.4 ratio High 5.4-30.0 [facility] Comment on above: Performed By: #### 2 103418 #### CL Whelan[facility]emo [address] [place] [address] CBC w/ Auto Diffon 9 Erythrocyte distribution width (RBC) [Ratio] 13.0 % Normal 11.5-14.5 [facility] Comment on above: Performed By: #### 2 [id number] #### CL [facility]helan[facility]emo [address] [place] [address] Hematocrit (Bld) [Volume fraction] 42.9 % Normal 36.0-48.0 [facility] Comment on above: Performed By: #### 2 208068 #### CL Whelan[facility]emo [address] [place] [address] Hemoglobin (Bld) [Mass/Vol] 14.4 g/dL Normal 12.0-16.0 [facility] Comment on above: Performed By: #### 2 662130 #### CL [facility]helan[facility]emo [address] [place] [address] MCH (RBC) [Entitic mass] 30.9 pg Normal 27.0-31.0 [facility] Comment on above: Performed By: #### 2 275876 #### CL [address] [address] [place] [address] MCHC (RBC) [Mass/Vol] 33.5 g/dL Normal 33.0-37.0 [facility] Comment on above: Performed By: #### 2 534478 #### CL [address] [address] [place] [address] MCV (RBC) [Entitic vol] 92.1 fL Normal 78.0-100.0 [facility] Comment on above: Performed By: #### 2 950884 #### CL [address] [address] [place] [address] Platelet mean volume (Bld) [Entitic vol] 9.0 fL Normal 7.4-11.0 [facility] Comment on above: Performed By: #### 2 305021 #### CL [facility] [place] [address] Platelets (Bld) [#/Vol] 277 E3/mcL Normal 130-400 [facility] Comment on above: Performed By: #### 2 746041 #### CL Whelan[facility]emo [address] [place] [address] RBC (Bld) [#/Vol] 4.66 E6/mcL Normal 3.90-5.40 [facility] Comment on above: Performed By: #### 2 818660 #### CL Whelan[facility]emo [address] [place] [address] WBC (Bld) [#/Vol] 6.5 E3/mcL Normal 3.6-11.0 [facility] Comment on above: Performed By: #### 2 456193 #### CL [facility] [place] [address] Magnesiumon 04-02-2019 Magnesium [Mass/Vol] 2.0 Int._Unit/L Normal 1.6-2.4 [facility] Comment on above: Performed By: #### 2 513823 #### CL [facility] [place] [address] TSHon 04-02-2019 TSH Qn 2.00 mcIU/mL Normal 0.30-5.60 [facility] Comment on above: Performed By: #### 2 728538 #### CL [facility] [place] [address] Vit B12on 04-02-2019 Cobalamin (Vitamin B12) [Mass/Vol] 162 pg/mL Low 180-914 [facility] Comment on above: Performed By: #### 2 497051 #### CL [facility] [place] [address] Vitamin D 25 Hydroxyon 04-02 Vitamin D 25 Hydroxy 38.0 ng/mL Normal 30.0-100.0 [facility] Comment on above: Performed By: #### 2 027340 #### CL [facility] [place] [id number] eGFRon 04-02-2019 GFR/1.73 sq M predicted among non-blacks MDRD (S/P/Bld) [Vol rate/Area] mL/min/{1.73_m2} Normal [facility] Comment on above: Order Comment: Order added by Discern Expert. Performed By: #### 2 [id number] #### CL [facility] [place] [id number] US Extremity Non-Vascular Ri [facility] 10-15-2018 US Extremity Non-Vascular Right Exam Date/Time: 10/02/2018 15:19 EDT Reason for Exam: RIGHT THIGH LUMP;Lump Addendum ADDENDUM: There is an error within the report. The following statement: THE LARGEST MEASURES AT UP TO 1.7 X 10.7 X 1.5 CM IN DIAMETER. Should read: THE LARGEST MEASURES AT UP TO 1.7 X 0.7 X 1.5 CM IN DIAMETER. FINAL REPORT Dictated: 10/15/2018 8:34 am Rom Quick MD Signed (Electronic Signature): 10/15/2018 8:34 am Signed by: Rom Quick MD Technologist: EH Report STUDY: US Extremity Non-Vascular Right;; 10/02/2018 3:19 pm INDICATION: Lump. COMPARISON: None. ACCESSION NUMBER(S): [id number] ORDERING CLINICIAN: Na Arcos TECHNIQUE: Grayscale ultrasonographic images were obtained through the right lateral thigh in the region of palpable abnormality. FINDINGS: There are several ovoid areas of increased echogenicity identified within the subcutaneous fat of the right lateral thigh, in the region of palpable abnormality. The largest measures at up to 1.7 x 10.7 x 1.5 cm in diameter. These are of uncertain etiology, but may represent areas of bruising. IMPRESSION: Exam Date/Time: 10/02/2018 15:19 EDT Report Ovoid echogenic foci in the subcutaneous fat, as described above. These are of uncertain etiology. Clinical correlation is recommended. FINAL REPORT Dictated: 10/03/2018 11:05 am Rmo Quick MD Signed (Electronic Signature): 10/03/2018 11:05 am Signed by: Rom Quick MD Technologist: Report last revised on 10/15/2018 08:34 EDT by Rom Quick MD Normal [facility] Lab Miscellaneouson 10-04-19 19 Status See Ref Lab Report Normal [facility] Comment on above: Performed By: #### 1 [id number] #### CL Send Outs Subsection [address] [place] [address] Auto Diffon 10-01-2018 Basophils (Bld) [#/Vol] 0.0 E3/mcL Normal 0.0-0.2 [facility] Comment on above: Order Comment: Order Added by Discern Expert. Performed By: #### 2 762366 #### CL Rem[facility]emo [address] [place] [address] Basophils/100 WBC (Bld) 0.3 % Normal 0.0-2.0 [facility] Comment on above: Order Comment: Order Added by Discern Expert. Performed By: #### 2 [id number] #### CL RemHemo [address] [place] [address] Eos Absolute 0.1 E3/mcL Normal 0.0-0.7 [facility] Comment on above: Order Comment: Order Added by Discern Expert. Performed By: #### 2 159341 #### CL RemHemo [address] [place] [address] Eosinophils/100 WBC (Bld) 1.0 % Normal 0.0-11.0 [facility] Comment on above: Order Comment: Order Added by Discern Expert. Performed By: #### 2 868902 #### CL Rem[facility]emo [address] [place] [address] Lymphocytes (Bld) [#/Vol] 1.8 E3/mcL Normal 1.2-3.4 [facility] Comment on above: Order Comment: Order Added by Discern Expert. Performed By: #### 2 629025 #### CL Rem[facility]emo [address] [place] [address] Lymphocytes/100 WBC (Bld) 23.2 % Normal 20.0-55.0 [facility] Comment on above: Order Comment: Order Added by Discern Expert. Performed By: #### 2 722838 #### CL Rem[facility]emo [address] [place] [address] [place] Absolute 0.4 E3/mcL Normal 0.0-0.7 [facility] Comment on above: Order Comment: Order Added by Discern Expert. Performed By: #### 2 019064 #### CL Rem[facility]emo [address] [place] [address] Monocytes/100 WBC (Bld) 5.7 % Normal 0.0-10.0 [facility] Comment on above: Order Comment: Order Added by Discern Expert. Performed By: #### 2 925829 #### CL Rem[facility]emo [address] [place] [address] Neutro Absolute 5.4 E3/mcL Normal 1.4-6.5 [facility] Comment on above: Order Comment: Order Added by Discern Expert. Performed By: #### 2 097935 #### CL Rem[facility]emo [address] [place] [address] Neutro Auto 69.8 % Normal 37.0-75.0 [facility] Comment on above: Order Comment: Order Added by Discern Expert. Performed By: #### 2 [id number] #### CL Rem[facility]emo [address] [place] [address] BMPon 10-01-2018 Anion gap [Moles/Vol] 12 mmol/L Normal 10-20 [facility] Comment on above: Performed By: #### 2 994802 #### CL [employer] [address] [place] [address] Calcium [Mass/Vol] 9.8 mg/dL Normal 8.6-10.3 [facility] Comment on above: Performed By: #### 2 [id number] #### CL [employer] [address] [place] [address] [id number] Chloride [Moles/Vol] 103 mmol/L Normal 98-107 [facility] Comment on above: Performed By: #### 2 [id number] #### CL [employer] [address] [place] [address] 47376 CO2 [Moles/Vol] 28.0 mmol/L Normal 21.0-32.0 [facility] Comment on above: Performed By: #### 2 [id number] #### CL [employer] [address] [place] [address] 43590 Creatinine [Mass/Vol] 0.7 mg/dL Normal 0.5-1.1 [facility] Comment on above: Performed By: #### 2 [id number] #### CL [employer] [address] [place] [address] 76114 Glucose [Mass/Vol] 88 mg/dL Normal 70-99 [facility] Comment on above: Performed By: #### 2 [id number] #### CL [employer] [address] [place] [address] 63179 Potassium [Moles/Vol] 3.9 mmol/L Normal 3.5-5.3 [facility] Comment on above: Performed By: #### 2 [id number] #### CL [employer] [address] [place] [address] 24581 Sodium [Moles/Vol] 139 mmol/L Normal 136-145 [facility] Comment on above: Performed By: #### 2 [id number] #### CL [employer] [address] [place] [address] 43284 Urea nitrogen [Mass/Vol] 10 mg/dL Normal 6-23 [facility] Comment on above: Performed By: #### 2 [id number] #### CL [employer] [address] [place] [address] 23061 Urea nitrogen/Creatinin e [Mass ratio] 14.3 ratio Normal 5.4-30.0 [facility] Comment on above: Performed By: #### 2 [id number] #### CL [employer] [address] [place] [address] 95133 CBC w/ Auto Diffon Erythrocyte distribution width (RBC) [Ratio] 13.9 % Normal 11.5-14.5 [facility] Comment on above: Performed By: #### 2 [id number] #### CL [facility] [place] [address] Hematocrit (Bld) [Volume fraction] 40.5 % Normal 36.0-48.0 [facility] Comment on above: Performed By: #### 2 [id number] #### CL [employer] [address] [place] [address] 51082 Hemoglobin (Bld) [Mass/Vol] 13.5 g/dL Normal 12.0-16.0 [facility] Comment on above: Performed By: #### 2 [id number] #### CL [employer] [address] [place] [address] 42689 MCH (RBC) [Entitic mass] 30.4 pg Normal 27.0-31.0 [facility] Comment on above: Performed By: #### 2 [id number] #### CL [employer] [address] [place] [address] 10467 MCHC (RBC) [Mass/Vol] 33.3 g/dL Normal 33.0-37.0 [facility] Comment on above: Performed By: #### 2 [id number] #### CL [employer] [address] [place] [address] 96112 MCV (RBC) [Entitic vol] 91.3 fL Normal 78.0-100.0 [facility] Comment on above: Performed By: #### 2 [id number] #### CL [employer] [address] [place] [address] 73834 Platelet mean volume (Bld) [Entitic vol] 9.4 fL Normal 7.4-11.0 [facility] Comment on above: Performed By: #### 2 [id number] #### CLKay [facility] [place] [address] Platelets (Bld) [#/Vol] 258 E3/mcL Normal 130-400 [facility] Comment on above: Performed By: #### 2 [id number] #### CL [facility] [place] [address] RBC (Bld) [#/Vol] 4.44 E6/mcL Normal 3.90-5.40 [facility] Comment on above: Performed By: #### 2 [id number] #### CL [facility] [place] [id number] WBC (Bld) [#/Vol] 7.7 E3/mcL Normal 3.6-11.0 [facility] Comment on above: Performed By: #### 2 [id number] #### CL [employer] [address] [place] [address] Free T4on 10-01-2018 Free T4 [Mass/Vol] 1.03 ng/dL Normal 0.58-1.64 [facility] Comment on above: Result Comment: Melissa ents receiving more than 5mg/day of biotin may have interference in test results. A sample should be taken no sooner than eight hours after previous dose. Performed By: #### 2 [id number] #### CL [employer] [address] [place] [address] Lab Miscellaneouson 10-02-19 19 Test Name celiac panel Normal [facility] Comment on above: Performed By: #### 1 [id number] #### CL [employer]section [address] [place] [address] TSHon 10-01-2018 TSH Qn 1.44 mcIU/mL Normal 0.30-5.60 [facility] Comment on above: Performed By: #### 2 [id number] #### [place] [address] eGFRon 10-01-2018 GFR/1.73 sq M predicted among non-blacks MDRD (S/P/Bld) [Vol rate/Area] mL/min/{1.73_m2} Normal [facility] Comment on above: Order Comment: Order added by Discern Expert. Performed By: #### 1 [id number] #### CL [employer] [address] [place] [address] XR Wrist Right 3+ Views (Sta ndard)on 05-08-2018 3 views right wrist reveals no fracture or dislocation no other abnormality seen Invalid Interpretation Code FUJI SYNAPSE [facility] XR CHEST AP/PA AND LATon XR CHEST AP/PA AND LAT EXAMINATION:XR CHEST AP/PA AND LATHISTORY:CHEST PAINCOMPARISON:None.FINDI NGS:The heart and mediastinum are unremarkable. The lungs are clear of any congestion or filtration. There is no pleural effusion. There is no pneumothorax.IMPRESSION:N o acute cardiopulmonary disease.Workstation ID: [id number] by: VAIBHAV COLEMAN on SatApr 17, 2018 7:25:34 PM EDTTranscribed by: VAIBHAV COLEMAN on SatApr 17, 2018 7:25:34 PM EDTFinalized by: VAIBHAV COLEMAN on [facility] Apr 17, 2018 7:25:34 PM EDT [facility] Comment on above: Order Comment: Reaso n for exam?:chest painInjury/Trauma or Illness?:Illness/OtherHow long have you had these symptoms (acute/chronic)?:AcuteHistory of cancer?:naSurgeries, chemotherapy, or radiation?:naType of Exam?:InitialAdditional signs and symptoms?:na XR Chest AP/PA and LATon No acute cardiopulmo nary disease. Workstation ID: [id number] Invalid Interpretation Code Score The Board EXAMINATION: XR CHES T AP/PA AND LAT HISTORY: CHEST PAIN COMPARISON: None. FINDINGS: The heart and mediastinum are unremarkable. The lungs are clear of any congestion or filtration. There is no pleural effusion. There is no pneumothorax. Invalid Interpretation Code [employer] [place] Interface, Rad In Fu ji Speechq - 04/17/2018 7:28 PM EDT EXAMINATION: XR CHEST AP/PA AND LAT HISTORY: CHEST PAIN COMPARISON: None. FINDINGS: The heart and mediastinum are unremarkable. The lungs are clear of any congestion or filtration. There is no pleural effusion. There is no pneumothorax. IMPRESSION: No acute cardiopulmonary disease. Workstation ID: [id number] Invalid Interpretation Code [employer] [place] Vital Signs Date Time Vital Sign Value Performing Clinician Facility 04-27-2025 09:24-0400 Body height 160 cm Yaneli Malik SPLICER OPERATOR-PROJECT CONTROL OFFICER Work Phone: [facility] 04-27-2025 09:24-0400 Body mass index (BMI) [Ratio] 33.13 kg/m2 Yaneli Malik SPLICER OPERATOR-PROJECT CONTROL OFFICER Work Phone: [facility] 04-27-2025 09:24-0400 Body weight 84.82 kg Yaneli Malik SPLICER OPERATOR-PROJECT CONTROL OFFICER Work Phone: [facility] 04-27-2025 09:24-0400 Diastolic blood pressure 80 mm[Hg] Yaneli Malik SPLICER OPERATOR-PROJECT CONTROL OFFICER Work Phone: [facility] 04-27-2025 09:24-0400 Heart rate 92 /min Yaneli Malik SPLICER OPERATOR-PROJECT CONTROL OFFICER Work Phone: [facility] 04-27-2025 09:24-0400 Systolic blood pressure 104 mm[Hg] Yaneli Malik SPLICER OPERATOR-PROJECT CONTROL OFFICER Work Phone: [facility] 04-12-2025 09:38-0400 Body height 160 cm Klaus Strickland SPLICER OPERATOR-PROJECT CONTROL OFFICER Work Phone: [facility] 04-12-2025 09:38-0400 Body mass index (BMI) [Ratio] 33.53 kg/m2 Klaus Strickland SPLICER OPERATOR-PROJECT CONTROL OFFICER Work Phone: [facility] 04-12-2025 09:38-0400 Body weight 85.87 kg Klaus Strickland SPLICER OPERATOR-PROJECT CONTROL OFFICER Work Phone: [facility] 04-12-2025 09:38-0400 Diastolic blood pressure 68 mm[Hg] Klaus Strickland SPLICER OPERATOR-PROJECT CONTROL OFFICER Work Phone: [facility] 04-12-2025 09:38-0400 Heart rate 84 /min Klaus Strickland SPLICER OPERATOR-PROJECT CONTROL OFFICER Work Phone: [facility] 04-12-2025 09:38-0400 SaO2% (BldA) [Mass fraction] 98 % Klaus Strickland SPLICER OPERATOR-PROJECT CONTROL OFFICER Work Phone: [facility] 04-12-2025 09:38-0400 Systolic blood pressure 106 mm[Hg] Klaus Strickland SPLICER OPERATOR-PROJECT CONTROL OFFICER Work Phone: [facility] 02-23-2025 10:25-0400 Body height 157.5 cm Yaneli Malik SPLICER OPERATOR-PROJECT CONTROL OFFICER Work Phone: [facility] 02-23-2025 10:25-0400 Body mass index (BMI) [Ratio] 34.2 kg/m2 Yaneli Malik SPLICER OPERATOR-PROJECT CONTROL OFFICER Work Phone: [facility] 02-23-2025 10:25-0400 Body weight 84.82 kg Yaneli Malik SPLICER OPERATOR-PROJECT CONTROL OFFICER Work Phone: [facility] 02-23-2025 10:25-0400 Diastolic blood pressure 80 mm[Hg] Yaneli Malik SPLICER OPERATOR-PROJECT CONTROL OFFICER Work Phone: [facility] 02-23-2025 10:25-0400 Heart rate 72 /min Yaneli Malik SPLICER OPERATOR-PROJECT CONTROL OFFICER Work Phone: [facility] 02-23-2025 10:25-0400 Systolic blood pressure 128 mm[Hg] Yaneli Malik SPLICER OPERATOR-PROJECT CONTROL OFFICER Work Phone: [facility] 02-11-2025 14:03-0400 Body mass index (BMI) [Ratio] 34.53 kg/m2 Frederic Malik PA-C Work Phone: [facility] 02-11-2025 14:03-0400 Body weight 85.64 kg Frederic Malik PA-C Work Phone: [facility] 01-19-2025 13:04-0400 Body height 157.5 cm Klaus Strickland SPLICER OPERATOR-PROJECT CONTROL OFFICER Work Phone: [facility] 01-19-2025 13:04-0400 Body mass index (BMI) [Ratio] 34 kg/m2 Klaus Strickland SPLICER OPERATOR-PROJECT CONTROL OFFICER Work Phone: [facility] 01-19-2025 13:04-0400 Body weight 84.32 kg Klaus Strickland SPLICER OPERATOR-PROJECT CONTROL OFFICER Work Phone: [facility] 01-19-2025 13:04-0400 Diastolic blood pressure 80 mm[Hg] Klaus Em SPLICER OPERATOR-PROJECT CONTROL OFFICER Work Phone: [facility] 01-19-2025 13:04-0400 Heart rate 98 /min Klaus Strickland SPLICER OPERATOR-PROJECT CONTROL OFFICER Work Phone: [facility] 01-19-2025 13:04-0400 SaO2% (BldA) [Mass fraction] 100 % Klaus Mossnar SPLICER OPERATOR-PROJECT CONTROL OFFICER Work Phone: [facility] 01-19-2025 13:04-0400 Systolic blood pressure 108 mm[Hg] Klaus Mossnar SPLICER OPERATOR-PROJECT CONTROL OFFICER Work Phone: [facility] 01-14-2025 07:20-0400 Body height 161.3 cm Angel Carter SPLICER OPERATOR.PROJECT CONTROL OFFICER Work Phone: [facility] 01-14-2025 07:20-0400 Body mass index (BMI) [Ratio] 32.26 kg/m2 Angel Carter SPLICER OPERATOR.PROJECT CONTROL OFFICER Work Phone: [facility] 01-14-2025 07:20-0400 Body weight 83.92 kg Angel Hacandace SPLICER OPERATOR.PROJECT CONTROL OFFICER Work Phone: [facility] 01-14-2025 07:20-0400 Diastolic blood pressure 78 mm[Hg] Angel Carter SPLICER OPERATOR.PROJECT CONTROL OFFICER Work Phone: [facility] 01-14-2025 07:20-0400 Systolic blood pressure 124 mm[Hg] Angel Carter SPLICER OPERATOR.PROJECT CONTROL OFFICER Work Phone: [facility] 01-13-2025 09:45-0400 Body height 157.5 cm Yaneli Malik SPLICER OPERATOR-PROJECT CONTROL OFFICER Work Phone: [facility] 01-13-2025 09:45-0400 Body mass index (BMI) [Ratio] 34.24 kg/m2 Yaneli Malik SPLICER OPERATOR-PROJECT CONTROL OFFICER Work Phone: [facility] 01-13-2025 09:45-0400 Body weight 84.91 kg Yaneli Malik SPLICER OPERATOR-PROJECT CONTROL OFFICER Work Phone: [facility] 01-13-2025 09:45-0400 Diastolic blood pressure 80 mm[Hg] Yaneli Malik SPLICER OPERATOR-PROJECT CONTROL OFFICER Work Phone: [facility] 01-13-2025 09:45-0400 Heart rate 104 /min Yaneli Malik SPLICER OPERATOR-PROJECT CONTROL OFFICER Work Phone: [facility] 01-13-2025 09:45-0400 Systolic blood pressure 124 mm[Hg] Yaneli Malik SPLICER OPERATOR-PROJECT CONTROL OFFICER Work Phone: [facility] 12-30-2024 16:00-0400 Diastolic blood pressure 93 mm[Hg] Estuardo Colin DO Work Phone: [facility] 12-30-2024 16:00-0400 Heart rate 101 /min Estuardo Pattersondenny DO Work Phone: [facility] 12-30-2024 16:00-0400 Respiratory rate 13 /min Estuardo Colin DO Work Phone: [facility] 12-30-2024 16:00-0400 SaO2% (BldA) [Mass fraction] 98 % Estuardo Colin DO Work Phone: [facility] 12-30-2024 16:00-0400 Systolic blood pressure 123 mm[Hg] Estuardo Pattersondenny DO Work Phone: [facility] 12-30-2024 12:52-0400 Body height 157.5 cm Estuardo Colin DO Work Phone: [facility] 12-30-2024 12:52-0400 Body mass index (BMI) [Ratio] 32.92 kg/m2 Estuardo Colin DO Work Phone: [facility] 12-30-2024 12:52-0400 Body temperature 97.9 [degF] Estuardo Pattersondenny DO Work Phone: [facility] 12-30-2024 12:52-0400 Body weight 81.65 kg Estuardo Pattersondenny DO Work Phone: [facility] 09-08-2024 07:57-0500 Body height 157.5 cm Yaneli Malik SPLICER OPERATOR-PROJECT CONTROL OFFICER Work Phone: [facility] 09-08-2024 07:57-0500 Body mass index (BMI) [Ratio] 34.39 kg/m2 Yaneli Malik SPLICER OPERATOR-PROJECT CONTROL OFFICER Work Phone: [facility] 09-08-2024 07:57-0500 Body weight 85.28 kg Yaneli Malik SPLICER OPERATOR-PROJECT CONTROL OFFICER Work Phone: [facility] 09-08-2024 07:57-0500 Diastolic blood pressure 80 mm[Hg] Yaneli Malik SPLICER OPERATOR-PROJECT CONTROL OFFICER Work Phone: [facility] 09-08-2024 07:57-0500 Heart rate 111 /min Yaneli Malik SPLICER OPERATOR-PROJECT CONTROL OFFICER Work Phone: [facility] 09-08-2024 07:57-0500 SaO2% (BldA) [Mass fraction] 97 % Yaneli Malik SPLICER OPERATOR-PROJECT CONTROL OFFICER Work Phone: [facility] 09-08-2024 07:57-0500 Systolic blood pressure 118 mm[Hg] Yaneli Malik SPLICER OPERATOR-PROJECT CONTROL OFFICER Work Phone: [facility] 07-31-2024 08:44-0500 Body height 157.5 cm Yaneli Malik SPLICER OPERATOR-PROJECT CONTROL OFFICER Work Phone: [facility] 07-31-2024 08:44-0500 Body mass index (BMI) [Ratio] 34.66 kg/m2 Yaneli Malik SPLICER OPERATOR-PROJECT CONTROL OFFICER Work Phone: [facility] 07-31-2024 08:44-0500 Body weight 85.96 kg Yaneli Malik SPLICER OPERATOR-PROJECT CONTROL OFFICER Work Phone: [facility] 07-31-2024 08:44-0500 Diastolic blood pressure 80 mm[Hg] Yaneli Malik SPLICER OPERATOR-PROJECT CONTROL OFFICER Work Phone: 8(964)125-080622 [place] [address] 07-31-2024 08:44-0500 Heart rate 106 /min Yaneli Malik SPLICER OPERATOR-PROJECT CONTROL OFFICER Work Phone: 5(564)375-500022 [place] [address] 07-31-2024 08:44-0500 Systolic blood pressure 114 mm[Hg] Yaneli Malik SPLICER OPERATOR-PROJECT CONTROL OFFICER Work Phone: 4(910)254-012522 [place] [address] 06-26-2024 06:57-0500 Body height 157.5 cm Yaneli Malik SPLICER OPERATOR-PROJECT CONTROL OFFICER Work Phone: 3(322)934-230822 [place] [address] 06-26-2024 06:57-0500 Diastolic blood pressure 86 mm[Hg] Yaneli Malik SPLICER OPERATOR-PROJECT CONTROL OFFICER Work Phone: 6(781)953-727322 [place] [address] 06-26-2024 06:57-0500 Heart rate 110 /min Yaneli Malik SPLICER OPERATOR-PROJECT CONTROL OFFICER Work Phone: 3(554)397-903622 [place] [address] 06-26-2024 06:57-0500 SaO2% (BldA) [Mass fraction] 97 % Yaneli Malik SPLICER OPERATOR-PROJECT CONTROL OFFICER Work Phone: 9(589)189-726222 [place] [address] 06-26-2024 06:57-0500 Systolic blood pressure 134 mm[Hg] Yaneli Malik SPLICER OPERATOR-PROJECT CONTROL OFFICER Work Phone: 4(797)736-267822 [place] [address] 06-18-2024 17:02-0500 Diastolic blood pressure 109 mm[Hg] Yaneli Malik SPLICER OPERATOR-PROJECT CONTROL OFFICER Work Phone: 9(118)202-514722 [place] [address] 06-18-2024 17:02-0500 Heart rate 98 /min Yaneli Malik SPLICER OPERATOR-PROJECT CONTROL OFFICER Work Phone: 3(501)607-796322 [place] [address] 06-18-2024 17:02-0500 Respiratory rate 16 /min Yaneli Malik SPLICER OPERATOR-PROJECT CONTROL OFFICER Work Phone: 9(086)994-886722 [place] [address] 06-18-2024 17:02-0500 SaO2% (BldA) [Mass fraction] 100 % Yaneli Malik SPLICER OPERATOR-PROJECT CONTROL OFFICER Work Phone: 1(715)873-022022 [place] [address] 06-18-2024 17:02-0500 Systolic blood pressure 147 mm[Hg] Yaneli Malik SPLICER OPERATOR-PROJECT CONTROL OFFICER Work Phone: [facility] 06-18-2024 13:58-0500 Body height 157.5 cm Yanelioctavia Malik SPLICER OPERATOR-PROJECT CONTROL OFFICER Work Phone: [facility] 06-18-2024 13:58-0500 Body mass index (BMI) [Ratio] 32.92 kg/m2 Yanelioctavia Malik SPLICER OPERATOR-PROJECT CONTROL OFFICER Work Phone: [facility] 06-18-2024 13:58-0500 Body temperature 97 [degF] Yanelioctavia Malik SPLICER OPERATOR-PROJECT CONTROL OFFICER Work Phone: [facility] 06-18-2024 13:58-0500 Body weight 81.65 kg Yanelioctavia Malik SPLICER OPERATOR-PROJECT CONTROL OFFICER Work Phone: [facility] 03-25-2024 13:48-0400 Body height 157.5 cm Kobi Sol MD Work Phone: [facility] 03-25-2024 13:48-0400 Body mass index (BMI) [Ratio] 33.58 kg/m2 Kobi Sol MD Work Phone: [facility] 03-25-2024 13:48-0400 Body weight 83.28 kg Kobi Sol MD Work Phone: [facility] 03-25-2024 13:48-0400 Diastolic blood pressure 80 mm[Hg] Kobi Sol MD Work Phone: [facility] 03-25-2024 13:48-0400 Systolic blood pressure 130 mm[Hg] Kobi Sol MD Work Phone: [facility] 01-22-2024 14:04-0400 Body mass index (BMI) [Ratio] 33.25 kg/m2 Elieser Garcia MD Work Phone: [facility] 01-22-2024 14:04-0400 Body temperature 97 [degF] Elieser Garcia MD Work Phone: [facility] 01-22-2024 14:04-0400 Body weight 82.46 kg Elieser Garcia MD Work Phone: [facility] 01-22-2024 14:04-0400 Diastolic blood pressure 105 mm[Hg] Elieser Garcia MD Work Phone: [facility] Comment on above: rechecked it- it stayed the same 01-22-2024 14:04-0400 Heart rate 109 /min Elieser Garcia MD Work Phone: [facility] 01-22-2024 14:04-0400 Respiratory rate 20 /min Elieser Garcia MD Work Phone: [facility] 01-22-2024 14:04-0400 SaO2% (BldA) [Mass fraction] 98 % Elieser Garcia MD Work Phone: [facility] 01-22-2024 14:04-0400 Systolic blood pressure 145 mm[Hg] Elieser Garcia MD Work Phone: [facility] Comment on above: rechecked it- it stayed the same 01-10-2024 11:17-0400 Diastolic blood pressure 112 mm[Hg] Yaneli Malik SPLICER OPERATOR-PROJECT CONTROL OFFICER Work Phone: [facility] 01-10-2024 11:17-0400 Heart rate 94 /min Yaneli Malik SPLICER OPERATOR-PROJECT CONTROL OFFICER Work Phone: [facility] 01-10-2024 11:17-0400 Respiratory rate 18 /min Yaneli Malik SPLICER OPERATOR-PROJECT CONTROL OFFICER Work Phone: [facility] 01-10-2024 11:17-0400 Systolic blood pressure 155 mm[Hg] Yaneli Malik SPLICER OPERATOR-PROJECT CONTROL OFFICER Work Phone: [facility] 01-10-2024 10:03-0400 Body height 157.5 cm Yaneli Malik APRN-PROJECT CONTROL OFFICER Work Phone: [facility] 01-10-2024 10:03-0400 Body mass index (BMI) [Ratio] 32.92 kg/m2 Yaneli Malik SPLICER OPERATOR-PROJECT CONTROL OFFICER Work Phone: [facility] 01-10-2024 10:03-0400 Body temperature 97.7 [degF] Yaneli Malik SPLICER OPERATOR-PROJECT CONTROL OFFICER Work Phone: [facility] 01-10-2024 10:03-0400 Body weight 81.65 kg Yaneli Malik SPLICER OPERATOR-PROJECT CONTROL OFFICER Work Phone: [facility] 01-10-2024 10:03-0400 SaO2% (BldA) [Mass fraction] 98 % Yaneli Malik SPLICER OPERATOR-PROJECT CONTROL OFFICER Work Phone: [facility] 10-11-2023 10:53-0400 Body height 160.9 cm Elieser Garcia MD Work Phone: [facility] 10-11-2023 10:53-0400 Body mass index (BMI) [Ratio] 31.47 kg/m2 Elieser Garcia MD Work Phone: [facility] 10-11-2023 10:53-0400 Body temperature 97.3 [degF] Elieser Garcia MD Work Phone: [facility] 10-11-2023 10:53-0400 Body weight 81.47 kg Elieser Garcia MD Work Phone: [facility] 10-11-2023 10:53-0400 Diastolic blood pressure 119 mm[Hg] Elieser Garcia MD Work Phone: [facility] 10-11-2023 10:53-0400 Heart rate 102 /min Elieser Garcia MD Work Phone: [facility] 10-11-2023 10:53-0400 Respiratory rate 16 /min Elieser Garcia MD Work Phone: [facility] 10-11-2023 10:53-0400 SaO2% (BldA) [Mass fraction] 100 % Elieser Garcia MD Work Phone: [facility] 10-11-2023 10:53-0400 Systolic blood pressure 171 mm[Hg] Elieser Garcia MD Work Phone: [facility] 09-09-2023 08:05-0500 Body height 160 cm Yaneli Malik SPLICER OPERATOR-PROJECT CONTROL OFFICER Work Phone: [facility] 09-09-2023 08:05-0500 Body mass index (BMI) [Ratio] 31.8 kg/m2 Yaneli Malik SPLICER OPERATOR-PROJECT CONTROL OFFICER Work Phone: [facility] 09-09-2023 08:05-0500 Body weight 81.42 kg Yaneli Malik SPLICER OPERATOR-PROJECT CONTROL OFFICER Work Phone: [facility] 09-09-2023 08:05-0500 Diastolic blood pressure 80 mm[Hg] Yaneli Malik SPLICER OPERATOR-PROJECT CONTROL OFFICER Work Phone: [facility] 09-09-2023 08:05-0500 Heart rate 64 /min Yaneli Malik SPLICER OPERATOR-PROJECT CONTROL OFFICER Work Phone: [facility] 09-09-2023 08:05-0500 Systolic blood pressure 124 mm[Hg] Yaneli Malik SPLICER OPERATOR-PROJECT CONTROL OFFICER Work Phone: [facility] 06-05-2023 09:04-0500 Body weight 83.92 kg Varsha Alcaraz MD Work Phone: [facility] 06-05-2023 09:04-0500 Diastolic blood pressure 86 mm[Hg] Varsha Alcaraz MD Work Phone: [facility] 06-05-2023 09:04-0500 Systolic blood pressure 136 mm[Hg] Varsha Alcaraz MD Work Phone: [facility] 04-10-2023 14:04-0400 Body height 161.3 cm Angelina Cervantes SPLICER OPERATOR.PROJECT CONTROL OFFICER Work Phone: [facility] 04-10-2023 14:04-0400 Body weight 83.01 kg Angelina Cervantes SPLICER OPERATOR.PROJECT CONTROL OFFICER Work Phone: [facility] 04-10-2023 14:04-0400 Diastolic blood pressure 90 mm[Hg] Angelina Cervantes SPLICER OPERATOR.PROJECT CONTROL OFFICER Work Phone: [facility] 04-10-2023 14:04-0400 Systolic blood pressure 146 mm[Hg] Angelina Dukeie SPLICER OPERATOR.PROJECT CONTROL OFFICER Work Phone: [facility] 03-21-2023 13:44-0400 Body mass index (BMI) [Ratio] 33.54 kg/m2 Yaneli Malik Work Phone: [facility] 232 DO Work Phone: 03-21-2023 13:44-0400 Body surface area Derived from formula 1.84 m2 Yaneli Malik Work Phone: [facility]Wtnbqcq-Dkglqclm [facility] 232 DO Work Phone: 03-21-2023 13:44-0400 Body weight 83.18 kg Yaneli Malik Work Phone: SR[facility]Rminlxh-Drvnmron [facility] 232 DO Work Phone: 03-21-2023 13:44-0400 Diastolic blood pressure 90 mm[Hg] Yaneli Malik Work Phone: TD-Orcfnhb-Vmrphmrp [facility] 232 DO Work Phone: 03-21-2023 13:44-0400 Heart rate 84 /min Yaneli Malik Work Phone: JV-Fgydacq-Rqyokalv HC 232 DO Work Phone: 03-21-2023 13:44-0400 Systolic blood pressure 157 mm[Hg] Yaneli Malik Work Phone: QA-Pgityjz-Fnxybkqd HC 232 DO Work Phone: 03-05-2023 08:11-0400 Body height 160 cm Yaneli Malik SPLICER OPERATOR-PROJECT CONTROL OFFICER Work Phone: [facility] 03-05-2023 08:11-0400 Body mass index (BMI) [Ratio] 31.89 kg/m2 Yaneli Malik SPLICER OPERATOR-PROJECT CONTROL OFFICER Work Phone: [facility] 03-05-2023 08:11-0400 Body weight 81.65 kg Yaneli Malik SPLICER OPERATOR-PROJECT CONTROL OFFICER Work Phone: [facility] 03-05-2023 08:11-0400 Diastolic blood pressure 70 mm[Hg] Yaneli Malik SPLICER OPERATOR-PROJECT CONTROL OFFICER Work Phone: [facility] 03-05-2023 08:11-0400 Heart rate 99 /min Yaneli Malik SPLICER OPERATOR-PROJECT CONTROL OFFICER Work Phone: [facility] 03-05-2023 08:11-0400 Systolic blood pressure 110 mm[Hg] Yaneli Malik SPLICER OPERATOR-PROJECT CONTROL OFFICER Work Phone: [facility] 02-20-2023 16:15-0400 Diastolic blood pressure 108 mm[Hg] Yaneli Malik [facility] 02-20-2023 16:15-0400 Heart rate 98 /min Yaneli Malik [facility] 02-20-2023 16:15-0400 Respiratory rate 17 /min Yaneli Malik [facility] 02-20-2023 16:15-0400 SaO2% (BldA) [Mass fraction] 100 % Yaneli Malik [facility] 02-20-2023 16:15-0400 Systolic blood pressure 153 mm[Hg] Yaneli Malik [facility] 02-20-2023 13:48-0400 Body height 160 cm Yaneli Malik [facility] 02-20-2023 13:48-0400 Body temperature 97.7 [degF] Yaneli Malik [facility] 02-20-2023 13:48-0400 Body weight 81.7 kg Yaneli Malik [facility] 02-05-2023 16:36-0400 Body height 160 cm Yaneli Malik SPLICER OPERATOR-PROJECT CONTROL OFFICER Work Phone: [facility] 02-05-2023 16:36-0400 Body mass index (BMI) [Ratio] 31.35 kg/m2 Yaneli Malik SPLICER OPERATOR-PROJECT CONTROL OFFICER Work Phone: [facility] 02-05-2023 16:36-0400 Body temperature 97.59 [degF] Yaneli Malik SPLICER OPERATOR-PROJECT CONTROL OFFICER Work Phone: [facility] 02-05-2023 16:36-0400 Body weight 80.29 kg Yanelioctavia Malik SPLICER OPERATOR-PROJECT CONTROL OFFICER Work Phone: [facility] 02-05-2023 16:36-0400 Diastolic blood pressure 100 mm[Hg] Yaneli Malik SPLICER OPERATOR-PROJECT CONTROL OFFICER Work Phone: [facility] 02-05-2023 16:36-0400 Heart rate 127 /min Yanelioctavia Malik SPLICER OPERATOR-PROJECT CONTROL OFFICER Work Phone: [facility] 02-05-2023 16:36-0400 SaO2% (BldA) [Mass fraction] 98 % Yanelioctavia Malik SPLICER OPERATOR-PROJECT CONTROL OFFICER Work Phone: [facility] 02-05-2023 16:36-0400 Systolic blood pressure 120 mm[Hg] Yaneli Malik SPLICER OPERATOR-PROJECT CONTROL OFFICER Work Phone: [facility] 09-06-2022 08:18-0500 Body height 157.48 cm Yaneli Malik Work Phone: [facility] DO Work Phone: 09-06-2022 08:18-0500 Body mass index (BMI) [Ratio] 30.22 kg/m2 Yaneli Malik Work Phone: [facility] 205 DO Work Phone: 09-06-2022 08:18-0500 Body surface area Derived from formula 1.76 m2 Yaneli Malik Work Phone: [facility] 205 DO Work Phone: 09-06-2022 08:18-0500 Body weight 74.96 kg Yaneli Malik Work Phone: [facility] 205 DO Work Phone: 09-06-2022 08:18-0500 Diastolic blood pressure 88 mm[Hg] Yaneli Malik Work Phone: [facility] 205 DO Work Phone: 09-06-2022 08:18-0500 Heart rate 87 /min Yaneli Malik Work Phone: [facility] 205 DO Work Phone: 09-06-2022 08:18-0500 SaO2% (BldA) [Mass fraction] 98 % Yaneli Malik Work Phone: [facility] 205 DO Work Phone: 09-06-2022 08:18-0500 Systolic blood pressure 118 mm[Hg] Yaneli Malik Work Phone: [facility] 205 DO Work Phone: 06-08-2022 08:55-0500 Body height 157.48 cm Yaneli Malik Work Phone: [facility] 205 DO Work Phone: 06-08-2022 08:55-0500 Body mass index (BMI) [Ratio] 30.06 kg/m2 Yaneli Malik Work Phone: [facility] 205 DO Work Phone: 06-08-2022 08:55-0500 Body surface area Derived from formula 1.76 m2 Yaneli Malik Work Phone: [facility] 205 DO Work Phone: 06-08-2022 08:55-0500 Body weight 74.56 kg Yaneli Malik Work Phone: [place] [address] DO Work Phone: 06-08-2022 08:55-0500 Diastolic blood pressure 78 mm[Hg] Yaneli Malik Work Phone: [facility] 205 DO Work Phone: 06-08-2022 08:55-0500 Heart rate 92 /min Yaneli Malik Work Phone: [facility] 205 DO Work Phone: 06-08-2022 08:55-0500 Systolic blood pressure 120 mm[Hg] Yanlei Malik Work Phone: [facility] 205 DO Work Phone: 12-27-2021 09:24-0400 Body height 157.48 cm Na Arcos Work Phone: [facility] 300 Work Phone: 12-27-2021 09:24-0400 Body mass index (BMI) [Ratio] 32.01 kg/m2 Na Arcos Work Phone: [facility] 300 Work Phone: 12-27-2021 09:24-0400 Body surface area Derived from formula 1.81 m2 Na Arcos Work Phone: [facility] 300 Work Phone: 12-27-2021 09:24-0400 Body temperature 97.6 [degF] Na Arcos Work Phone: [facility] 300 Work Phone: 12-27-2021 09:24-0400 Body weight 79.38 kg Na Arcos Work Phone: [facility] 300 Work Phone: 12-13-2021 09:25-0400 Body height 157.48 cm Na Arcos Work Phone: [facility] 300 Work Phone: 12-13-2021 09:25-0400 Body mass index (BMI) [Ratio] 32.01 kg/m2 Na Arcos Work Phone: [facility] 300 Work Phone: 12-13-2021 09:25-0400 Body surface area Derived from formula 1.81 m2 Na Arcos Work Phone: [facility] 300 Work Phone: 12-13-2021 09:25-0400 Body temperature 97.8 [degF] Na Arcos Work Phone: [facility] 300 Work Phone: 12-13-2021 09:25-0400 Body weight 79.38 kg Na Arcos Work Phone: [facility] 300 Work Phone: 11-28-2021 09:22-0400 Body height 157.48 cm Na Arcos Work Phone: [facility] 300 Work Phone: 11-28-2021 09:22-0400 Body mass index (BMI) [Ratio] 32.05 kg/m2 Na Arcos Work Phone: [facility] 300 Work Phone: 11-28-2021 09:22-0400 Body surface area Derived from formula 1.81 m2 Na Arcos Work Phone: [facility] 300 Work Phone: 11-28-2021 09:22-0400 Body temperature 97.5 [degF] Na Gisela Elsmore Work Phone: [facility] 300 Work Phone: 11-28-2021 09:22-0400 Body weight 79.49 kg Na Arcos Work Phone: [facility] 300 Work Phone: 11-12-2021 23:10-0400 Diastolic blood pressure 84 mm[Hg] Patricia [place] Other Phone: [facility] 11-12-2021 23:10-0400 Heart rate 91 /min Patricia [place] Other Phone: [facility] 11-12-2021 23:10-0400 Respiratory rate 16 /min Patricia [place] Other Phone: [facility] 11-12-2021 23:10-0400 SaO2% (BldA) [Mass fraction] 100 % Patricia [place] Other Phone: [facility] 11-12-2021 23:10-0400 Systolic blood pressure 132 mm[Hg] Patricia [place] Other Phone: [facility] 11-12-2021 21:46-0400 Body height 160 cm Patricia [place] Other Phone: [facility] 11-12-2021 21:46-0400 Body temperature 98.6 [degF] Patricia [place] Other Phone: [facility] 11-12-2021 21:46-0400 Body weight 77 kg Patricia [place] Other Phone: [facility] 08-09-2021 08:48-0500 Body height 157.48 cm Na Arcos Work Phone: [facility] 205 DO Work Phone: 08-09-2021 08:48-0500 Body mass index (BMI) [Ratio] 32.92 kg/m2 Na Arcos Work Phone: [facility] 205 DO Work Phone: 08-09-2021 08:48-0500 Body surface area Derived from formula 1.83 m2 Na Arcos Work Phone: [facility] 205 DO Work Phone: 08-09-2021 08:48-0500 Body temperature 96.8 [degF] Na Arcos Work Phone: [facility] 205 DO Work Phone: 08-09-2021 08:48-0500 Body weight 81.65 kg Na Arcos Work Phone: [facility] 205 DO Work Phone: 08-09-2021 08:48-0500 Diastolic blood pressure 98 mm[Hg] Na Arcos Work Phone: [place] [address] DO Work Phone: 08-09-2021 08:48-0500 Heart rate 103 /min Na Arcos Work Phone: [facility] 205 DO Work Phone: 08-09-2021 08:48-0500 SaO2% (BldA) [Mass fraction] 97 % Na Arcos Work Phone: [facility] 205 DO Work Phone: 08-09-2021 08:48-0500 Systolic blood pressure 130 mm[Hg] Na Arcos Work Phone: [facility] 205 DO Work Phone: 05-08-2018 08:33-0400 BMI (Body Mass Index) 28.34 kg/m2 Wil Fair [facility] 05-08-2018 08:33-0400 Height 160 cm Wil Fair [facility] 05-08-2018 08:33-0400 Weight 72.58 kg Wil Fair [facility] 04-17-2018 17:56-0400 BMI (Body Mass Index) 27.46 kg/m2 Orin [facility] 04-17-2018 17:56-0400 Body Temperature 98.4 [degF] Orin [facility] 04-17-2018 17:56-0400 BP Diastolic 88 mm[Hg] Orin [facility] 04-17-2018 17:56-0400 BP Systolic 119 mm[Hg] Orin [facility] 04-17-2018 17:56-0400 Height 162.6 cm Orin [facility] 04-17-2018 17:56-0400 Pulse (Heart Rate) 98 /min [facility] 04-17-2018 17:56-0400 Pulse Oximetry 97 % [facility] 04-17-2018 17:56-0400 Respiratory Rate 14 /min [facility] 04-17-2018 17:56-0400 Weight 72.58 kg [facility] Encounters Encounter Date Encounter Type Care Provider Facility Start: 05-21-2025 ambulatory [facility] Facility:[facility] Start: 05-14-2025 Encounter for other preprocedural examination [facility] Start: 05-06-2025 End: 05-06-2025 ambulatory [facility] Facility:[facility] Start: 04-27-2025 End: 04-27-2025 Office outpatient visit 25 minutes Yaneli BAZZI Work Phone: [facility] Comment on above: Anxiety (Primary Dx) ; Current mild episode of major depressive disorder without prior episode; Primary hypertension; Mixed hyperlipidemia; Seasonal allergies; Class 1 obesity due to excess calories without serious comorbidity with body mass index (BMI) of 33.0 to 33.9 in adult Start: 04-27-2025 End: 04-27-2025 ambulatory [facility] Ambulatory Start: 04-12-2025 End: 04-12-2025 Office outpatient visit 15 minutes Klaus Strickland SPLICER OPERATOR-PROJECT CONTROL OFFICER Work Phone: [facility] Comment on above: Palpitations (Primar y Dx); Mild ascending aorta dilation; Non-cardiac chest pain; Dyslipidemia; Primary hypertension Start: 04-12-2025 End: 04-12-2025 ambulatory KLAUS Amos EM [facility] Ambulatory Start: 03-29-2025 End: 03-29-2025 ambulatory LESLEY MICHELINE Facility:[facility] Start: 03-11-2025 End: 03-11-2025 Office outpatient visit 15 minutes Frederic MUHAMMADC Work Phone: [facility] Comment on above: Moderate right ankle sprain, subsequent encounter (Primary Dx); Grade 2 sprain of medial collateral ligament of knee, left, subsequent encounter; Avulsion fracture of medial malleolus, right, closed, initial encounter Start: 03-11-2025 End: 03-11-2025 Subsequent hospital visit by physician Michael [facility] Comment on above: Moderate right ankle sprain, initial encounter Start: 03-11-2025 End: 03-11-2025 ambulatory [facility] Start: 02-25-2025 End: 02-25-2025 Office outpatient visit 15 minutes Frederic MUHAMMADC Work Phone: [facility] Comment on above: Moderate right ankle sprain, subsequent encounter (Primary Dx) Start: 02-25-2025 End: 02-25-2025 ambulatory [facility] Ambulatory Start: 02-24-2025 End: 02-24-2025 Subsequent hospital visit by physician Michael Ultrasound 2 [facility] Comment on above: Lump of skin of back Start: 02-24-2025 End: 02-24-2025 ambulatory [facility] Start: 02-23-2025 End: 02-23-2025 Office outpatient visit 25 minutes Yaneli Malik SPLICER OPERATOR-PROJECT CONTROL OFFICER Work Phone: [facility] Comment on above: Anxiety (Primary Dx) ; Lump of skin of back; Primary hypertension Start: 02-23-2025 End: 02-23-2025 ambulatory [facility] Francine [facility]ulatory Start: 02-16-2025 End: 02-16-2025 Subsequent hospital visit by physician Michael Ct 2 [facility] Comment on above: Screening, ischemic heart disease Start: 02-16-2025 End: 02-16-2025 ambulatory YANELI K [facility] Start: 02-11-2025 End: 02-11-2025 ambulatory LESLEY VAZQUEZ Facility:[facility] Start: 02-11-2025 End: 02-11-2025 Office outpatient visit 25 minutes Frederic Malik PA-C Work Phone: [facility] Comment on above: Moderate right ankle sprain, initial encounter (Primary Dx); Acute right ankle pain; Johansen's cyst of knee, left; Grade 2 sprain of medial collateral ligament of knee, left, subsequent encounter Start: 02-11-2025 End: 02-11-2025 Subsequent hospital visit by physician Michael [id number] Comment on above: Acute right ankle pa in Start: 02-11-2025 End: 02-11-2025 ambulatory FREDERIC [facility] Start: 02-02-2025 End: 02-02-2025 ambulatory [facility] Start: 02-02-2025 End: 02-02-2025 Subsequent hospital visit by physician Michael Robledo Card[facility] Comment on above: Heart palpitations Start: 01-27-2025 End: 01-27-2025 ambulatory YANELI K [facility] Start: 01-19-2025 End: 01-19-2025 Office outpatient new 45 minutes Klaus BAZZI Work Phone: [facility] Comment on above: Abnormal EKG; Racing heart beat; Heart palpitations Start: 01-19-2025 End: 01-19-2025 ambulatory [facility] Ambulatory Start: 01-19-2025 ambulatory ANGEL CARTER Facility:[facility] Start: 01-19-2025 End: 01-19-2025 Subsequent hospital visit by physician Screen Mammo [facility] Comment on above: Encounter for screen ing mammogram for breast cancer [Z12.31] Start: 01-15-2025 End: 03-17-2025 Follow-up encounter Angel Carter APRN.CNP Work Phone: OB/Gynecology Start: 01-15-2025 End: 01-15-2025 ambulatory Founder And Chief Executive [employer] Work Phone: OB/Gynecology Start: 01-15-2025 End: 01-15-2025 Patient encounter procedure [facility]/Gynecology Start: 01-14-2025 End: 01-14-2025 Patient encounter procedure Angel Carter APRN.CNP Work Phone: OB/Gynecology Comment on above: Encounter for gyneco logical examination with abnormal finding (Primary Dx); Encounter for screening mammogram for breast cancer; Irregular bleeding; Pelvic pain in female; Dyspareunia in female; Encounter for IUD removal; Cervical cancer screening; Special screening examination for human papillomavirus (HPV); Chronic left-sided low back pain, unspecified whether sciatica present; Vaginal discharge Start: 01-14-2025 End: 01-14-2025 Patient encounter status Angel Carter APRN.CNP Work Phone: [facility] Start: 01-14-2025 End: 01-14-2025 ambulatory ANGEL CARTER Facility:[facility] Start: 01-14-2025 Encounter for gynecological examination (general) (routine) with abnormal findings ANGEL CARTER [facility] Start: 01-13-2025 End: 01-13-2025 Office outpatient visit 25 minutes Yaneli Malik APRN-PROJECT CONTROL OFFICER Work Phone: [facility] Comment on above: Primary hypertension (Primary Dx); Chest pain, unspecified type; Abnormal EKG; Anxiety; Hypersomnolence; Snoring; Current mild episode of major depressive disorder without prior episode; Paresthesia; Pressure in head; Dyspnea, unspecified type; Screening, ischemic heart disease; Class 1 obesity due to excess calories without serious comorbidity with body mass index (BMI) of 34.0 to 34.9 in adult Start: 01-13-2025 End: 01-13-2025 ambulatory YANELI MALIK [facility] Ambulatory Start: 12-30-2024 End: 12-30-2024 Emergency department patient visit Estuardo Denise DO Work Phone: [facility] Emergency Medicine Comment on above: Paresthesia (Primary Dx); Pressure in head; Chest pain, unspecified type; Dyspnea, unspecified type Start: 10-26-2024 End: 10-26-2024 Patient encounter procedure Yaneli Malik PROJECT CONTROL OFFICER Work Phone: [facility] Comment on above: Numbness (Primary Dx ) Start: 10-26-2024 End: 10-26-2024 ambulatory JOCELIN FLORES HOPKINS [facility] Start: 09-08-2024 End: 09-08-2024 Patient encounter status Yaneli Malik SPLICER OPERATOR-PROJECT CONTROL OFFICER Work Phone: [facility] Work Phone: Start: 09-08-2024 End: 09-08-2024 Periodic preventive med est patient 40-64yrs Yaneli Malik SPLICER OPERATOR-PROJECT CONTROL OFFICER Work Phone: [facility] Comment on above: Well adult exam (Keturah elieser Dx); Acute exacerbation of chronic low back pain; Numbness and tingling of both lower extremities; Chronic pain of left knee; Heartburn; Class 1 obesity due to excess calories without serious comorbidity with body mass index (BMI) of 34.0 to 34.9 in adult Start: 09-08-2024 End: 09-08-2024 Transcribe Orders Yaneli Malik PROJECT CONTROL OFFICER Work Phone: [facility] Comment on above: Numbness and tinglin g of both lower extremities (Primary Dx) Chronic pain of left knee Start: 07-31-2024 End: 07-31-2024 Office outpatient visit 15 minutes Yaneli Malik SPLICER OPERATOR-PROJECT CONTROL OFFICER Work Phone: [facility] Comment on above: Primary hypertension (Primary Dx); Current mild episode of major depressive disorder without prior episode (CMS-HCC); Class 1 obesity due to excess calories without serious comorbidity with body mass index (BMI) of 34.0 to 34.9 in adult; Mixed hyperlipidemia; Screening for diabetes mellitus (DM) Start: 07-31-2024 End: 07-31-2024 ambulatory [facility] Ambulatory Start: 06-26-2024 End: 06-26-2024 Office outpatient visit 25 minutes Yaneli Malik SPLICER OPERATOR-PROJECT CONTROL OFFICER Work Phone: [facility] Comment on above: Primary hypertension (Primary Dx); Acute exacerbation of chronic low back pain; Fluid level behind tympanic membrane of right ear Start: 06-26-2024 End: 06-26-2024 ambulatory [facility] Start: 06-18-2024 End: 06-18-2024 Emergency department patient visit YANELI K [facility] Emergency Medicine Comment on above: Acute exacerbation o f chronic low back pain (Primary Dx); Elevated blood pressure reading Start: 06-09-2024 End: 06-09-2024 Office outpatient visit 15 minutes Yaneli Escamilla Malik SPLICER OPERATOR-PROJECT CONTROL OFFICER Work Phone: [facility] Comment on above: Acute non-recurrent maxillary sinusitis (Primary Dx) Start: 06-09-2024 End: 06-09-2024 ambulatory [facility] Ambulatory Start: 04-01-2024 End: 04-01-2024 Office outpatient visit 25 minutes Layne Temple SPLICER OPERATOR-PROJECT CONTROL OFFICER Work Phone: [facility] Comment on above: Grade 2 sprain of me dial collateral ligament of knee, left, subsequent encounter (Primary Dx) Start: 03-25-2024 End: 03-25-2024 Subsequent hospital visit by physician Michael Delgado [facility] Comment on above: History of kidney st [facility] Start: 03-25-2024 End: 03-25-2024 ambulatory KOBI SOL [facility] Start: 03-25-2024 End: 03-25-2024 Office outpatient visit 15 minutes Kobi Sol MD Work Phone: [facility] Comment on above: History of kidney [facility] Start: 02-19-2024 End: 02-19-2024 Office outpatient visit 15 minutes Layne Temple SPLICER OPERATOR-PROJECT CONTROL OFFICER Work Phone: [facility] Comment on above: Grade 2 sprain of me dial collateral ligament of knee, left, subsequent encounter (Primary Dx) Start: 01-22-2024 End: 01-22-2024 Office outpatient visit 10 minutes Elieser Garcia MD Work Phone: [facility] Comment on above: Pancytopenia (Multi) ; Enlarged lymph node in neck Start: 01-22-2024 End: 01-22-2024 Office outpatient visit 25 minutes Layne Temple SPLICER OPERATOR-PROJECT CONTROL OFFICER Work Phone: [facility] Comment on above: Grade 2 sprain of me dial collateral ligament of knee, left, subsequent encounter (Primary Dx); Sprain of left knee, initial encounter Start: 01-20-2024 End: 01-20-2024 Subsequent hospital visit by physician Michale Pena [facility] Comment on above: Sprain of left knee, initial encounter Start: 01-16-2024 End: 01-16-2024 ambulatory YANELI MALIK [facility] Start: 01-16-2024 End: 01-16-2024 Subsequent hospital visit by physician Michael Rubio 1 [facility] Comment on above: Pancytopenia (Multi) ; Enlarged lymph node in neck Start: 01-15-2024 End: 01-15-2024 Office outpatient new 45 minutes Layne Temple SPLICER OPERATOR-PROJECT CONTROL OFFICER Work Phone: [facility] Comment on above: Sprain of left knee, initial encounter (Primary Dx) Start: 01-10-2024 End: 01-10-2024 Emergency department patient visit Yaneli Malik SPLICER OPERATOR-PROJECT CONTROL OFFICER Work Phone: [facility] Emergency Medicine Comment on above: Acute pain of left k nee (Primary Dx) Start: 10-25-2023 Documentation procedure Mammog sofía Coordinator [facility] Department Start: 10-25-2023 Letter encounter Mammography Coordinator [facility] Start: 10-24-2023 End: 10-24-2023 Subsequent hospital visit by physician Screen Mammo [facility] Comment on above: Encounter for screen ing mammogram for malignant neoplasm of breast [Z12.31] Start: 10-11-2023 End: 10-11-2023 Office outpatient new 60 minutes Elieser Garcia MD Work Phone: [facility] [place] Comment on above: Neutropenia, unspeci fied type (CMS/HCC) Start: 09-09-2023 End: 09-09-2023 Patient encounter status Yaneli Malik SPLICER OPERATOR-PROJECT CONTROL OFFICER Work Phone: [facility] Work Phone: Start: 09-09-2023 End: 09-09-2023 Periodic preventive med est patient 40-64yrs Yaneli Malik SPLICER OPERATOR-PROJECT CONTROL OFFICER Work Phone: [facility] Comment on above: Well adult exam (Keturah mon Dx); Left ear pain; Mixed hyperlipidemia; Anxiety; Heart palpitations; Vitamin B12 deficiency; Encounter for vitamin deficiency screening; Current mild episode of major depressive disorder without prior episode (CMS/[facility]); Class 1 obesity due to excess calories without serious comorbidity with body mass index (BMI) of 31.0 to 31.9 in adult Start: 07-02-2023 End: 07-02-2023 Evaluation and management of inpatient Michael X-Ray 1 [facility] Comment on above: Cough present for gr eater than 3 weeks; Fever, unspecified fever cause Start: 07-02-2023 End: 07-02-2023 Office outpatient visit 15 minutes Yaneli Malik SPLICER OPERATOR-PROJECT CONTROL OFFICER Work Phone: [facility] Comment on above: Cough present for gr eater than 3 weeks (Primary Dx); Fever, unspecified fever cause Start: 06-12-2023 End: 06-12-2023 Subsequent hospital visit by physician Jaguar Robledo [facility] Comment on above: Palpitations Start: 06-05-2023 End: 06-05-2023 Patient encounter procedure Varsha Alcaraz MD Work Phone: OB/Gynecology Comment on above: Surveillance of prev iously prescribed intrauterine contraceptive device (Primary Dx); Abnormal uterine bleeding (AUB) Start: 04-10-2023 End: 04-10-2023 Patient encounter procedure Angelina Billy LYONSPROJECT CONTROL OFFICER Work Phone: OB/Gynecology Comment on above: Encounter for gyneco logical examination with abnormal finding (Primary Dx); Menorrhagia with regular cycle; Dysmenorrhea; Screening for cervical cancer; Encounter for screening for human papillomavirus (HPV); History of cervical dysplasia; Encounter for screening mammogram for malignant neoplasm of breast Start: 04-10-2023 End: 04-10-2023 Patient encounter status Angelina Billy OLSON.PROJECT CONTROL OFFICER Work Phone: [facility] Work Phone: Start: 03-21-2023 Office outpatient ne w 30 minutes Yaneli Malik Work Phone: [facility] 232 DO Work Phone: Start: 03-05-2023 End: 03-05-2023 Office outpatient visit 25 minutes Yaneli Malik SPLICER OPERATOR-PROJECT CONTROL OFFICER Work Phone: [facility] Comment on above: Heart palpitations ( Primary Dx); Racing heart beat; Calculus of kidney; Anxiety Start: 02-26-2023 End: 02-26-2023 ambulatory Ob Ultrasound Work Phone: OB/Gynecology Comment on above: 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 Start: 02-26-2023 End: 02-26-2023 Patient encounter procedure Founder And Chief Executive Officer [facility] Work Phone: [facility] Start: 02-21-2023 Orders Only Varsha Alcaraz MD Work Phone: OB/Gynecology Comment on above: Cyst of right ovary (Primary Dx) Start: 02-20-2023 End: 02-20-2023 Emergency department patient visit Marcella Cheung [facility] Emergency 14 Start: 02-05-2023 End: 02-05-2023 Office outpatient visit 15 minutes Yaneli Malik SPLICER OPERATOR-PROJECT CONTROL OFFICER Work Phone: [facility] Comment on above: Acute cough (Primary Dx); Acute non-recurrent maxillary sinusitis; Upper respiratory infection with cough and congestion Start: 09-07-2022 Chart Update Yaneli Malik Work Phone: [facility] 205 DO Work Phone: Start: 09-06-2022 Office outpatient vi sit 25 minutes Yaneli Malik Work Phone: [facility] 205 DO Work Phone: Start: 07-27-2022 Patient encounter procedure Yaneli Malik Work Phone: [facility] Work Phone: Start: 07-27-2022 RADHA, Provider : Columba Gleason, Status: Pen, Time: 7:30 AM Yaneli Malik Work Phone: [facility] Work Phone: Start: 07-27-2022 ambulatory Ms. Yaneli Malik Fac ility:[id number] Start: 07-25-2022 ambulatory Ms. Yaneli Malik Fac ility:[id number] Start: 07-25-2022 Patient encounter procedure Yaneli Malik Work Phone: [facility] Work Phone: Start: 07-20-2022 Patient encounter procedure Yaneli Malik Work Phone: [facility] Work Phone: Start: 07-20-2022 ambulatory Ms. Yaneli Malik Fac ility:[id number] Start: 07-18-2022 ambulatory Ms. Yaneli Malik Fac ility:[id number] Start: 07-13-2022 ambulatory Ms. Yaneli Malik Fac ility:[id number] Start: 07-13-2022 Patient encounter procedure Yaneli Malik Work Phone: [facility] Work Phone: Start: 07-13-2022 [id number], Provider : Columba Gleason, Status: Pen, Time: 7:30 AM Yaneli Escamilla Pino Work Phone: [facility] Work Phone: Start: 07-11-2022 Patient encounter procedure Yaneli Malik Work Phone: [facility] Work Phone: Start: 07-11-2022 ambulatory . Yaneli Malik Fac ility:[id number] Start: 07-06-2022 ambulatory Ms. Yaneli Malik Fac ility:[id number] Start: 07-06-2022 Patient encounter procedure Yaneli Escamilla Malik Work Phone: [facility] Work Phone: Start: 06-26-2022 Chart Update Yaneli Escamilla Pino Work Phone: [facility] Work Phone: Start: 06-15-2022 Patient encounter procedure Yaneli Escamilla Malik Work Phone: [facility] Work Phone: Start: 06-15-2022 ambulatory Ms. Yaneli Malik Fac ility:[id number] Start: 06-12-2022 AUDIT Yaneli Francine Pino Work Phone: [facility] Work Phone: Start: 06-08-[address] [facility] Start: 06-08-2022 Office outpatient vi sit 25 minutes Yaneli Francine Pino Work Phone: [facility] 205 DO Work Phone: Start: 06-08-2022 Patient encounter procedure Yaneli Francine Pino Work Phone: [facility] 205 DO Work Phone: Start: 12-28-2021 Chart Update Na J Harp ster Work Phone: [facility] 300 Work Phone: Start: 12-27-2021 Office outpatient vi sit 15 minutes Na J Elsmore Work Phone: [facility] 300 Work Phone: Start: 12-13-2021 Office outpatient vi sit 15 minutes Na J Elsmore Work Phone: [facility] 300 Work Phone: Start: 11-30-2021 Chart Update Na J Harp ster Work Phone: [facility] 300 Work Phone: Start: 11-28-2021 Office outpatient vi sit 15 minutes Na J Elsmore Work Phone: [facility] 300 Work Phone: Start: 11-14-2021 AUDIT Na J Harp ster Work Phone: [facility] 300 Work Phone: Start: 11-12-2021 End: 11-12-2021 Emergency department patient visit Ramila Ivet [facility] Emergency 14 Start: 08-16-2021 AUDIT Na J Harp ster Work Phone: [facility] 205 DO Work Phone: Start: 08-09-2021 Office outpatient vi sit 25 minutes Na J Elsmore Work Phone: [facility] 205 DO Work Phone: Start: 03-29-2021 AUDIT Na J Harp ster Work Phone: [facility] Work Phone: Start: 03-29-2021 Chart Update Na Victoriap ster Work Phone: [facility] Work Phone: Start: 03-27-2021 Office outpatient vi sit 15 minutes Na Arcos Work Phone: [facility] Work Phone: Start: 03-27-2021 Patient encounter procedure Na Arcos Work Phone: [facility] Medical [facility] Work Phone: Start: 01-24-2021 Rx Renewal Na Higgins Harp ster Work Phone: [facility] Work Phone: Start: 01-10-2021 Rx Renewal Na Higgins Harp ster Work Phone: [facility] Work Phone: Start: 04-04-2020 Patient encounter procedure NEURODIAG EMG-SUBURBAN 1 [facility] Work Phone: Start: 12-31-2019 Patient encounter procedure Na Arcos [facility] Work Phone: Start: 11-10-2019 Patient encounter procedure Kobi Fontana [facility] 204 Work Phone: Start: 06-09-2019 Patient encounter procedure Na Arcos [facility] Work Phone: Start: 04-22-2019 Patient encounter procedure Na Arcos [facility] Work Phone: Start: 03-27-2019 End: 03-27-2019 Patient encounter procedure Jocelin Rom Hopkins Work Phone: [facility] Comment on above: Numbness and tinglin g of left leg Start: 05-08-2018 End: 05-08-2018 Office outpatient new 30 minutes Wil Fair Work Phone: [facility] Comment on above: Acute pain of right wrist (Primary Dx) Start: 04-17-2018 End: 04-17-2018 Patient encounter ORIN CUELLAR [facility] Start: 04-17-2018 End: 04-18-2018 Patient encounter PHYSICIAN DESIRAE [facility] Start: 04-17-2018 End: 04-17-2018 Office outpatient new 30 minutes Orin Cuellar Work Phone: [facility] [place] Comment on above: Trapezius strain, le ft, subsequent encounter (Primary Dx); Chest pain, unspecified type Procedures Date Procedure Procedure Detail Performing Clinician Start: 03-29-2025 Follow-up visit Follow Up LESLEY RIOS Start: 03-11-2025 Follow-up visit Follow-up FREDERIC MALIK Start: 01-19-2025 Ecg routine ecg w/le ast 12 lds w/i&r Klaus Strickland SPLICER OPERATOR-PROJECT CONTROL OFFICER Work Phone: Start: 01-19-2025 Mammography [facility] Start: 01-15-2025 Us pelvic nonobstetr ic real-time image complete Angel Carter APRN.PROJECT CONTROL OFFICER Work Phone: Start: 01-14-2025 Microscopic observat ion [Identifier] in Cervix by Cyto stain [facility] Room Start: 12-30-2024 Ct head/brain w/o co ntrast material Estuardo Denise DO Work Phone: Start: 12-30-2024 Radiologic exam ches t single view Estuardo Denise DO Work Phone: Start: 12-30-2024 End: 12-30-2024 Comprehensive metabolic panel Estuardo Denise DO Work Phone: Start: 12-30-2024 Troponin I.cardiac p griselda - Serum or Plasma by High sensitivity method Estuardo Denise DO Work Phone: Start: 10-26-2024 Electromyography Jocelin Hopkins MD Work Phone: Start: 09-08-2024 Lipid 1996 panel - S hiral or Plasma Estuardo Denise DO Work Phone: Start: 06-18-2024 Radex spine lumbosac ral 2/3 views Ramila Strong Dwaineaglehoang SPLICER OPERATOR-PROJECT CONTROL OFFICER Work Phone: Start: 04-01-2024 Arthrocentesis aspir &/inj major jt/bursa w/o us Layne Chowdhury Maverick SPLICER OPERATOR-PROJECT CONTROL OFFICER Work Phone: Start: 01-20-2024 Mri any jt lower ext rem w/o contrast matrl Layne Chowdhury Maverick SPLICER OPERATOR-PROJECT CONTROL OFFICER Work Phone: Start: 01-16-2024 Ct soft tissue neck w/contrast material Elieser Garcia MD Work Phone: Start: 01-10-2024 Radiologic examinati on knee 1/2 views Sathish Joaquin PA-C Work Phone: Start: 10-24-2023 Mammography Yaneli collins SPLICER OPERATOR-PROJECT CONTROL OFFICER Work Phone: Start: 10-11-2023 Assay of gammaglobul in iga igd igg igm each Elieser Garcia MD Work Phone: Start: 10-11-2023 C-reactive protein Elieser Garcia MD Work Phone: Start: 10-01-2023 Lipid 1996 panel - S hiral or Plasma Elieser Garcia MD Work Phone: Start: 07-02-2023 Radiologic exam chest 2 views Yaneli Malik SPLICER OPERATOR-PROJECT CONTROL OFFICER Work Phone: Start: 04-10-2023 Microscopic observat ion [Identifier] in Cervix by Cyto stain Deepak Robledo Start: 03-06-2023 Echocardiography Yaneli Malik Work Phone: Start: 02-26-2023 Us pelvic nonobstetr ic real-time image complete Varsha Alcaraz MD Work Phone: Start: 11-10-2019 EMG and Nerve Conduction Kobi Fontana Start: 06-26-2019 MRI Cervical w/wo Contrast Na Arcos Start: 05-08-2018 End: 05-08-2018 Radex wrist complete minimum 3 views Wil Fair Work Phone: Start: 04-17-2018 End: 04-17-2018 Radiologic exam chest 2 views Orin Cuellar Work Phone: Bilateral tubal ligation Betty cody Josselyn Extraction of wisdom tooth M elindkay Arcos Loop electrosurgical excision procedure Na Josselyn Tonsillectomy and adenoidectomy Na Arcos Plan of Treatment Date Care Activity Detail Author Start: 10-22-2033 Zoster Vaccines (1 o f 2) Zoster Vaccines (1 of 2) [facility] Start: 01-14-2030 Screening for malign ant neoplasm of cervix Cervical Cancer Screening [facility] Start: 09-08-2029 Lipid panel Lipid Panel [facility] Start: 09-30-2028 Lipid panel Lipid Panel [facility] Start: 04-10-2028 HPV Testing HPV Testing [facility] Start: 04-10-2028 Pap Testing Pap Testing [facility] Start: 04-10-2028 Screening for malign ant neoplasm of cervix [facility] Start: 01-15-2028 Screening for malign ant neoplasm of cervix [facility] Start: 12-31-2027 Diabetes mellitus screening Diabetes Screening [facility] Start: 04-10-2026 Screening for malign ant neoplasm of cervix [facility] Start: 02-13-2026 HPV TESTING HPV TESTING [facility] Start: 02-13-2026 PAP TESTING PAP TESTING [facility] Start: 01-19-2026 Screening for malign ant neoplasm of breast [facility] Start: 09-09-2025 Yearly Adult Physical Yearly Adult P hysical [facility] Start: 09-08-2025 History and physical examination, annual for health maintenance Wellness Visit [facility] Start: 09-08-2025 End: 09-08-2025 Patient encounter procedure 09/08/2025 8:00 AM EST Office Visit [place] [address] [facility] [address] [place] [address] Yaneli Malik, SPLICER OPERATOR-PROJECT CONTROL OFFICER [facility] [facility] [address] [place] [address] [facility] Start: 09-06-2025 End: 12-05-2025 CBC W Auto Differential panel - Blood CBC and Auto Differential Lab Routine Primary hypertension Expected: 09/06/2025, Expires: 12/05/2025 [facility] Work Phone: Comment on above: Expected: 09/06/2025 , Expires: 12/05/2025 Start: 09-06-2025 End: 12-05-2025 Comprehensive metabolic 2000 panel - Serum or Plasma Comprehensive Metabolic Panel Lab Routine Mixed hyperlipidemia Expected: 09/06/2025, Expires: 12/05/2025 [facility] Service Area Work Phone: Comment on above: Expected: 09/06/2025 , Expires: 12/05/2025 Start: 09-06-2025 End: 12-05-2025 Lipid 1996 panel - Serum or Plasma Lipid Panel Lab Routine Mixed hyperlipidemia Expected: 09/06/2025, Expires: 12/05/2025 [facility] Work Phone: Comment on above: Expected: 09/06/2025 , Expires: 12/05/2025 Start: 07-29-2025 DTaP/Tdap/Td Vaccine s (2 - Td or Tdap) DTaP/Tdap/Td Vaccines (2 - Td or Tdap) [facility] Start: 07-29-2025 Tetanus vaccination Tetanus: Every 1 0yrs [facility] Start: 07-29-2025 Urine microalbumin profile [facility] Start: 06-26-2025 Diabetes mellitus screening Diabetes Screening [facility] Start: 04-27-2025 End: 04-27-2025 Patient encounter procedure 04/27/2025 9:20 AM EDT Office Visit [place] [address] [facility] [address] [place] [id number] Yaneli Malik, SPLICER OPERATOR-PROJECT CONTROL OFFICER [address] [facility] [address] [place] [address] [facility] Start: 04-12-2025 End: 04-12-2025 Patient encounter procedure 04/12/2025 9:30 AM EDT Office Visit [facility] Medical Office Building [address] [place] [address] Klaus Strickland, SPLICER OPERATOR-PROJECT CONTROL OFFICER [address] [place] [address] [facility] Medical Office [facility] Start: 03-29-2025 End: 03-29-2025 Patient encounter procedure 03/29/2025 9:20 AM EDT Office Visit OB/Gynecology [address] [place] [address] Lesley Vazquez MD [address] [facility] [address] [place] [place] [address] Pre-op exam OB/Gynecology Comment on above: Pre-op exam Start: 03-25-2025 End: 03-25-2025 Patient encounter procedure 03/25/2025 8:00 AM EDT Office Visit [facility] [address] [place] [address] Frederic Malik PA-C [address] [facility] [place] [id number] [facility] Start: 03-11-2025 End: 03-11-2025 Patient encounter procedure 03/11/2025 8:20 AM EDT Office Visit [facility] [address] [place] [address] Frederic Malik PA-C [address] [facility] [place] [address] [facility] Start: 03-08-2025 COVID-19 Vaccine ( season) COVID-19 Vaccine ( season) [facility] Start: 03-08-2025 COVID-19 Vaccine ( season) COVID-19 Vaccine ( season) [facility] Start: 03-08-2025 Influenza vaccination [facility] Start: 02-25-2025 End: 02-25-2025 Patient encounter procedure 02/25/2025 8:20 AM EDT Office Visit [facility] [address] [place] [address] Frederic Malik PA-C [address] [facility], [address] [place] [address] [facility] Start: 02-24-2025 End: 02-24-2025 Patient encounter procedure 02/24/2025 7:00 AM EDT Appointment [facility] [address] [place] [address] [facility] Start: 02-23-2025 End: 02-23-2026 US Abdomen limited US abdomen limited Imaging Routine Lump of skin of back Expected: 02/23/2025, Expires: 02/23/2026 [facility] Service Area Work Phone: Comment on above: Expected: 02/23/2025 , Expires: 02/23/2026 Start: 02-23-2025 End: 02-23-2025 Patient encounter procedure 02/23/2025 10:20 AM EDT Office Visit [address] [place] [address] Yaneli Malik, SPLICER OPERATOR-PROJECT CONTROL OFFICER [address] [facility] [address] [place] [address] [facility] Start: 02-18-2025 End: 02-18-2025 ambulatory 02/18/2025 7:00 AM EDT Evaluation [facility] [address] [place] [address] Haroldo Walters, PT [address] [facility] [place] [address] [facility] Start: 02-16-2025 End: 02-16-2025 Patient encounter procedure 02/16/2025 8:00 AM EDT Appointment [facility] [address] [place] [address] [facility] Start: 02-11-2025 End: 02-11-2025 ambulatory 02/11/2025 3:20 PM EDT [facility] OB/Gynecology [address] [place] [id number] Lesley Vazquez MD [address] [place] [address] Hysterectomy OB/Gynecology Comment on above: Hysterectomy Start: 02-11-2025 End: 02-11-2026 XR Ankle - right 3 Views [facility] Work Phone: Comment on above: Expected: 02/11/2025 , Expires: 02/11/2026 Once for 1 Occurrenc es starting 02/11/2025 until 02/11/2025 Start: 02-11-2025 End: 02-11-2026 XR Foot - right 3 Views [facility] Work Phone: Comment on above: Expected: 02/11/2025 (Approximate), Expires: 02/11/2026 Once for 1 Occurrenc es starting 02/11/2025 until 02/11/2025 Start: 02-10-2025 End: 02-10-2026 XR Ankle - right 3 Views XR ankle right 3+ views Imaging Routine Acute right ankle pain Expected: 02/10/2025 (Approximate), Expires: 02/10/2026 [facility] Service Area Work Phone: Comment on above: Expected: 02/10/2025 (Approximate), Expires: 02/10/2026 Start: 02-10-2025 End: 02-10-2026 XR Foot - right 3 Views XR foot right 3+ views Imaging Routine Acute right ankle pain Expected: 02/10/2025 (Approximate), Expires: 02/10/2026 [facility] Work Phone: Comment on above: Expected: 02/10/2025 (Approximate), Expires: 02/10/2026 Start: 02-05-2025 Influenza vaccination Influenza Vacc ine (#1) [facility] Start: 02-02-2025 End: 02-02-2025 Patient encounter procedure 02/02/2025 8:00 AM EDT Appointment [place] [id number] [address] [facility] Start: 01-19-2025 End: 01-19-2027 Holter monitor study Holter Or Event Electrical Manufacturing Engineer Cardiac Services Routine Heart palpitations Expected: 01/19/2025 (Approximate), Expires: 01/19/2027 [facility] Service Area Work Phone: Comment on above: Expected: 01/19/2025 (Approximate), Expires: 01/19/2027 Start: 01-19-2025 End: 01-19-2025 Patient encounter procedure Mammogram Comment on above: Encounter for screen ing mammogram for breast cancer [Z12.31] Start: 01-18-2025 End: 01-18-2025 Patient encounter procedure 01/18/2025 8:10 AM EDT Appointment Mammogram [address] [place] [address] Encounter for screening mammogram for breast cancer [Z12.31] Mammogram Comment on above: Encounter for screen ing mammogram for breast cancer [Z12.31] Start: 01-15-2025 End: 01-15-2025 Manual pelvic examination 01/15/2025 1:00 PM EDT Procedure OB/Gynecology [address] [place] [address] Remote, Founder And Chief Executive Officer [facility] [address] [place] [address] Irregular bleeding [N92.6]; Pelvic pain in female [R10.2]; Dyspareunia in female [N94.10]; Chronic left-sided low back pain, unspecified whether sciatica present [M54.50, G89.29] OB/Gynecology Comment on above: Irregular bleeding [ N92.6]; Pelvic pain in female [R10.2]; Dyspareunia in female [N94.10]; Chronic left-sided low back pain, unspecified whether sciatica present [M54.50, G89.29] Start: 01-14-2025 End: 01-14-2026 US Pelvis PELVIC US [facility] Anc Imaging Routine Irregular bleeding Pelvic pain in female Dyspareunia in female Chronic left-sided low back pain, unspecified whether sciatica present Expected: 01/14/2025, Expires: 01/14/2026 [facility] Comment on above: Expected: 01/14/2025 , Expires: 01/14/2026 Start: 01-13-2025 End: 01-13-2026 CT for calcium scoring WO contrast and CTA W contrast IV Heart and coronary arteries CT cardiac scoring wo IV contrast Imaging Routine Screening, ischemic heart disease Expected: 01/13/2025, Expires: 01/13/2026 [facility] Service Area Work Phone: Comment on above: Expected: 01/13/2025 , Expires: 01/13/2026 Start: 01-13-2025 End: 01-13-2026 Home sleep apnea test (HSAT) Home sleep apnea test (HSAT) Sleep Center Routine Hypersomnolence Snoring Expected: 01/13/2025 (Approximate), Expires: 01/13/2026 [facility] Work Phone: Comment on above: Expected: 01/13/2025 (Approximate), Expires: 01/13/2026 Start: 2024 Screening for malign ant neoplasm of breast [facility] Start: 09-09-2024 Yearly Adult Physical Yearly Adult P hysical [facility] Start: 09-08-2024 End: 09-08-2025 EMG & nerve conduction EMG & nerve conduction Neurology Routine Numbness and tingling of both lower extremities Expected: 09/08/2024 (Approximate), Expires: 09/08/2025 [facility] Work Phone: Comment on above: Expected: 09/08/2024 (Approximate), Expires: 09/08/2025 Start: 09-08-2024 End: 09-08-2025 XR Knee - left [address] [facility] Area Work Phone: Comment on above: Expected: 09/08/2024 , Expires: 09/08/2025 Once for 1 Occurrenc es starting 09/08/2024 until 09/08/2024 Start: 09-08-2024 End: 09-08-2024 Patient encounter procedure [facility] Start: 08-17-2024 End: 07-31-2025 Comprehensive metabolic 2000 panel - Serum or Plasma Comprehensive Metabolic Panel Lab Routine Mixed hyperlipidemia Expected: 08/17/2024, Expires: 07/31/2025 [facility] Work Phone: Comment on above: Expected: 08/17/2024 , Expires: 07/31/2025 Start: 08-17-2024 End: 07-31-2025 Hemoglobin A1c/Hemoglobin.total in Blood Hemoglobin A1C Lab Routine Screening for diabetes mellitus (DM) Expected: 08/17/2024, Expires: 07/31/2025 [facility] Work Phone: Comment on above: Expected: 08/17/2024 , Expires: 07/31/2025 Start: 08-17-2024 End: 07-31-2025 Lipid 1996 panel - Serum or Plasma Lipid Panel Lab Routine Mixed hyperlipidemia Expected: 08/17/2024, Expires: 07/31/2025 [facility] Work Phone: Comment on above: Expected: 08/17/2024 , Expires: 07/31/2025 Start: 07-31-2024 End: 07-31-2024 Patient encounter procedure 07/31/2024 8:40 AM EST Office Visit [facility] [address] [facility] [address] [place] [address] Yaneli Malik, SPLICER OPERATOR-PROJECT CONTROL OFFICER [address] [facility] [address] [place] [address] [facility] Start: 05-06-2024 End: 05-06-2024 Patient encounter procedure 05/06/2024 8:00 AM EDT Office Visit [facility] [address] [place] [address] Layne Temple, SPLICER OPERATOR-PROJECT CONTROL OFFICER [address] [facility], [address] [place] [address] [facility] Start: 04-10-2024 End: 04-10-2024 Patient encounter procedure 04/10/2024 11:30 AM EDT Office Visit OB/Gynecology [address] [place] [address] Angelina Cervantes, SPLICER OPERATOR.PROJECT CONTROL OFFICER [address] [place] [address] Annual Exam OB/Gynecology Comment on above: Annual Exam Start: 03-25-2024 End: 03-25-2025 XR Abdomen Single view [facility] Service Area Work Phone: Comment on above: Expected: 03/25/2024 , Expires: 03/25/2025 Once for 1 Occurrenc es starting 03/25/2024 until 03/25/2024 Start: 03-25-2024 End: 03-25-2024 Patient encounter procedure 03/25/2024 1:30 PM EDT Office Visit [facility] [address] [facility] [address] [place] [id number] Kobi Sol MD [address] [place], [place] [id number] [facility] Start: 03-08-2024 COVID-19 Vaccine ( season) COVID-19 Vaccine ( season) [facility] Start: 03-08-2024 COVID-19 Vaccine ( season) COVID-19 Vaccine ( season) [facility] Start: 03-08-2024 Influenza vaccination [facility] Start: 03-04-2024 End: 03-04-2024 Patient encounter procedure 03/04/2024 8:45 AM EDT Office Visit [facility] [address] [place] [address] Layne Temple, SPLICER OPERATOR-PROJECT CONTROL OFFICER [address] [facility], [address] [place] [address] [facility] Start: 02-27-2024 End: 02-27-2024 ambulatory 02/27/2024 10:00 AM EDT Treatment [address] [phone] Derick Felix, PT [address] [facility] [place] [address] [facility] Start: 02-25-2024 End: 02-25-2024 ambulatory 02/25/2024 10:00 AM EDT Treatment [address] [phone] Carlos Lr, SPRINKLER TENDER [address] [facility] [place] [address] [facility] Start: 02-20-2024 End: 02-20-2024 ambulatory 02/20/2024 10:00 AM EDT Treatment [address] [phone] Sruthi Andre, SPRINKLER TENDER [address] [facility] [place] [address] [facility] Start: 02-19-2024 End: 02-19-2024 Patient encounter procedure 02/19/2024 9:15 AM EDT Office Visit [facility] [address] [place] [address] Layne Temple, SPLICER OPERATOR-PROJECT CONTROL OFFICER [address] [facility], [address] [place] [address] [facility] Start: 01-28-2024 End: 01-28-2024 ambulatory 01/28/2024 9:45 AM EDT Evaluation [facility] [address] [place] [address] Mariah Landrum, PT [address] [facility] [place] [address] [facility] Start: 01-22-2024 End: 01-22-2024 Patient encounter procedure [facility] Start: 01-20-2024 End: 01-20-2024 Patient encounter procedure 01/20/2024 8:30 AM EDT Appointment [address] [phone] [facility] Start: 01-16-2024 End: 01-16-2024 Patient encounter procedure 01/16/2024 10:15 AM EDT Appointment [address] [phone] [facility] Start: 11-13-2023 End: 11-13-2023 Patient encounter procedure 11/13/2023 1:00 PM EDT Office Visit [facility] Office [facility] [address] [place] [address] Elieser Garcia MD [address] [place] [address] [facility] Start: 2023 Screening for malign ant neoplasm of breast Mammogram Screening [facility] Start: 09-09-2023 End: 09-08-2024 25-hydroxyvitamin D3 [Mass/volume] in Serum or Plasma Vitamin D 25-Hydroxy,Total (for eval of Vitamin D levels) Lab Routine Encounter for vitamin deficiency screening Expected: 09/09/2023 (Approximate), Expires: 09/08/2024 [facility] Work Phone: Comment on above: Expected: 09/09/2023 (Approximate), Expires: 09/08/2024 Start: 09-09-2023 End: 09-08-2024 CBC W Auto Differential panel - Blood CBC and Auto Differential Lab Routine Well adult exam Expected: 09/09/2023 (Approximate), Expires: 09/08/2024 [facility] Work Phone: Comment on above: Expected: 09/09/2023 (Approximate), Expires: 09/08/2024 Start: 09-09-2023 End: 09-08-2024 Cobalamin (Vitamin B12) [Mass/volume] in Serum or Plasma Vitamin B12 Lab Routine Vitamin B12 deficiency Expected: 09/09/2023 (Approximate), Expires: 09/08/2024 [facility] Work Phone: Comment on above: Expected: 09/09/2023 (Approximate), Expires: 09/08/2024 Start: 09-09-2023 End: 09-08-2024 Comprehensive metabolic 2000 panel - Serum or Plasma Comprehensive Metabolic Panel Lab Routine Well adult exam Expected: 09/09/2023 (Approximate), Expires: 09/08/2024 [facility] Service Area Work Phone: Comment on above: Expected: 09/09/2023 (Approximate), Expires: 09/08/2024 Start: 09-09-2023 End: 09-08-2024 Lipid 1996 panel - Serum or Plasma Lipid Panel Lab Routine Mixed hyperlipidemia Expected: 09/09/2023 (Approximate), Expires: 09/08/2024 [facility] Work Phone: Comment on above: Expected: 09/09/2023 (Approximate), Expires: 09/08/2024 Start: 09-09-2023 End: 09-09-2023 Patient encounter procedure 09/09/2023 8:00 AM EST Office Visit [facility] [address] [facility] [address] [place] [address] Elizabeth Malikoctavia Escamilla, SPLICER OPERATOR-PROJECT CONTROL OFFICER [address] [facility] [address] [place] [address] [facility] Start: 07-08-2023 Behavioral Health Screening Behavioral Health Screening [facility] Start: 07-02-2023 End: 07-02-2024 CBC W Auto Differential panel - Blood CBC and Auto Differential Lab Routine Fever, unspecified fever cause Expected: 07/02/2023 (Approximate), Expires: 07/02/2024 [facility] Work Phone: Comment on above: Expected: 07/02/2023 (Approximate), Expires: 07/02/2024 Start: 07-02-2023 End: 07-02-2024 XR Chest 2 Views XR chest 2 views Imaging Routine Cough present for greater than 3 weeks Fever, unspecified fever cause Expected: 07/02/2023, Expires: 07/02/2024 [facility] Service Area Work Phone: Comment on above: Expected: 07/02/2023 , Expires: 07/02/2024 Start: 03-08-2023 Covid-19 Vaccine ( season) Covid-19 Vaccine ( season) [facility] Start: 03-08-2023 Influenza vaccination [facility] Start: 03-05-2023 End: 03-05-2024 Holter monitor study Holter or Event Electrical Manufacturing Engineer Cardiac Services Routine Racing heart beat Heart palpitations Expected: 03/05/2023, Expires: 03/05/2024 [facility] Service Area Work Phone: Comment on above: Expected: 03/05/2023 , Expires: 03/05/2024 Start: 03-05-2023 End: 03-05-2024 US Heart Transthoracic Transthoracic Echo (TTE) Complete Echocardiography Routine Racing heart beat Heart palpitations Expected: 03/05/2023, Expires: 03/05/2024 [facility] Work Phone: Comment on above: Expected: 03/05/2023 , Expires: 03/05/2024 Start: 02-26-2023 End: 02-26-2023 Patient encounter procedure 02/26/2023 8:00 AM EDT Office Visit [facility] [address] [place] [address] Yaneli Malik, SPLICER OPERATOR-PROJECT CONTROL OFFICER [address] [place] [place] [address] [facility] Start: 02-21-2023 End: 02-22-2024 PELVIC US I PELVIC US [facility] Anc Imaging Routine Cyst of right ovary Expected: 02/21/2023, Expires: 02/22/2024 [facility] Work Phone: Comment on above: Expected: 02/21/2023 , Expires: 02/22/2024 Start: 02-05-2023 End: 02-06-2024 SARS-CoV-2 (COVID-19) RNA [Presence] in Respiratory specimen by HOWARD with probe detection [facility] Service Area Work Phone: Comment on above: Expected: 02/05/2023 (Approximate), Expires: 02/06/2024 Start: 09-06-2022 EPV, Provider: Yaneli Malik, Status: Pen, Time: 8:00 AM EPV, Provider: Yaneli Malik, Status: Pen, Time: 8:00 AM [facility] [address] DO Work Phone: Start: 07-27-2022 PTRECHECKA, Provider : Columba Glaeson, Status: Pen, Time: 7:30 AM PTRECHECKA, Provider: Columba Gleason, Status: Pen, Time: 7:30 AM [facility] Work Phone: Start: 07-25-2022 PTFUADULT4, Provider : Amelia Johansen, Status: Pen, Time: 7:00 AM PTFUADULT4, Provider: Amelia Johansen, Status: Pen, Time: 7:00 AM [facility] Phone: Start: 07-20-2022 PTFUADULT4, Provider : Amelia Johansen, Status: Pen, Time: 7:00 AM PTFUADULT4, Provider: Amelia Johansen, Status: Pen, Time: 7:00 AM [facility] Health Data Minder Phone: Start: 07-18-2022 PTFUADULT4, Provider : Amelia Johansen, Status: Pen, Time: 7:00 AM PTFUADULT4, Provider: Amelia Johansen, Status: Pen, Time: 7:00 AM [facility] Health Data Minder Phone: Start: 07-13-2022 PTFUADULT4, Provider : Columba Gleason, Status: Pen, Time: 7:30 AM PTFUADULT4, Provider: Columba Gleason, Status: Pen, Time: 7:30 AM [facility] Health Data Minder Phone: Start: 07-11-2022 PTFUADULT4, Provider : Amelia Johansen, Status: Pen, Time: 7:00 AM PTFUADULT4, Provider: Amelia Johansen, Status: Pen, Time: 7:00 AM [facility] Health Data Minder Phone: Start: 07-08-2022 DEPRESSION ASSESSMENT DEPRESSION [facility] Start: 07-06-2022 PTFUADULT4, Provider : Catrina Hernandez, Status: Pen, Time: 8:30 AM PTFUADULT4, Provider: Catrina Hernandez, Status: Pen, Time: 8:30 AM [facility] Health Data Minder Phone: Start: 06-29-2022 PTFUADULT4, Provider : Catrina Hernandez, Status: Pen, Time: 8:30 AM PTFUADULT4, Provider: Catrina Hernandez, Status: Pen, Time: 8:30 AM [facility] Health Data Minder Phone: Start: 06-15-2022 PTEVAADULT, Provider : Columba Gleason, Status: Pen, Time: 7:30 AM PTEVAADULT, Provider: Columba Gleason, Status: Pen, Time: 7:30 AM [facility] 205 DO Work Phone: Start: 06-08-2022 EPV, Provider: Yaneli Malik, Status: Pen, Time: 9:00 AM EPV, Provider: Yaneli Malik, Status: Pen, Time: 9:00 AM [facility] Work Phone: Start: 12-27-2021 FUV, Provider: Layne Temple, Status: Pen, Time: 9:30 AM FUV, Provider: Layne Temple, Status: Pen, Time: 9:30 AM [facility] 300 Work Phone: Start: 12-13-2021 FUV, Provider: Layne Temple, Status: Pen, Time: 9:30 AM FUV, Provider: Layne Temple, Status: Pen, Time: 9:30 AM [facility] 300 Work Phone: Start: 11-28-2021 FUV, Provider: Layne Temple, Status: Pen, Time: 9:00 AM FUV, Provider: Layne Temple, Status: Pen, Time: 9:00 AM [facility] 300 Work Phone: Start: 08-19-2021 HPV VACCINE (3 - 3-d ose SCDM series) HPV VACCINE (3 - 3-dose SCDM series) [facility] Start: 08-19-2021 HPV Vaccines (3 - 3-dose SCDM series) HPV Vaccines (3 - 3-dose SCDM series) [facility] Start: 04-10-2021 EPV, Provider: Na Arcos, Status: Pen, Time: 9:00 AM EPV, Provider: Na Arcos, Status: Pen, Time: 9:00 AM [facility] Work Phone: Start: 09-15-2020 Screening for malign ant neoplasm of cervix [facility] Start: 03-08-2019 Influenza vaccinatio n given SEQUENTIAL INFLUENZA VACCINE (#1) [facility] Start: 04-17-2018 End: 04-17-2019 ECG 12 Lead ECG 12 Lead Routine Chest pain, unspecified type Expected: 04/17/2018, Expires: 04/17/2019 [facility] Comment on above: Expected: 04/17/2018 , Expires: 04/17/2019 Start: 03-08-2018 Influenza vaccination SEQUENTI AL INFLUENZA VACCINE (#1) [facility] Start: 01-27-2016 HEPATITIS B (3 of 3 - 19+ 3-dose series) HEPATITIS B (3 of 3 - 19+ 3-dose series) [facility] Start: 01-27-2016 Hepatitis B Vaccine (3 of 3 - 19+ 3-dose series) Hepatitis B Vaccine (3 of 3 - 19+ 3-dose series) [facility] Start: 01-27-2016 Hepatitis B Vaccines (3 of 3 - 19+ 3-dose series) Hepatitis B Vaccines (3 of 3 - 19+ 3-dose series) [facility] Start: 10-22-2004 Screening for malign ant neoplasm of cervix [facility] Start: 10-22-2001 Depression Screening Depression Scre [facility] Start: 10-22-2001 Hepatitis C screening Hepatitis C [facility] Start: 10-22-2001 HEPATITIS C SCREENING HEPATITIS C [facility] Start: 10-22-2001 HIV SCREENING HIV SCREENING [facility] Start: 10-22-2001 HIV screening HIV Screening [facility] Start: 10-22-1998 HIV screening [facility] Start: 10-22-1996 Varicella vaccination Varicell a Vaccines (1 of 2 - 13+ 2-dose series) [facility] Start: 1995 Depression screening using PHQ-9 (Patient Health Questionnaire 9) score Depression Screening/Follow-Up (PHQ-2/9) [facility] Start: 10-22-1988 COVID-19 Vaccine (#1) COVID-19 Vacci ne (#1) [facility] Start: 10-22-1986 History and physical examination, annual for health maintenance Wellness Visit [facility] Start: 10-22-1984 MMR Vaccines (1 of 1 - Standard series) MMR Vaccines (1 of 1 - Standard series) [facility] Start: 10-22-1984 Varicella vaccination Varicell a Vaccines (1 of 2 - 2-dose childhood series) [facility] Start: 04-23-1984 COVID-19 Vaccine (#1) COVID-19 Vacci ne (#1) [facility] Start: 1983 Depression screening using PHQ-9 (Patient Health Questionnaire 9) score DEPRESSION SCREENING (PHQ9) [facility] Start: 1983 Lipid panel Lipid Panel [facility] Start: 1983 Screening for malign ant neoplasm of cervix PAP SMEAR [facility] Start: 1983 Skin Cancer Screening Skin Cancer Sc reening [facility] Start: 1983 Tetanus vaccination TETANUS EVERY 10 YR [facility] Start: 1983 Yearly Adult Physical Yearly Adult P hysical [facility] BACTERIAL VAGINOSIS NAAT BACTERIAL VAGINOSIS NAAT Lab Routine Vaginal discharge Ordered: 01/14/2025 [facility] Comment on above: Ordered: 01/14/2025 ABHINAV/TRICHOMONAS NAAT ABHINAV/TRICHOMONAS NAAT Lab Routine Vaginal discharge Ordered: 01/14/2025 [facility] Comment on above: Ordered: 01/14/2025 End: 02-16-2025 CT for calcium scoring WO contrast and CTA W contrast IV Heart and coronary arteries [facility] Service Area Work Phone: Comment on above: Once for 1 Occurrenc es starting 02/16/2025 until 02/16/2025 End: 02-13-2026 DBT Breast - bilateral screening SARAH SCREENING W RAY Radiology Routine Encounter for screening mammogram for breast cancer 1 Occurrences starting 01/14/2025 until 02/13/2026 [facility] Work Phone: Comment on above: 1 Occurrences starti ng 01/14/2025 until 02/13/2026 DBT Breast - bilater al screening SARAH SCREENING W RAY Radiology Routine Encounter for screening mammogram for breast cancer 01/19/2025 7:37 AM EDT [facility] Work Phone: ECG 12 Lead ECG 12 Lead Rout ine Chest pain, unspecified type 04/17/2018 6:51 PM EDT [facility] ECG 12 lead ECG 12 lead ECG STAT As needed until discontinued starting 12/30/2024 [facility] Area Work Phone: Comment on above: As needed until disc ontinued starting 12/30/2024 Endometrial bx w/wo endocervix bx w/o dilat spx ENDOMETRIAL BIOPSY Procedures Routine Menorrhagia with regular cycle Dysmenorrhea Ordered: 04/10/2023 [facility] Work Phone: Comment on above: Ordered: 04/10/2023 Endometrial bx w/wo endocervix bx w/o dilat spx ENDOMETRIAL BIOPSY Procedures Routine Irregular bleeding Ordered: 01/14/2025 [facility] Comment on above: Ordered: 01/14/2025 End: 06-12-2023 Holter monitor study [facility] Work Phone: Comment on above: Once for 1 Occurrenc es starting 06/12/2023 until 06/12/2023 End: 02-02-2025 Holter monitor study [facility] Work Phone: Comment on above: Once for 1 Occurrenc es starting 02/02/2025 until 02/02/2025 HPV W/GENOTYPE THIN PREP HPV W/GENOTYPE THIN PREP Lab Routine Screening for cervical cancer Encounter for screening for human papillomavirus (HPV) History of cervical dysplasia 04/10/2023 3:23 PM EDT [facility] Work Phone: Insertion intrauteri ne device iud INSERT INTRAUTERINE DEVICE Procedures Routine Menorrhagia with regular cycle Dysmenorrhea Ordered: 04/10/2023 [facility] Work Phone: Comment on above: Ordered: 04/10/2023 End: 05-09-2024 SARAH SCREENING SARAH SCREENING Radiology Routine Encounter for screening mammogram for malignant neoplasm of breast 1 Occurrences starting 04/10/2023 until 05/09/2024 [facility] Work Phone: Comment on above: 1 Occurrences starti ng 04/10/2023 until 05/09/2024 MG Breast Screening SARAH SCREENIN G Radiology Routine Encounter for screening mammogram for malignant neoplasm of breast 10/24/2023 1:01 PM EDT [facility] Work Phone: PAP TEST PAP TEST Lab Rou phil Screening for cervical cancer Encounter for screening for human papillomavirus (HPV) History of cervical dysplasia 04/10/2023 3:23 PM EDT [facility] Work Phone: PAP TEST PAP TEST Lab Rou phil Irregular bleeding Cervical cancer screening Special screening examination for human papillomavirus (HPV) Ordered: 01/14/2025 [facility] Comment on above: Ordered: 01/14/2025 End: 02-24-2025 US Abdomen limited [facility] Service Area Work Phone: Comment on above: Once for 1 Occurrenc es starting 02/24/2025 until 02/24/2025 End: 03-11-2025 XR Ankle - right 3 Views [facility] Service Area Work Phone: Comment on above: Once for 1 Occurrenc es starting 03/11/2025 until 03/11/2025 End: 03-11-2025 XR Foot - right 3 Views [facility] Service Are a Work Phone: Comment on above: Once for 1 Occurrenc es starting 03/11/2025 until 03/11/2025 [facility] Immunizations Immunization Date Immunization Notes Care Provider Gabby foley 04-10-2023 Human Papillomavirus 9-valent vaccine Angelina Cervantes APRN.PROJECT CONTROL OFFICER Work Phone: [facility] Work Phone: 04-18-2021 Human Papillomavirus 9-valent vaccine Na Arcso Work Phone: [facility] 205 DO Work Phone: 04-18-2021 HPV, unspecified formulation Yaneli Malik SPLICER OPERATOR-PROJECT CONTROL OFFICER Work Phone: [facility] Work Phone: 02-13-2021 Human Papillomavirus 9-valent vaccine Na Arcos Work Phone: [facility] Work Phone: 08-29-2018 influenza virus vacc ine, unspecified formulation Na Arcos Work Phone: [facility] Work Phone: Comment on above: Series: 08-29-2018 influenza, seasonal, injectable Nacody Arcos [facility] Work Phone: 09-16-2015 hepatitis B vaccine, adult dosage Yaneli Malik SPLICER OPERATOR-PROJECT CONTROL OFFICER Work Phone: [facility] Work Phone: 09-16-2015 hepatitis B vaccine, unspecified formulation Varsha Alcaraz MD Work Phone: [facility] 07-29-2015 hepatitis B vaccine, adult dosage Yaneli Malik SPLICER OPERATOR-PROJECT CONTROL OFFICER Work Phone: [facility] Work Phone: 07-29-2015 influenza, injectabl e, quadrivalent, contains preservative Varsha Alcaraz MD Work Phone: [facility] 07-29-2015 tetanus toxoid, redu sheeba diphtheria toxoid, and acellular pertussis vaccine, adsorbed Yaneli Malik SPLICER OPERATOR-PROJECT CONTROL OFFICER Work Phone: [facility] Work Phone: 07-29-2015 tuberculin skin test ; purified protein derivative solution, intradermal Yaneli Malik SPLICER OPERATOR-PROJECT CONTROL OFFICER Work Phone: [facility] Work Phone: Payers Date Payer Category Payer Self-pay 2022 Medicaid [id number] 2022 Private Health Insurance [facility] [id number] 2022-Present [address] [place] [address] [id number] 2019 Unknown 2017 Medicaid [id number] 2017 Medicaid [facility] MANAGED [facility] MEDICAID COMMUNITY PLAN xxxxxxxxx 2017-Present xxxxxxxxx [id number] 2017 Medicaid (Managed Care) 1.2. [id number] 2017 Private Health Insurance [id number] 1983 Unknown [id number] 2.16840.1.384128.3.579.2. 90 1983 Unknown [id number] 2.16840.1.223800.3.579.2. 903 1983 Unknown [id number] 2.840.1.022148.3.579.2. 983 1983 Unknown [id number] 2.840.1.326999.3.579.2. 1068 1983 Unknown [id number] 2.840.1.888071.3.579.2. 1068 1983 Unknown [id number] 2.16840.1.702581.3.579.2. 1068 1983 Unknown [id number] 2.16840.1.216085.3.579.2. 1068 1983 Unknown [id number] 2.16.840.1.692760.3.579.2. 1068 1983 Unknown [id number] 2.16.840.1.074273.3.579.2. 1068 1983 Unknown [id number] 2.16.840.1.926117.3.579.2. 1068 1983 Unknown [id number] 2.16840.1.816489.3.579.2. 1068 1983 Unknown [id number] 2.16.840.1.778710.3.579.2. 1069 1983 Unknown [id number] 2.16.840.1.322888.3.579.2. 1244 1983 Unknown [id number] 2.16.840.1.681171.3.579.2. 903 1983 Unknown [id number] 2..840.1.856093.3.579.2. 1242 1983 Unknown [id number] 2..840.1.310334.3.579.2. 1242 1983 Unknown [id number] 2.840.1.490736.3.579.2. 1242 1983 Unknown [id number] 2.840.1.425624.3.579.2. 1242 1983 Unknown [id number] 2840.1.384862.3.579.2. 1242 1983 Unknown [id number] 2.840.1.002452.3.579.2. 1242 1983 Unknown [id number] 2.840.1.214413.3.579.2. 1242 1983 Unknown [id number] 2.840.1.795853.3.579.2. 1242 1983 Unknown [id number] 2.840.1.297835.3.579.2. 1242 1983 Unknown [id number] 2.840.1.710608.3.579.2. 1242 1983 Unknown [id number] 2.840.1.371420.3.579.2. 1242 1983 Unknown [id number] 2.840.1.456510.3.579.2. 1242 1983 Unknown [id number] 2.840.1.606457.3.579.2. 1243 1983 Unknown [id number] 2.16840.1.984333.3.579.2. 1243 1983 Unknown [id number] 2.16840.1.659193.3.579.2. 1243 1983 Unknown [id number] 2.16840.1.900073.3.579.2. 1243 1983 Unknown [id number] 2.16840.1.505486.3.579.2. 1243 1983 Unknown [id number] 2.16840.1.520850.3.579.2. 1243 1983 Unknown [id number] 2.16840.1.780776.3.579.2. 1243 1983 Unknown [id number] 2.840.1.728596.3.579.2. 1243 1983 Unknown [id number] 2.840.1.661560.3.579.2. 1243 1983 Unknown [id number] 2.16840.1.084386.3.579.2. 1243 1983 Unknown [id number] 2.16840.1.169067.3.579.2. 1243 1983 Unknown [id number] 2840.1.652826.3.579.2. 1244 Unknown [id number] 2840.1.357758.3.579.2. 462 Social History Date Type Detail Facility Start: 04-17-2018 End: 10-11-2023 Tobacco smoking status NHIS Never smoker [facility] Start: 1985 Sex Assigned At Not on file [facility] Start: 03-27-2019 End: 04-27-2025 Alcohol intake Current drinker of alcohol (finding) [facility] Start: 04-17-2018 Alcohol Comment [facility] Start: 01-22-2023 End: 04-27-2025 Consumes alcohol Consumes alcohol [facility] Tobacco smoking consumption unknown [facility] Start: 01-22-2023 End: 10-11-2023 Tobacco use and exposure Smokeless tobacco non-user [facility] Work Phone: Start: 01-22-2023 End: 04-27-2025 Tobacco use panel [facility] Start: 01-22-2023 Alcohol Comment occisonally [facility] Work Phone: Start: 01-26-2023 End: 09-08-2024 Exposure to SARS-CoV-2 (event) Not sure [facility] Start: 06-08-2012 End: 06-02-2022 National Score (1-100), lower number is lower risk Not on file [facility] Start: 12-04-2011 End: 09-08-2024 Alcohol Comment rare [facility] Start: 1985 Sex Assigned At Female [facility] Start: 04-17-2018 Gender identity Identifies as female gender (finding) [facility] Start: 04-17-2018 Sexual orientation Heterosexual (fin ding) [facility] Start: 06-22-2023 End: 06-09-2024 Exposure to SARS-CoV-2 (event) Unable to assess [facility] History of tobacco use Passive smoker [facility] Work Phone: Start: 06-02-2022 Sex Female (finding) [facility] NEGATED: Highlighted row - - [facility] Work Phone: Functional Status Date Assessment Result Facility 04-27-2025 Patient Health Questionnaire 2 item (PHQ-2) [Reported] [facility] Work Phone: 04-27-2025 Functional status 104/80 025 9:24 AM EDT Shelby Stone CMA 104/80 [facility] Work Phone: 04-27-2025 Vital signs 92 04/27/2025 9: 24 AM EDT Shelby Stone CMA [facility] Work Phone: 04-12-2025 Functional status 106/68 [facility] Work Phone: 04-12-2025 Vital signs 84 04/12/2025 9: 38 AM EDT Neelima Stephen LPN [facility] Work Phone: 04-12-2025 [facility] Work Phone: 12-30-2024 [facility] - suicide severity rating scale screener - recent [C-SSRS] [facility] Work Phone: [facility] NEGATED: Highlighted row Functional performance Functional status health issues are not documented [facility] Work Phone: Mental Status Date Assessment Result Facility NEGATED: Highlighted row Cognitive function [Interpretation] Cognitive status health issues are not documented [facility] Work Phone: Clinical Notes 03-21-2007 to 05-11-2025 Assessment & Plan Note - JLUIS Patel - 04/27/2025 9:49 AM EDTAssessment & Plan Note - JLUIS Patel - 04/27/2025 9:49 AM EDTFrederic Malik PA-C - 03/11/2025 8:20 AM EDT Note Date & Type Note Facility 05-11-2025 Note HNO ID: [id number] Author: SHASTA RICHARDSON, RN Service: ? Author Type: Registered Nurse Type: Progress Notes Filed: 05/11/2025 09:49 Note Text: Received Pre Op lab results from [facility]. View External Labs - Miscellaneous Lab [ID [id number]] [facility] 04-27-2025 Evaluation + Plan note Associated Problem(s): Primary hypertension Continue hydrochlorothiazide 25 mg daily. [facility] Work Phone: 04-27-2025 Miscellaneous Notes Associated Problem(s): Primary hypertension Continue hydrochlorothiazide 25 mg daily. Associated Problem(s): Seasonal allergies Montelukast 10 mg nightly - refilled Associated Problem(s): Current mild episode of major depressive disorder without prior episode Continue pristiq 50 mg daily - refilled Associated Problem(s): Anxiety Continue with buspirone 5 mg TID pristiq 50 mg daily - refilled documented in this encounter [facility] Work Phone: 04-27-2025 Evaluation + Plan note Associated Problem(s): Seasonal allergies Montelukast 10 mg nightly - refilled [facility] Work Phone: 04-27-2025 Evaluation + Plan note Associated Problem(s): Current mild episode of major depressive disorder without prior episode Continue pristiq 50 mg daily - refilled [facility] Work Phone: 04-27-2025 Evaluation + Plan note Associated Problem(s): Anxiety Continue with buspirone 5 mg TID pristiq 50 mg daily - refilled [facility] Work Phone: 04-27-2025 History of Present illness Narrative Subjective Patient ID: William Sommer is a 39 y.o. female who presents for Follow-up. HPI William returns for follow up. Hysterectomy surgery on the . Depression/anxiety: doing well on pristiq, and buspar as needed. Denies SI or self harm. ALEXANDER: doing well on cpap. Has found that her mask was off in the mornings and doesn't remember taking it off. But feels better when she is using it. Review of Systems Constitutional: Negative for fatigue. HENT: Negative. Respiratory: Negative for chest tightness and shortness of breath. Cardiovascular: Negative for chest pain, palpitations and leg swelling. Gastrointestinal: Negative for abdominal pain, blood in stool, constipation, diarrhea, nausea and vomiting. Genitourinary: Negative for dysuria. Musculoskeletal: Negative for arthralgias and myalgias. Skin: Negative for color change. Neurological: Negative for dizziness, light-headedness and headaches. Psychiatric/Behavioral: Negative. Objective BP 104/80 Pulse 92 Ht 1.6 m (5' 3) Wt 84.8 kg (187 lb) BMI 33.13 kg/m Physical Exam Vitals and nursing note reviewed. Constitutional: Appearance: Normal appearance. Cardiovascular: Rate and Rhythm: Normal rate and regular rhythm. Pulses: Normal pulses. Heart sounds: Normal heart sounds. Pulmonary: Effort: Pulmonary effort is normal. Breath sounds: Normal breath sounds. Skin: General: Skin is warm and dry. Neurological: General: No focal deficit present. Mental Status: She is alert and oriented to person, place, and time. Psychiatric: Mood and Affect: Mood normal. Behavior: Behavior normal. Thought Content: Thought content normal. Judgment: Judgment normal. Assessment/Plan Problem List Items Addressed This Visit ICD-10-CM Mixed hyperlipidemia E78.2 Relevant Orders Comprehensive Metabolic Panel Lipid Panel Anxiety - Primary F41.9 Continue with buspirone 5 mg TID pristiq 50 mg daily - refilled Relevant Medications desvenlafaxine (Pristiq) 50 mg 24 hr tablet Current mild episode of major depressive disorder without prior episode F32.0 Continue pristiq 50 mg daily - refilled Relevant Medications desvenlafaxine (Pristiq) 50 mg 24 hr tablet Class 1 obesity due to excess calories without serious comorbidity with body mass index (BMI) of 33.0 to 33.9 in adult E66.811, E66.09, Z68.33 Primary hypertension I10 Continue hydrochlorothiazide 25 mg daily. Relevant Orders CBC and Auto Differential Seasonal allergies J30.2 Montelukast 10 mg nightly - refilled Relevant Medications montelukast (Singulair) 10 mg tablet Follow up in 6 months for wellness exam with lab work prior to appointment. Return precautions discussed. For any new medications that were prescribed today, the patient was educated about their indications for use, administration, frequency and potential side effects of the medication. documented in this encounter [facility] Work Phone: 04-12-2025 History of Present illness Narrative Images from the original note were not included. [facility] History of present illness: This is a pleasant 39 y.o. female with a history of hypertension, dyslipidemia, anxiety and depression who presents to the clinic for 3-month follow-up. Social History: Works from home with a [employer] center. She has 9 kids of a blended ages 24-11, 6 live at home with her and her . Tobacco denies, Alcohol 4 beers or alcoholic seltzers on weekends , Caffeine use 2 cups of coffee/day, Drug use current THC user, 10 mg gummy few times a month. FamHx: pGM CABGx4, of SCD in her early 60s. I saw her as a new patient on 01/19/2025 referred by her PCP for chest pain and shortness of breath. Chest pain patient with history sounded anxiety driven and likely noncardiac in nature. Low pretest probability for coronary disease. She does complain of palpitations so I obtained a 7-day Holter monitor. Subjective: After starting CPAP she feels a dull chest ache in the morning when she wakes up, lasting an hour or two before resolution. Reports rare palpitations with anxiety but is more infrequent. Denies shortness of breath syncope or near syncope. Cardiac Testing Personally reviewed with my independent interpretation: CT cardiac score (February 2025): Total CAC score 0 7-day Holter (January 2025): Predominantly sinus rhythm with an average heart of 94 bpm, PVC and PAC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 visit. She states the swelling has gone down. She states the back of her lateral malleolus is tender to touch. She states that any movement seems to cause a popping sensation in that area. She states that walking is fine but her ankle becomes sore when she is on it for too long. The patient states she has been wearing the ankle brace, icing, elevating and using OTC NSAIDs for pain relief. She states that the bruising has gone away and she does not have tenderness to any other locations. The patient denies numbness and tingling. REVIEW OF SYSTEMS Constitutional: See HPI for pain assessment, No significant weight loss, recent trauma Review of Systems Constitutional: Negative for appetite change, fatigue and fever. HENT: Negative for congestion, sinus pain, sore throat and tinnitus. Respiratory: Negative for cough, chest tightness and shortness of breath. Cardiovascular: Negative for chest pain and palpitations. Gastrointestinal: Negative for abdominal distention, abdominal pain, diarrhea, nausea and vomiting. Skin: Negative for color change and rash. Neurological: Negative for dizziness, seizures, light-headedness and headaches. Medical History[1] Allergies[2] Surgical History[3] Family History[4] Social History Socioeconomic History Marital status: Spouse name: Not on file Number of children: Not on file Years of education: Not on file Highest education level: Not on file Occupational History Not on file Tobacco Use Smoking status: Never Passive exposure: Past Smokeless tobacco: Never Vaping Use Vaping status: Never Used Substance and Sexual Activity Alcohol use: Yes Comment: rare Drug use: Yes Types: Marijuana Sexual activity: Defer Other Topics Concern Not on file Social History Narrative Not on file Social Drivers of Health Financial Resource Strain: Not on file Food Insecurity: Not on file Transportation Needs: Not on file Physical Activity: Not on file Stress: Not on file Social Connections: Not on file Intimate Partner Violence: Unknown (11/03/2022) Received from [facility] Intimate Partner Violence Fear of Current or Ex-Partner: Not on file Housing Stability: Not on file CURRENT MEDICATIONS: Current Medications[5] OBJECTIVE PHYSICAL EXAM 12/30/2024 2:30 PM 12/30/2024 3:00 PM 12/30/2024 3:30 PM 12/30/2024 4:00 PM 01/13/2025 9:45 AM 01/19/2025 1:04 PM 02/11/2025 2:03 PM Vitals Systolic 127 128 131 123 124 108 Diastolic 105 109 97 93 80 80 BP Location Left arm Left arm Left arm Left arm Heart Rate 97 104 99 101 104 98 Resp 17 15 15 13 Height 1.575 m (5' 2) 1.575 m (5' 2) Weight (lb) 187.19 185.9 188.8 BMI 34.24 kg/m2 34 kg/m2 34.53 kg/m2 BSA (m2) 1.93 m2 1.92 m2 1.94 m2 Visit Report Report Report Report There is no height or weight on file to calculate BMI. MUSCULOSKELETAL: 39 y.o. year-old female in no acute distress. Alert and oriented x 3. Well Nourished. Normal affect. Good historian. No ligamentous hyperlaxity. Gait: Normal Tandem. No abnormalities of balance or coordination. Foot/Ankle Musculoskeletal Exam Gait Gait is normal. Gait additional comments: Ankle brace on right Inspection Right Erythema: none Effusion: mild Edema: mild Ecchymosis: none Deformity: none Alignment: normal Left Left foot/ankle inspection is normal. Palpation Right Tenderness: present ATFL: mild Deltoid: mild Left Left foot/ankle palpation is unremarkable. Range of Motion Right Right foot/ankle range of motion is normal and full. Active Dorsiflexion: 20 Passive Dorsiflexion: 20 Active Plantar Flexion: 50 Passive Plantar Flexion: 50 Active Inversion: 30 Passive Inversion: 30 Active Eversion: 20 Passive Eversion: 20 Left Left foot/ankle range of motion is normal and full. Strength Right Right foot/ankle strength is normal. Tibialis anterior: 5/5. Extensor hallucis longus: 5/5. Flexor hallucis longus: 5/5. Gastroc/soleus: 5/5. Tibialis posterior: 5/5. Peroneals: 5/5. Left Left foot/ankle strength is normal. Neurovascular Right Right foot/ankle neurovascular exam is normal. Pulses - DP: normal Pulses - PT: normal Capillary refill: brisk and well-perfused Dorsum foot: normal Lateral foot: normal Plantar foot: normal Left Left foot/ankle neurovascular exam is normal. Special Tests Right Right foot/ankle special tests are normal. Anterior drawer test: positive (Slight laxity present) Talar tilt stress test: negative Flores's test: negative Left Left foot/ankle special tests are normal. General Psychiatric: normal mood and affect Neurological: alert and oriented x3 Imaging: === 02/11/25 === XR FOOT 3+ VIEWS RIGHT - Impression - No acute abnormality in the right foot MACRO: None Signed by: Toby Castillo 02/12/2025 8:12 PM Dictation workstation: [id number] ASSESSMENT & PLAN Impression: 39 y.o. female with grade 2 right ankle sprain Plan: I explained to the patient the nature of their diagnosis. I reviewed their imaging studies with them. We discussed that ankle sprains can take a long time to heal. We discussed that sometimes the tendons and ligaments of the ankle and foot can be disrupted during sprains. We discussed that the popping sensation she is feeling is most likely the ATFL. We discussed that these ligaments will take time to heal. We discussed continuing to ice, elevate, use OTC NSAIDs, and continuing the ankle exercises that were provided at the initial visit. We discussed that since the x-ray machine is down I would like to get repeat x-rays at the follow-up visit. The patient is not tender to touch anywhere except the lateral malleolus. We discussed that I am not concerned about a fracture but would like to be sure. The patient has a follow-up scheduled in 2 weeks for her MCL sprain. We discussed using this appointment for her ankle instead since she has not had the opportunity go to physical therapy yet. We discussed we will follow-up with the knee in 4 weeks once she can start PT. Follow-Up: Patient will follow-up 2 weeks with repeat x-rays At the end of the visit, all questions were answered in full. The patient is in agreement with the plan and recommendations. They will call the office with any questions/concerns. Note dictated with Envestnetphotographic engineer software. Completed without full typed error editing and sent to avoid delay. Frederic Malik PA-C [1] Past Medical History: Diagnosis Date Acute left-sided low back pain with left-sided sciatica 07/02/2023 Anxiety disorder, unspecified 06/08/2022 Anxiety Calculus of kidney 03/05/2023 Cervical high risk HPV (human papillomavirus) test positive 10/24/2018 COVID-19 04/10/2021 COVID-19 Flank pain HGSIL (high grade squamous intraepithelial lesion) on Pap smear of cervix 01/22/2023 History of claustrophobia 01/22/2023 Lactose intolerance 01/22/2023 Myelopathy (Multi) 01/22/2023 Paresthesias 01/22/2023 Punctate keratitis of left eye 09/30/2015 Sprain of left knee, initial encounter 01/15/2024 [2] No Known Allergies [3] Past Surgical History: Procedure Laterality Date ADENOIDECTOMY Bilateral CERVICAL BIOPSY W/ LOOP ELECTRODE EXCISION 04/22/2019 Loop electrosurgical excision procedure TONSILLECTOMY Bilateral 04/22/2019 TUBAL LIGATION Bilateral 04/22/2019 WISDOM TOOTH EXTRACTION 04/22/2019 [place] tooth extraction [4] Family History Problem Relation Name Age of Onset Heart disease Maternal Grandmother Hypertension Maternal Grandfather [5] Current Outpatient Medications Medication Sig Dispense Refill busPIRone (Buspar) 5 mg tablet take 1 tablet by mouth three times a day 90 tablet 2 cetirizine (ZyrTEC) 5 mg tablet Take 1 tablet (5 mg) by mouth once daily. cyclobenzaprine (Flexeril) 10 mg tablet Take 1 tablet (10 mg) by mouth 3 times a day as needed for muscle spasms. 90 tablet 0 desvenlafaxine succinate (Pristiq) 25 mg 24 hour tablet Take 1 tablet (25 mg) by mouth once daily. 90 tablet 0 fluticasone (Flonase) 50 mcg/actuation nasal spray Administer 1 spray into each nostril once daily. Shake gently. Before first use, prime pump. After use, clean tip and replace cap. hydroCHLOROthiazide (HYDRODiuril) 25 mg tablet Take 1 tablet (25 mg) by mouth once daily. 90 tablet 1 ibuprofen 600 mg tablet Take 1 tablet (600 mg) by mouth every 6 hours if needed for mild pain (1 - 3) or moderate pain (4 - 6) for up to 30 doses. 30 tablet 0 levonorgestrel (Mirena) 21 mcg/24 hours (8 yrs) 52 mg IUD 52 mg by intrauterine route. meloxicam (Mobic) 15 mg tablet Take 1 tablet (15 mg) by mouth once daily as needed for moderate pain (4 - 6). 90 tablet 1 montelukast (Singulair) 10 mg tablet Take 1 tablet (10 mg) by mouth once daily at bedtime. 90 tablet 1 omeprazole (PriLOSEC) [address] capsule Take 1 capsule (20 mg) by mouth once daily. 90 capsule 1 venlafaxine 75 mg 24 hr tablet Take 1 tablet (75 mg) by mouth once daily. (Patient taking differently: Take 1 tablet (75 mg) by mouth once daily. End date 01/22/25) 90 tablet 1 No current facility-administered medications for this visit. documented in this encounter [facility] Work Phone: 02-23-2025 Evaluation + Plan note Associated Problem(s): Primary hypertension Continue hydrochlorothiazide 25 mg daily. [facility] Work Phone: 02-23-2025 Miscellaneous Notes Associated Problem(s): Primary hypertension Continue hydrochlorothiazide 25 mg daily. documented in this encounter [facility] Work Phone: 02-23-2025 History of Present illness Narrative Images from the original note were not included. Subjective Patient ID: William Sommer is a 39 y.o. female who presents for Follow-up. HPI William returns for medication f/up. Sleep apnea: has not received equipment. Hard lump on back: 4-5 months, thought it was related to period cycles. During period gets worse pain in the area. Anxiety/depression: still having difficulty sleeping. HTN: controlled on current hydrochlorothiazide. Review of Systems Constitutional: Positive for fatigue. HENT: Negative. Respiratory: Negative. Cardiovascular: Negative. Gastrointestinal: Negative. Genitourinary: Negative. Musculoskeletal: Positive for back pain (does get right sided sciatica). Neurological: Negative. Hematological: Negative. Psychiatric/Behavioral: Positive for sleep disturbance. Negative for dysphoric mood and suicidal ideas. The patient is nervous/anxious. Objective BP 128/80 Pulse 72 Ht 1.575 m (5' 2) Wt 84.8 kg (187 lb) BMI 34.20 kg/m Physical Exam Vitals and nursing note reviewed. Constitutional: Appearance: Normal appearance. HENT: Head: Normocephalic and atraumatic. Cardiovascular: Rate and Rhythm: Normal rate and regular rhythm. Pulses: Normal pulses. Heart sounds: Normal heart sounds. Abdominal: Palpations: Abdomen is soft. Musculoskeletal: General: Normal range of motion. Skin: General: Skin is warm and dry. Comments: Rectangular area to left of spine in the lower back, non movable lump. Neurological: General: No focal deficit present. Mental Status: She is alert and oriented to person, place, and time. Psychiatric: Mood and Affect: Mood normal. Thought Content: Thought content normal. Judgment: Judgment normal. Assessment/Plan Problem List Items Addressed This Visit ICD-10-CM Anxiety - Primary F41.9 Relevant Medications desvenlafaxine succinate (Pristiq) 50 mg 24 hr tablet Primary hypertension I10 Continue hydrochlorothiazide 25 mg daily. Other Visit Diagnoses Codes Lump of skin of back R22.2 Relevant Orders US abdomen limited Follow up in 2 months for medication check. Return precautions discussed. We will contact her with results of US, and determine next steps. May consider MRI. For any new medications that were prescribed today, the patient was educated about their indications for use, administration, frequency and potential side effects of the medication. documented in this encounter [facility] Work Phone: 02-11-2025 Note HNO ID: [id number] Author: LESLEY VAZQUEZ MD Service: ? Author Type: Physician Type: Progress Notes Filed: 02/12/2025 08:38 Note Text: I have communicated my name and active licensure. The patient's identity and physical location were verified at the time of this visit. Either the patient or their legal loss control representative has been informed of the risks and benefits of -- and alternatives to -- treatment through a remote evaluation and consents to proceed with the evaluation remotely. Subjective William Sommer is a 39 year old female. The patient would like to discuss a hysterectomy. Pelvic US shows adenomyosis and a fibroid. She has a Mirena IUD in place which has been helping with the bleeding, but not improving the pain. She describes the pain as sharp pelvic pain that comes and goes. She feels swelling, pressure, and bloating. She has pelvic cramping that wraps around into her lower back. The pain makes it difficult to stay active. She has tried a heating pad and ibuprofen. Occasional constipation around time of menses. Has pain every time she has intercourse with bleeding. 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 Recently wore a heart monitor and waiting on results of this. Sister with a history of blood clot. Objective LMP 04/25/2023 GENERAL: alert and appropriate, in no distress, well-hydrated, well nourished, and happy, smiling, interactive Assessment AND Plan DUB (dysfunctional uterine bleeding) Pelvic pain in female Uterine cramping Uterine leiomyoma, unspecified location Adenomyosis Discussed r/b/a hysterectomy and questions answered. Reviewed pelvic US results with patient. She understands a hysterectomy may not improve her pain and could make pain worse with adhesive disease. Her pain seems consistent with possible adenomyosis and I do think a hysterectomy is reasonable as she has tried to IUD for about 2 years. The pain is interfering with daily activities. Up to date with pap test. EMB 2022 prior to IUD insertion which was benign. Recommend in person visit to perform an exam. Prior LEEP procedure and discussed if cervix significantly shortened with minimal cervical tissue may recommend referral to [facility]. To complete cardio workup prior to surgery, and she understands she is to have cardiology clearance for surgery. Visit was conducted via [employer] Patient Location: Patient Home or Place of Residence Lesley Vazquez DO [facility] 02-11-2025 History of Present illness Narrative Images from the original note were not included. PRIMARY CARE PHYSICIAN: Yaneli Malik APRN-GINO REFERRING PROVIDER: No referring provider defined for this encounter. ORTHOPAEDIC: Ankle Evaluation and left knee follow-up SUBJECTIVE CHIEF COMPLAINT: New R. ankle injury, L. Knee follow-up HPI: William Sommer is a 39 y.o. patient presenting with a new ankle injury and left knee follow-up. The patient was diagnosed with a grade 2 MCL sprain back in 01/2024. The patient was doing OTC meds and home physical therapy when she was last seen in March. The patient states the pain has gotten worse since August. She states there is now mass on the back of her knee. She states that some days are worse than others. The patient states she did physical therapy previously. She states her main concern is the stiffness and tightness of her knee. The patient states she was leaving a concert on Saturday when she stepped in a great and rolled her ankle or outward. She states that she was off of work yesterday and spent most of the day icing and elevating her ankle. He states that the swelling began in her ankle and is now spread to her toes. She states that when she is not walking she does not have any pain. She states when she is walking her pain is usually a 5-6 she states that steps are the hardest. The patient states that she works from home. REVIEW OF SYSTEMS Constitutional: See HPI for pain assessment, No significant weight loss, recent trauma Review of Systems Constitutional: Negative for appetite change, fatigue and fever. HENT: Negative for congestion, sinus pain, sore throat and tinnitus. Respiratory: Negative for cough, chest tightness and shortness of breath. Cardiovascular: Negative for chest pain and palpitations. Gastrointestinal: Negative for abdominal distention, abdominal pain, diarrhea, nausea and vomiting. Skin: Negative for color change and rash. Neurological: Negative for dizziness, seizures, light-headedness and headaches. Medical History[1] Allergies[2] Surgical History[3] Family History[4] Social History Socioeconomic History Marital status: Spouse name: Not on file Number of children: Not on file Years of education: Not on file Highest education level: Not on file Occupational History Not on file Tobacco Use Smoking status: Never Passive exposure: Past Smokeless tobacco: Never Vaping Use Vaping status: Never Used Substance and Sexual Activity Alcohol use: Yes Comment: rare Drug use: Yes Types: Marijuana Sexual activity: Defer Other Topics Concern Not on file Social History Narrative Not on file Social Drivers of Health Financial Resource Strain: Not on file Food Insecurity: Not on file Transportation Needs: Not on file Physical Activity: Not on file Stress: Not on file Social Connections: Not on file Intimate Partner Violence: Unknown (11/03/2022) Received from [facility] Intimate Partner Violence Fear of Current or Ex-Partner: Not on file Housing Stability: Not on file CURRENT MEDICATIONS: Current Medications[5] OBJECTIVE PHYSICAL EXAM 12/30/2024 2:00 PM 12/30/2024 2:30 PM 12/30/2024 3:00 PM 12/30/2024 3:30 PM 12/30/2024 4:00 PM 01/13/2025 9:45 AM 01/19/2025 1:04 PM Vitals Systolic 123 127 128 131 123 124 108 Diastolic 89 105 109 97 93 80 80 BP Location Left arm Left arm Left arm Left arm Left arm Heart Rate 93 97 104 99 101 104 98 Resp 18 17 15 15 13 Height 1.575 m (5' 2) 1.575 m (5' 2) Weight (lb) 187.19 185.9 BMI 34.24 kg/m2 34 kg/m2 BSA (m2) 1.93 m2 1.92 m2 Visit Report Report Report There is no height or weight on file to calculate BMI. MUSCULOSKELETAL: 39 y.o. year-old female in no acute distress. Alert and oriented x 3. Well Nourished. Normal affect. Good historian. No ligamentous hyperlaxity. Gait: Normal Tandem. No abnormalities of balance or coordination. Foot/Ankle Musculoskeletal Exam Gait Gait is normal. Inspection Right Edema: mild Edema comment: Over lateral ankle and proximal metatarsals Ecchymosis: medium Ecchymosis comment: Proximal metatarsals Palpation Right Tenderness: present ATFL: mild Deltoid: mild Anterior medial joint line: mild Range of Motion Right Active Dorsiflexion: 20 Passive Dorsiflexion: 15 Active Plantar Flexion: 45 Passive Plantar Flexion: 40 Active Inversion: 25 Passive Inversion: 25 Active Eversion: 10 Passive Eversion: 10 Strength Strength additional comments: Patient experienced pain with inversion and eversion strength testing Neurovascular Right Right foot/ankle neurovascular exam is normal. Special Tests Right Anterior drawer test: positive (Laxity present) Talar tilt stress test: negative General Psychiatric: normal mood and affect Neurological: alert and oriented x3 Knee Musculoskeletal Exam Gait Gait is normal. Inspection Right Right knee inspection is normal. Palpation Right Masses comment: Popliteal fossa Tenderness: present MCL: mild Medial joint line: mild Range of Motion Right Right knee range of motion is normal and full. Strength Right Right knee strength is normal. Instability Right Varus stress grade: normal Valgus stress grade: normal Edmond: negative General Psychiatric: normal mood and affect Neurological: alert and oriented x3 Imaging: XR right foot 3+ views; XR right ankle 3+ views 02/11/2025 - Foot and ankle Xrs reviewed. No acute fracture, dislocation, or bony abnormality. Joint spaces are preserved and alignment is anatomic. Mild soft tissue swelling noted XR left knee 3 views 09/08/2024 FINDINGS: No significant osteophytic change. No definite effusion. No lytic or blastic destructive bone lesion. No acute fracture or dislocation. No opaque soft tissue foreign body. No periosteal reaction or erosion. IMPRESSION: Negative exam. MACRO: None Signed by: Cameron Dooley 09/09/2024 9:53 AM Dictation workstation: [id number] ASSESSMENT & PLAN Impression: 39 y.o. female with a new right ankle sprain and a follow-up for a previous MCL strain Plan: I explained to the patient the nature of their diagnosis. I reviewed their imaging studies with them. The patient states she works from home so feels safe with using an ankle brace. We discussed doing ankle exercises, icing, elevation, and ibuprofen. The patient is agreeable to this treatment plan. She will follow-up in 2 weeks for repeat Xrays The patient states that she is willing to go back to physical therapy for her knee. She states that this did help last time so she is willing to try it. We discussed the use of OTC pain relievers and ice would also be beneficial. She will follow-up in 4 weeks. 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 We discussed what causes this and that it is a benign finding. The patient is understanding of this. Follow-Up: Patient will follow-up 2 weeks for ankle; 4 weeks knee At the end of the visit, all questions were answered in full. The patient is in agreement with the plan and recommendations. They will call the office with any questions/concerns. Frederic Malik PA-C 02/11/2025 [1] Past Medical History: Diagnosis Date Acute left-sided low back pain with left-sided sciatica 07/02/2023 Anxiety disorder, unspecified 06/08/2022 Anxiety Calculus of kidney 03/05/2023 Cervical high risk HPV (human papillomavirus) test positive 10/24/2018 COVID-19 04/10/2021 COVID-19 Flank pain HGSIL (high grade squamous intraepithelial lesion) on Pap smear of cervix 01/22/2023 History of claustrophobia 01/22/2023 Lactose intolerance 01/22/2023 Myelopathy (Multi) 01/22/2023 Paresthesias 01/22/2023 Punctate keratitis of left eye 09/30/2015 Sprain of left knee, initial encounter 01/15/2024 [2] No Known Allergies [3] Past Surgical History: Procedure Laterality Date ADENOIDECTOMY Bilateral CERVICAL BIOPSY W/ LOOP ELECTRODE EXCISION 04/22/2019 Loop electrosurgical excision procedure TONSILLECTOMY Bilateral 04/22/2019 TUBAL LIGATION Bilateral 04/22/2019 WISDOM TOOTH EXTRACTION 04/22/2019 [place] tooth extraction [4] Family History Problem Relation Name Age of Onset Heart disease Maternal Grandmother Hypertension Maternal Grandfather [5] Current Outpatient Medications Medication Sig Dispense Refill busPIRone (Buspar) 5 mg tablet take 1 tablet by mouth three times a day 90 tablet 2 cetirizine (ZyrTEC) 5 mg tablet Take 1 tablet (5 mg) by mouth once daily. cyclobenzaprine (Flexeril) 10 mg tablet Take 1 tablet (10 mg) by mouth 3 times a day as needed for muscle spasms. 90 tablet 0 desvenlafaxine succinate (Pristiq) 25 mg 24 hour tablet Take 1 tablet (25 mg) by mouth once daily. 90 tablet 0 fluticasone (Flonase) 50 mcg/actuation nasal spray Administer 1 spray into each nostril once daily. Shake gently. Before first use, prime pump. After use, clean tip and replace cap. hydroCHLOROthiazide (HYDRODiuril) 25 mg tablet Take 1 tablet (25 mg) by mouth once daily. 90 tablet 1 ibuprofen 600 mg tablet Take 1 tablet (600 mg) by mouth every 6 hours if needed for mild pain (1 - 3) or moderate pain (4 - 6) for up to 30 doses. 30 tablet 0 levonorgestrel (Mirena) 21 mcg/24 hours (8 yrs) 52 mg IUD 52 mg by intrauterine route. meloxicam (Mobic) 15 mg tablet Take 1 tablet (15 mg) by mouth once daily as needed for moderate pain (4 - 6). 90 tablet 1 montelukast (Singulair) 10 mg tablet Take 1 tablet (10 mg) by mouth once daily at bedtime. 90 tablet 1 omeprazole (PriLOSEC) [address] capsule Take 1 capsule (20 mg) by mouth once daily. 90 capsule 1 venlafaxine 75 mg 24 hr tablet Take 1 tablet (75 mg) by mouth once daily. (Patient taking differently: Take 1 tablet (75 mg) by mouth once daily. End date 01/22/25) 90 tablet 1 No current facility-administered medications for this visit. documented in this encounter [facility] Work Phone: 01-19-2025 History of Present illness Narrative Images from the original note were not included. [facility] Visit Note History of present illness: This is a pleasant 39 y.o. female with a history of hypertension, dyslipidemia, anxiety and depression who presents to the clinic referred by PCP Yaneli Malik for chest pain, palpitations and shortness of breath. 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 She has 9 kids of a blended ages 24-11, 6 live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 mass, normal nipple-areolar complex, no lymphadenopathy, and no nipple discharge CHEST: Normal inspiratory effort ABDOMEN: soft, non-tender, and no masses PELVIC: external genitalia normal, normal Bartholin's glands, urethra, Maud's glands, no vulvar lesions, no cervical lesions, good vaginal support, physiologic discharge present, normal appearing perineal body and perianal region + IUD strings visualized BIMANUAL: uterus normal size, shape and consistency, no adnexal masses, and non-tender RECTOVAGINAL: deferred. NEURO: alert and oriented x3,exam grossly non-focal EXTREMITIES: normal ASSESSMENT/PLAN: 1) Health maintenance: Pap/HPV done. Mammogram ordered. Nutrition, exercise and routine health maintenance exams reviewed. Lipids/glucose: followed by PCP 2) Contraception: IUD. Contraceptive options reviewed and information provided. 3) STD screening: Declined STD check. 4) Follow up one year or sooner as needed Irregular bleeding - ICD9: 626.4, ICD10: N92.6 Pelvic pain in female - ICD9: 625.9, ICD10: R10.2 Dyspareunia in female - ICD9: 625.0, ICD10: N94.10 - Wants IUD removed - Discussed risk of return of heavy bleeding - Reviewed previous ultrasound - suggests adenomyosis - Discussed chronic pelvic and back pain are often associated with adenomyosis and if IUD is providing unsatisfactory relief, hysterectomy should be considered. However, with recent cardiac concerns, she may need a referral to [facility] - Discussed hysterectomy does not always totally resolve all pain - Ultrasound ordered - Pap done due to BEBETO 2 and ongoing symptoms. - Consider EMB. Had benign EMB in 2022. Vaginal discharge - ICD9: 623.5, ICD10: N89.8 - ABHINAV/TRICHOMONAS NAAT - BACTERIAL VAGINOSIS NAAT I recommend discussion of hysterectomy with [facility] surgeon before removing IUD. Patient plans to schedule consult. Angel Carter APRN.CNP Medical Decision Making: Problems: Moderate: 1+ chronic illnesses with change Data: Unique test result(s) reviewed: 1 Unique test(s) ordered: 3+ Risk: Low: Low risk from testing/treatment Medical Decision Making Level: 4 - Moderate documented in this encounter [facility] 01-13-2025 History of Present illness Narrative Subjective Patient ID: William Sommer is a 39 y.o. female who presents for Follow-up (Follow up doubling BP meds ). HPI William returns for BP/ER follow up. Was seen in [facility] ER for chest pain/headache, shortness of breath. Her blood pressure had been elevated so she had started taking her hydrochlorothiazide at 25 mg daily before she went to ER. She is concerned today, as her EKG was abnormal in the ER. She reports she has significant cardiac history in her family-which worries her. HTN: started taking hydrochlorothiazide 25 mg daily. She has intermittent chest pressure. She is controlled today. Anxiety/depression: has been taking effexor, but feels it isn't working as well anymore. She denies SI or self harm. She also admits to snoring nightly, and daytime fatigue. She reports that her family has told her she snores very loudly. She reports she has never been tested for sleep apnea. Review of Systems Constitutional: Positive for fatigue. Respiratory: Positive for chest tightness and shortness of breath. Cardiovascular: Negative for chest pain and palpitations. Musculoskeletal: Negative. Neurological: Negative. Psychiatric/Behavioral: Positive for sleep disturbance. Objective BP 124/80 Pulse 104 Ht 1.575 m (5' 2) Wt 84.9 kg (187 lb 3 oz) BMI 34.24 kg/m Physical Exam Vitals and nursing note reviewed. Constitutional: Appearance: Normal appearance. HENT: Head: Normocephalic and atraumatic. Cardiovascular: Rate and Rhythm: Normal rate and regular rhythm. Pulses: Normal pulses. Heart sounds: Normal heart sounds. Pulmonary: Effort: Pulmonary effort is normal. Breath sounds: Normal breath sounds. Skin: General: Skin is warm and dry. Neurological: General: No focal deficit present. Mental Status: She is alert and oriented to person, place, and time. Psychiatric: Mood and Affect: Mood normal. Behavior: Behavior normal. Thought Content: Thought content normal. Judgment: Judgment normal. Assessment/Plan Problem List Items Addressed This Visit ICD-10-CM Anxiety F41.9 Continue with buspirone 5 mg TID Switch from effexor to pristiq Relevant Medications desvenlafaxine succinate (Pristiq) 25 mg 24 hour tablet Current mild episode of major depressive disorder without prior episode F32.0 Switch from effexor to pristiq Relevant Medications desvenlafaxine succinate (Pristiq) 25 mg 24 hour tablet Class 1 obesity due to excess calories without serious comorbidity with body mass index (BMI) of 34.0 to 34.9 in adult E66.811, E66.09, Z68.34 Primary hypertension - Primary I10 Continue hydrochlorothiazide 25 mg daily. Relevant Medications hydroCHLOROthiazide (HYDRODiuril) 25 mg tablet Other Visit Diagnoses Codes Chest pain, unspecified type R07.9 Abnormal EKG R94.31 Relevant Orders Referral to Cardiology Hypersomnolence G47.10 Relevant Orders Home sleep apnea test (HSAT) Snoring R06.83 Relevant Orders Home sleep apnea test (HSAT) Paresthesia R20.2 Pressure in head R51.9 Dyspnea, unspecified type R06.00 Screening, ischemic heart disease Z13.[address] cardiac scoring wo IV contrast Follow up in 6 months for chronic care. We will contact her with results of her CT cardiac score. And will have her f/up after sleep study if she qualifies for sleep test through insurance. For any new medications that were prescribed today, the patient was educated about their indications for use, administration, frequency and potential side effects of the medication. documented in this encounter [facility] Work Phone: 12-30-2024 Hospital Discharge instructions Estuardo Denise DO - 12/30/2024 3:38 PM EDT Please increase your hydrochlorothiazide from 12.5 mg daily to 25 mg daily. Please keep a log of your blood pressure 2-3 times a day for your primary care physician. The following attachments cannot be sent through Care Everywhere.Chest Pain Discharge Instructions (Togolese)Shortness of Breath, Adult ED (Togolese)Paresthesia Discharge Instructions (Togolese)High Blood Pressure ED (Togolese)documented in this encounter [facility] Work Phone: 12-30-2024 Physician Emergency department Note HPI No chief complaint on file. Limitations to History: None HPI: 39-year-old female presents with concern for tingling, chest pain, shortness of breath, lightheadedness. States this began approximately 10 hours ago. States that she began with [id number] feeling in her bilateral upper extremities. States this progressed to her entire body. Began having a tightness in her chest with shortness of breath. Began having blurred vision as well as dizziness. Described as presyncopal. Denies any fever, chills, cough, abdominal pain, urinary symptoms. Patient has IUD and does not have regular menstrual cycle. Additional History Obtained from: Family at the bedside. ------ Physical Exam: VS: As documented in the triage note and EMR flowsheet from this visit were reviewed. Appearance: Alert. cooperative, in no acute distress. Skin: Intact, dry skin, no lesions, rash, petechiae or purpura. Eyes: PERRLA, EOMs intact, Conjunctiva pink with no redness or exudates. HENT: Normocephalic, atraumatic. Nares patent. No intraoral lesions. Neck: Supple, without meningismus. Trachea at midline. No lymphadenopathy. Pulmonary: Clear bilaterally with good chest wall excursion. No rales, rhonchi or wheezing. No accessory muscle use or stridor. Cardiac: Regular rate and rhythm, no rubs, murmurs, or gallops. Abdomen: Abdomen is soft, nontender, and nondistended. No palpable organomegaly. No rebound or guarding. No CVA tenderness. Nonsurgical abdomen. Genitourinary: Exam deferred. Musculoskeletal: Full range of motion. Pulses full and equal. No cyanosis, clubbing, or edema. Neurological: Cranial nerves are grossly intact, grossly normal sensation, no weakness, no focal findings identified. NIH is 0. Psychiatric: Appropriate mood and affect. Patient History Medical History[1] Surgical History[2] Family History[3] Social History[4] Physical Exam ED Triage Vitals Temp Pulse Resp BP -- -- -- -- SpO2 Temp src Heart Rate Source Patient Position -- -- -- -- BP Location FiO2 (%) -- -- Physical Exam ED Course & MDM Diagnoses as of 12/30/24 1559 Paresthesia Pressure in head Chest pain, unspecified type Dyspnea, unspecified type No data recorded Medical Decision Making Labs Reviewed COMPREHENSIVE METABOLIC PANEL - Normal Glucose 97 Sodium 137 Potassium 3.9 Chloride 104 Bicarbonate 25 Anion Gap 12 Urea Nitrogen 14 Creatinine 0.81 eGFR >90 Calcium 9.6 Albumin 4.7 Alkaline Phosphatase 58 Total Protein 7.5 AST 21 Bilirubin, Total 0.6 ALT 22 MAGNESIUM - Normal Magnesium 2.14 SERIAL TROPONIN-INITIAL - Normal Troponin I, High Sensitivity <3 Narrative: Less than 99th percentile of normal range cutoff- Female and children under 18 years old <14 ng/L; Male <21 ng/L: Negative Repeat testing should be performed if clinically indicated. Female and children under 18 years old 14-50 ng/L; Male 21-50 ng/L: Consistent with possible cardiac damage and possible increased clinical risk. Serial measurements may help to assess extent of myocardial damage. >50 ng/L: Consistent with cardiac damage, increased clinical risk and myocardial infarction. Serial measurements may help assess extent of myocardial damage. NOTE: Children less than 1 year old may have higher baseline troponin levels and results should be interpreted in conjunction with the overall clinical context. NOTE: Troponin I testing is performed using a different testing methodology at [facility] than at other legacy [facility]. Direct result comparisons should only be made within the same method. D-DIMER, VTE EXCLUSION - Normal D-Dimer, Quantitative VTE Exclusion 373 Narrative: The VTE Exclusion D-Dimer assay is reported in ng/mL Fibrinogen Equivalent Units (FEU). Per medical receptionist assistant's instructions for use, a value of less than 500 ng/mL (FEU) may help to exclude DVT or PE in outpatients when the assay is used with a clinical pretest probability assessment.(AE must utilize and document eCalc 'Wells Score Deep Vein Thrombosis Risk' for DVT exclusion only. Emergency Department should utilize Guidelines for Emergency Department Use of the VTE Exclusion D-Dimer and Clinical Pretest probability assessment model for DVT or PE exclusion.) SERIAL TROPONIN, 1 HOUR - Normal Troponin I, High Sensitivity <3 Narrative: Less than 99th percentile of normal range cutoff- Female and children under 18 years old <14 ng/L; Male <21 ng/L: Negative Repeat testing should be performed if clinically indicated. Female and children under 18 years old 14-50 ng/L; Male 21-50 ng/L: Consistent with possible cardiac damage and possible increased clinical risk. Serial measurements may help to assess extent of myocardial damage. >50 ng/L: Consistent with cardiac damage, increased clinical risk and myocardial infarction. Serial measurements may help assess extent of myocardial damage. NOTE: Children less than 1 year old may have higher baseline troponin levels and results should be interpreted in conjunction with the overall clinical context. NOTE: Troponin I testing is performed using a different testing methodology at [facility] than at other [facility]. Direct result comparisons should only be made within the same method. TROPONIN SERIES- (INITIAL, 1 HR) Narrative: The following orders were created for panel order Troponin I Series, High Sensitivity (0, 1 HR). Procedure Abnormality Status --------- ------ Troponin I, High Sensiti...[[id number]] Normal Final result Troponin, High Sensitivi...[[id number]] Normal Final result Please view results for these tests on the individual orders. CBC WITH AUTO DIFFERENTIAL CT head wo IV contrast Final Result No evidence of acute cortical infarct or intracranial hemorrhage. No evidence of intracranial hemorrhage or displaced skull fracture. MACRO: None Signed by: Kemar Rosales 12/30/2024 3:14 PM Dictation workstation: [id number] XR chest 1 view Final Result No acute disease. Signed by Tomas Sin MD Medical Decision Making: GEN appears well nontoxic. Hypertensive. No focal neurologic deficit. NIH of 0. Lab work unremarkable. High-sensitivity troponin negative x 2. EKG shows no acute ischemia. Chest x-ray negative. CT brain negative. After discussion with patient we will increase her hydrochlorothiazide to 25 from 12.5 mg. Will speak with primary care physician about this change. S keep a blood pressure log. Asked to return for new or worsening symptoms. Stable at time of discharge. Differential Diagnoses Considered: Electrolyte abnormality, volume depletion, ACS, pneumonia, pneumothorax, intracranial hemorrhage, hypertension Independent Interpretation of Studies: I independently interpreted: Chest x-ray shows no evidence of pneumonia or pneumothorax. CT brain without intracranial hemorrhage. Escalation of Care: Appropriate for discharge and follow-up with primary care. Prescription Drug Consideration: Increasing hydrochlorothiazide from 12.5 mg to 25 mg. Procedure Procedures [1] Past Medical History: Diagnosis Date Acute left-sided low back pain with left-sided sciatica 07/02/2023 Anxiety disorder, unspecified 06/08/2022 Anxiety Calculus of kidney 03/05/2023 Cervical high risk HPV (human papillomavirus) test positive 10/24/2018 COVID-19 04/10/2021 COVID-19 Flank pain HGSIL (high grade squamous intraepithelial lesion) on Pap smear of cervix 01/22/2023 History of claustrophobia 01/22/2023 Lactose intolerance 01/22/2023 Myelopathy (Multi) 01/22/2023 Paresthesias 01/22/2023 Punctate keratitis of left eye 09/30/2015 [2] Past Surgical History: Procedure Laterality Date ADENOIDECTOMY Bilateral CERVICAL BIOPSY W/ LOOP ELECTRODE EXCISION 04/22/2019 Loop electrosurgical excision procedure TONSILLECTOMY Bilateral 04/22/2019 TUBAL LIGATION Bilateral 04/22/2019 WISDOM TOOTH EXTRACTION 04/22/2019 [place] tooth extraction [3] Family History Problem Relation Name Age of Onset Heart disease Maternal Grandmother Hypertension Maternal Grandfather [4] Social History Tobacco Use Smoking status: Never Passive exposure: Past Smokeless tobacco: Never Vaping Use Vaping status: Never Used Substance Use Topics Alcohol use: Yes Comment: rare Drug use: Never Estuardo Denise DO 12/30/24 1602 [facility] Work Phone: 12-30-2024 Emergency department Note HPI No chief complaint on file. Limitations to History: None HPI: 39-year-old female presents with concern for tingling, chest pain, shortness of breath, lightheadedness. States this began approximately 10 hours ago. States that she began with [id number] feeling in her bilateral upper extremities. States this progressed to her entire body. Began having a tightness in her chest with shortness of breath. Began having blurred vision as well as dizziness. Described as presyncopal. Denies any fever, chills, cough, abdominal pain, urinary symptoms. Patient has IUD and does not have regular menstrual cycle. Additional History Obtained from: Family at the bedside. ------ Physical Exam: VS: As documented in the triage note and EMR flowsheet from this visit were reviewed. Appearance: Alert. cooperative, in no acute distress. Skin: Intact, dry skin, no lesions, rash, petechiae or purpura. Eyes: PERRLA, EOMs intact, Conjunctiva pink with no redness or exudates. HENT: Normocephalic, atraumatic. Nares patent. No intraoral lesions. Neck: Supple, without meningismus. Trachea at midline. No lymphadenopathy. Pulmonary: Clear bilaterally with good chest wall excursion. No rales, rhonchi or wheezing. No accessory muscle use or stridor. Cardiac: Regular rate and rhythm, no rubs, murmurs, or gallops. Abdomen: Abdomen is soft, nontender, and nondistended. No palpable organomegaly. No rebound or guarding. No CVA tenderness. Nonsurgical abdomen. Genitourinary: Exam deferred. Musculoskeletal: Full range of motion. Pulses full and equal. No cyanosis, clubbing, or edema. Neurological: Cranial nerves are grossly intact, grossly normal sensation, no weakness, no focal findings identified. NIH is 0. Psychiatric: Appropriate mood and affect. Patient History Medical History[1] Surgical History[2] Family History[3] Social History[4] Physical Exam ED Triage Vitals Temp Pulse Resp BP -- -- -- -- SpO2 Temp src Heart Rate Source Patient Position -- -- -- -- BP Location FiO2 (%) -- -- Physical Exam ED Course & MDM Diagnoses as of 12/30/24 1559 Paresthesia Pressure in head Chest pain, unspecified type Dyspnea, unspecified type No data recorded Medical Decision Making Labs Reviewed COMPREHENSIVE METABOLIC PANEL - Normal Glucose 97 Sodium 137 Potassium 3.9 Chloride 104 Bicarbonate 25 Anion Gap 12 Urea Nitrogen 14 Creatinine 0.81 eGFR >90 Calcium 9.6 Albumin 4.7 Alkaline Phosphatase 58 Total Protein 7.5 AST 21 Bilirubin, Total 0.6 ALT 22 MAGNESIUM - Normal Magnesium 2.14 SERIAL TROPONIN-INITIAL - Normal Troponin I, High Sensitivity <3 Narrative: Less than 99th percentile of normal range cutoff- Female and children under 18 years old <14 ng/L; Male <21 ng/L: Negative Repeat testing should be performed if clinically indicated. Female and children under 18 years old 14-50 ng/L; Male 21-50 ng/L: Consistent with possible cardiac damage and possible increased clinical risk. Serial measurements may help to assess extent of myocardial damage. >50 ng/L: Consistent with cardiac damage, increased clinical risk and myocardial infarction. Serial measurements may help assess extent of myocardial damage. NOTE: Children less than 1 year old may have higher baseline troponin levels and results should be interpreted in conjunction with the overall clinical context. NOTE: Troponin I testing is performed using a different testing methodology at [facility] than at other legacy [facility]. Direct result comparisons should only be made within the same method. D-DIMER, VTE EXCLUSION - Normal D-Dimer, Quantitative VTE Exclusion 373 Narrative: The VTE Exclusion D-Dimer assay is reported in ng/mL Fibrinogen Equivalent Units (FEU). Per medical receptionist assistant's instructions for use, a value of less than 500 ng/mL (FEU) may help to exclude DVT or PE in outpatients when the assay is used with a clinical pretest probability assessment.(AE must utilize and document eCalc 'Wells Score Deep Vein Thrombosis Risk' for DVT exclusion only. Emergency Department should utilize Guidelines for Emergency Department Use of the VTE Exclusion D-Dimer and Clinical Pretest probability assessment model for DVT or PE exclusion.) SERIAL TROPONIN, 1 HOUR - Normal Troponin I, High Sensitivity <3 Narrative: Less than 99th percentile of normal range cutoff- Female and children under 18 years old <14 ng/L; Male <21 ng/L: Negative Repeat testing should be performed if clinically indicated. Female and children under 18 years old 14-50 ng/L; Male 21-50 ng/L: Consistent with possible cardiac damage and possible increased clinical risk. Serial measurements may help to assess extent of myocardial damage. >50 ng/L: Consistent with cardiac damage, increased clinical risk and myocardial infarction. Serial measurements may help assess extent of myocardial damage. NOTE: Children less than 1 year old may have higher baseline troponin levels and results should be interpreted in conjunction with the overall clinical context. NOTE: Troponin I testing is performed using a different testing methodology at [facility] than at other [facility]. Direct result comparisons should only be made within the same method. TROPONIN SERIES- (INITIAL, 1 HR) Narrative: The following orders were created for panel order Troponin I Series, High Sensitivity (0, 1 HR). Procedure Abnormality Status --------- ------ Troponin I, High Sensiti...[[id number]] Normal Final result Troponin, High Sensitivi...[[id number]] Normal Final result Please view results for these tests on the individual orders. CBC WITH AUTO DIFFERENTIAL CT head wo IV contrast Final Result No evidence of acute cortical infarct or intracranial hemorrhage. No evidence of intracranial hemorrhage or displaced skull fracture. MACRO: None Signed by: Kemar Rosales 12/30/2024 3:14 PM Dictation workstation: [id number] XR chest 1 view Final Result No acute disease. Signed by Tomas Sin MD Medical Decision Making: GEN appears well nontoxic. Hypertensive. No focal neurologic deficit. NIH of 0. Lab work unremarkable. High-sensitivity troponin negative x 2. EKG shows no acute ischemia. Chest x-ray negative. CT brain negative. After discussion with patient we will increase her hydrochlorothiazide to 25 from 12.5 mg. Will speak with primary care physician about this change. S keep a blood pressure log. Asked to return for new or worsening symptoms. Stable at time of discharge. Differential Diagnoses Considered: Electrolyte abnormality, volume depletion, ACS, pneumonia, pneumothorax, intracranial hemorrhage, hypertension Independent Interpretation of Studies: I independently interpreted: Chest x-ray shows no evidence of pneumonia or pneumothorax. CT brain without intracranial hemorrhage. Escalation of Care: Appropriate for discharge and follow-up with primary care. Prescription Drug Consideration: Increasing hydrochlorothiazide from 12.5 mg to 25 mg. Procedure Procedures [1] Past Medical History: Diagnosis Date Acute left-sided low back pain with left-sided sciatica 07/02/2023 Anxiety disorder, unspecified 06/08/2022 Anxiety Calculus of kidney 03/05/2023 Cervical high risk HPV (human papillomavirus) test positive 10/24/2018 COVID-19 04/10/2021 COVID-19 Flank pain HGSIL (high grade squamous intraepithelial lesion) on Pap smear of cervix 01/22/2023 History of claustrophobia 01/22/2023 Lactose intolerance 01/22/2023 Myelopathy (Multi) 01/22/2023 Paresthesias 01/22/2023 Punctate keratitis of left eye 09/30/2015 [2] Past Surgical History: Procedure Laterality Date ADENOIDECTOMY Bilateral CERVICAL BIOPSY W/ LOOP ELECTRODE EXCISION 04/22/2019 Loop electrosurgical excision procedure TONSILLECTOMY Bilateral 04/22/2019 TUBAL LIGATION Bilateral 04/22/2019 WISDOM TOOTH EXTRACTION 04/22/2019 [place] tooth extraction [3] Family History Problem Relation Name Age of Onset Heart disease Maternal Grandmother Hypertension Maternal Grandfather [4] Social History Tobacco Use Smoking status: Never Passive exposure: Past Smokeless tobacco: Never Vaping Use Vaping status: Never Used Substance Use Topics Alcohol use: Yes Comment: rare Drug use: Never Estuardo Denise DO 12/30/24 1602 documented in this encounter [facility] Work Phone: 10-26-2024 Note [facility] Nerve Conduction & EMG Report Full Name: William Sommer Date of : 1985 Visit Date: 10/26/2024 11:53 AM Age: 39 Years Examining MD: Jocelin Hopkins MD Referring Physician: Yaneli Malik CNP Temperature: 35.8 Height: 5 feet 2 inch Referred for: EMG:BLE numbness for 5-6 months. +LBP. No DM. Plan: The study was design to evaluate for entrapment neuropathy, polyneuropathy, radiculopathy, or plexopathy. Procedure indication, risk, complications, side effects and alternatives were explained. Verbal consent was obtained and patient agreed to proceed.. Patient was instructed to clean the puncture site with soap and water and put some ice pack for bruising. Impression: There is NO clear electrodiagnostic evidence of a bilateral lumbosacral radiculopathy, plexopathy, or diffuse sensorimotor polyneuropathy at this time. EMG Summary: The bilateral peroneal and tibial motor nerve conduction studies were normal. The bilateral sural and superficial peroneal sensory nerve conduction studies were also normal. The bilateral H reflex was normal. Needle EMG of the muscle tested showed no abnormal spontaneous activity. Normal motor unit action potentials and recruitment patterns were seen. Jocelin Hopkins MD Diplomate, ABPN, NBPAS Clinical Neurophysiology, Neurology, Vascular Neurology and Sleep Medicine [facility] [place] [phone] Motor NCS Nerve / Sites Muscle Latency Amplitude Distance Velocity ms mV cm m/s R Deep peroneal (Fibular) - EDB Ankle EDB 4.75 6.3 8.5 Fib Head EDB 11.00 6.0 30 48.0 Knee EDB 12.27 5.7 7 55.1 L Deep peroneal (Fibular) - EDB Ankle EDB 4.77 5.1 8.5 Fib Head EDB 11.00 4.5 29 46.6 Knee EDB 12.10 4.3 7 63.4 R Tibial - AH Ankle AH 4.00 10.6 8 Knee AH 12.08 9.9 39.5 48.9 L Tibial - AH Ankle AH 4.25 16.0 8 Knee AH 11.69 6.6 40 53.8 Sensory NCS Nerve / Sites Peak Amp Amp.2-3 Distance Velocity ms V V cm m/s R Sural - Lat Mall Calf 3.17 12.4 13.2 14 60 L Sural - Lat Mall Calf 3.50 24.6 25.2 14 49 R Superficial peroneal - Ankle Lat leg 3.35 14.1 2.2 14 56 L Superficial peroneal - Ankle Lat leg 3.10 14.2 0.14 14 68 H Reflex Nerve H Lat ms L Tibial - Soleus 29.43 R Tibial - Soleus 29.01 EMG Summary Table Spontaneous Activity Amplitude Duration Recruitment Polyphasia Activation Comment Muscle Ins Act Fib PSW Fasc - - - - - - L. Vastus lateralis Normal 0 0 0 Normal Normal Normal Normal Normal Normal L. Semitendinosus Normal 0 0 0 Normal Normal Normal Normal Normal Normal L. Tibialis anterior Normal 0 0 0 Normal Normal Normal Normal Normal Normal L. Gastrocnemius (Medial head) Normal 0 0 0 Normal Normal Normal Normal Normal Normal L. Abductor hallucis Normal 0 0 0 Normal Normal Normal Normal Normal Normal L. Lumbar paraspinals Normal 0 0 0 Normal Normal Normal Normal Normal Normal R. Vastus lateralis Normal 0 0 0 Normal Normal Normal Normal Normal Normal R. Semitendinosus Normal 0 0 0 Normal Normal Normal Normal Normal Normal R. Tibialis anterior Normal 0 0 0 Normal Normal Normal Normal Normal Normal R. Gastrocnemius (Medial head) Normal 0 0 0 Normal Normal Normal Normal Normal Normal R. Abductor hallucis Normal 0 0 0 Normal Normal Normal Normal Normal Normal R. Lumbar paraspinals Normal 0 0 0 Normal Normal Normal Normal Normal Normal NORMAL VALUES FOR NERVE CONDUCTION STUDIES MOTOR Location of Recording Distance (cm) Distal Latency (msec) Amplitude (mV) CV (m/sec) Median APB 7 <4.5 >4.0 >48 Ulnar ADM 6.5 <3.6 >6.0 >51 Radial EDC - <3.1 - >67 Peroneal EDB 8.5 <6.6 >2.0 >41 Peroneal TA 10 <6.8 >5.1 >43 Tibial AH 8 <6.1 >4.0 >40 SENSORY Location of Recording Distance (cm) Distal Latency (msec) Amplitude (?V) CV (m/sec) Median Anti Digit 2 13 <3.6 >15 >56 Ulnar Anti Digit 5 11 <3.1 >10 >54 Radial Anti Snuff 10 <2.9 >15 >49 Median Palm Median Wrist 8 <2.3 >50 >56 Ulnar Palm Ulnar Wrist 8 <2.3 >15 >55 Median Ortho Median Wrist 13 <3.6 >10 - Ulnar Ortho Ulnar Wrist 11 <3.1 >0 - Sural L Malleolus 14 <4.5 >6 (<60yo) >40 Sup. Peroneal Ankle 14 <4.1 >0 - Med Plantar M Malleolus 12-14 <4.0 >7 (<55yo) - Lat Plantar M Malleolus - <4.6 >3 (<55yo) - Source of normal values: [facility] EMG Date/Time: 10/26/2024 12:10 PM Performed by: Jocelin Hokpins MD Authorized by: Jocelin Hopkins MD Verbal consent: obtained Consent given by: patient Time out: Immediately prior to procedure a time out was called to verify the correct patient, procedure, equipment, medical support specialist and site/side marked as required. Patient tolerance: Patient tolerated the procedure well with no immediate complications AUTHENTICATED BY JOCELIN HOPKISN, ON 10/26/2024 12:11:54 [facility] 10-26-2024 History of Present illness Narrative Associated Order(s): EMG Post-Procedure Diagnose(s): Numbness Images from the original note were not included. [facility] Nerve Conduction & EMG Report Full Name: William Sommer Date of : 1985 Visit Date: 10/26/2024 11:53 AM Age: 39 Years Examining MD: Jocelin Hopkins MD Referring Physician: Yaneli Malik CNP Temperature: 35.8 Height: 5 feet 2 inch Referred for: EMG:BLE numbness for 5-6 months. +LBP. No DM. Plan: The study was design to evaluate for entrapment neuropathy, polyneuropathy, radiculopathy, or plexopathy. Procedure indication, risk, complications, side effects and alternatives were explained. Verbal consent was obtained and patient agreed to proceed.. Patient was instructed to clean the puncture site with soap and water and put some ice pack for bruising. Impression: There is NO clear electrodiagnostic evidence of a bilateral lumbosacral radiculopathy, plexopathy, or diffuse sensorimotor polyneuropathy at this time. EMG Summary: The bilateral peroneal and tibial motor nerve conduction studies were normal. The bilateral sural and superficial peroneal sensory nerve conduction studies were also normal. The bilateral H reflex was normal. Needle EMG of the muscle tested showed no abnormal spontaneous activity. Normal motor unit action potentials and recruitment patterns were seen. Jocelin Hopkins MD Diplomate, ABPN, NBPAS Clinical Neurophysiology, Neurology, Vascular Neurology and Sleep Medicine [facility] [place] [phone] Motor NCS Nerve / Sites Muscle Latency Amplitude Distance Velocity ms mV cm m/s R Deep peroneal (Fibular) - EDB Ankle EDB 4.75 6.3 8.5 Fib Head EDB 11.00 6.0 30 48.0 Knee EDB 12.27 5.7 7 55.1 L Deep peroneal (Fibular) - EDB Ankle EDB 4.77 5.1 8.5 Fib Head EDB 11.00 4.5 29 46.6 Knee EDB 12.10 4.3 7 63.4 R Tibial - AH Ankle AH 4.00 10.6 8 Knee AH 12.08 9.9 39.5 48.9 L Tibial - AH Ankle AH 4.25 16.0 8 Knee AH 11.69 6.6 40 53.8 Sensory NCS Nerve / Sites Peak Amp Amp.2-3 Distance Velocity ms V V cm m/s R Sural - Lat Mall Calf 3.17 12.4 13.2 14 60 L Sural - Lat Mall Calf 3.50 24.6 25.2 14 49 R Superficial peroneal - Ankle Lat leg 3.35 14.1 2.2 14 56 L Superficial peroneal - Ankle Lat leg 3.10 14.2 0.14 14 68 H Reflex Nerve H Lat ms L Tibial - Soleus 29.43 R Tibial - Soleus 29.01 EMG Summary Table Spontaneous Activity Amplitude Duration Recruitment Polyphasia Activation Comment Muscle Ins Act Fib PSW Fasc - - - - - - L. Vastus lateralis Normal 0 0 0 Normal Normal Normal Normal Normal Normal L. Semitendinosus Normal 0 0 0 Normal Normal Normal Normal Normal Normal L. Tibialis anterior Normal 0 0 0 Normal Normal Normal Normal Normal Normal L. Gastrocnemius (Medial head) Normal 0 0 0 Normal Normal Normal Normal Normal Normal L. Abductor hallucis Normal 0 0 0 Normal Normal Normal Normal Normal Normal L. Lumbar paraspinals Normal 0 0 0 Normal Normal Normal Normal Normal Normal R. Vastus lateralis Normal 0 0 0 Normal Normal Normal Normal Normal Normal R. Semitendinosus Normal 0 0 0 Normal Normal Normal Normal Normal Normal R. Tibialis anterior Normal 0 0 0 Normal Normal Normal Normal Normal Normal R. Gastrocnemius (Medial head) Normal 0 0 0 Normal Normal Normal Normal Normal Normal R. Abductor hallucis Normal 0 0 0 Normal Normal Normal Normal Normal Normal R. Lumbar paraspinals Normal 0 0 0 Normal Normal Normal Normal Normal Normal NORMAL VALUES FOR NERVE CONDUCTION STUDIES MOTOR Location of Recording Distance (cm) Distal Latency (msec) Amplitude (mV) CV (m/sec) Median APB 7 <4.5 >4.0 >48 Ulnar ADM 6.5 <3.6 >6.0 >51 Radial EDC - <3.1 - >67 Peroneal EDB 8.5 <6.6 >2.0 >41 Peroneal TA 10 <6.8 >5.1 >43 Tibial AH 8 <6.1 >4.0 >40 SENSORY Location of Recording Distance (cm) Distal Latency (msec) Amplitude (?V) CV (m/sec) Median Anti Digit 2 13 <3.6 >15 >56 Ulnar Anti Digit 5 11 <3.1 >10 >54 Radial Anti Snuff 10 <2.9 >15 >49 Median Palm Median Wrist 8 <2.3 >50 >56 Ulnar Palm Ulnar Wrist 8 <2.3 >15 >55 Median Ortho Median Wrist 13 <3.6 >10 - Ulnar Ortho Ulnar Wrist 11 <3.1 >0 - Sural L Malleolus 14 <4.5 >6 (<60yo) >40 Sup. Peroneal Ankle 14 <4.1 >0 - Med Plantar M Malleolus 12-14 <4.0 >7 (<55yo) - Lat Plantar M Malleolus - <4.6 >3 (<55yo) - Source of normal values: [facility] EMG Date/Time: 10/26/2024 12:10 PM Performed by: Jocelin Hopkins MD Authorized by: Jocelin Hopkins MD Verbal consent: obtained Consent given by: patient Time out: Immediately prior to procedure a time out was called to verify the correct patient, procedure, equipment, medical support specialist and site/side marked as required. Patient tolerance: Patient tolerated the procedure well with no immediate complications documented in this encounter [facility] 09-08-2024 Evaluation + Plan note Associated Problem(s): Heartburn continue omeprazole 20 mg daily-refilled [facility] Work Phone: 09-08-2024 Miscellaneous Notes Associated Problem(s): Heartburn continue omeprazole 20 mg daily-refilled documented in this encounter [facility] Work Phone: 09-08-2024 History of Present illness Narrative Subjective Patient ID: William Sommer is a 38 y.o. female who presents for Annual Exam. HPI William returns for wellness exam. MCL tear last year was getting a cortisone injections. Now noticed she started with pain again, and feels like there maybe fluid/cyst behind the knee also. Bilateral lower extremity numbness/tingling sensation. Has tried a lumbar support pillow without much improvement in symptoms. GERD: PPI working for her symptoms. Mammogram: due in October, [place]. Review of Systems Constitutional: Negative for fatigue. Respiratory: Negative for chest tightness and shortness of breath. Cardiovascular: Negative for chest pain, palpitations and leg swelling. Gastrointestinal: Negative for abdominal pain, blood in stool, constipation, diarrhea, nausea and vomiting. Genitourinary: Negative for dysuria. Musculoskeletal: Positive for arthralgias (left knee pain) and back pain. Negative for myalgias. Skin: Negative for color change. Neurological: Positive for numbness. Negative for dizziness, light-headedness and headaches. Psychiatric/Behavioral: Negative. Negative for self-injury, sleep disturbance and suicidal ideas. Objective BP 118/80 Pulse (!) 111 Ht 1.575 m (5' 2) Wt 85.3 kg (188 lb) SpO2 97% BMI 34.39 kg/m Physical Exam Vitals and nursing note reviewed. Constitutional: Appearance: Normal appearance. HENT: Head: Normocephalic and atraumatic. Cardiovascular: Rate and Rhythm: Normal rate and regular rhythm. Pulses: Normal pulses. Heart sounds: Normal heart sounds. Pulmonary: Effort: Pulmonary effort is normal. Breath sounds: Normal breath sounds. Abdominal: General: Bowel sounds are normal. Palpations: Abdomen is soft. Musculoskeletal: General: Tenderness present. Cervical back: Normal range of motion. Skin: General: Skin is warm and dry. Neurological: General: No focal deficit present. Mental Status: She is alert and oriented to person, place, and time. Psychiatric: Mood and Affect: Mood normal. Behavior: Behavior normal. Thought Content: Thought content normal. Judgment: Judgment normal. Assessment/Plan Problem List Items Addressed This Visit ICD-10-CM Class 1 obesity due to excess calories without serious comorbidity with body mass index (BMI) of 34.0 to 34.9 in adult E66.811, E66.09, Z68.34 Heartburn R12 continue omeprazole 20 mg daily-refilled Relevant Medications omeprazole (PriLOSEC) [address] capsule Acute exacerbation of chronic low back pain M54.50, G89.29 Relevant Medications predniSONE (Deltasone) 20 mg tablet Other Visit Diagnoses Codes Well adult exam - Primary Z00.00 Numbness and tingling of both lower extremities R20.0, R20.2 emg Relevant Orders EMG & nerve conduction Chronic pain of left knee M25.562, G89.29 will get xray she will contact ortho for an appt Relevant Orders XR knee left 3 views Follow up in 1 year for wellness exam. We will contact her with results of labs, xray and EMG and refer as necessary. Return precautions discussed. She verbalized understanding. For any new medications that were prescribed today, the patient was educated about their indications for use, administration, frequency and potential side effects of the medication. documented in this encounter [facility] Work Phone: 07-31-2024 Evaluation + Plan note Associated Problem(s): Primary hypertension Continue hydrochlorothiazide 12.5 mg daily. [facility] Work Phone: 07-31-2024 Evaluation + Plan note Associated Problem(s): Current mild episode of major depressive disorder without prior episode (CMS-HCC) Continue with venlafaxine 75 mg daily [facility] Work Phone: 07-31-2024 Miscellaneous Notes Associated Problem(s): Primary hypertension Continue hydrochlorothiazide 12.5 mg daily. Associated Problem(s): Current mild episode of major depressive disorder without prior episode ([facility]-HCC) Continue with venlafaxine 75 mg daily documented in this encounter [facility] Work Phone: 07-31-2024 History of Present illness Narrative Subjective Patient ID: William Sommer is a 38 y.o. female who presents for Follow-up. HPI William returns for BP check HTN: controlled. Denies chest pain/tightness, palpitations, dizziness. Is working from home now, different job. Has been sitting long hours. Has noticed when she gets up from her day her toes are numb. She sits in an office chair. The feeling returns after about 45 minutes standing. Review of Systems Constitutional: Negative for fatigue. HENT: Negative. Respiratory: Negative for chest tightness and shortness of breath. Cardiovascular: Negative for chest pain, palpitations and leg swelling. Gastrointestinal: Negative for abdominal pain, blood in stool, constipation, diarrhea, nausea and vomiting. Genitourinary: Negative for dysuria. Musculoskeletal: Negative for arthralgias and myalgias. Skin: Negative for color change. Neurological: Negative for dizziness, light-headedness and headaches. Hematological: Negative. Objective BP 114/80 Pulse 106 Ht 1.575 m (5' 2) Wt 86 kg (189 lb 8 oz) BMI 34.66 kg/m Physical Exam Vitals and nursing note reviewed. Constitutional: Appearance: Normal appearance. Cardiovascular: Rate and Rhythm: Normal rate and regular rhythm. Pulses: Normal pulses. Heart sounds: Normal heart sounds. Pulmonary: Effort: Pulmonary effort is normal. Breath sounds: Normal breath sounds. Skin: General: Skin is warm and dry. Neurological: General: No focal deficit present. Mental Status: She is alert and oriented to person, place, and time. Psychiatric: Mood and Affect: Mood normal. Behavior: Behavior normal. Thought Content: Thought content normal. Judgment: Judgment normal. Assessment/Plan Problem List Items Addressed This Visit ICD-10-CM Mixed hyperlipidemia E78.2 Relevant Orders Comprehensive Metabolic Panel Lipid Panel Current mild episode of major depressive disorder without prior episode ([facility]-HCC) F32.0 Continue with venlafaxine 75 mg daily Class 1 obesity due to excess calories without serious comorbidity with body mass index (BMI) of 34.0 to 34.9 in adult E66.811, E66.09, Z68.34 Primary hypertension - Primary I10 Continue hydrochlorothiazide 12.5 mg daily. Relevant Medications hydroCHLOROthiazide (Microzide) 12.5 mg tablet Other Visit Diagnoses Codes Screening for diabetes mellitus (DM) Z13.1 Relevant Orders Hemoglobin A1C Follow up as scheduled in September. Labs prior to appointment. For any new medications that were prescribed today, the patient was educated about their indications for use, administration, frequency and potential side effects of the medication. documented in this encounter [facility] Work Phone: 06-26-2024 Evaluation + Plan note Associated Problem(s): Acute exacerbation of chronic low back pain Continue meloxicam 15 mg as needed for back pain Cyclobenzaprine 15 mg TID as needed for back spasm. Use back exercises provided May consider PT and/or pain medicine referral [facility] Work Phone: 06-26-2024 Miscellaneous Notes Associated Problem(s): Acute exacerbation of chronic low back pain Continue meloxicam 15 mg as needed for back pain Cyclobenzaprine 15 mg TID as needed for back spasm. Use back exercises provided May consider PT and/or pain medicine referral Associated Problem(s): Primary hypertension Start hydrochlorothiazide 12.5 mg daily. documented in this encounter [facility] Work Phone: 06-26-2024 Evaluation + Plan note Associated Problem(s): Primary hypertension Start hydrochlorothiazide 12.5 mg daily. [facility] Work Phone: 06-26-2024 History of Present illness Narrative Subjective Patient ID: William Sommer is a 38 y.o. female who presents for Follow-up (Blood pressure follow up/ ER follow up for back .). HPI William returns for elevated blood pressure. HTN: has been running 130/80-90s at home. Back pain: radiating into right hip, down her right let. Hurts more after medication starts to wear off. Moved recently and has gotten worse. Right ear pain: finished ATB after sinus infection, and ear is still having pain, feels like everything is echoing. Review of Systems Constitutional: Negative. HENT: Positive for ear pain (right ear pain). Respiratory: Negative. Cardiovascular: Negative. Gastrointestinal: Negative. Genitourinary: Negative. Musculoskeletal: Positive for back pain (going down into right hip and down into right leg). Skin: Negative. Neurological: Negative. Psychiatric/Behavioral: Negative. Objective BP 134/86 Pulse 110 Ht 1.575 m (5' 2) LMP 05/25/2024 (Approximate) SpO2 97% BMI 32.92 kg/m Physical Exam Vitals and nursing note reviewed. Constitutional: Appearance: Normal appearance. HENT: Head: Normocephalic and atraumatic. Right Ear: No decreased hearing noted. Tenderness present. No swelling. A middle ear effusion is present. Tympanic membrane is injected. Tympanic membrane is not scarred, perforated, erythematous or bulging. Left Ear: Tympanic membrane, ear canal and external ear normal. There is no impacted cerumen. Cardiovascular: Rate and Rhythm: Normal rate. Pulses: Normal pulses. Skin: General: Skin is warm and dry. Neurological: General: No focal deficit present. Mental Status: She is alert and oriented to person, place, and time. Psychiatric: Mood and Affect: Mood normal. Behavior: Behavior normal. Thought Content: Thought content normal. Judgment: Judgment normal. Assessment/Plan Problem List Items Addressed This Visit ICD-10-CM Primary hypertension - Primary I10 Start hydrochlorothiazide 12.5 mg daily. Relevant Medications hydroCHLOROthiazide (Microzide) 12.5 mg tablet Acute exacerbation of chronic low back pain M54.50, G89.29 Continue meloxicam 15 mg as needed for back pain Cyclobenzaprine 15 mg TID as needed for back spasm. Use back exercises provided May consider PT and/or pain medicine referral Relevant Medications cyclobenzaprine (Flexeril) 10 mg tablet meloxicam (Mobic) 15 mg tablet Other Visit Diagnoses Codes Fluid level behind tympanic membrane of right ear H65.91 Relevant Medications ciprofloxacin-dexamethasone (CiproDEX) otic suspension Follow up in 1 month for BP check. She will let us know how her ear pain is after the weekend. For any new medications that were prescribed today, the patient was educated about their indications for use, administration, frequency and potential side effects of the medication. documented in this encounter [facility] Work Phone: 06-18-2024 Emergency department Note Chief Complaint Patient presents with Back Pain Pt to ED with c/o lower back pain x 1 week. Pt also c/o nausea and shaking today. Pt recently moved houses and she thinks she might have injured herself while carrying boxes. History of herniated discs and DDD in lumbar spine. Patient History Past Medical History: Diagnosis Date Acute left-sided low back pain with left-sided sciatica 07/02/2023 Anxiety disorder, unspecified 06/08/2022 Anxiety Calculus of kidney 03/05/2023 Cervical high risk HPV (human papillomavirus) test positive 10/24/2018 COVID-19 04/10/2021 COVID-19 Flank pain HGSIL (high grade squamous intraepithelial lesion) on Pap smear of cervix 01/22/2023 History of claustrophobia 01/22/2023 Lactose intolerance 01/22/2023 Myelopathy (Multi) 01/22/2023 Paresthesias 01/22/2023 Punctate keratitis of left eye 09/30/2015 Past Surgical History: Procedure Laterality Date ADENOIDECTOMY Bilateral CERVICAL BIOPSY W/ LOOP ELECTRODE EXCISION 04/22/2019 Loop electrosurgical excision procedure TONSILLECTOMY Bilateral 04/22/2019 TUBAL LIGATION Bilateral 04/22/2019 WISDOM TOOTH EXTRACTION 04/22/2019 [place] tooth extraction Family History Problem Relation Name Age of Onset Heart disease Maternal Grandmother Hypertension Maternal Grandfather Social History Social History Narrative Not on file No Known Allergies PMH: Reviewed PSH: Reviewed Social History: Reviewed. Allergies reviewed. HPI: William Sommer is a 38 y.o. female who presents to the ED today accompanied by her parents with complaints of lower back pain with radiation down both of her legs. Has history of known degenerative disc disease and herniated disks. She believes that she injured her back during packing and moving of their home which was done in the last 2 weeks. The pain started about 3 days after they were finished. Pain has progressively worsened. States it is only comfortable when she is laying down. Has been taking ibuprofen at home without significant relief of the pain. Denies fevers. Feels chilled and shaky today. Denies any urinary complaints. Denies chance of . PHYSICAL EXAM: GENERAL: Vitals noted, no distress. Alert and oriented x 3. Non-toxic. HEAD: Normocephalic, atraumatic. Pupils equally round and reactive to light. EOMI. NECK: Supple. No midline or paraspinal tenderness through full range of motion. CARDIAC: Regular rate, rhythm. No murmurs or rubs. RESPIRATORY: Lungs clear and equal bilaterally. No respiratory distress. BACK: Mild spinal TTP lower lumbar. MUSCULOSKELETAL & SKIN: Warm, dry, and intact. No rash/lesions. No peripheral edema. Sensation of the bilateral lower extremities is intact. Pedal pulses 2+ and bounding bilaterally. NEURO: No focal neurologic deficits, acting appropriately. Labs Reviewed - No data to display XR lumbar spine 2-3 views Final Result 1. No evidence of acute fracture. MACRO: None. Signed by: Rom Quick 06/18/2024 2:33 PM Dictation workstation: [id number] Medical Decision Making ED COURSE: This patient was seen and examined by myself independently. She denies chance of today. Given IM injections of Norflex and Toradol here in the ED. Sent for x-ray imaging of lumbar spine. Her pain is improved on repeat evaluation. Xray unremarkable. Concerned for high blood pressure readings. I see high BP readings since at least October of this year. She is not on BP medication. Will give her clonidine 0.1mg orally here and monitor BP. An hour later, BP down to 147/104, slight improvement. Recommended she discuss her BP with her PCP. She verbalized understanding. She is discharged home in a stable condition with computer instructions given and is encouraged to return to the ER for any new or worsening symptoms. DIAGNOSTIC IMPRESSION: #1 acute exacerbation of chronic lower back pain #2 elevated blood pressure JLUIS Hinkle 06/18/24 [id number] documented in this encounter [facility] Work Phone: 06-18-2024 Physician Emergency department Note Chief Complaint Patient presents with Back Pain Pt to ED with c/o lower back pain x 1 week. Pt also c/o nausea and shaking today. Pt recently moved houses and she thinks she might have injured herself while carrying boxes. History of herniated discs and DDD in lumbar spine. Patient History Past Medical History: Diagnosis Date Acute left-sided low back pain with left-sided sciatica 07/02/2023 Anxiety disorder, unspecified 06/08/2022 Anxiety Calculus of kidney 03/05/2023 Cervical high risk HPV (human papillomavirus) test positive 10/24/2018 COVID-19 04/10/2021 COVID-19 Flank pain HGSIL (high grade squamous intraepithelial lesion) on Pap smear of cervix 01/22/2023 History of claustrophobia 01/22/2023 Lactose intolerance 01/22/2023 Myelopathy (Multi) 01/22/2023 Paresthesias 01/22/2023 Punctate keratitis of left eye 09/30/2015 Past Surgical History: Procedure Laterality Date ADENOIDECTOMY Bilateral CERVICAL BIOPSY W/ LOOP ELECTRODE EXCISION 04/22/2019 Loop electrosurgical excision procedure TONSILLECTOMY Bilateral 04/22/2019 TUBAL LIGATION Bilateral 04/22/2019 WISDOM TOOTH EXTRACTION 04/22/2019 [place] tooth extraction Family History Problem Relation Name Age of Onset Heart disease Maternal Grandmother Hypertension Maternal Grandfather Social History Social History Narrative Not on file No Known Allergies PMH: Reviewed PSH: Reviewed Social History: Reviewed. Allergies reviewed. HPI: William Sommer is a 38 y.o. female who presents to the ED today accompanied by her parents with complaints of lower back pain with radiation down both of her legs. Has history of known degenerative disc disease and herniated disks. She believes that she injured her back during packing and moving of their home which was done in the last 2 weeks. The pain started about 3 days after they were finished. Pain has progressively worsened. States it is only comfortable when she is laying down. Has been taking ibuprofen at home without significant relief of the pain. Denies fevers. Feels chilled and shaky today. Denies any urinary complaints. Denies chance of . PHYSICAL EXAM: GENERAL: Vitals noted, no distress. Alert and oriented x 3. Non-toxic. HEAD: Normocephalic, atraumatic. Pupils equally round and reactive to light. EOMI. NECK: Supple. No midline or paraspinal tenderness through full range of motion. CARDIAC: Regular rate, rhythm. No murmurs or rubs. RESPIRATORY: Lungs clear and equal bilaterally. No respiratory distress. BACK: Mild spinal TTP lower lumbar. MUSCULOSKELETAL & SKIN: Warm, dry, and intact. No rash/lesions. No peripheral edema. Sensation of the bilateral lower extremities is intact. Pedal pulses 2+ and bounding bilaterally. NEURO: No focal neurologic deficits, acting appropriately. Labs Reviewed - No data to display XR lumbar spine 2-3 views Final Result 1. No evidence of acute fracture. MACRO: None. Signed by: Rom Quick 06/18/2024 2:33 PM Dictation workstation: [id number] Medical Decision Making ED COURSE: This patient was seen and examined by myself independently. She denies chance of today. Given IM injections of Norflex and Toradol here in the ED. Sent for x-ray imaging of lumbar spine. Her pain is improved on repeat evaluation. Xray unremarkable. Concerned for high blood pressure readings. I see high BP readings since at least October of this year. She is not on BP medication. Will give her clonidine 0.1mg orally here and monitor BP. An hour later, BP down to 147/104, slight improvement. Recommended she discuss her BP with her PCP. She verbalized understanding. She is discharged home in a stable condition with computer instructions given and is encouraged to return to the ER for any new or worsening symptoms. DIAGNOSTIC IMPRESSION: #1 acute exacerbation of chronic lower back pain #2 elevated blood pressure JLUIS Hinkle 06/18/24 [id number] [facility] Work Phone: 06-09-2024 History of Present illness Narrative Last week and half ear felt plugged, staring Saturday, cough, runny nose, sinus pressure, cold and hot sweats Subjective Patient ID: William Sommer is a 38 y.o. female who presents for ear pain/sinus drainage. HPI William returns for sinus issues. Started with bilateral ear pain last week, and then on Saturday started with green drainage from her sinuses with pain/pressure. Slight cough but she feels this is from her drainage. She denies any fever, shortness of breath or GI symptoms. Review of Systems Constitutional: Positive for fatigue. Negative for chills and fever. HENT: Positive for congestion, ear pain, postnasal drip, rhinorrhea, sinus pressure and sinus pain. Negative for ear discharge, sneezing, sore throat and trouble swallowing. Respiratory: Positive for cough. Negative for chest tightness, shortness of breath and wheezing. Cardiovascular: Negative. Gastrointestinal: Negative. Genitourinary: Negative. Musculoskeletal: Positive for myalgias. Negative for arthralgias. Neurological: Negative for dizziness and headaches. Hematological: Negative. Psychiatric/Behavioral: Negative. Objective There were no vitals taken for this visit. Physical Exam Vitals and nursing note reviewed. Constitutional: General: She is not in acute distress. Appearance: Normal appearance. She is ill-appearing. HENT: Head: Normocephalic and atraumatic. Pulmonary: Effort: Pulmonary effort is normal. Musculoskeletal: Cervical back: Normal range of motion. Neurological: General: No focal deficit present. Mental Status: She is alert and oriented to person, place, and time. Psychiatric: Mood and Affect: Mood normal. Behavior: Behavior normal. Thought Content: Thought content normal. Judgment: Judgment normal. Assessment/Plan Problem List Items Addressed This Visit None Visit Diagnoses Codes Acute non-recurrent maxillary sinusitis - Primary J01.00 Relevant Medications amoxicillin-pot clavulanate (Augmentin) 875-125 mg tablet Follow up as scheduled. Return precautions discussed. She verbalized understanding. For any new medications that were prescribed today, the patient was educated about their indications for use, administration, frequency and potential side effects of the medication. documented in this encounter [facility] Work Phone: 04-02-2024 Evaluation + Plan note Associated Problem(s): Grade 2 sprain of medial collateral ligament of knee Symptom control with OTC Ibuprofen as needed basis for swelling and/or pain, Tylenol per package directions. Reviewed elevation, rest, ice. Continue a hinged knee brace with weightbearing and aggravating activity, okay to remove with rest and sleep. Continue Continue home exercises as instructed by PT Cortisone injection provided today with positive lidocaine suppression at end of visit Plan for follow-up here in approximately 4 to 6 weeks, sooner for changes or concerns Patient in agreement with plan of care. This note was generated using [employer] software. It may contain errors in wording, punctuation or spelling. [facility] Work Phone: 04-02-2024 Miscellaneous Notes Associated Problem(s): Grade 2 sprain of medial collateral ligament of knee Symptom control with OTC Ibuprofen as needed basis for swelling and/or pain, Tylenol per package directions. Reviewed elevation, rest, ice. Continue a hinged knee brace with weightbearing and aggravating activity, okay to remove with rest and sleep. Continue Continue home exercises as instructed by PT Cortisone injection provided today with positive lidocaine suppression at end of visit Plan for follow-up here in approximately 4 to 6 weeks, sooner for changes or concerns Patient in agreement with plan of care. This note was generated using [employer] software. It may contain errors in wording, punctuation or spelling. documented in this encounter [facility] Work Phone: 04-01-2024 History of Present illness Narrative Associated Order(s): L Inj/Asp: L knee Subjective Patient ID: William Sommer is a 38 y.o. female. Chief Complaint: Follow-up and Pain of the Left Knee Left Knee William is a pleasant 38-year-old female presenting today for FUV of L knee pain and injury from 01/09/24. Patient was playing with children on a slip and slide, twisted her knee and fell. Positive popping felt and heard. Continues with dull achy discomfort medial aspect. 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 HENT: Negative. Respiratory: Negative. Cardiovascular: Negative. Endocrine: Negative. Musculoskeletal: Positive for arthralgias. Skin: Negative. Neurological: Negative. Hematological: Negative. Psychiatric/Behavioral: Negative. Objective Right Knee Exam Tenderness The patient is experiencing tenderness in the medial joint line. Range of Motion Extension: 0 Flexion: 120 Tests Duyen: Medial - positive Lateral - negative Varus: negative Valgus: negative Edmond: Anterior - negative Drawer: Anterior - negative Posterior - negative Other Erythema: absent Sensation: normal Pulse: present Swelling: mild Comments: Minimal swelling noted to medial joint line, no ecchymosis remains. Full range of motion of distal joints, Distal motor and sensory intact, cap refill at 2 seconds. Left Knee Exam Left knee exam is normal. Tenderness The patient is experiencing tenderness in the medial hamstring. Range of Motion The patient has normal left knee ROM. Image Results: XR abdomen 1 view Narrative: Interpreted By: Hesham Zamora, STUDY: XR ABDOMEN 1 VIEW; 03/25/2024 2:14 pm INDICATION: Signs/Symptoms:KIDNEY STONES. ,Z87.442 Personal history of urinary calculi COMPARISON: CT abdomen/pelvis of 02/20/2023. ACCESSION NUMBER(S): [id number] ORDERING CLINICIAN: KOBI SOL FINDINGS: 2 frontal views of the abdomen were obtained. Lung bases are clear. A nonspecific nonobstructive bowel gas pattern is demonstrated. No appreciable renal calculi. Left mid abdominal and right pelvic surgical clips are noted. Central pelvic T-shaped IUD is present. Small pelvic calcifications correspond to phleboliths. Bones are intact. Impression: 1. Nonspecific nonobstructive bowel gas pattern. 2. No appreciable renal calculi by x-ray. Signed by: Hesham Zamora 03/26/2024 8:07 AM Dictation workstation: [id number] Reviewed most recent PT visit note on date of visit from 02/27/2024 Patient ID: William Sommer is a 38 y.o. female. L Inj/Asp: L knee on 04/01/2024 12:40 PM Indications: pain and joint swelling Details: 22 G needle, medial approach Medications: 40 mg triamcinolone acetonide 40 mg/mL Outcome: tolerated well, no immediate complications We discussed risk and benefits of cortisone injection, patient wishes to proceed via verbal consent. Skin was prepped with Betadine, vapo coolant spray and alcohol. Administered injection of 40 mg Kenalog, 3 cc 2% lidocaine and 3 cc of 0.25% bupivacaine. Patient tolerated injection well with lidocaine suppression. No active bleeding, bandage applied to site. Procedure, treatment alternatives, risks and benefits explained, specific risks discussed. Consent was given by the patient. Immediately prior to procedure a time out was called to verify the correct patient, procedure, equipment, medical support specialist and site/side marked as required. Patient was prepped and draped in the usual sterile fashion. Assessment/Plan Encounter Diagnoses: Problem List Items Addressed This Visit ICD-10-CM Grade 2 sprain of medial collateral ligament of knee - Primary S83.419A Symptom control with OTC Ibuprofen as needed basis for swelling and/or pain, Tylenol per package directions. Reviewed elevation, rest, ice. Continue a hinged knee brace with weightbearing and aggravating activity, okay to remove with rest and sleep. Continue Continue home exercises as instructed by PT Cortisone injection provided today with positive lidocaine suppression at end of visit Plan for follow-up here in approximately 4 to 6 weeks, sooner for changes or concerns Patient in agreement with plan of care. This note was generated using [employer] software. It may contain errors in wording, punctuation or spelling. documented in this encounter [facility] Work Phone: 03-25-2024 History of Present illness Narrative Subjective Patient ID: William Sommer is a 38 y.o. female. HPI Patient is here for yearly follow up with kub for hx of kidney stones. No recent sx. Chronic LUT'S sx are mild and stable. Denies urgency and frequency. Denies dysuria. Denies hematuria. Nocturia x1. Review of Systems Constitutional: Negative for chills and fever. HENT: Negative. Eyes: Negative. Respiratory: Negative for cough and shortness of breath. Cardiovascular: Negative for chest pain and leg swelling. Gastrointestinal: Negative for nausea. Endocrine: Negative. Genitourinary: Negative for difficulty urinating. Negative except for documented in HPI Allergic/Immunologic: Negative. Neurological: Alert & oriented X 3 Hematological: Denies blood thinners Psychiatric/Behavioral: Negative. Objective Physical Exam Vitals and nursing note reviewed. Pulmonary: Effort: Pulmonary effort is normal. Abdominal: Palpations: Abdomen is soft. Tenderness: There is no abdominal tenderness. Genitourinary: Comments: Kidneys non palpable bilaterally Bladder non palpable or tender Neurological: Mental Status: She is alert. Assessment/Plan Diagnoses and all orders for this visit: History of kidney stones KUB ordered and reviewed Stone prevention discussed. Diet reviewed. Discussed fluid intake Treatment options for LUTS reviewed Discussed timed voiding. Discussed fluid and caffeine intake Lifestyle change to help prevent UTIs discussed. Encouraged fluid intake. F/u 1 year with KUB documented in this encounter [facility] Work Phone: 02-19-2024 Evaluation + Plan note Associated Problem(s): Grade 2 sprain of medial collateral ligament of knee We reviewed conservative measures for knee sprain symptom control with OTC Ibuprofen as needed basis for swelling and/or pain, Tylenol per package directions. Reviewed elevation, rest, ice. Continue a hinged knee brace with weightbearing and aggravating activity, okay to remove with rest and sleep. Activity as tolerated Okay to gently wean as tolerated Continue with PT as scheduled as well as home exercises Plan to follow-up here in approximately 2 weeks after completing PT, sooner for changes or concerns Patient in agreement with plan of care. This note was generated using [employer] software. It may contain errors in wording, punctuation or spelling. [facility] Work Phone: 02-19-2024 Miscellaneous Notes Associated Problem(s): Grade 2 sprain of medial collateral ligament of knee We reviewed conservative measures for knee sprain symptom control with OTC Ibuprofen as needed basis for swelling and/or pain, Tylenol per package directions. Reviewed elevation, rest, ice. Continue a hinged knee brace with weightbearing and aggravating activity, okay to remove with rest and sleep. Activity as tolerated Okay to gently wean as tolerated Continue with PT as scheduled as well as home exercises Plan to follow-up here in approximately 2 weeks after completing PT, sooner for changes or concerns Patient in agreement with plan of care. This note was generated using [employer] software. It may contain errors in wording, punctuation or spelling. documented in this encounter [facility] Work Phone: 02-19-2024 History of Present illness Narrative Subjective Patient ID: William Sommer is a 38 y.o. female. Chief Complaint: Follow-up and Pain of the Left Knee Left Knee William is a pleasant 38-year-old female presenting today for FUV of L knee pain and MRI review, injury from 01/09/24. Patient was playing with children on a slip and slide, twisted her knee and fell. Positive popping felt and heard. Patient states PT is helping, continues to use hinged brace with weightbearing activities which helps with stability and support. She has begun light activity in the house without the brace and is tolerating well. Rare use of ibuprofen for symptom control, ice helps Overall approximate 75% improvement since date of injury Review of Systems Constitutional: Negative. HENT: Negative. Respiratory: Negative. Cardiovascular: Negative. Endocrine: Negative. Musculoskeletal: Positive for arthralgias. Skin: Negative. Neurological: Negative. Hematological: Negative. Psychiatric/Behavioral: Negative. Objective Right Knee Exam Tenderness The patient is experiencing tenderness in the medial joint line. Range of Motion Extension: 0 Flexion: 100 Tests Duyen: Medial - positive Lateral - negative Varus: negative Valgus: negative Edmond: Anterior - negative Drawer: Anterior - negative Posterior - negative Other Erythema: absent Sensation: normal Pulse: present Swelling: mild Comments: Minimal swelling noted to medial joint line, no ecchymosis remains. Full range of motion of distal joints, Distal motor and sensory intact, cap refill at 2 seconds. Left Knee Exam Left knee exam is normal. Tenderness The patient is experiencing tenderness in the medial hamstring. Range of Motion The patient has normal left knee ROM. Image Results: MR knee left wo IV contrast Narrative: Interpreted By: Matt Hollingsworth, STUDY: MRI of the left knee without IV contrast; 01/20/2024 9:57 am INDICATION: Medial knee pain after twisting and falling injury on 01/09/2024. COMPARISON: Radiographs 01/10/2024. ACCESSION NUMBER(S): [id number] ORDERING CLINICIAN: LAYNE TEMPLE TECHNIQUE: MR imaging of the left knee was obtained without IV contrast. FINDINGS: LIGAMENTS AND TENDONS: ACL: Intact. PCL: Intact. MCL: Moderate peritendinous and intrasubstance edema in the mid segment with partial fiber disruption anteriorly. LCL complex: Intact. Quadriceps and patellar tendons: Intact. MENISCI: Medial meniscus: Intact. Lateral meniscus: Intact. JOINTS: Medial compartment: No cartilage defect. Lateral compartment: Small full-thickness chondral fissuring in the femoral condyle posteriorly with subchondral reactive change. Patellofemoral compartment: No cartilage defect. No patellar subluxation. Joint fluid: Trace. Popliteal cyst: None. OSSEOUS STRUCTURES: No focal marrow replacing lesion. No fracture. SOFT TISSUES: No muscle atrophy or tear. Mpbg-og-evrbyexf subcutaneous edema along the medial knee. Impression: Grade 2 sprain medial collateral ligament. No meniscus tear. MACRO: None Signed by: Matt Hollingsworth 01/20/2024 2:25 PM Dictation workstation: [id number] Reviewed most recent PT visit note on date of visit Assessment/Plan Encounter Diagnoses: Problem List Items Addressed This Visit ICD-10-CM Grade 2 sprain of medial collateral ligament of knee - Primary S83.419A We reviewed conservative measures for knee sprain symptom control with OTC Ibuprofen as needed basis for swelling and/or pain, Tylenol per package directions. Reviewed elevation, rest, ice. Continue a hinged knee brace with weightbearing and aggravating activity, okay to remove with rest and sleep. Activity as tolerated Okay to gently wean as tolerated Continue with PT as scheduled as well as home exercises Plan to follow-up here in approximately 2 weeks after completing PT, sooner for changes or concerns Patient in agreement with plan of care. This note was generated using [employer] software. It may contain errors in wording, punctuation or spelling. documented in this encounter [facility] Work Phone: 01-23-2024 Evaluation + Plan note Associated Problem(s): Grade 2 sprain of medial collateral ligament of knee We reviewed conservative measures for knee sprain symptom control. Patient to continue to take OTC Ibuprofen 600mg 3x/daily with food for the next 3 days and then may decrease to as needed basis for swelling and/or pain, Tylenol per package directions. Reviewed elevation, rest, ice. Continues a hinged knee brace with weightbearing activity, okay to remove with rest and sleep. Activity as tolerated Patient may begin to wean off crutches as tolerated, anticipate off crutches within the next 3 to 7 days. PT eval and treat order placed Plan to follow-up here in approximately 3 to 4 weeks, sooner for changes or concerns Patient in agreement with plan of care. This note was generated using [employer] software. It may contain errors in wording, punctuation or spelling. [facility] Work Phone: 01-23-2024 Miscellaneous Notes Associated Problem(s): Grade 2 sprain of medial collateral ligament of knee We reviewed conservative measures for knee sprain symptom control. Patient to continue to take OTC Ibuprofen 600mg 3x/daily with food for the next 3 days and then may decrease to as needed basis for swelling and/or pain, Tylenol per package directions. Reviewed elevation, rest, ice. Continues a hinged knee brace with weightbearing activity, okay to remove with rest and sleep. Activity as tolerated Patient may begin to wean off crutches as tolerated, anticipate off crutches within the next 3 to 7 days. PT eval and treat order placed Plan to follow-up here in approximately 3 to 4 weeks, sooner for changes or concerns Patient in agreement with plan of care. This note was generated using [employer] software. It may contain errors in wording, punctuation or spelling. Associated Problem(s): Sprain of left knee, initial encounter We reviewed conservative measures for knee sprain symptom control. Patient to continue to take OTC Ibuprofen 600mg 3x/daily with food for the next 3 days and then may decrease to as needed basis for swelling and/or pain, Tylenol per package directions. Recommend frequent elevation and icing. Activity as tolerated. Patient to be fitted in hinged knee brace and to wear with any weightbearing activity, may remove with rest and sleep. Recommend continuing with crutches and partial weightbearing until MRI complete and reviewed. DDx includes meniscal injury, MCL sprain/tear, hairline fracture Plan will be to follow-up here after MRI to review results and determine treatment plan. In the event of any delays with MRI, patient is to follow-up within 2 weeks with repeat x-ray imaging. Patient in agreement with plan of care. This note was generated using [employer] software. It may contain errors in wording, punctuation or spelling. documented in this encounter [facility] Work Phone: 01-23-2024 Evaluation + Plan note Associated Problem(s): Sprain of left knee, initial encounter We reviewed conservative measures for knee sprain symptom control. Patient to continue to take OTC Ibuprofen 600mg 3x/daily with food for the next 3 days and then may decrease to as needed basis for swelling and/or pain, Tylenol per package directions. Recommend frequent elevation and icing. Activity as tolerated. Patient to be fitted in hinged knee brace and to wear with any weightbearing activity, may remove with rest and sleep. Recommend continuing with crutches and partial weightbearing until MRI complete and reviewed. DDx includes meniscal injury, MCL sprain/tear, hairline fracture Plan will be to follow-up here after MRI to review results and determine treatment plan. In the event of any delays with MRI, patient is to follow-up within 2 weeks with repeat x-ray imaging. Patient in agreement with plan of care. This note was generated using [employer] software. It may contain errors in wording, punctuation or spelling. [facility] Work Phone: 01-22-2024 History of Present illness Narrative Patient ID:William Sommer is a 38 y.o. year old female patient with leukopenia Referring Physician: Elieser Garcia MD [address] [place] [address] [address] [place] [address] Primary Care Provider: JLUIS Patel Chief Complaint Chief Complaint Patient presents with Follow-up Recent right knee injury- has brace on. No other further health issues to report History of the Present Illness Mrs. Sommer is a 37-year-old female who says that she has not felt well since June 2023. She says that she first had a stomach virus that went through her whole family. He said that she thinks that she had a longer than anybody else today. She then had sinus issues and took jiwp-hhv-weteolu medication for about 10 days and then finally called her physician. During that time she had a EBV titers that were positive and had been positive in the past. In August she said that she had nausea vomiting and aching pains and then she had an ear infection with a temperature elevation of 101.1 throbbing pain and was treated with antibiotics which she thinks was Augmentin which she took for 10 days. After that she had a blood count which showed that she had mild neutropenia. She tells me that she has had diarrhea most of the time for the past year having 3-4 bowel movements a day which she describes as soft or liquid without any blood in it. She says that she has a history of catching everything that goes into her family. She has not been hospitalized. She is usually not on antibiotics. She says that she had been found to have B12 deficiency a couple years ago and has been on oral supplementation which she thinks has been working well. She had iron deficiency. She has been found to have adenomyosis and has had heavy vaginal bleeding. IUD was placed but she said that it is not working. She has been on Effexor and BuSpar and omeprazole for her reflux and Zyrtec for allergies and Flonase and Singulair for allergic symptoms. She has complained of swelling in her hands and feet. She had a lump in her left posterior leg for the past few weeks. 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 Sometimes she feels hot and clammy sometimes her feet are itchy. She said that she saw a neurologist about 6 years ago because she had symptoms that they thought possibly could be MS which consisted of numbness in her left leg which she said finally came back after about 7 months. She was worked up for chronic fatigue in the past and in 2011 had positive EBV titers. EBV titers on 07/04/2023 were positive for EBV nuclear antigen IgG and EBV VCA IgG that were negative for EBV VCA IgM and negative for EBV early antigen antibody. She has had night sweats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 sprain/tear, hairline fracture Plan will be to follow-up here after MRI to review results and determine treatment plan. In the event of any delays with MRI, patient is to follow-up within 2 weeks with repeat x-ray imaging. Patient in agreement with plan of care. This note was generated using [employer] software. It may contain errors in wording, punctuation or spelling. documented in this encounter [facility] Work Phone: 01-15-2024 History of Present illness Narrative Subjective Patient ID: William Sommer is a 38 y.o. female. Chief Complaint: Pain of the Left Knee HPI William is a pleasant 38-year-old female presenting today for new patient evaluation of L knee pain, injury from 01/09/24. Patient was playing with children on a slip and slide, twisted her knee and fell. Positive popping felt and heard. Sx mildly improved Agg with full wt bearing, standing (can now tolerate short periods), twisting, bending Ibu 600mg up to 3x/daily Ice throughout the day with some symptom improvement Patient is using Pedro Luis wrap and partial weightbearing on crutches Review of Systems Constitutional: Negative. HENT: Negative. Respiratory: Negative. Cardiovascular: Negative. Endocrine: Negative. Musculoskeletal: Positive for arthralgias. Skin: Negative. Neurological: Negative. Hematological: Negative. Psychiatric/Behavioral: Negative. Objective Right Knee Exam Tenderness The patient is experiencing tenderness in the medial joint line. Range of Motion Extension: 0 Flexion: 70 Tests Duyen: Medial - positive Lateral - negative Varus: negative Valgus: negative Edmond: Anterior - negative Drawer: Anterior - negative Posterior - negative Other Erythema: absent Sensation: normal Pulse: present Swelling: mild Comments: Mild swelling noted to medial joint line, positive Apley's and positive medial Duyen's. Slight ecchymosis noted. Symptoms aggravated with attempt of full weightbearing and attempt at partial squat. Full range of motion of distal joints with positive palpable crepitus noted with foot inversion and eversion. Distal motor and sensory intact, cap refill at 2 seconds. Left Knee Exam Left knee exam is normal. Range of Motion The patient has normal left knee ROM. Image Results: XR knee left 1-2 views Narrative: Interpreted By: Kemar Rosales, STUDY: XR KNEE LEFT 1-2 VIEWS; 01/10/2024 10:16 am INDICATION: Signs/Symptoms:pain. COMPARISON: None. ACCESSION NUMBER(S): [id number] ORDERING CLINICIAN: SATHISH JOAQUIN FINDINGS: No acute fracture or dislocation. No lytic or blastic lesions or periosteal reaction. No significant arthritic changes. Impression: No acute fracture or dislocation. Signed by: Kemar Rosales 01/10/2024 10:36 AM Dictation workstation: [id number] Independent review of x-ray imaging during today's visit shows no acute fracture or misalignment. There is haziness at the posterior distal femur region in the lateral view as well as what appears to be joint space narrowing of the medial compartment. This correlates with symptoms and injury. Assessment/Plan Encounter Diagnoses: Problem List Items Addressed This Visit ICD-10-CM Sprain of left knee, initial encounter - Primary S83.92XA We reviewed conservative measures for knee sprain symptom control. Patient to continue to take OTC Ibuprofen 600mg 3x/daily with food for the next 3 days and then may decrease to as needed basis for swelling and/or pain, Tylenol per package directions. Recommend frequent elevation and icing. Activity as tolerated. Patient to be fitted in hinged knee brace and to wear with any weightbearing activity, may remove with rest and sleep. Recommend continuing with crutches and partial weightbearing until MRI complete and reviewed. DDx includes meniscal injury, MCL sprain/tear, hairline fracture Plan will be to follow-up here after MRI to review results and determine treatment plan. In the event of any delays with MRI, patient is to follow-up within 2 weeks with repeat x-ray imaging. Patient in agreement with plan of care. This note was generated using [employer] software. It may contain errors in wording, punctuation or spelling. documented in this encounter [facility] Work Phone: 01-10-2024 Emergency department Note HPI Chief Complaint Patient presents with Knee Pain Pt comes in for knee pain. Pt states yesterday she was playing on a slip and slide with the kids yesterday and landed wrong causing a popping sensation in the left knee. Pt states that since then she has been having a hard time baring weight and bending her knee. Swelling noted to the left knee. Patient presents with left knee pain that started yesterday after injury. States she was outside on a slip and slide with her children when her knee twisted and she went to the ground. States she felt/heard a pop to the medial side of her knee. Had immediate pain. Pain is worse with ambulation and movement. She does get relief at rest. States that she had trouble sleeping last night due to the discomfort. States she is having trouble ambulating due to the pain. She has noticed small amount of swelling. She took 400 mg ibuprofen about 4 to 5 hours ago without much improvement. Patient denies any other injury from the fall History provided by: Patient [place] Coma Scale Score: 15 Patient History Past Medical History: Diagnosis Date Acute left-sided low back pain with left-sided sciatica 07/02/2023 Anxiety disorder, unspecified 06/08/2022 Anxiety Calculus of kidney 03/05/2023 Cervical high risk HPV (human papillomavirus) test positive 10/24/2018 COVID-19 04/10/2021 COVID-19 Flank pain HGSIL (high grade squamous intraepithelial lesion) on Pap smear of cervix 01/22/2023 History of claustrophobia 01/22/2023 Lactose intolerance 01/22/2023 Myelopathy (Multi) 01/22/2023 Paresthesias 01/22/2023 Punctate keratitis of left eye 09/30/2015 Past Surgical History: Procedure Laterality Date ADENOIDECTOMY Bilateral CERVICAL BIOPSY W/ LOOP ELECTRODE EXCISION 04/22/2019 Loop electrosurgical excision procedure TONSILLECTOMY Bilateral 04/22/2019 TUBAL LIGATION Bilateral 04/22/2019 WISDOM TOOTH EXTRACTION 04/22/2019 [place] tooth extraction Family History Problem Relation Name Age of Onset Heart disease Maternal Grandmother Hypertension Maternal Grandfather Social History Tobacco Use Smoking status: Never Passive exposure: Past Smokeless tobacco: Never Vaping Use Vaping status: Never Used Substance Use Topics Alcohol use: Yes Comment: occisonally Drug use: Never Physical Exam ED Triage Vitals [01/10/24 1003] Temperature Heart Rate Respirations BP 36.5 C (97.7 F) (!) 116 18 (!) 174/111 Pulse Ox Temp Source Heart Rate Source Patient Position 98 % Temporal Monitor Sitting BP Location FiO2 (%) Left arm -- Physical Exam Vitals and nursing note reviewed. Constitutional: General: She is not in acute distress. Appearance: Normal appearance. She is well-developed and well-groomed. She is obese. She is not ill-appearing or toxic-appearing. HENT: Head: Normocephalic. Nose: Nose normal. Mouth/Throat: Lips: [place]. No lesions. Mouth: Mucous membranes are moist. Eyes: General: No scleral icterus. Conjunctiva/sclera: Conjunctivae normal. Cardiovascular: Pulses: Dorsalis pedis pulses are 2+ on the right side and 2+ on the left side. Posterior tibial pulses are 2+ on the right side and 2+ on the left side. Musculoskeletal: General: Tenderness present. No deformity. Left knee: No deformity or crepitus. Decreased range of motion. Tenderness present over the medial joint line. Normal pulse. Right lower leg: No edema. Left lower leg: No edema. Comments: Small amount of effusion noted to the medial left knee. Patient is tender along the MCL. No crepitus. Special tests are limited due to patient discomfort and decreased range of motion. Within these limitations there appears to be solid endpoint with anterior and posterior drawer. As well as valgus and varus stress test. Unable to perform Duyen due to patient discomfort. Patient's range of motion is limited in flexion to about 15 to 20 degrees. Patient has full extension. Skin: General: Skin is warm. Capillary Refill: Capillary refill takes less than 2 seconds. Findings: No bruising or erythema. Neurological: General: No focal deficit present. Mental Status: She is alert and oriented to person, place, and time. Cranial Nerves: No cranial nerve deficit or facial asymmetry. Sensory: No sensory deficit. Motor: No weakness. Psychiatric: Attention and Perception: Attention and perception normal. Mood and Affect: Mood and affect normal. Speech: Speech normal. Behavior: Behavior normal. Behavior is cooperative. Thought Content: Thought content normal. Cognition and Memory: Cognition and memory normal. Judgment: Judgment normal. ED Course & MDM Diagnoses as of 01/10/24 1045 Acute pain of left knee Medical Decision Making Patient presents with left knee pain that started yesterday after injury. States she was outside on a slip and slide with her children when her knee twisted and she went to the ground. States she felt/heard a pop to the medial side of her knee. Had immediate pain. Pain is worse with ambulation and movement. She does get relief at rest. States that she had trouble sleeping last night due to the discomfort. States she is having trouble ambulating due to the pain. She has noticed small amount of swelling. She took 400 mg ibuprofen about 4 to 5 hours ago without much improvement. Patient denies any other injury from the fall Ddx: Strain, sprain, contusion, internal derangement, other Will obtain x-rays Patient given 600 mg ibuprofen p.o. X-rays read by the radiologist show no acute findings. Patient given crutches and an Pedro Luis bandage. Will continue with ibuprofen 600 sent to the pharmacy for continued pain relief. Patient continue to ice elevate and rest. Follow-up with orthopedics as soon as she can get an appointment for further follow-up care. Patient discharged home in improved and stable condition Amount and/or Complexity of Data Reviewed Radiology: ordered and independent interpretation performed. Decision-making details documented in ED Course. Risk OTC drugs. Diagnosis or treatment significantly limited by social determinants of health. Procedure Procedures Sathish Joaquin PA-C 01/10/24 1045 documented in this encounter [facility] Work Phone: 01-10-2024 Physician Emergency department Note HPI Chief Complaint Patient presents with Knee Pain Pt comes in for knee pain. Pt states yesterday she was playing on a slip and slide with the kids yesterday and landed wrong causing a popping sensation in the left knee. Pt states that since then she has been having a hard time baring weight and bending her knee. Swelling noted to the left knee. Patient presents with left knee pain that started yesterday after injury. States she was outside on a slip and slide with her children when her knee twisted and she went to the ground. States she felt/heard a pop to the medial side of her knee. Had immediate pain. Pain is worse with ambulation and movement. She does get relief at rest. States that she had trouble sleeping last night due to the discomfort. States she is having trouble ambulating due to the pain. She has noticed small amount of swelling. She took 400 mg ibuprofen about 4 to 5 hours ago without much improvement. Patient denies any other injury from the fall History provided by: Patient [place] Coma Scale Score: 15 Patient History Past Medical History: Diagnosis Date Acute left-sided low back pain with left-sided sciatica 07/02/2023 Anxiety disorder, unspecified 06/08/2022 Anxiety Calculus of kidney 03/05/2023 Cervical high risk HPV (human papillomavirus) test positive 10/24/2018 COVID-19 04/10/2021 COVID- Flank pain HGSIL (high grade squamous intraepithelial lesion) on Pap smear of cervix 01/22/2023 History of claustrophobia 01/22/2023 Lactose intolerance 01/22/2023 Myelopathy (Multi) 01/22/2023 Paresthesias 01/22/2023 Punctate keratitis of left eye 09/30/2015 Past Surgical History: Procedure Laterality Date ADENOIDECTOMY Bilateral CERVICAL BIOPSY W/ LOOP ELECTRODE EXCISION 04/22/2019 Loop electrosurgical excision procedure TONSILLECTOMY Bilateral 04/22/2019 TUBAL LIGATION Bilateral 04/22/2019 WISDOM TOOTH EXTRACTION 04/22/2019 [place] tooth extraction Family History Problem Relation Name Age of Onset Heart disease Maternal Grandmother Hypertension Maternal Grandfather Social History Tobacco Use Smoking status: Never Passive exposure: Past Smokeless tobacco: Never Vaping Use Vaping status: Never Used Substance Use Topics Alcohol use: Yes Comment: occisonally Drug use: Never Physical Exam ED Triage Vitals [01/10/24 1003] Temperature Heart Rate Respirations BP 36.5 C (97.7 F) (!) 116 18 (!) 174/111 Pulse Ox Temp Source Heart Rate Source Patient Position 98 % Temporal Monitor Sitting BP Location FiO2 (%) Left arm -- Physical Exam Vitals and nursing note reviewed. Constitutional: General: She is not in acute distress. Appearance: Normal appearance. She is well-developed and well-groomed. She is obese. She is not ill-appearing or toxic-appearing. HENT: Head: Normocephalic. Nose: Nose normal. Mouth/Throat: Lips: [place]. No lesions. Mouth: Mucous membranes are moist. Eyes: General: No scleral icterus. Conjunctiva/sclera: Conjunctivae normal. Cardiovascular: Pulses: Dorsalis pedis pulses are 2+ on the right side and 2+ on the left side. Posterior tibial pulses are 2+ on the right side and 2+ on the left side. Musculoskeletal: General: Tenderness present. No deformity. Left knee: No deformity or crepitus. Decreased range of motion. Tenderness present over the medial joint line. Normal pulse. Right lower leg: No edema. Left lower leg: No edema. Comments: Small amount of effusion noted to the medial left knee. Patient is tender along the MCL. No crepitus. Special tests are limited due to patient discomfort and decreased range of motion. Within these limitations there appears to be solid endpoint with anterior and posterior drawer. As well as valgus and varus stress test. Unable to perform Duyen due to patient discomfort. Patient's range of motion is limited in flexion to about 15 to 20 degrees. Patient has full extension. Skin: General: Skin is warm. Capillary Refill: Capillary refill takes less than 2 seconds. Findings: No bruising or erythema. Neurological: General: No focal deficit present. Mental Status: She is alert and oriented to person, place, and time. Cranial Nerves: No cranial nerve deficit or facial asymmetry. Sensory: No sensory deficit. Motor: No weakness. Psychiatric: Attention and Perception: Attention and perception normal. Mood and Affect: Mood and affect normal. Speech: Speech normal. Behavior: Behavior normal. Behavior is cooperative. Thought Content: Thought content normal. Cognition and Memory: Cognition and memory normal. Judgment: Judgment normal. ED Course & MDM Diagnoses as of 01/10/24 1045 Acute pain of left knee Medical Decision Making Patient presents with left knee pain that started yesterday after injury. States she was outside on a slip and slide with her children when her knee twisted and she went to the ground. States she felt/heard a pop to the medial side of her knee. Had immediate pain. Pain is worse with ambulation and movement. She does get relief at rest. States that she had trouble sleeping last night due to the discomfort. States she is having trouble ambulating due to the pain. She has noticed small amount of swelling. She took 400 mg ibuprofen about 4 to 5 hours ago without much improvement. Patient denies any other injury from the fall Ddx: Strain, sprain, contusion, internal derangement, other Will obtain x-rays Patient given 600 mg ibuprofen p.o. X-rays read by the radiologist show no acute findings. Patient given crutches and an Pedro Luis bandage. Will continue with ibuprofen 600 sent to the pharmacy for continued pain relief. Patient continue to ice elevate and rest. Follow-up with orthopedics as soon as she can get an appointment for further follow-up care. Patient discharged home in improved and stable condition Amount and/or Complexity of Data Reviewed Radiology: ordered and independent interpretation performed. Decision-making details documented in ED Course. Risk OTC drugs. Diagnosis or treatment significantly limited by social determinants of health. Procedure Procedures Sathish Joaquin PA-C 01/10/24 1045 [facility] Work Phone: 10-25-2023 Note Formatting of this n ote might be different from the original. October 25, 2023 PID: [id number] William Sommer [address] [place] [address] Dear Ms. Sommer, We are pleased to inform you that the results of your recent breast imaging exam on 10/24/2023 are normal. Your mammogram demonstrates that you have dense breast tissue, which could hide abnormalities. Dense breast tissue, in and of itself, is a relatively common condition. Therefore, this information is not provided to cause undue concern; rather, it is to raise your awareness and promote discussion with your health care provider regarding the presence of dense breast tissue in addition to other risk factors. Early detection of cancer is very important. We also understand recommendations regarding breast cancer screening are controversial. Please discuss with your primary care provider which strategy is best for you and whether a mammogram is right for you. Your imaging studies and report will be kept on file at [facility] as part of your permanent medical record and are available for your continuing care. Thank you for allowing us to help in meeting your health care needs. Sincerely, Dr. Bender Interpreting Radiologist [facility] (Normal over 40) [facility] 10-25-2023 Miscellaneous Notes October 25, 2023 PID: [id number] William Sommer [address] [place] [address] Dear Ms. Sommer, We are pleased to inform you that the results of your recent breast imaging exam on 10/24/2023 are normal. Your mammogram demonstrates that you have dense breast tissue, which could hide abnormalities. Dense breast tissue, in and of itself, is a relatively common condition. Therefore, this information is not provided to cause undue concern; rather, it is to raise your awareness and promote discussion with your health care provider regarding the presence of dense breast tissue in addition to other risk factors. Early detection of cancer is very important. We also understand recommendations regarding breast cancer screening are controversial. Please discuss with your primary care provider which strategy is best for you and whether a mammogram is right for you. Your imaging studies and report will be kept on file at [facility] as part of your permanent medical record and are available for your continuing care. Thank you for allowing us to help in meeting your health care needs. Sincerely, Dr. Bender Interpreting Radiologist [facility] (Normal over 40) documented in this encounter [facility] 10-24-2023 History of Present illness Narrative Radiology Service Progress Note PATIENT NAME: William Sommer DATE OF SERVICE: October 24, 2023 TIME: 1:03 PM PATIENT IDENTITY VERIFICATION COMPLETED USING TWO (2) IDENTIFIERS: Name and Date of confirmed by patient verbally. FALL SCREENING: Has the patient had 2 falls in the last year or 1 fall with injury or currently using an Ambulatory Assistive Device (Walker, Cane, Wheelchair, Crutches, etc.)? No PATIENT GENDER DATA: Female. status: : No status: NO. PATIENT RELEVANT IMPLANT DATA REVIEWED: Not Applicable PATIENT PRESENTS WITH AN IMPLANTABLE OR ATTACHED PEDIATRICIAN: No RADIOLOGY DEPARTMENT: Mammography PERIPHERAL IV DATA: Not applicable SIGNED BY: Nikia Poole October 24, 2023 1:03 PM documented in this encounter [facility] 10-11-2023 History of Present illness Narrative Patient ID:William Sommer is a 37 y.o. year old female patient with leukopenia Referring Physician: JLUIS Patel [address] [place] [address] Primary Care Provider: JLUIS Patel Chief Complaint Chief Complaint Patient presents with Neutropenia She is here today as a new patient accompanied by her daughter. History of the Present Illness Mrs. Sommer is a 37-year-old female who says that she has not felt well since June 2023. She says that she first had a stomach virus that went through her whole family. He said that she thinks that she had a longer than anybody else today. She then had sinus issues and took [id number] medication for about 10 days and then finally called her physician. During that time she had a EBV titers that were positive and had been positive in the past. In August she said that she had nausea vomiting and aching pains and then she had an ear infection with a temperature elevation of 101.1 throbbing pain and was treated with antibiotics which she thinks was Augmentin which she took for 10 days. After that she had a blood count which showed that she had mild neutropenia. She tells me that she has had diarrhea most of the time for the past year having 3-4 bowel movements a day which she describes as soft or liquid without any blood in it. She says that she has a history of catching everything that goes into her family. She has not been hospitalized. She is usually not on antibiotics. She says that she had been found to have B12 deficiency a couple years ago and has been on oral supplementation which she thinks has been working well. She had iron deficiency. She has been found to have adenomyosis and has had heavy vaginal bleeding. IUD was placed but she said that it is not working. She has been on Effexor and BuSpar and omeprazole for her reflux and Zyrtec for allergies and Flonase and Singulair for allergic symptoms. She has complained of swelling in her hands and feet. She had a lump in her left posterior leg for the past few weeks. 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 Sometimes she feels hot and clammy sometimes her feet are itchy. She said that she saw a neurologist about 6 years ago because she had symptoms that they thought possibly could be MS which consisted of numbness in her left leg which she said finally came back after about 7 months. She was worked up for chronic fatigue in the past and in 2011 had positive EBV titers. EBV titers on 07/04/2023 were positive for EBV nuclear antigen IgG and EBV VCA IgG that were negative for EBV VCA IgM and negative for EBV early antigen antibody. She has had night sweats for a year. She has had pain in her neck and she says that she has 3 discs that are herniated she also has sciatica and sometimes her hips locked up. She has frequent headaches which are usually occipital and then spread all over her head. She takes Tylenol and ibuprofen successfully for her headaches. She has had some fluid behind her eardrums. ELIZABETH has been normal CRP was 1.14 the upper limits of normal being 1. Her blood pressure has been elevated I encouraged her to take it at home. She has had no swallowing problems. She does not do breast self-examination. She has not had a mammogram. She says that she is easily winded. She is overweight at 179 pounds with a height of 5 feet 3 inches. She says that she does drink alcohol daily sometimes consuming 6 drinks in a 24-hour. She says that she does not use any illicit drugs but does occasionally use marijuana. She does not smoke. She says that she works for [employer] and she gets lots of exposure to people. She has 4 children including 3 daughters and a son. She has 5 stepchildren and a grandchild that she sees frequently. Chart review shows that her white count has been normal until just recently when on 10/01/2023 it was 3.6. Hemoglobin is 9 hematocrit have been normal. Platelet count was slightly low on 07/02/2023 at 124 but recently it was 168,000. Serum chemistries have been normal. On 10/01/2023 her white blood cell differential was abnormal with 32% polys, 2 bands, 48 lymphs, 9 monos 1 eosinophil and 8 atypical lymphocytes. Her absolute neutrophil count was 1.15. We have repeated these laboratory test today and white count was 4.2 with a hemoglobin 12.5 hematocrit 36.4 with normal indices and a platelet count of 205,000. White blood cell differential count showed 53% polys, 35 lymphs, 8 monos, 1 eosinophil with an absolute neutrophil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 Work Phone: 03-05-2023 Miscellaneous Notes Associated Problem(s): Calculus of kidney Meloxicam 15 mg daily as needed for pain. Referral to urology. Associated Problem(s): Heart palpitations 48 hour holter monitor and Echocardiogram Associated Problem(s): Racing heart beat Echo and 48 hour holter monitor Associated Problem(s): Anxiety Continue buspirone 5 mg TID as needed for anxiety documented in this encounter [facility] Work Phone: 03-05-2023 Evaluation + Plan note Associated Problem(s): Heart palpitations 48 hour holter monitor and Echocardiogram [facility] Work Phone: 03-05-2023 Evaluation + Plan note Associated Problem(s): Racing heart beat Echo and 48 hour holter monitor [facility] Work Phone: 03-05-2023 Evaluation + Plan note Associated Problem(s): Anxiety Continue buspirone 5 mg TID as needed for anxiety [facility] Work Phone: 03-05-2023 History of Present illness Narrative One Month recheck In ER 2 weeks ago for right flank pain 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 Subjective Patient ID: William Sommer is a 37 y.o. female who presents for Follow-up. HPI William returns for follow up on anxiety and ER Anxiety: feels buspirone is working well. Heart racing/palpitations: usually happens at night and will wake her up from her sleep. With her anxiety she has not noticed it correlating with her increased anxiety/panic attacks/overwhelming moments. ER on 02/20/23: CT showed cyst on right ovary and 2 mm kidney stone midpole right kidney. 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 Nephrolithiasis: 2 mm non-obstructing stone in right midpole kidney. Is having constant pain, with movement. Getting up and in out of cars causes pain. Review of Systems Constitutional: Negative for fatigue. Respiratory: Negative for chest tightness and shortness of breath. Cardiovascular: Negative for chest pain, palpitations and leg swelling. Gastrointestinal: Negative for abdominal pain, blood in stool, constipation, diarrhea, nausea and vomiting. Genitourinary: Negative for dysuria. Musculoskeletal: Negative for arthralgias and myalgias. Skin: Negative for color change. Neurological: Negative for dizziness, light-headedness and headaches. Objective BP 110/70 Pulse 99 Ht 1.6 m (5' 3) Wt 81.6 kg (180 lb) BMI 31.89 kg/m Physical Exam Vitals and nursing note reviewed. Constitutional: Appearance: Normal appearance. HENT: Head: Normocephalic and atraumatic. Pulmonary: Effort: Pulmonary effort is normal. Abdominal: Tenderness: There is right CVA tenderness. Musculoskeletal: General: Tenderness present. Lumbar back: Tenderness present. Back: Comments: Tenderness with palpation. Skin: General: Skin is warm and dry. Neurological: General: No focal deficit present. Mental Status: She is alert and oriented to person, place, and time. Psychiatric: Mood and Affect: Mood normal. Behavior: Behavior normal. Thought Content: Thought content normal. Judgment: Judgment normal. 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 Referral to urology. Relevant Medications meloxicam (Mobic) 15 mg tablet Other Relevant Orders Referral to Urology Follow up as scheduled in September or sooner if needed. Will call with results of holter/echo and refer as necessary. documented in this encounter [facility] Work Phone: 02-27-2023 History of Present illness Narrative Patient is here today for kidney stone...Patient was seen in ED 02/27 for right side flank pain...No N/V..No F/C... CT on 02/27 showed nonobstructive right sided stones...Patient states she has been having flank pain,N/V increased urgency and frequency...No dysuria..she states it is uncomfortable when her bladder gets to full...No hematuria..Patient states this is her first stone..No hx of UTI's.. [facility] DO Work Phone: 02-05-2023 History of Present illness Narrative Subjective Patient ID: William Sommer is a 37 y.o. female who presents with c/o ears clogged, eye pressure, nasal drainage/pressure, tooth pain, hot/cold flashes, started 3 days; cough that started last night. HPI William returns for above complaints. Started Saturday. OTC sudafed/sinus pressure. Ibuprofen for pain/pressure. Cough yellow. No fever, has been getting hot/cold, No GI symptoms. Family also sick. Daughter positive for COVID. She saw her on Saturday the week before. Review of Systems Constitutional: Positive for chills, diaphoresis and fatigue. Negative for fever. HENT: Positive for congestion, postnasal drip, sinus pressure and sinus pain. Negative for sneezing. Respiratory: Positive for cough. Negative for chest tightness, shortness of breath and wheezing. Gastrointestinal: Negative for diarrhea, nausea and vomiting. Musculoskeletal: Positive for myalgias. Neurological: Positive for headaches. Negative for dizziness. Objective Vitals: 02/05/23 1636 BP: (!) 120/100 BP Location: Left arm Pulse: (!) 127 Temp: 36.4 C (97.6 F) SpO2: 98% Weight: 80.3 kg (177 lb) Height: 1.6 m (5' 3) Physical Exam Vitals and nursing note reviewed. Constitutional: Appearance: She is ill-appearing. HENT: Head: Normocephalic and atraumatic. Nose: Congestion present. Mouth/Throat: Mouth: Mucous membranes are moist. Cardiovascular: Rate and Rhythm: Regular rhythm. Tachycardia present. Pulses: Normal pulses. Heart sounds: Normal heart sounds. Pulmonary: Effort: Pulmonary effort is normal. No respiratory distress. Breath sounds: Normal breath sounds. Skin: General: Skin is warm and dry. Neurological: General: No focal deficit present. Mental Status: She is alert and oriented to person, place, and time. Psychiatric: Mood and Affect: Mood normal. Behavior: Behavior normal. Thought Content: Thought content normal. Judgment: Judgment normal. Assessment/Plan Diagnoses and all orders for this visit: Acute cough - Sars-CoV-2 PCR, Symptomatic; Future Acute non-recurrent maxillary sinusitis - azithromycin (Zithromax) 250 mg tablet; Take 2 tablets (500 mg) by mouth once daily for 1 day, THEN 1 tablet (250 mg) once daily for 4 days. Take 2 tabs (500 mg) by mouth today, than 1 daily for 4 days.. Upper respiratory infection with cough and congestion - benzonatate (Tessalon) 100 mg capsule; Take 1 capsule (100 mg) by mouth 3 times a day as needed for cough for up to 10 days. Do not crush or chew. Problem List Items Addressed This Visit None Visit Diagnoses Acute cough - Primary Relevant Orders Sars-CoV-2 PCR, Symptomatic Acute non-recurrent maxillary sinusitis Relevant Medications azithromycin (Zithromax) 250 mg tablet Upper respiratory infection with cough and congestion Relevant Medications benzonatate (Tessalon) 100 mg capsule Follow up as needed. Discussed COVID precautions with mask wearing/quarantine. Discussed return care or urgent/emergent care for worsening symptoms of shortness of breath. documented in this encounter [facility] Work Phone: 09-05-2022 History of Present illness Narrative William returns for follow up.had increased B12 levels. has been taking it Sat, sat, and Saturday.Ear pain: ears are still sensitive. sore ears randomly or has ear pain when wind blows. she reports the pain is bilaterally but left side is worse than right. She has been taking the nasal spray and her Claritin daily without symptom relief. She reports she has history of TMJ and grinding her teeth at night. She does wear a convict guard but only when her teeth start hurting. Not every night.No other concerns. [facility] 205 DO Work Phone: 05-09-2022 History of Present illness Narrative William returns for follow up.left ear pain: has been chronic, keeps getting ATB for ear infection but does not believe it is infected. 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 She reports that since then she has been experiencing low left sided back pain with left sided sciatica pain that radiates down into her left leg. She reports that some days the pain is excruciating. She reports that she is taking Ibuprofen/Tylenol. -[facility] 205 DO Work Phone: 11-12-2021 History of Present illness Narrative Agree with CC as documented per MA. William is a pleasant 36-year-old female here for follow-up of right third toe proximal phalanx fracture. Date of injury was approximately 1 month ago. Patient states she does still get some pain to the foot and some swelling, it does appear to be worse as the day goes on as well as in the hot and humid weather. Ibuprofen helps with her symptoms. She states it is worse with bumping it or bending her toes. She has been compliant wearing the boot for ambulatory activities, off for bathing. She has been víctor taping the second and third toes with good support. 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 -[facility] 300 Work Phone: 11-12-2021 History of Present illness Narrative Agree with CC as documented per CRISTIAN. Nicol is a pleasant 36-year-old female here to follow-up on a right toe close phalanx fracture. Date of injury was 11/12/2021. Overall symptoms are significantly improved. Patient has transitioned out of the boot and postop shoe. Patient continues to víctor tape the second and third toes with all activity. Patient states if she is doing prolonged standing for 2 to 3 hours, she does note some pain or discomfort. She uses ibuprofen on as needed basis, approximately 1-2 times daily which does help with her symptoms. She does ice and elevate on as needed basis. She has resumed normal footwear with minimal difficulties, she does do some small amount of step climbing throughout her house during her daytime with no symptom aggravation. 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 Patient feels she is ready to attempt short shifts and transition back to full duty. [facility] 300 Work Phone: 07-29-2021 History of Present illness Narrative William returns with complaints of right sided head and neck pain. She reports it started with a migraine on July 29 and she used ibuprofen and heat which usually helps with her migraines, but then developed pain on the right side of her neck that starts at the base of her skull and radiates up into her right buddhist and behind her ear. She denies any problems with her vision, or hearing. Denies any nausea/vomiting. She reports the pain is always there and reports it as a dull but sometimes intense pain. She reports she has tried Tylenol/Ibuprofen/Naproxen and heat without symptom relief. She is concerned today, as she has never had a migraine last this long. Reports her neck feels stiff on the right side as well. [facility] 205 DO Work Phone: 03-27-2021 Chief complaint Narrative - Reported An interactive audio and video telecommunication system which permits real time communications between the patient (at the originating site) and provider (at the distant site) was utilized to provide this telehealth service.Verbal consent was requested and obtained from WILLIAM SOMMER on this date, 03/27/2021 01:20 PM , for a telehealth visit.Pt presents with daughter positive for COVID; pt tested on 03/24/21, and was negative; symptoms fever, cough, headache, starting on 03/26/21. [facility] Work Phone: 03-27-2021 Chief complaint Narrative - Reported An interactive audio and video telecommunication system which permits real time communications between the patient (at the originating site) and provider (at the distant site) was utilized to provide this telehealth service.Verbal consent was requested and obtained from WILLIAM SOMMRE on this date, 03/27/2021 01:20 PM , for a telehealth visit.Pt presents with daughter positive for COVID; pt tested on 03/24/21, and was negative; symptoms fever, cough, headache, starting on 03/26/21. [facility] Work Phone: 03-24-2021 History of Present illness Narrative She presents today for evaluation of URI and COVID exposure. She is taking care of her daughter who is COVID +. She was tested 03/24 and was negative, but did not start with symptoms until 03/26. She has fever cough and headache. She denies chest pain, leg swelling or shortness of breath. [facility] Work Phone: 03-21-2007 History of Past i llness Narrative Problem Noted Date Diagnosed Date Resolved Date Headache(784.0) 03/21/2007 07/29/2015 Carpal tunnel syndrome 02/18/200707/29 Generalized anxiety disorder 02/18/2007 07/29/2015 documented as of this encounter (statuses as of 02/21/2023) [facility]09-14-2007 History of Past illness Narrative* Problem Noted Date Diagnosed Date Resolved Date Headache(784.0) 03/21/2007 07/29/2015 Carpal tunnel syndrome 02/18/200707/29 Generalized anxiety disorder 02/18/2007 07/29/2015 documented as of this encounter (statuses as of 02/27/2023) [facility]09-14-2007 History of Past illness Narrative* Problem Noted Date Diagnosed Date Resolved Date Headache(784.0) 03/21/2007 07/29/2015 Carpal tunnel syndrome 02/18/200707/29 Generalized anxiety disorder 02/18/2007 07/29/2015 documented as of this encounter (statuses as of 04/12/2023) [facility]09-14-2007 History of Past illness Narrative* Problem Noted Date Diagnosed Date Resolved Date Headache(784.0) 03/21/2007 07/29/2015 Carpal tunnel syndrome 02/18/200707/29 Generalized anxiety disorder 02/18/2007 07/29/2015 documented as of this encounter (statuses as of 06/05/2023) [facility]09-14-2007 History of Past illness Narrative* Problem Noted Date Diagnosed Date Resolved Date Headache(784.0) 03/21/2007 07/29/2015 Carpal tunnel syndrome 02/18/200707/29 Generalized anxiety disorder 02/18/2007 07/29/2015 documented as of this encounter (statuses as of 10/25/2023) [facility] note* Diagnosis Acute cough- Primary Acute non-recurrent maxillary sinusitis Upper respiratory infection with cough and congestion documented in this encounter [facility] Work Phone: Evaluation note* Diagnosis Cyst of right ovary- Primary Other and unspecified ovarian cyst documented in this encounter [facility] note* Diagnosis Cyst of right ovary Other and unspecified ovarian cyst [facility] Diagnosis Heart palpitations- Primary Palpitations Racing heart beat Unspecified tachycardia Calculus of kidney Anxiety Anxiety state, unspecified documented in this encounter [facility] Work Phone: Evaluation note* Diagnosis Encounter for gynecological examination with abnormal finding- Primary Routine gynecological examination Menorrhagia with regular cycle Excessive or frequent menstruation Dysmenorrhea Screening for cervical cancer Screening for malignant neoplasm of the cervix Encounter for screening for human papillomavirus (HPV) Special screening examination for human papillomavirus (HPV) History of cervical dysplasia Personal history of cervical dysplasia Encounter for screening mammogram for malignant neoplasm of breast Other screening mammogram [facility] Diagnosis Surveillance of previously prescribed intrauterine contraceptive device- Primary Abnormal uterine bleeding (AUB) [facility] Diagnosis Palpitations documented in this encounter [facility] Work Phone: evaluation note* Diagnosis Cough present for greater than 3 weeks- Primary Fever, unspecified fever cause documented in this encounter [facility] Work Phone: Evaluation note* Diagnosis Cough present for greater than 3 weeks Fever, unspecified fever cause documented in this encounter [facility] Work Phone: Evaluation note* Diagnosis Well adult exam- Primary Routine general medical examination at a health care facility Left ear pain Unspecified otalgia Mixed hyperlipidemia Anxiety Anxiety state, unspecified Heart palpitations Palpitations Vitamin B12 deficiency Other B-complex deficiencies Encounter for vitamin deficiency screening Current mild episode of major depressive disorder without prior episode (CMS/HCC) Class 1 obesity due to excess calories without serious comorbidity with body mass index (BMI) of 31.0 to 31.9 in adult documented in this encounter [facility] Work Phone: Evaluation note* Diagnosis Neutropenia, unspecified type (CMS/HCC) documented in this encounter [facility] Work Phone: Evaluation note* Diagnosis Encounter for screening mammogram for malignant neoplasm of breast Other screening mammogram [facility] Diagnosis Anxiety- Primary Anxiety state, unspecified Current mild episode of major depressive disorder without prior episode ([facility]) Racing heart beat Unspecified tachycardia Hot flashes Heartburn Class 1 obesity due to excess calories without serious comorbidity with body mass index (BMI) of 32.0 to 32.9 in adult Heart palpitations- Primary Palpitations Racing heart beat Unspecified tachycardia Calculus of kidney Anxiety Anxiety state, unspecified Well adult exam- Primary Routine general medical examination at a health care facility Left ear pain Unspecified otalgia Mixed hyperlipidemia Anxiety Anxiety state, unspecified Heart palpitations Palpitations Vitamin B12 deficiency Other B-complex deficiencies Encounter for vitamin deficiency screening Current mild episode of major depressive disorder without prior episode ([facility]) Class 1 obesity due to excess calories without serious comorbidity with body mass index (BMI) of 31.0 to 31.9 in adult Sprain of left knee, initial encounter- Primary Grade 2 sprain of medial collateral ligament of knee, left, subsequent encounter- Primary Sprain of left knee, initial encounter Grade 2 sprain of medial collateral ligament of knee, left, subsequent encounter- Primary Grade 2 sprain of medial collateral ligament of knee, left, subsequent encounter- Primary Acute non-recurrent maxillary sinusitis- Primary documented in this encounter [facility] Work Phone: Evaluation note* Diagnosis Acute pain of left knee- Primary documented in this encounter [facility] Work Phone: Evaluation note* Diagnosis Anxiety- Primary Anxiety state, unspecified Current mild episode of major depressive disorder without prior episode ([facility]) Racing heart beat Unspecified tachycardia Hot flashes Heartburn Class 1 obesity due to excess calories without serious comorbidity with body mass index (BMI) of 32.0 to 32.9 in adult Heart palpitations- Primary Palpitations Racing heart beat Unspecified tachycardia Calculus of kidney Anxiety Anxiety state, unspecified Well adult exam- Primary Routine general medical examination at a health care facility Left ear pain Unspecified otalgia Mixed hyperlipidemia Anxiety Anxiety state, unspecified Heart palpitations Palpitations Vitamin B12 deficiency Other B-complex deficiencies Encounter for vitamin deficiency screening Current mild episode of major depressive disorder without prior episode [place] Class 1 obesity due to excess calories without serious comorbidity with body mass index (BMI) of 31.0 to 31.9 in adult Sprain of left knee, initial encounter- Primary documented in this encounter [facility] Work Phone: Evaluation note* Diagnosis Anxiety- Primary Anxiety state, unspecified Current mild episode of major depressive disorder without prior episode ([facility]) Racing heart beat Unspecified tachycardia Hot flashes Heartburn Class 1 obesity due to excess calories without serious comorbidity with body mass index (BMI) of 32.0 to 32.9 in adult Heart palpitations- Primary Palpitations Racing heart beat Unspecified tachycardia Calculus of kidney Anxiety Anxiety state, unspecified Well adult exam- Primary Routine general medical examination at a health care facility Left ear pain Unspecified otalgia Mixed hyperlipidemia Anxiety Anxiety state, unspecified Heart palpitations Palpitations Vitamin B12 deficiency Other B-complex deficiencies Encounter for vitamin deficiency screening Current mild episode of major depressive disorder without prior episode [place] Class 1 obesity due to excess calories without serious comorbidity with body mass index (BMI) of 31.0 to 31.9 in adult Sprain of left knee, initial encounter- Primary Pancytopenia (Multi) Enlarged lymph node in neck documented in this encounter [facility] Work Phone: Evaluation note* Diagnosis Anxiety- Primary Anxiety state, unspecified Current mild episode of major depressive disorder without prior episode ([facility]) Racing heart beat Unspecified tachycardia Hot flashes Heartburn Class 1 obesity due to excess calories without serious comorbidity with body mass index (BMI) of 32.0 to 32.9 in adult Heart palpitations- Primary Palpitations Racing heart beat Unspecified tachycardia Calculus of kidney Anxiety Anxiety state, unspecified Well adult exam- Primary Routine general medical examination at a health care facility Left ear pain Unspecified otalgia Mixed hyperlipidemia Anxiety Anxiety state, unspecified Heart palpitations Palpitations Vitamin B12 deficiency Other B-complex deficiencies Encounter for vitamin deficiency screening Current mild episode of major depressive disorder without prior episode ([facility] Class 1 obesity due to excess calories without serious comorbidity with body mass index (BMI) of 31.0 to 31.9 in adult Sprain of left knee, initial encounter- Primary Sprain of left knee, initial encounter documented in this encounter [facility] Work Phone: Evaluation note* Diagnosis Anxiety- Primary Anxiety state, unspecified Current mild episode of major depressive disorder without prior episode [place] Racing heart beat Unspecified tachycardia Hot flashes Heartburn Class 1 obesity due to excess calories without serious comorbidity with body mass index (BMI) of 32.0 to 32.9 in adult Heart palpitations- Primary Palpitations Racing heart beat Unspecified tachycardia Calculus of kidney Anxiety Anxiety state, unspecified Well adult exam- Primary Routine general medical examination at a health care facility Left ear pain Unspecified otalgia Mixed hyperlipidemia Anxiety Anxiety state, unspecified Heart palpitations Palpitations Vitamin B12 deficiency Other B-complex deficiencies Encounter for vitamin deficiency screening Current mild episode of major depressive disorder without prior episode [place] Class 1 obesity due to excess calories without serious comorbidity with body mass index (BMI) of 31.0 to 31.9 in adult Sprain of left knee, initial encounter- Primary Grade 2 sprain of medial collateral ligament of knee, left, subsequent encounter- Primary Sprain of left knee, initial encounter documented in this encounter [facility] Work Phone: Evaluation note* Diagnosis Anxiety- Primary Anxiety state, unspecified Current mild episode of major depressive disorder without prior episode ([facility] Racing heart beat Unspecified tachycardia Hot flashes Heartburn Class 1 obesity due to excess calories without serious comorbidity with body mass index (BMI) of 32.0 to 32.9 in adult Heart palpitations- Primary Palpitations Racing heart beat Unspecified tachycardia Calculus of kidney Anxiety Anxiety state, unspecified Well adult exam- Primary Routine general medical examination at a health care facility Left ear pain Unspecified otalgia Mixed hyperlipidemia Anxiety Anxiety state, unspecified Heart palpitations Palpitations Vitamin B12 deficiency Other B-complex deficiencies Encounter for vitamin deficiency screening Current mild episode of major depressive disorder without prior episode [place] Class 1 obesity due to excess calories without serious comorbidity with body mass index (BMI) of 31.0 to 31.9 in adult Sprain of left knee, initial encounter- Primary Pancytopenia (Multi) Enlarged lymph node in neck Grade 2 sprain of medial collateral ligament of knee, left, subsequent encounter- Primary Sprain of left knee, initial encounter documented in this encounter [facility] Work Phone: Evaluation note* Diagnosis Anxiety- Primary Anxiety state, unspecified Current mild episode of major depressive disorder without prior episode ([facility] Racing heart beat Unspecified tachycardia Hot flashes Heartburn Class 1 obesity due to excess calories without serious comorbidity with body mass index (BMI) of 32.0 to 32.9 in adult Heart palpitations- Primary Palpitations Racing heart beat Unspecified tachycardia Calculus of kidney Anxiety Anxiety state, unspecified Well adult exam- Primary Routine general medical examination at a health care facility Left ear pain Unspecified otalgia Mixed hyperlipidemia Anxiety Anxiety state, unspecified Heart palpitations Palpitations Vitamin B12 deficiency Other B-complex deficiencies Encounter for vitamin deficiency screening Current mild episode of major depressive disorder without prior episode [place] Class 1 obesity due to excess calories without serious comorbidity with body mass index (BMI) of 31.0 to 31.9 in adult Sprain of left knee, initial encounter- Primary Grade 2 sprain of medial collateral ligament of knee, left, subsequent encounter- Primary Sprain of left knee, initial encounter Grade 2 sprain of medial collateral ligament of knee, left, subsequent encounter- Primary Grade 2 sprain of medial collateral ligament of knee, left, subsequent encounter- Primary Acute exacerbation of chronic low back pain- Primary Elevated blood pressure reading Elevated blood pressure reading without diagnosis of hypertension documented in this encounter [facility] Work Phone: Evaluation note* Diagnosis Anxiety- Primary Anxiety state, unspecified Current mild episode of major depressive disorder without prior episode ([facility] Racing heart beat Unspecified tachycardia Hot flashes Heartburn Class 1 obesity due to excess calories without serious comorbidity with body mass index (BMI) of 32.0 to 32.9 in adult Heart palpitations- Primary Palpitations Racing heart beat Unspecified tachycardia Calculus of kidney Anxiety Anxiety state, unspecified Well adult exam- Primary Routine general medical examination at a health care facility Left ear pain Unspecified otalgia Mixed hyperlipidemia Anxiety Anxiety state, unspecified Heart palpitations Palpitations Vitamin B12 deficiency Other B-complex deficiencies Encounter for vitamin deficiency screening Current mild episode of major depressive disorder without prior episode ([facility] Class 1 obesity due to excess calories without serious comorbidity with body mass index (BMI) of 31.0 to 31.9 in adult Sprain of left knee, initial encounter- Primary Grade 2 sprain of medial collateral ligament of knee, left, subsequent encounter- Primary Sprain of left knee, initial encounter Grade 2 sprain of medial collateral ligament of knee, left, subsequent encounter- Primary documented in this encounter [facility] Work Phone: Evaluation note* Diagnosis Anxiety- Primary Anxiety state, unspecified Current mild episode of major depressive disorder without prior episode [place] Racing heart beat Unspecified tachycardia Hot flashes Heartburn Class 1 obesity due to excess calories without serious comorbidity with body mass index (BMI) of 32.0 to 32.9 in adult Heart palpitations- Primary Palpitations Racing heart beat Unspecified tachycardia Calculus of kidney Anxiety Anxiety state, unspecified Well adult exam- Primary Routine general medical examination at a health care facility Left ear pain Unspecified otalgia Mixed hyperlipidemia Anxiety Anxiety state, unspecified Heart palpitations Palpitations Vitamin B12 deficiency Other B-complex deficiencies Encounter for vitamin deficiency screening Current mild episode of major depressive disorder without prior episode ([facility] Class 1 obesity due to excess calories without serious comorbidity with body mass index (BMI) of 31.0 to 31.9 in adult Sprain of left knee, initial encounter- Primary Grade 2 sprain of medial collateral ligament of knee, left, subsequent encounter- Primary Sprain of left knee, initial encounter Grade 2 sprain of medial collateral ligament of knee, left, subsequent encounter- Primary History of kidney stones documented in this encounter [facility] Work Phone: Evaluation note* Diagnosis Anxiety- Primary Anxiety state, unspecified Current mild episode of major depressive disorder without prior episode ([facility] Racing heart beat Unspecified tachycardia Hot flashes Heartburn Class 1 obesity due to excess calories without serious comorbidity with body mass index (BMI) of 32.0 to 32.9 in adult Heart palpitations- Primary Palpitations Racing heart beat Unspecified tachycardia Calculus of kidney Anxiety Anxiety state, unspecified Well adult exam- Primary Routine general medical examination at a health care facility Left ear pain Unspecified otalgia Mixed hyperlipidemia Anxiety Anxiety state, unspecified Heart palpitations Palpitations Vitamin B12 deficiency Other B-complex deficiencies Encounter for vitamin deficiency screening Current mild episode of major depressive disorder without prior episode ([facility] Class 1 obesity due to excess calories without serious comorbidity with body mass index (BMI) of 31.0 to 31.9 in adult Sprain of left knee, initial encounter- Primary Grade 2 sprain of medial collateral ligament of knee, left, subsequent encounter- Primary Sprain of left knee, initial encounter Grade 2 sprain of medial collateral ligament of knee, left, subsequent encounter- Primary History of kidney stones documented in this encounter [facility] Work Phone: Evaluation note* Diagnosis Anxiety- Primary Anxiety state, unspecified Current mild episode of major depressive disorder without prior episode ([facility] Racing heart beat Unspecified tachycardia Hot flashes Heartburn Class 1 obesity due to excess calories without serious comorbidity with body mass index (BMI) of 32.0 to 32.9 in adult Heart palpitations- Primary Palpitations Racing heart beat Unspecified tachycardia Calculus of kidney Anxiety Anxiety state, unspecified Well adult exam- Primary Routine general medical examination at a health care facility Left ear pain Unspecified otalgia Mixed hyperlipidemia Anxiety Anxiety state, unspecified Heart palpitations Palpitations Vitamin B12 deficiency Other B-complex deficiencies Encounter for vitamin deficiency screening Current mild episode of major depressive disorder without prior episode ([facility] Class 1 obesity due to excess calories without serious comorbidity with body mass index (BMI) of 31.0 to 31.9 in adult Sprain of left knee, initial encounter- Primary Grade 2 sprain of medial collateral ligament of knee, left, subsequent encounter- Primary Sprain of left knee, initial encounter Grade 2 sprain of medial collateral ligament of knee, left, subsequent encounter- Primary Grade 2 sprain of medial collateral ligament of knee, left, subsequent encounter- Primary documented in this encounter [facility] Work Phone: Evaluation note* Diagnosis Anxiety- Primary Anxiety state, unspecified Current mild episode of major depressive disorder without prior episode ([facility] Racing heart beat Unspecified tachycardia Hot flashes Heartburn Class 1 obesity due to excess calories without serious comorbidity with body mass index (BMI) of 32.0 to 32.9 in adult Heart palpitations- Primary Palpitations Racing heart beat Unspecified tachycardia Calculus of kidney Anxiety Anxiety state, unspecified Well adult exam- Primary Routine general medical examination at a health care facility Left ear pain Unspecified otalgia Mixed hyperlipidemia Anxiety Anxiety state, unspecified Heart palpitations Palpitations Vitamin B12 deficiency Other B-complex deficiencies Encounter for vitamin deficiency screening Current mild episode of major depressive disorder without prior episode ([facility] Class 1 obesity due to excess calories without serious comorbidity with body mass index (BMI) of 31.0 to 31.9 in adult Sprain of left knee, initial encounter- Primary Grade 2 sprain of medial collateral ligament of knee, left, subsequent encounter- Primary Sprain of left knee, initial encounter Grade 2 sprain of medial collateral ligament of knee, left, subsequent encounter- Primary Grade 2 sprain of medial collateral ligament of knee, left, subsequent encounter- Primary Primary hypertension- Primary Unspecified essential hypertension Acute exacerbation of chronic low back pain Fluid level behind tympanic membrane of right ear documented in this encounter [facility] Work Phone: Evaluation note* Diagnosis Anxiety- Primary Anxiety state, unspecified Current mild episode of major depressive disorder without prior episode ([facility] Racing heart beat Unspecified tachycardia Hot flashes Heartburn Class 1 obesity due to excess calories without serious comorbidity with body mass index (BMI) of 32.0 to 32.9 in adult Heart palpitations- Primary Palpitations Racing heart beat Unspecified tachycardia Calculus of kidney Anxiety Anxiety state, unspecified Well adult exam- Primary Routine general medical examination at a health care facility Left ear pain Unspecified otalgia Mixed hyperlipidemia Anxiety Anxiety state, unspecified Heart palpitations Palpitations Vitamin B12 deficiency Other B-complex deficiencies Encounter for vitamin deficiency screening Current mild episode of major depressive disorder without prior episode ([facility] Class 1 obesity due to excess calories without serious comorbidity with body mass index (BMI) of 31.0 to 31.9 in adult Sprain of left knee, initial encounter- Primary Grade 2 sprain of medial collateral ligament of knee, left, subsequent encounter- Primary Sprain of left knee, initial encounter Grade 2 sprain of medial collateral ligament of knee, left, subsequent encounter- Primary Grade 2 sprain of medial collateral ligament of knee, left, subsequent encounter- Primary Primary hypertension- Primary Unspecified essential hypertension Acute exacerbation of chronic low back pain Fluid level behind tympanic membrane of right ear Primary hypertension- Primary Unspecified essential hypertension Current mild episode of major depressive disorder without prior episode ([facility] Class 1 obesity due to excess calories without serious comorbidity with body mass index (BMI) of 34.0 to 34.9 in adult Mixed hyperlipidemia Screening for diabetes mellitus (DM) Screening for diabetes mellitus documented in this encounter [facility] Work Phone: Evaluation note* Diagnosis Anxiety- Primary Anxiety state, unspecified Current mild episode of major depressive disorder without prior episode ([facility] Racing heart beat Unspecified tachycardia Hot flashes Heartburn Class 1 obesity due to excess calories without serious comorbidity with body mass index (BMI) of 32.0 to 32.9 in adult Heart palpitations- Primary Palpitations Racing heart beat Unspecified tachycardia Calculus of kidney Anxiety Anxiety state, unspecified Well adult exam- Primary Routine general medical examination at a health care facility Left ear pain Unspecified otalgia Mixed hyperlipidemia Anxiety Anxiety state, unspecified Heart palpitations Palpitations Vitamin B12 deficiency Other B-complex deficiencies Encounter for vitamin deficiency screening Current mild episode of major depressive disorder without prior episode [place] [place] Class 1 obesity due to excess calories without serious comorbidity with body mass index (BMI) of 31.0 to 31.9 in adult Sprain of left knee, initial encounter- Primary Grade 2 sprain of medial collateral ligament of knee, left, subsequent encounter- Primary Sprain of left knee, initial encounter Grade 2 sprain of medial collateral ligament of knee, left, subsequent encounter- Primary Grade 2 sprain of medial collateral ligament of knee, left, subsequent encounter- Primary Primary hypertension- Primary Unspecified essential hypertension Acute exacerbation of chronic low back pain Fluid level behind tympanic membrane of right ear Primary hypertension- Primary Unspecified essential hypertension Current mild episode of major depressive disorder without prior episode [place] [place] Class 1 obesity due to excess calories without serious comorbidity with body mass index (BMI) of 34.0 to 34.9 in adult Mixed hyperlipidemia Screening for diabetes mellitus (DM) Screening for diabetes mellitus Well adult exam- Primary Routine general medical examination at a health care facility Acute exacerbation of chronic low back pain Numbness and tingling of both lower extremities Chronic pain of left knee Heartburn Class 1 obesity due to excess calories without serious comorbidity with body mass index (BMI) of 34.0 to 34.9 in adult documented in this encounter [facility] Work Phone: Evaluation note* Diagnosis Numbness and tingling of both lower extremities- [facility] Diagnosis Anxiety- Primary Anxiety state, unspecified Current mild episode of major depressive disorder without prior episode ([facility]) Racing heart beat Unspecified tachycardia Hot flashes Heartburn Class 1 obesity due to excess calories without serious comorbidity with body mass index (BMI) of 32.0 to 32.9 in adult Heart palpitations- Primary Palpitations Racing heart beat Unspecified tachycardia Calculus of kidney Anxiety Anxiety state, unspecified Well adult exam- Primary Routine general medical examination at a health care facility Left ear pain Unspecified otalgia Mixed hyperlipidemia Anxiety Anxiety state, unspecified Heart palpitations Palpitations Vitamin B12 deficiency Other B-complex deficiencies Encounter for vitamin deficiency screening Current mild episode of major depressive disorder without prior episode ([facility]) Class 1 obesity due to excess calories without serious comorbidity with body mass index (BMI) of 31.0 to 31.9 in adult Sprain of left knee, initial encounter- Primary Grade 2 sprain of medial collateral ligament of knee, left, subsequent encounter- Primary Sprain of left knee, initial encounter Grade 2 sprain of medial collateral ligament of knee, left, subsequent encounter- Primary Grade 2 sprain of medial collateral ligament of knee, left, subsequent encounter- Primary Primary hypertension- Primary Unspecified essential hypertension Acute exacerbation of chronic low back pain Fluid level behind tympanic membrane of right ear Primary hypertension- Primary Unspecified essential hypertension Current mild episode of major depressive disorder without prior episode ([facility]) Class 1 obesity due to excess calories without serious comorbidity with body mass index (BMI) of 34.0 to 34.9 in adult Mixed hyperlipidemia Screening for diabetes mellitus (DM) Screening for diabetes mellitus Well adult exam- Primary Routine general medical examination at a health care facility Acute exacerbation of chronic low back pain Numbness and tingling of both lower extremities Chronic pain of left knee Heartburn Class 1 obesity due to excess calories without serious comorbidity with body mass index (BMI) of 34.0 to 34.9 in adult Chronic pain of left knee documented in this encounter [facility] Work Phone: Evaluation note* Diagnosis Numbness- Primary Disturbance of skin sensation [facility] Diagnosis Anxiety- Primary Anxiety state, unspecified Current mild episode of major depressive disorder without prior episode Racing heart beat Unspecified tachycardia Hot flashes Heartburn Class 1 obesity due to excess calories without serious comorbidity with body mass index (BMI) of 32.0 to 32.9 in adult Heart palpitations- Primary Palpitations Racing heart beat Unspecified tachycardia Calculus of kidney Anxiety Anxiety state, unspecified Well adult exam- Primary Routine general medical examination at a health care facility Left ear pain Unspecified otalgia Mixed hyperlipidemia Anxiety Anxiety state, unspecified Heart palpitations Palpitations Vitamin B12 deficiency Other B-complex deficiencies Encounter for vitamin deficiency screening Current mild episode of major depressive disorder without prior episode Class 1 obesity due to excess calories without serious comorbidity with body mass index (BMI) of 31.0 to 31.9 in adult Sprain of left knee, initial encounter- Primary Grade 2 sprain of medial collateral ligament of knee, left, subsequent encounter- Primary Sprain of left knee, initial encounter Grade 2 sprain of medial collateral ligament of knee, left, subsequent encounter- Primary Grade 2 sprain of medial collateral ligament of knee, left, subsequent encounter- Primary Primary hypertension- Primary Unspecified essential hypertension Acute exacerbation of chronic low back pain Fluid level behind tympanic membrane of right ear Primary hypertension- Primary Unspecified essential hypertension Current mild episode of major depressive disorder without prior episode Class 1 obesity due to excess calories without serious comorbidity with body mass index (BMI) of 34.0 to 34.9 in adult Mixed hyperlipidemia Screening for diabetes mellitus (DM) Screening for diabetes mellitus Well adult exam- Primary Routine general medical examination at a health care facility Acute exacerbation of chronic low back pain Numbness and tingling of both lower extremities Chronic pain of left knee Heartburn Class 1 obesity due to excess calories without serious comorbidity with body mass index (BMI) of 34.0 to 34.9 in adult Paresthesia- Primary Disturbance of skin sensation Pressure in head Chest pain, unspecified type Dyspnea, unspecified type documented in this encounter [facility] Work Phone: Evaluation note* Diagnosis Encounter for gynecological examination with abnormal finding- Primary Routine gynecological examination Encounter for screening mammogram for breast cancer Irregular bleeding Irregular menstrual cycle Pelvic pain in female Unspecified symptom associated with female genital organs Dyspareunia in female Encounter for IUD removal Encounter for removal of intrauterine contraceptive device Cervical cancer screening Screening for malignant neoplasm of the cervix Special screening examination for human papillomavirus (HPV) Chronic left-sided low back pain, unspecified whether sciatica present Vaginal discharge Leukorrhea, not specified as infective [facility] Irregular bleeding Irregular menstrual cycle Pelvic pain in female Unspecified symptom associated with female genital organs Dyspareunia in female Chronic left-sided low back pain, unspecified whether sciatica present [facility] Diagnosis Anxiety- Primary Anxiety state, unspecified Current mild episode of major depressive disorder without prior episode Racing heart beat Unspecified tachycardia Hot flashes Heartburn Class 1 obesity due to excess calories without serious comorbidity with body mass index (BMI) of 32.0 to 32.9 in adult Heart palpitations- Primary Palpitations Racing heart beat Unspecified tachycardia Calculus of kidney Anxiety Anxiety state, unspecified Well adult exam- Primary Routine general medical examination at a health care facility Left ear pain Unspecified otalgia Mixed hyperlipidemia Anxiety Anxiety state, unspecified Heart palpitations Palpitations Vitamin B12 deficiency Other B-complex deficiencies Encounter for vitamin deficiency screening Current mild episode of major depressive disorder without prior episode Class 1 obesity due to excess calories without serious comorbidity with body mass index (BMI) of 31.0 to 31.9 in adult Grade 2 sprain of medial collateral ligament of knee, left, subsequent encounter- Primary Sprain of left knee, initial encounter Grade 2 sprain of medial collateral ligament of knee, left, subsequent encounter- Primary Grade 2 sprain of medial collateral ligament of knee, left, subsequent encounter- Primary Primary hypertension- Primary Unspecified essential hypertension Acute exacerbation of chronic low back pain Fluid level behind tympanic membrane of right ear Primary hypertension- Primary Unspecified essential hypertension Current mild episode of major depressive disorder without prior episode Class 1 obesity due to excess calories without serious comorbidity with body mass index (BMI) of 34.0 to 34.9 in adult Mixed hyperlipidemia Screening for diabetes mellitus (DM) Screening for diabetes mellitus Well adult exam- Primary Routine general medical examination at a health care facility Acute exacerbation of chronic low back pain Numbness and tingling of both lower extremities Chronic pain of left knee Heartburn Class 1 obesity due to excess calories without serious comorbidity with body mass index (BMI) of 34.0 to 34.9 in adult Primary hypertension- Primary Unspecified essential hypertension Chest pain, unspecified type Abnormal EKG Nonspecific abnormal electrocardiogram (ECG) (EKG) Anxiety Anxiety state, unspecified Hypersomnolence Hypersomnia, unspecified Snoring Other dyspnea and respiratory abnormality Current mild episode of major depressive disorder without prior episode Paresthesia Disturbance of skin sensation Pressure in head Dyspnea, unspecified type Screening, ischemic heart disease Screening for ischemic heart disease Class 1 obesity due to excess calories without serious comorbidity with body mass index (BMI) of 34.0 to 34.9 in adult documented in this encounter [facility] Work Phone: Evaluation note* Diagnosis Anxiety- Primary Anxiety state, unspecified Current mild episode of major depressive disorder without prior episode Racing heart beat Unspecified tachycardia Hot flashes Heartburn Class 1 obesity due to excess calories without serious comorbidity with body mass index (BMI) of 32.0 to 32.9 in adult Heart palpitations- Primary Palpitations Racing heart beat Unspecified tachycardia Calculus of kidney Anxiety Anxiety state, unspecified Well adult exam- Primary Routine general medical examination at a health care facility Left ear pain Unspecified otalgia Mixed hyperlipidemia Anxiety Anxiety state, unspecified Heart palpitations Palpitations Vitamin B12 deficiency Other B-complex deficiencies Encounter for vitamin deficiency screening Current mild episode of major depressive disorder without prior episode Class 1 obesity due to excess calories without serious comorbidity with body mass index (BMI) of 31.0 to 31.9 in adult Grade 2 sprain of medial collateral ligament of knee, left, subsequent encounter- Primary Sprain of left knee, initial encounter Grade 2 sprain of medial collateral ligament of knee, left, subsequent encounter- Primary Grade 2 sprain of medial collateral ligament of knee, left, subsequent encounter- Primary Primary hypertension- Primary Unspecified essential hypertension Acute exacerbation of chronic low back pain Fluid level behind tympanic membrane of right ear Primary hypertension- Primary Unspecified essential hypertension Current mild episode of major depressive disorder without prior episode Class 1 obesity due to excess calories without serious comorbidity with body mass index (BMI) of 34.0 to 34.9 in adult Mixed hyperlipidemia Screening for diabetes mellitus (DM) Screening for diabetes mellitus Well adult exam- Primary Routine general medical examination at a health care facility Acute exacerbation of chronic low back pain Numbness and tingling of both lower extremities Chronic pain of left knee Heartburn Class 1 obesity due to excess calories without serious comorbidity with body mass index (BMI) of 34.0 to 34.9 in adult Primary hypertension- Primary Unspecified essential hypertension Chest pain, unspecified type Abnormal EKG Nonspecific abnormal electrocardiogram (ECG) (EKG) Anxiety Anxiety state, unspecified Hypersomnolence Hypersomnia, unspecified Snoring Other dyspnea and respiratory abnormality Current mild episode of major depressive disorder without prior episode Paresthesia Disturbance of skin sensation Pressure in head Dyspnea, unspecified type Screening, ischemic heart disease Screening for ischemic heart disease Class 1 obesity due to excess calories without serious comorbidity with body mass index (BMI) of 34.0 to 34.9 in adult Abnormal EKG Nonspecific abnormal electrocardiogram (ECG) (EKG) Racing heart beat Unspecified tachycardia Heart palpitations Palpitations documented in this encounter [facility] Work Phone: Evaluation note* Diagnosis Encounter for screening mammogram for breast cancer [facility] Anxiety- Primary Anxiety state, unspecified Current mild episode of major depressive disorder without prior episode Racing heart beat Unspecified tachycardia Hot flashes Heartburn Class 1 obesity due to excess calories without serious comorbidity with body mass index (BMI) of 32.0 to 32.9 in adult Heart palpitations- Primary Palpitations Racing heart beat Unspecified tachycardia Calculus of kidney Anxiety Anxiety state, unspecified Well adult exam- Primary Routine general medical examination at a health care facility Left ear pain Unspecified otalgia Mixed hyperlipidemia Anxiety Anxiety state, unspecified Heart palpitations Palpitations Vitamin B12 deficiency Other B-complex deficiencies Encounter for vitamin deficiency screening Current mild episode of major depressive disorder without prior episode Class 1 obesity due to excess calories without serious comorbidity with body mass index (BMI) of 31.0 to 31.9 in adult Grade 2 sprain of medial collateral ligament of knee, left, subsequent encounter- Primary Sprain of left knee, initial encounter Grade 2 sprain of medial collateral ligament of knee, left, subsequent encounter- Primary Grade 2 sprain of medial collateral ligament of knee, left, subsequent encounter- Primary Primary hypertension- Primary Unspecified essential hypertension Acute exacerbation of chronic low back pain Fluid level behind tympanic membrane of right ear Primary hypertension- Primary Unspecified essential hypertension Current mild episode of major depressive disorder without prior episode Class 1 obesity due to excess calories without serious comorbidity with body mass index (BMI) of 34.0 to 34.9 in adult Mixed hyperlipidemia Screening for diabetes mellitus (DM) Screening for diabetes mellitus Well adult exam- Primary Routine general medical examination at a health care facility Acute exacerbation of chronic low back pain Numbness and tingling of both lower extremities Chronic pain of left knee Heartburn Class 1 obesity due to excess calories without serious comorbidity with body mass index (BMI) of 34.0 to 34.9 in adult Primary hypertension- Primary Unspecified essential hypertension Chest pain, unspecified type Abnormal EKG Nonspecific abnormal electrocardiogram (ECG) (EKG) Anxiety Anxiety state, unspecified Hypersomnolence Hypersomnia, unspecified Snoring Other dyspnea and respiratory abnormality Current mild episode of major depressive disorder without prior episode Paresthesia Disturbance of skin sensation Pressure in head Dyspnea, unspecified type Screening, ischemic heart disease Screening for ischemic heart disease Class 1 obesity due to excess calories without serious comorbidity with body mass index (BMI) of 34.0 to 34.9 in adult Heart palpitations Palpitations documented in this encounter [facility] Work Phone: Evaluation note* Diagnosis Anxiety- Primary Anxiety state, unspecified Current mild episode of major depressive disorder without prior episode Racing heart beat Unspecified tachycardia Hot flashes Heartburn Class 1 obesity due to excess calories without serious comorbidity with body mass index (BMI) of 32.0 to 32.9 in adult Heart palpitations- Primary Palpitations Racing heart beat Unspecified tachycardia Calculus of kidney Anxiety Anxiety state, unspecified Well adult exam- Primary Routine general medical examination at a health care facility Left ear pain Unspecified otalgia Mixed hyperlipidemia Anxiety Anxiety state, unspecified Heart palpitations Palpitations Vitamin B12 deficiency Other B-complex deficiencies Encounter for vitamin deficiency screening Current mild episode of major depressive disorder without prior episode Class 1 obesity due to excess calories without serious comorbidity with body mass index (BMI) of 31.0 to 31.9 in adult Grade 2 sprain of medial collateral ligament of knee, left, subsequent encounter- Primary Sprain of left knee, initial encounter Grade 2 sprain of medial collateral ligament of knee, left, subsequent encounter- Primary Grade 2 sprain of medial collateral ligament of knee, left, subsequent encounter- Primary Primary hypertension- Primary Unspecified essential hypertension Acute exacerbation of chronic low back pain Fluid level behind tympanic membrane of right ear Primary hypertension- Primary Unspecified essential hypertension Current mild episode of major depressive disorder without prior episode Class 1 obesity due to excess calories without serious comorbidity with body mass index (BMI) of 34.0 to 34.9 in adult Mixed hyperlipidemia Screening for diabetes mellitus (DM) Screening for diabetes mellitus Well adult exam- Primary Routine general medical examination at a health care facility Acute exacerbation of chronic low back pain Numbness and tingling of both lower extremities Chronic pain of left knee Heartburn Class 1 obesity due to excess calories without serious comorbidity with body mass index (BMI) of 34.0 to 34.9 in adult Primary hypertension- Primary Unspecified essential hypertension Chest pain, unspecified type Abnormal EKG Nonspecific abnormal electrocardiogram (ECG) (EKG) Anxiety Anxiety state, unspecified Hypersomnolence Hypersomnia, unspecified Snoring Other dyspnea and respiratory abnormality Current mild episode of major depressive disorder without prior episode Paresthesia Disturbance of skin sensation Pressure in head Dyspnea, unspecified type Screening, ischemic heart disease Screening for ischemic heart disease Class 1 obesity due to excess calories without serious comorbidity with body mass index (BMI) of 34.0 to 34.9 in adult Moderate right ankle sprain, initial encounter- Primary Acute right ankle pain Johansen's cyst of knee, left Grade 2 sprain of medial collateral ligament of knee, left, subsequent encounter documented in this encounter [facility] Work Phone: Evaluation note* Diagnosis Anxiety- Primary Anxiety state, unspecified Current mild episode of major depressive disorder without prior episode Racing heart beat Unspecified tachycardia Hot flashes Heartburn Class 1 obesity due to excess calories without serious comorbidity with body mass index (BMI) of 32.0 to 32.9 in adult Heart palpitations- Primary Palpitations Racing heart beat Unspecified tachycardia Calculus of kidney Anxiety Anxiety state, unspecified Well adult exam- Primary Routine general medical examination at a health care facility Left ear pain Unspecified otalgia Mixed hyperlipidemia Anxiety Anxiety state, unspecified Heart palpitations Palpitations Vitamin B12 deficiency Other B-complex deficiencies Encounter for vitamin deficiency screening Current mild episode of major depressive disorder without prior episode Class 1 obesity due to excess calories without serious comorbidity with body mass index (BMI) of 31.0 to 31.9 in adult Grade 2 sprain of medial collateral ligament of knee, left, subsequent encounter- Primary Sprain of left knee, initial encounter Grade 2 sprain of medial collateral ligament of knee, left, subsequent encounter- Primary Grade 2 sprain of medial collateral ligament of knee, left, subsequent encounter- Primary Primary hypertension- Primary Unspecified essential hypertension Acute exacerbation of chronic low back pain Fluid level behind tympanic membrane of right ear Primary hypertension- Primary Unspecified essential hypertension Current mild episode of major depressive disorder without prior episode Class 1 obesity due to excess calories without serious comorbidity with body mass index (BMI) of 34.0 to 34.9 in adult Mixed hyperlipidemia Screening for diabetes mellitus (DM) Screening for diabetes mellitus Well adult exam- Primary Routine general medical examination at a health care facility Acute exacerbation of chronic low back pain Numbness and tingling of both lower extremities Chronic pain of left knee Heartburn Class 1 obesity due to excess calories without serious comorbidity with body mass index (BMI) of 34.0 to 34.9 in adult Primary hypertension- Primary Unspecified essential hypertension Chest pain, unspecified type Abnormal EKG Nonspecific abnormal electrocardiogram (ECG) (EKG) Anxiety Anxiety state, unspecified Hypersomnolence Hypersomnia, unspecified Snoring Other dyspnea and respiratory abnormality Current mild episode of major depressive disorder without prior episode Paresthesia Disturbance of skin sensation Pressure in head Dyspnea, unspecified type Screening, ischemic heart disease Screening for ischemic heart disease Class 1 obesity due to excess calories without serious comorbidity with body mass index (BMI) of 34.0 to 34.9 in adult Acute right ankle pain documented in this encounter [facility] Work Phone: Evaluation note* Diagnosis Anxiety- Primary Anxiety state, unspecified Current mild episode of major depressive disorder without prior episode Racing heart beat Unspecified tachycardia Hot flashes Heartburn Class 1 obesity due to excess calories without serious comorbidity with body mass index (BMI) of 32.0 to 32.9 in adult Heart palpitations- Primary Palpitations Racing heart beat Unspecified tachycardia Calculus of kidney Anxiety Anxiety state, unspecified Well adult exam- Primary Routine general medical examination at a health care facility Left ear pain Unspecified otalgia Mixed hyperlipidemia Anxiety Anxiety state, unspecified Heart palpitations Palpitations Vitamin B12 deficiency Other B-complex deficiencies Encounter for vitamin deficiency screening Current mild episode of major depressive disorder without prior episode Class 1 obesity due to excess calories without serious comorbidity with body mass index (BMI) of 31.0 to 31.9 in adult Grade 2 sprain of medial collateral ligament of knee, left, subsequent encounter- Primary Sprain of left knee, initial encounter Grade 2 sprain of medial collateral ligament of knee, left, subsequent encounter- Primary Grade 2 sprain of medial collateral ligament of knee, left, subsequent encounter- Primary Primary hypertension- Primary Unspecified essential hypertension Acute exacerbation of chronic low back pain Fluid level behind tympanic membrane of right ear Primary hypertension- Primary Unspecified essential hypertension Current mild episode of major depressive disorder without prior episode Class 1 obesity due to excess calories without serious comorbidity with body mass index (BMI) of 34.0 to 34.9 in adult Mixed hyperlipidemia Screening for diabetes mellitus (DM) Screening for diabetes mellitus Well adult exam- Primary Routine general medical examination at a health care facility Acute exacerbation of chronic low back pain Numbness and tingling of both lower extremities Chronic pain of left knee Heartburn Class 1 obesity due to excess calories without serious comorbidity with body mass index (BMI) of 34.0 to 34.9 in adult Primary hypertension- Primary Unspecified essential hypertension Chest pain, unspecified type Abnormal EKG Nonspecific abnormal electrocardiogram (ECG) (EKG) Anxiety Anxiety state, unspecified Hypersomnolence Hypersomnia, unspecified Snoring Other dyspnea and respiratory abnormality Current mild episode of major depressive disorder without prior episode Paresthesia Disturbance of skin sensation Pressure in head Dyspnea, unspecified type Screening, ischemic heart disease Screening for ischemic heart disease Class 1 obesity due to excess calories without serious comorbidity with body mass index (BMI) of 34.0 to 34.9 in adult Screening, ischemic heart disease Screening for ischemic heart disease documented in this encounter [facility] Work Phone: Evaluation note* Diagnosis Anxiety- Primary Anxiety state, unspecified Current mild episode of major depressive disorder without prior episode Racing heart beat Unspecified tachycardia Hot flashes Heartburn Class 1 obesity due to excess calories without serious comorbidity with body mass index (BMI) of 32.0 to 32.9 in adult Heart palpitations- Primary Palpitations Racing heart beat Unspecified tachycardia Calculus of kidney Anxiety Anxiety state, unspecified Well adult exam- Primary Routine general medical examination at a health care facility Left ear pain Unspecified otalgia Mixed hyperlipidemia Anxiety Anxiety state, unspecified Heart palpitations Palpitations Vitamin B12 deficiency Other B-complex deficiencies Encounter for vitamin deficiency screening Current mild episode of major depressive disorder without prior episode Class 1 obesity due to excess calories without serious comorbidity with body mass index (BMI) of 31.0 to 31.9 in adult Grade 2 sprain of medial collateral ligament of knee, left, subsequent encounter- Primary Sprain of left knee, initial encounter Grade 2 sprain of medial collateral ligament of knee, left, subsequent encounter- Primary Grade 2 sprain of medial collateral ligament of knee, left, subsequent encounter- Primary Primary hypertension- Primary Unspecified essential hypertension Acute exacerbation of chronic low back pain Fluid level behind tympanic membrane of right ear Primary hypertension- Primary Unspecified essential hypertension Current mild episode of major depressive disorder without prior episode Class 1 obesity due to excess calories without serious comorbidity with body mass index (BMI) of 34.0 to 34.9 in adult Mixed hyperlipidemia Screening for diabetes mellitus (DM) Screening for diabetes mellitus Well adult exam- Primary Routine general medical examination at a health care facility Acute exacerbation of chronic low back pain Numbness and tingling of both lower extremities Chronic pain of left knee Heartburn Class 1 obesity due to excess calories without serious comorbidity with body mass index (BMI) of 34.0 to 34.9 in adult Primary hypertension- Primary Unspecified essential hypertension Chest pain, unspecified type Abnormal EKG Nonspecific abnormal electrocardiogram (ECG) (EKG) Anxiety Anxiety state, unspecified Hypersomnolence Hypersomnia, unspecified Snoring Other dyspnea and respiratory abnormality Current mild episode of major depressive disorder without prior episode Paresthesia Disturbance of skin sensation Pressure in head Dyspnea, unspecified type Screening, ischemic heart disease Screening for ischemic heart disease Class 1 obesity due to excess calories without serious comorbidity with body mass index (BMI) of 34.0 to 34.9 in adult Anxiety- Primary Anxiety state, unspecified Lump of skin of back Primary hypertension Unspecified essential hypertension Moderate right ankle sprain, subsequent encounter- Primary documented in this encounter [facility] Work Phone: Evaluation note* Diagnosis Anxiety- Primary Anxiety state, unspecified Current mild episode of major depressive disorder without prior episode Racing heart beat Unspecified tachycardia Hot flashes Heartburn Class 1 obesity due to excess calories without serious comorbidity with body mass index (BMI) of 32.0 to 32.9 in adult Heart palpitations- Primary Palpitations Racing heart beat Unspecified tachycardia Calculus of kidney Anxiety Anxiety state, unspecified Well adult exam- Primary Routine general medical examination at a health care facility Left ear pain Unspecified otalgia Mixed hyperlipidemia Anxiety Anxiety state, unspecified Heart palpitations Palpitations Vitamin B12 deficiency Other B-complex deficiencies Encounter for vitamin deficiency screening Current mild episode of major depressive disorder without prior episode Class 1 obesity due to excess calories without serious comorbidity with body mass index (BMI) of 31.0 to 31.9 in adult Grade 2 sprain of medial collateral ligament of knee, left, subsequent encounter- Primary Sprain of left knee, initial encounter Grade 2 sprain of medial collateral ligament of knee, left, subsequent encounter- Primary Grade 2 sprain of medial collateral ligament of knee, left, subsequent encounter- Primary Primary hypertension- Primary Unspecified essential hypertension Acute exacerbation of chronic low back pain Fluid level behind tympanic membrane of right ear Primary hypertension- Primary Unspecified essential hypertension Current mild episode of major depressive disorder without prior episode Class 1 obesity due to excess calories without serious comorbidity with body mass index (BMI) of 34.0 to 34.9 in adult Mixed hyperlipidemia Screening for diabetes mellitus (DM) Screening for diabetes mellitus Well adult exam- Primary Routine general medical examination at a health care facility Acute exacerbation of chronic low back pain Numbness and tingling of both lower extremities Chronic pain of left knee Heartburn Class 1 obesity due to excess calories without serious comorbidity with body mass index (BMI) of 34.0 to 34.9 in adult Primary hypertension- Primary Unspecified essential hypertension Chest pain, unspecified type Abnormal EKG Nonspecific abnormal electrocardiogram (ECG) (EKG) Anxiety Anxiety state, unspecified Hypersomnolence Hypersomnia, unspecified Snoring Other dyspnea and respiratory abnormality Current mild episode of major depressive disorder without prior episode Paresthesia Disturbance of skin sensation Pressure in head Dyspnea, unspecified type Screening, ischemic heart disease Screening for ischemic heart disease Class 1 obesity due to excess calories without serious comorbidity with body mass index (BMI) of 34.0 to 34.9 in adult Anxiety- Primary Anxiety state, unspecified Lump of skin of back Primary hypertension Unspecified essential hypertension Lump of skin of back Moderate right ankle sprain, subsequent encounter- Primary documented in this encounter [facility] Work Phone: Evaluation note* Diagnosis Anxiety- Primary Anxiety state, unspecified Current mild episode of major depressive disorder without prior episode Racing heart beat Unspecified tachycardia Hot flashes Heartburn Class 1 obesity due to excess calories without serious comorbidity with body mass index (BMI) of 32.0 to 32.9 in adult Heart palpitations- Primary Palpitations Racing heart beat Unspecified tachycardia Calculus of kidney Anxiety Anxiety state, unspecified Well adult exam- Primary Routine general medical examination at a health care facility Left ear pain Unspecified otalgia Mixed hyperlipidemia Anxiety Anxiety state, unspecified Heart palpitations Palpitations Vitamin B12 deficiency Other B-complex deficiencies Encounter for vitamin deficiency screening Current mild episode of major depressive disorder without prior episode Class 1 obesity due to excess calories without serious comorbidity with body mass index (BMI) of 31.0 to 31.9 in adult Grade 2 sprain of medial collateral ligament of knee, left, subsequent encounter- Primary Sprain of left knee, initial encounter Grade 2 sprain of medial collateral ligament of knee, left, subsequent encounter- Primary Grade 2 sprain of medial collateral ligament of knee, left, subsequent encounter- Primary Primary hypertension- Primary Unspecified essential hypertension Acute exacerbation of chronic low back pain Fluid level behind tympanic membrane of right ear Primary hypertension- Primary Unspecified essential hypertension Current mild episode of major depressive disorder without prior episode Class 1 obesity due to excess calories without serious comorbidity with body mass index (BMI) of 34.0 to 34.9 in adult Mixed hyperlipidemia Screening for diabetes mellitus (DM) Screening for diabetes mellitus Well adult exam- Primary Routine general medical examination at a health care facility Acute exacerbation of chronic low back pain Numbness and tingling of both lower extremities Chronic pain of left knee Heartburn Class 1 obesity due to excess calories without serious comorbidity with body mass index (BMI) of 34.0 to 34.9 in adult Primary hypertension- Primary Unspecified essential hypertension Chest pain, unspecified type Abnormal EKG Nonspecific abnormal electrocardiogram (ECG) (EKG) Anxiety Anxiety state, unspecified Hypersomnolence Hypersomnia, unspecified Snoring Other dyspnea and respiratory abnormality Current mild episode of major depressive disorder without prior episode Paresthesia Disturbance of skin sensation Pressure in head Dyspnea, unspecified type Screening, ischemic heart disease Screening for ischemic heart disease Class 1 obesity due to excess calories without serious comorbidity with body mass index (BMI) of 34.0 to 34.9 in adult Anxiety- Primary Anxiety state, unspecified Lump of skin of back Primary hypertension Unspecified essential hypertension Moderate right ankle sprain, subsequent encounter- Primary documented in this encounter [facility] Work Phone: Evaluation note* Diagnosis Anxiety- Primary Anxiety state, unspecified Current mild episode of major depressive disorder without prior episode Racing heart beat Unspecified tachycardia Hot flashes Heartburn Class 1 obesity due to excess calories without serious comorbidity with body mass index (BMI) of 32.0 to 32.9 in adult Heart palpitations- Primary Palpitations Racing heart beat Unspecified tachycardia Calculus of kidney Anxiety Anxiety state, unspecified Well adult exam- Primary Routine general medical examination at a health care facility Left ear pain Unspecified otalgia Mixed hyperlipidemia Anxiety Anxiety state, unspecified Heart palpitations Palpitations Vitamin B12 deficiency Other B-complex deficiencies Encounter for vitamin deficiency screening Current mild episode of major depressive disorder without prior episode Class 1 obesity due to excess calories without serious comorbidity with body mass index (BMI) of 31.0 to 31.9 in adult Grade 2 sprain of medial collateral ligament of knee, left, subsequent encounter- Primary Sprain of left knee, initial encounter Grade 2 sprain of medial collateral ligament of knee, left, subsequent encounter- Primary Grade 2 sprain of medial collateral ligament of knee, left, subsequent encounter- Primary Primary hypertension- Primary Unspecified essential hypertension Acute exacerbation of chronic low back pain Fluid level behind tympanic membrane of right ear Primary hypertension- Primary Unspecified essential hypertension Current mild episode of major depressive disorder without prior episode Class 1 obesity due to excess calories without serious comorbidity with body mass index (BMI) of 34.0 to 34.9 in adult Mixed hyperlipidemia Screening for diabetes mellitus (DM) Screening for diabetes mellitus Well adult exam- Primary Routine general medical examination at a health care facility Acute exacerbation of chronic low back pain Numbness and tingling of both lower extremities Chronic pain of left knee Heartburn Class 1 obesity due to excess calories without serious comorbidity with body mass index (BMI) of 34.0 to 34.9 in adult Primary hypertension- Primary Unspecified essential hypertension Chest pain, unspecified type Abnormal EKG Nonspecific abnormal electrocardiogram (ECG) (EKG) Anxiety Anxiety state, unspecified Hypersomnolence Hypersomnia, unspecified Snoring Other dyspnea and respiratory abnormality Current mild episode of major depressive disorder without prior episode Paresthesia Disturbance of skin sensation Pressure in head Dyspnea, unspecified type Screening, ischemic heart disease Screening for ischemic heart disease Class 1 obesity due to excess calories without serious comorbidity with body mass index (BMI) of 34.0 to 34.9 in adult Anxiety- Primary Anxiety state, unspecified Lump of skin of back Primary hypertension Unspecified essential hypertension Moderate right ankle sprain, subsequent encounter- Primary Grade 2 sprain of medial collateral ligament of knee, left, subsequent encounter Avulsion fracture of medial malleolus, right, closed, initial encounter documented in this encounter [facility] Work Phone: Evaluation note* Diagnosis Anxiety- Primary Anxiety state, unspecified Current mild episode of major depressive disorder without prior episode Racing heart beat Unspecified tachycardia Hot flashes Heartburn Class 1 obesity due to excess calories without serious comorbidity with body mass index (BMI) of 32.0 to 32.9 in adult Heart palpitations- Primary Palpitations Racing heart beat Unspecified tachycardia Calculus of kidney Anxiety Anxiety state, unspecified Well adult exam- Primary Routine general medical examination at a health care facility Left ear pain Unspecified otalgia Mixed hyperlipidemia Anxiety Anxiety state, unspecified Heart palpitations Palpitations Vitamin B12 deficiency Other B-complex deficiencies Encounter for vitamin deficiency screening Current mild episode of major depressive disorder without prior episode Class 1 obesity due to excess calories without serious comorbidity with body mass index (BMI) of 31.0 to 31.9 in adult Grade 2 sprain of medial collateral ligament of knee, left, subsequent encounter- Primary Sprain of left knee, initial encounter Grade 2 sprain of medial collateral ligament of knee, left, subsequent encounter- Primary Grade 2 sprain of medial collateral ligament of knee, left, subsequent encounter- Primary Primary hypertension- Primary Unspecified essential hypertension Acute exacerbation of chronic low back pain Fluid level behind tympanic membrane of right ear Primary hypertension- Primary Unspecified essential hypertension Current mild episode of major depressive disorder without prior episode Class 1 obesity due to excess calories without serious comorbidity with body mass index (BMI) of 34.0 to 34.9 in adult Mixed hyperlipidemia Screening for diabetes mellitus (DM) Screening for diabetes mellitus Well adult exam- Primary Routine general medical examination at a health care facility Acute exacerbation of chronic low back pain Numbness and tingling of both lower extremities Chronic pain of left knee Heartburn Class 1 obesity due to excess calories without serious comorbidity with body mass index (BMI) of 34.0 to 34.9 in adult Primary hypertension- Primary Unspecified essential hypertension Chest pain, unspecified type Abnormal EKG Nonspecific abnormal electrocardiogram (ECG) (EKG) Anxiety Anxiety state, unspecified Hypersomnolence Hypersomnia, unspecified Snoring Other dyspnea and respiratory abnormality Current mild episode of major depressive disorder without prior episode Paresthesia Disturbance of skin sensation Pressure in head Dyspnea, unspecified type Screening, ischemic heart disease Screening for ischemic heart disease Class 1 obesity due to excess calories without serious comorbidity with body mass index (BMI) of 34.0 to 34.9 in adult Anxiety- Primary Anxiety state, unspecified Lump of skin of back Primary hypertension Unspecified essential hypertension Moderate right ankle sprain, initial encounter documented in this encounter [facility] Work Phone: Evaluation note* Diagnosis Anxiety- Primary Anxiety state, unspecified Current mild episode of major depressive disorder without prior episode Racing heart beat Unspecified tachycardia Hot flashes Heartburn Class 1 obesity due to excess calories without serious comorbidity with body mass index (BMI) of 32.0 to 32.9 in adult Heart palpitations- Primary Palpitations Racing heart beat Unspecified tachycardia Calculus of kidney Anxiety Anxiety state, unspecified Well adult exam- Primary Routine general medical examination at a health care facility Left ear pain Unspecified otalgia Mixed hyperlipidemia Anxiety Anxiety state, unspecified Heart palpitations Palpitations Vitamin B12 deficiency Other B-complex deficiencies Encounter for vitamin deficiency screening Current mild episode of major depressive disorder without prior episode Class 1 obesity due to excess calories without serious comorbidity with body mass index (BMI) of 31.0 to 31.9 in adult Grade 2 sprain of medial collateral ligament of knee, left, subsequent encounter- Primary Sprain of left knee, initial encounter Grade 2 sprain of medial collateral ligament of knee, left, subsequent encounter- Primary Grade 2 sprain of medial collateral ligament of knee, left, subsequent encounter- Primary Primary hypertension- Primary Unspecified essential hypertension Acute exacerbation of chronic low back pain Fluid level behind tympanic membrane of right ear Primary hypertension- Primary Unspecified essential hypertension Current mild episode of major depressive disorder without prior episode Class 1 obesity due to excess calories without serious comorbidity with body mass index (BMI) of 34.0 to 34.9 in adult Mixed hyperlipidemia Screening for diabetes mellitus (DM) Screening for diabetes mellitus Well adult exam- Primary Routine general medical examination at a health care facility Acute exacerbation of chronic low back pain Numbness and tingling of both lower extremities Chronic pain of left knee Heartburn Class 1 obesity due to excess calories without serious comorbidity with body mass index (BMI) of 34.0 to 34.9 in adult Primary hypertension- Primary Unspecified essential hypertension Chest pain, unspecified type Abnormal EKG Nonspecific abnormal electrocardiogram (ECG) (EKG) Anxiety Anxiety state, unspecified Hypersomnolence Hypersomnia, unspecified Snoring Other dyspnea and respiratory abnormality Current mild episode of major depressive disorder without prior episode Paresthesia Disturbance of skin sensation Pressure in head Dyspnea, unspecified type Screening, ischemic heart disease Screening for ischemic heart disease Class 1 obesity due to excess calories without serious comorbidity with body mass index (BMI) of 34.0 to 34.9 in adult Anxiety- Primary Anxiety state, unspecified Lump of skin of back Primary hypertension Unspecified essential hypertension Palpitations- Primary Mild ascending aorta dilation Non-cardiac chest pain Other chest pain Dyslipidemia Other and unspecified hyperlipidemia Primary hypertension Unspecified essential hypertension documented in this encounter [facility] Work Phone: Evaluation note* Diagnosis Anxiety- Primary Anxiety state, unspecified Current mild episode of major depressive disorder without prior episode Racing heart beat Unspecified tachycardia Hot flashes Heartburn Class 1 obesity due to excess calories without serious comorbidity with body mass index (BMI) of 32.0 to 32.9 in adult Heart palpitations- Primary Palpitations Racing heart beat Unspecified tachycardia Calculus of kidney Anxiety Anxiety state, unspecified Well adult exam- Primary Routine general medical examination at a health care facility Left ear pain Unspecified otalgia Mixed hyperlipidemia Anxiety Anxiety state, unspecified Heart palpitations Palpitations Vitamin B12 deficiency Other B-complex deficiencies Encounter for vitamin deficiency screening Current mild episode of major depressive disorder without prior episode Class 1 obesity due to excess calories without serious comorbidity with body mass index (BMI) of 31.0 to 31.9 in adult Grade 2 sprain of medial collateral ligament of knee, left, subsequent encounter- Primary Sprain of left knee, initial encounter Grade 2 sprain of medial collateral ligament of knee, left, subsequent encounter- Primary Grade 2 sprain of medial collateral ligament of knee, left, subsequent encounter- Primary Primary hypertension- Primary Unspecified essential hypertension Acute exacerbation of chronic low back pain Fluid level behind tympanic membrane of right ear Primary hypertension- Primary Unspecified essential hypertension Current mild episode of major depressive disorder without prior episode Class 1 obesity due to excess calories without serious comorbidity with body mass index (BMI) of 34.0 to 34.9 in adult Mixed hyperlipidemia Screening for diabetes mellitus (DM) Screening for diabetes mellitus Well adult exam- Primary Routine general medical examination at a health care facility Acute exacerbation of chronic low back pain Numbness and tingling of both lower extremities Chronic pain of left knee Heartburn Class 1 obesity due to excess calories without serious comorbidity with body mass index (BMI) of 34.0 to 34.9 in adult Primary hypertension- Primary Unspecified essential hypertension Chest pain, unspecified type Abnormal EKG Nonspecific abnormal electrocardiogram (ECG) (EKG) Anxiety Anxiety state, unspecified Hypersomnolence Hypersomnia, unspecified Snoring Other dyspnea and respiratory abnormality Current mild episode of major depressive disorder without prior episode Paresthesia Disturbance of skin sensation Pressure in head Dyspnea, unspecified type Screening, ischemic heart disease Screening for ischemic heart disease Class 1 obesity due to excess calories without serious comorbidity with body mass index (BMI) of 34.0 to 34.9 in adult Anxiety- Primary Anxiety state, unspecified Lump of skin of back Primary hypertension Unspecified essential hypertension Anxiety- Primary Anxiety state, unspecified Current mild episode of major depressive disorder without prior episode Primary hypertension Unspecified essential hypertension Mixed hyperlipidemia Seasonal allergies Allergic rhinitis, cause unspecified Class 1 obesity due to excess calories without serious comorbidity with body mass index (BMI) of 33.0 to 33.9 in adult documented in this encounter [facility] Work Phone: History of Present illness NarrativeAgree with CC as documented per MA. William is a pleasant 36-year-old female presenting today for follow-up of fracture of the proximal phalanx of the third toe. Patient is taking ibuprofen on a as needed basis with good symptom control, swelling and bruising has significantly decreased. As noted in CC, patient does notice some discomfort with taking large steps and rocking motion while in the shortcam walking boot. Patient also is in the process of moving and sometimes extra activity bothers hersymptoms. It is improved with rest, elevation, ice and ibuprofen. Patient is víctor taping the second and third toes together with additional support. Patient does transfer into a postop shoe at nighttime with good support.[facility] [address] Work Phone: History of Present illness NarrativeAgree with CC as documented per MA. William is a pleasant 36-year-old female presenting today for follow-up of fracture of the proximal phalanx of the third toe. Patient is taking ibuprofen on a as needed basis with good symptom control, swelling and bruising has significantly decreased. As noted in CC, patient does notice some discomfort with taking large steps and rocking motion while in the shortcam walking boot. Patient also is in the process of moving and sometimes extra activity bothers hersymptoms. It is improved with rest, elevation, ice and ibuprofen. Patient is víctor taping the second and third toes together with additional support. Patient does transfer into a postop shoe at nighttime with good support.[facility] 300 Work Phone: History of Present illness NarrativeDapayton returns with complaints of right sided head and neck pain. She reports it started with a migraine on July 29 and she used ibuprofen and heat which usually helps with her migraines, but thendeveloped pain on the right side of her neck that starts at the base of her skull and radiates up into her right buddhist and behind her ear. She denies any problems with her vision, or hearing. Deniesany nausea/vomiting. She reports the pain is always there and reports it as a dull but sometimes intense pain. She reports she has tried Tylenol/Ibuprofen/Naproxen and heat without symptom relief. She is concerned today, as she has never had a migraine last this long. Reports her neck feels stiff on the right side as well. [facility] Work Phone: History of Present illness Narrative* William returns for follow up. * left ear pain: has been chronic, keeps getting ATB for ear infection but does not believe it is infected. Feels like anytime anything gets in her ear, drop of water, etc...she will have pain and willhave to take Tylenol. * Fatigue/joint/muscle pain: She reports that recently she has been getting an increase in joint/muscle pain and feels tired all the time. She reports she believes she has RA in her grandmother. She does not believe she has been tested for auto-immune disorders. 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 She reports that since then she has been experiencing low left sided back pain with leftsided sciatica pain that radiates down into her left leg. She reports that some days the pain is exc ruciating. She reports that she is taking Ibuprofen/Tylenol. [facility] 205 DO Work Phone: History of Present illness Narrative* Ms. 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 Pt appears to be more extension biased, so focused on extension based exercises with good response. Pt edu on radicular symptoms and centralization process and verbal review of HEP with HO given. Amelia Johansen PTA performed HEP with pt at end of session. They would benefit from skilled Physical Therapy with combination of manual therapy techniques to decrease myofascial and joint restrictions, as well as progression of exercises for ROM, flexibility, strength, core stabilization, and glute retraining, and body mechanics education throughout POC to progress towards independence with ADL s/IADL s and return to PLOF. * Clinical Presentation: Stable and/or uncomplicated characteristics. * Level of Complexity: low * Problem List: activity limitations, ADLs/IADLs/self care skills, decreased functional level, flexibility, gait/locomotion, motor function/control/tone, pain, participation restrictions, posture, range of motion/joint mobility, strength and transfers. [facility] Work Phone: History of Present illness NarrativePatient identified by name & . Patient wore a mask during treatment d/t Covid-19 precautions. Treatment consisted of MET for correcting pelvic alignment and manual theray for B psoas release followed by ther ex's for core strengthening and hip and LE ROM. Patient tolerated treatment well andpain was abolished and she felt looser. [facility] Work Phone: History of Present illness Narrative* Patient identified by name and * Appropriately challenged. Able to tolerate new standing PRE's with no c/o exacerbation of symptoms.Patient pelvis checked for malalignment with no intervention needed this date for rotation. Ice given at end of session to help manage symptoms while patient is at work, and education provided for sym ptom management at home with patient saraho'g understanding. [facility] Work [facility]: History of Present illness Narrative* Patient identified by name and * Added Lumbar joint mobs this date due to lingering restriction in joint mobility, with good response from patient. No other manual techniques needed and no MET required as pt presented with good alignment this date. Able to progress with glute retraining and core stabilization exercises well this date without pain and only mild cues for form. Ended session with stretches from HEP due to patient not having time to do them this morning, but focused more on progression of ther-ex in clinic due to good compliance with HEP most days. Pt able to tolerate exercises in all positions due to no radicular pain in last few weeks, but understands edu to continue to utilize extension biased when/if radicular symptoms return. [facility] Work Phone: History of Present illness Narrative* Patient identified by name and * Patient able to tolerate progressions and new exercises with no c/o increased symptoms. Demo's improvements in lumbar mobility. Able to be challenged with changes in proprioception to challenge lumbar musculature with good tolerance. [facility] Work Phone: History of Present illness Narrative* Patient identified by name and * Demo's restriction in R QL this date with good tolerance to STM. Strengthening not incorporated this date d/t increased symptoms over weekend and at beginning of session. Demo's good tolerance to stretching, joint mobs, and STM. Demo's improvements in mobility of lumbar spine post treatment and decr eased symptoms at end of session. [facility] Work Phone: History of Present illness NarrativePt reassessed this date by supervising PT with improvements noted in lumbar AROM, MMT in BLE's, as well as significant improvement in LAVERNE score to 2% disability now. Pt reported good understanding ofall edu and updates to HEP made this date and is appropriate to attempt independence with HEP and symptom management at this time. [facility] Work Phone: Hospital Discharge instructions* Attachments The following attachments cannot be sent through Care Everywhere. * Knee Pain ED (Togolese) [facility] Work Phone: Hospital Discharge instructions* Attachments The following attachments cannot be sent through Care Everywhere. * High blood pressure in adults (Togolese) * Low Back Pain Discharge Instructions (Togolese) [facility]: Reason for referral (narrative)* Diagnostic Procedure Only (Routine) - Authorized Specialty Diagnoses / Procedures Referred By Contac t Referred To Contact [facility] Diagnoses Cyst of right ovary Procedures PELVIC US WHI US PELVIC NONOBSTETRIC REAL-TIME IMAGE COMPLETE Varsha Agudelo MD [address] [place] [address] [facility] [address] [place] [address] Referral ID Status Reason Start Date Expiration Date Visits Requested Visits Authorized [id number] Authorized Auto-Generat ed Referral 02/21/2023 02/21/2024 1 1 [facility] for referral (narrative)* Consultation (Routine) - Authorized Specialty Diagnoses / Procedures Referred By Contac t Referred To Contact Urology Diagnoses Calculus of kidney Procedures DE OFFICE/OUTPATIENT NEW HIGH MDM 60-74 MINUTES Yaneli Malik APRN-GINO [address] [address] Referral ID Status Reason Start Date Expiration Date Visits Requested Visits Authorized [id number] Authorized Specialty Services Required 03/05/2023 09/01/2023 1 1 * CV Imaging (Routine) - Authorized Specialty Diagnoses / Procedures Referred By Contac t Referred To Contact Cardiology Diagnoses Racing heart beat Heart palpitations Procedures Transthoracic Echo (TTE) Complete DE ECHO TRANSTHORC R-T 2D W/WO M-MODE REC F-UP/LMTD DE DOP ECHOCARD COLOR FLOW VELOCITY MAPPING DE DOP ECHOCARD PULSE WAVE W/SPECTRAL F-UP/LMTD STD Yaneli Malik APRN-GINO [address] [address] Referral ID Status Reason Start Date Expiration Date Visits Requested Visits Authorized [id number] Authorized Perform Procedure 03/05/2023 09/01/2023 1 1 * Cardiac Stress Testing (Routine) - Authorized Specialty Diagnoses / Procedures Referred By Contac t Referred To Contact Cardiology Diagnoses Racing heart beat Heart palpitations Procedures Holter or Event Electrical Manufacturing Engineer Yaneli Malik APRN-CNP [address] [address] Referral ID Status Reason Start Date Expiration Date V isits Requested Visits Authorized [id number] Authorized 03/05/2023 09/01/2023 1 1 [facility] Work Phone: Reason for referral (narrative)* Outpatient Procedure (Routine) - Authorized Specialty Diagnoses / Procedures Referred By Maura limon Referred To Contact [facility] Diagnoses Menorrhagia with regular cycle Dysmenorrhea Procedures ENDOMETRIAL BIOPSY ENDOMETRIAL BX W/WO ENDOCERVIX BX W/O DILAT SPX Angelina Cervantes APRN.CNP [address] [place] [address] [place] [id number] Referral ID Status Reason Start Date Expiration Date Visits Requested Visits Authorized [id number] Authorized Auto-Generat ed Referral 04/10/2023 04/09/2024 1 1 * Outpatient Procedure (Routine) - Pending Review Specialty Diagnoses / Procedures Referred By Maura limon Referred To Contact [facility] Diagnoses Menorrhagia with regular cycle Dysmenorrhea Procedures INSERT INTRAUTERINE DEVICE LEVONORGESTREL IU 52MG 5 YR INSERT INTRAUTERINE DEVICE Angelina Cervantes APRN.CNP [address] [place] [address] [place] [address] Referral ID Status Reason Start Date Expiration Date Visits Requested Visits Authorized [id number] Pending Review Auto-Generat ed Referral 04/10/2023 04/09/2024 1 1 * Diagnostic Procedure Only (Routine) - Authorized Specialty Diagnoses / Procedures Referred By Maura limon Referred To Contact [facility] Diagnoses Encounter for screening mammogram for malignant neoplasm of breast Procedures SARHA SCREENING SCREENING MAMMOGRAPHY BI 2-VIEW BREAST INC CAD Angelina Cervantes, SPLICER OPERATOR.PROJECT CONTROL OFFICER [address] [place] [address] [facility] [address] [place] [address] Referral ID Status Reason Start Date Expiration Date Visits Requested Visits Authorized [id number] Authorized Auto-Generat ed Referral 04/10/2023 05/09/2024 1 1 [facility] for referral (narrative)* Consultation (Routine) - Authorized Specialty Diagnoses / Procedures Referred By Contac t Referred To Contact Orthopaedic Surgery / Orthopedic Surgery Diagnoses Sprain of left knee, initial encounter Procedures Follow Up In Orthopaedic Surgery Layne Temple SPLICER OPERATOR-PROJECT CONTROL OFFICER [address] [facility] [place], [place] [address] Referral ID Status Reason Start Date Expiration Date V isits Requested Visits Authorized [id number] Authorized 01/15/2024 01/14/2025 1 1 [facility] Work Phone: Reason for referral (narrative)* Consultation (Routine) - Authorized Specialty Diagnoses / Procedures Referred By Contac t Referred To Contact Orthopaedic Surgery / Orthopedic Surgery Diagnoses Grade 2 sprain of medial collateral ligament of knee, left, subsequent encounter Procedures Follow Up In Orthopaedic Surgery Layne Temple SPLICER OPERATOR-PROJECT CONTROL OFFICER [address] [facility] [place], [place] [address] Referral ID Status Reason Start Date Expiration Date V isits Requested Visits Authorized [id number] Authorized 01/23/2024 01/22/2025 1 1 * Consultation (Routine) - Authorized Specialty Diagnoses / Procedures Referred By Contac t Referred To Contact Physical Therapy Diagnoses Sprain of left knee, initial encounter Layne Temple SPLICER OPERATOR-PROJECT CONTROL OFFICER [address] [facility], [address] [place] [address] Michael Dante Knight [address] [place] [address] Referral ID Status Reason Start Date Expiration Date Visits Requested Visits Authorized [id number] Authorized Specialty Services Required 01/22/2024 01/21/2025 1 1 [facility] Work Phone: Remegw for referral (narrative)* Consultation (Routine) - Authorized Specialty Diagnoses / Procedures Referred By Contac t Referred To Contact Orthopaedic Surgery / Orthopedic Surgery Diagnoses Grade 2 sprain of medial collateral ligament of knee, left, subsequent encounter Procedures Follow Up In Orthopaedic Surgery Layne Temple APRN-GINO [address] [facility] [place], [facility] [address] [place] [phone] Referral ID Status Reason Start Date Expiration Date V isits Requested Visits Authorized [id number] Authorized 02/19/2024 02/18/2025 1 1 [facility] Work Phone: Recalt for referral (narrative)* Consultation (Routine) - Authorized Specialty Diagnoses / Procedures Referred By Contac t Referred To Contact Orthopaedic Surgery / Orthopedic Surgery Diagnoses Grade 2 sprain of medial collateral ligament of knee, left, subsequent encounter Procedures Follow Up In Orthopaedic Surgery Layne Temple APRN-GINO [address] [facility], [facility] [address] [place] [phone] Referral ID Status Reason Start Date Expiration Date V isits Requested Visits Authorized [id number] Authorized 04/02/2024 04/02/2025 1 1 [facility] Work Phone: Reason for visit Narrative* Initial Evaluation . DDD Lumbar Spine. * Referred by: Yaneli Malik [facility] Work Phone: Reason for visit Narrative* Diagnostic Procedure Only (Routine) - Closed Specialty Diagnoses / Procedures Referred By Maura limon Referred To Contact [facility] Diagnoses Encounter for screening mammogram for malignant neoplasm of breast Procedures SARAH SCREENING SCREENING MAMMOGRAPHY BI 2-VIEW BREAST INC CAD Angelina Cervantes, SPLICER OPERATOR.PROJECT CONTROL OFFICER [address] [place] [address] [facility] [address] [place] [address] Referral ID Status Reason Start Date Expiration Date V isits Requested Visits Authorized [id number] Closed Auto-Generate d Referral 04/10/2023 05/09/2024 1 1 [facility] (Routine) - Authorized Specialty Diagnoses / Procedures Referred By Maura limon Referred To Contact Radiology Diagnoses Chronic pain of left knee Procedures XR knee left 3 views Yaneli Malik, SPLICER OPERATOR-PROJECT CONTROL OFFICER [address] [facility] [address] [place] [address] Phone: tel: fax: Referral ID Status Reason Start Date Expiration Date Visits Requested Visits Authorized [id number] Authorized Perform Procedure 09/08/2024 09/08/2025 1 1 [facility] Work Phone: Recvxg for visit Narrative* EMG/NCS (Routine) - Closed Specialty Diagnoses / Procedures Referred By Maura limon Referred To Contact Neurology Diagnoses Numbness and tingling of both lower extremities Yaneli Malik, PROJECT CONTROL OFFICER [address] [facility] [address] [place] [address] Phone: tel: fax: [facility] Referral ID Status Reason Start Date Expiration Date Visits Re quested Visits Authorized [id number] Closed 09/08/2024 09/08/2025 1 1 [place] for visit Narrative* Diagnostic Procedure Only (Routine) - Closed Specialty Diagnoses / Procedures Referred By Maura limon Referred To Contact [facility] Diagnoses Irregular bleeding Pelvic pain in female Dyspareunia in female Chronic left-sided low back pain, unspecified whether sciatica present Procedures PELVIC US WHI US PELVIC NONOBSTETRIC REAL-TIME IMAGE COMPLETE Angel Carter APRN.GINO [address] [place] [address] Phone: tel: fax: [facility] [address] [place] [address] Referral ID Status Reason Start Date Expiration Date V isits Requested Visits Authorized [id number] Closed Auto-Generate d Referral 01/14/2025 01/14/2026 1 1 [facility] for visit Narrative* Diagnostic Procedure Only (Routine) - Closed Specialty Diagnoses / Procedures Referred By Maura limon Referred To Contact [facility] Diagnoses Encounter for screening mammogram for breast cancer Procedures SARAH SCREENING W RAY SCREENING DIGITAL BREAST TOMOSYNTHESIS BI SCREENING MAMMOGRAPHY BI 2-VIEW BREAST INC CAD Angel Carter APRN.GINO [address] 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 Klaus Strickland, SPLICER OPERATOR-PROJECT CONTROL OFFICER [address] [facility], [facility] [address] [place] [address] Phone: tel: fax: Referral ID Status Reason Start Date Expiration Date V isits Requested Visits Authorized [id number] Authorized 01/19/2025 01/19/2026 1 1 [facility] Work Phone: Reason for visit Narrative* Imaging (Routine) - Authorized Specialty Diagnoses / Procedures Referred By Maura limon Referred To Contact Radiology Diagnoses Acute right ankle pain Procedures XR foot right 3+ views Frederic Malik PA-C [address] [facility], [address] [address] Phone: tel: fax: Referral ID Status Reason Start Date Expiration Date Visits Requested Visits Authorized [id number] Authorized Perform Procedure 02/10/2025 02/10/2026 1 1 [facility] Work Phone: reason for visit Narrative* Imaging (Routine) - Authorized Specialty Diagnoses / Procedures Referred By Contac t Referred To Contact Radiology Diagnoses Acute right ankle pain Procedures XR ankle right 3+ views Frederic Malik PA-C [address] [facility], [place] [id number] Phone: tel: fax: Referral ID Status Reason Start Date Expiration Date Visits Requested Visits Authorized [id number] Authorized Perform Procedure 02/10/2025 02/10/2026 1 1 [facility] Work Phone: reason for visit Narrative* Imaging (Routine) - Pending Review Specialty Diagnoses / Procedures Referred By Contac t Referred To Contact Radiology Diagnoses Screening, ischemic heart disease Procedures CT cardiac scoring wo IV contrast Yaneli Malik SPLICER OPERATOR-PROJECT CONTROL OFFICER [address] [place] [address] Phone: tel: fax: Referral ID Status Reason Start Date Expiration Date Visits Requested Visits Authorized [id number] Pending Review Perform Procedure 01/13/2025 01/13/2026 1 1 [facility] Work Phone: reason for visit Narrative* Imaging (Routine) - Authorized Specialty Diagnoses / Procedures Referred By Contac t Referred To Contact Radiology Diagnoses Lump of skin of back Procedures US abdomen limited Yaneli Malik SPLICER OPERATOR-PROJECT CONTROL OFFICER [address] [place] [address] Phone: tel: fax: Referral ID Status Reason Start Date Expiration Date Visits Requested Visits Authorized [id number] Authorized Perform Procedure 02/23/2025 03/26/2026 1 1 [facility] Work Phone: reason for visit Narrative* Imaging (Routine) - Authorized Specialty Diagnoses / Procedures Referred By Contac t Referred To Contact Radiology Diagnoses Moderate right ankle sprain, initial encounter Procedures XR foot right 3+ views Frederic Malik PA-C [address] [facility], [place] [id number] Phone: tel: fax: Referral ID Status Reason Start Date Expiration Date Visits Requested Visits Authorized [id number] Authorized Perform Procedure 02/11/2025 02/11/2026 1 1 [facility] Work Phone: reason for visit Narrative* Imaging (Routine) - Authorized Specialty Diagnoses / Procedures Referred By Contkhalida t Referred To Contact Radiology Diagnoses Moderate right ankle sprain, initial encounter Procedures XR ankle right 3+ views Frederic Malik PA-C [address] [facility], [place] [id number] Phone: tel: fax: Referral ID Status Reason Start Date Expiration Date Visits Requested Visits Authorized [id number] Authorized Perform Procedure 02/11/2025 02/11/2026 1 1 [facility] Work Phone: Instructions Name Dates Details Instructions not documented Name Dates Details Instructions not documented Name Dates Details Instructions not documented Name Dates Details Instructions not documented Name Dates Details Instructions not documented Name Dates Details Instructions not documented Assessments Diagnosis Trapezius strain, left, subs equent encounter - Primary Chest pain, unspecified type Diagnosis Acute pain of right wrist - Primary Diagnosis Numbness and tingling of left leg Disturbance of skin sensation History of Present Illness * Wil Fair MD - 05/08/2018 8:47 AM EDT Dictation on: 05/08/2018 10:07 AM by: WIL FAIR [[id number]] in this encounter* Jocelin Hopkins MD - 03/27/2019 10:50 AM EDT Procedures ELECTROMYOGRAPHY (Nerve Conduction Test/EMG) Brief History: Patient with 3 weeks of left rai and dorsal foot numbness. She gets occasional low back pain but no diabetes. Plan: The study was design to evaluate for entrapment neuropathy, polyneuropathy, radiculopathy, orplexopathy. Procedure indication, risk, complications, side effects and alternatives were explained. Patient agreed to proceed with verbal consent. Patient was instructed to clean the puncture site with soap and water and put some ice pack for bruising. Please request raw data if needed. EMG Summary: The left peroneal and tibial motor nerve conduction studies including F waves were normal. The left sural and superficial peroneal sensory nerve conduction studies were also normal. The left H reflex was normal. Needle EMG of the muscle tested showed no abnormal spontaneous activity. Normal motor unit action potentials and recruitment patterns were seen. Impression: There is NO clear electrodiagnostic evidence of a left lumbosacral radiculopathy, plexopathy, or diffuse sensorimotor polyneuropathy at this time. documented in this encounter Summary Purpose Family History No Family History Records Found Grandmother Name Dates Details Family history of cerebrovas cular accident (CVA)(V17.1, Z82.3) Status:Active Grandparent Name Dates Details Family history of type 2 elieser betes mellitus(V18.0, Z83.3) Status:Active Family history of malignant neoplasm(V16.9, Z80.9) Status:Active Mother Name Dates Details Family history of Anxiety(30 0.00, F41.9) Status:Active Father Name Dates Details Family history of malignant neoplasm of colon(V16.0, Z80.0) Status:Active Sister Name Dates Details Family history of Anxiety(30 0.00, F41.9) Status:Active Grandmother Name Dates Details Family history of cerebrovas cular accident (CVA)(V17.1, Z82.3) Status:Active Grandparent Name Dates Details Family history of type 2 elieser betes mellitus(V18.0, Z83.3) Status:Active Family history of malignant neoplasm(V16.9, Z80.9) Status:Active Mother Name Dates Details Family history of Anxiety(30 0.00, F41.9) Status:Active Father Name Dates Details Family history of malignant neoplasm of colon(V16.0, Z80.0) Status:Active Sister Name Dates Details Family history of Anxiety(30 0.00, F41.9) Status:Active Grandmother Name Dates Details Family history of cerebrovas cular accident (CVA)(V17.1, Z82.3) Status:Active Grandparent Name Dates Details Family history of type 2 elieser betes mellitus(V18.0, Z83.3) Status:Active Family history of malignant neoplasm(V16.9, Z80.9) Status:Active Mother Name Dates Details Family history of Anxiety(30 0.00, F41.9) Status:Active Father Name Dates Details Family history of malignant neoplasm of colon(V16.0, Z80.0) Status:Active Sister Name Dates Details Family history of Anxiety(30 0.00, F41.9) Status:Active Grandmother Name Dates Details Family history of cerebrovas cular accident (CVA)(V17.1, Z82.3) Status:Active Grandparent Name Dates Details Family history of type 2 elieser betes mellitus(V18.0, Z83.3) Status:Active Family history of malignant neoplasm(V16.9, Z80.9) Status:Active Mother Name Dates Details Family history of Anxiety(30 0.00, F41.9) Status:Active Father Name Dates Details Family history of malignant neoplasm of colon(V16.0, Z80.0) Status:Active Sister Name Dates Details Family history of Anxiety(30 0.00, F41.9) Status:Active Grandmother Name Dates Details Family history of cerebrovas cular accident (CVA)(V17.1, Z82.3) Status:Active Grandparent Name Dates Details Family history of type 2 elieser betes mellitus(V18.0, Z83.3) Status:Active Family history of malignant neoplasm(V16.9, Z80.9) Status:Active Mother Name Dates Details Family history of Anxiety(30 0.00, F41.9) Status:Active Father Name Dates Details Family history of malignant neoplasm of colon(V16.0, Z80.0) Status:Active Sister Name Dates Details Family history of Anxiety(30 0.00, F41.9) Status:Active Grandmother Name Dates Details Family history of cerebrovas cular accident (CVA)(V17.1, Z82.3) Status:Active Grandparent Name Dates Details Family history of type 2 elieser betes mellitus(V18.0, Z83.3) Status:Active Family history of malignant neoplasm(V16.9, Z80.9) Status:Active Mother Name Dates Details Family history of Anxiety(30 0.00, F41.9) Status:Active Father Name Dates Details Family history of malignant neoplasm of colon(V16.0, Z80.0) Status:Active Sister Name Dates Details Family history of Anxiety(30 0.00, F41.9) Status:Active Unknown Family Member Name Dates Details Family history of type 2 elieser betes mellitus: Grandparent(V18.0, Z83.3) Status:Active Anxiety: Mother, Sister Status:Active Family history of malignant neoplasm: Grandparent(V16.9, Z80.9) Status:Active Family history of malignant neoplasm of colon: Father(V16.0, Z80.0) Status:Active Family history of cerebrovas cular accident (CVA): Maternal Grandmother(V17.1, Z82.3) Status:Active Unknown Family Member Name Dates Details Family history of type 2 elieser betes mellitus: Grandparent(V18.0, Z83.3) Status:Active Anxiety: Mother, Sister Status:Active Family history of malignant neoplasm: Grandparent(V16.9, Z80.9) Status:Active Family history of malignant neoplasm of colon: Father(V16.0, Z80.0) Status:Active Family history of cerebrovas cular accident (CVA): Maternal Grandmother(V17.1, Z82.3) Status:Active Unknown Family Member Name Dates Details Family history of type 2 elieser betes mellitus: Grandparent(V18.0, Z83.3) Status:Active Anxiety: Mother, Sister Status:Active Family history of malignant neoplasm: Grandparent(V16.9, Z80.9) Status:Active Family history of malignant neoplasm of colon: Father(V16.0, Z80.0) Status:Active Family history of cerebrovas cular accident (CVA): Maternal Grandmother(V17.1, Z82.3) Status:Active Unknown Family Member Name Dates Details Family history of type 2 elieser betes mellitus: Grandparent(V18.0, Z83.3) Status:Active Anxiety: Mother, Sister Status:Active Family history of malignant neoplasm: Grandparent(V16.9, Z80.9) Status:Active Family history of malignant neoplasm of colon: Father(V16.0, Z80.0) Status:Active Family history of cerebrovas cular accident (CVA): Maternal Grandmother(V17.1, Z82.3) Status:Active Unknown Family Member Name Dates Details Family history of type 2 elieser betes mellitus: Grandparent(V18.0, Z83.3) Status:Active Anxiety: Mother, Sister Status:Active Family history of malignant neoplasm: Grandparent(V16.9, Z80.9) Status:Active Family history of malignant neoplasm of colon: Father(V16.0, Z80.0) Status:Active Family history of cerebrovas cular accident (CVA): Maternal Grandmother(V17.1, Z82.3) Status:Active Unknown Family Member Name Dates Details Family history of type 2 elieser betes mellitus: Grandparent(V18.0, Z83.3) Status:Active Anxiety: Mother, Sister Status:Active Family history of malignant neoplasm: Grandparent(V16.9, Z80.9) Status:Active Family history of malignant neoplasm of colon: Father(V16.0, Z80.0) Status:Active Family history of cerebrovas cular accident (CVA): Maternal Grandmother(V17.1, Z82.3) Status:Active Unknown Family Member Name Dates Details Family history of type 2 elieser betes mellitus: Grandparent(V18.0, Z83.3) Status:Active Anxiety: Mother, Sister Status:Active Family history of malignant neoplasm: Grandparent(V16.9, Z80.9) Status:Active Family history of malignant neoplasm of colon: Father(V16.0, Z80.0) Status:Active Family history of cerebrovas cular accident (CVA): Maternal Grandmother(V17.1, Z82.3) Status:Active Unknown Family Member Name Dates Details Family history of malignant neoplasm of colon: Father(V16.0, Z80.0) Status:Active Family history of malignant neoplasm: Grandparent(V16.9, Z80.9) Status:Active Anxiety: Mother, Sister Status:Active Family history of type 2 elieser betes mellitus: Grandparent(V18.0, Z83.3) Status:Active Family history of cerebrovas cular accident (CVA): Maternal Grandmother(V17.1, Z82.3) Status:Active Unknown Family Member Name Dates Details Family history of type 2 elieser betes mellitus: Grandparent(V18.0, Z83.3) Status:Active Anxiety: Mother, Sister Status:Active Family history of malignant neoplasm: Grandparent(V16.9, Z80.9) Status:Active Family history of malignant neoplasm of colon: Father(V16.0, Z80.0) Status:Active Family history of cerebrovas cular accident (CVA): Maternal Grandmother(V17.1, Z82.3) Status:Active Unknown Family Member Name Dates Details Family history of type 2 elieser betes mellitus: Grandparent(V18.0, Z83.3) Status:Active Anxiety: Mother, Sister Status:Active Family history of malignant neoplasm: Grandparent(V16.9, Z80.9) Status:Active Family history of malignant neoplasm of colon: Father(V16.0, Z80.0) Status:Active Family history of cerebrovas cular accident (CVA): Maternal Grandmother(V17.1, Z82.3) Status:Active Unknown Family Member Name Dates Details Family history of type 2 elieser betes mellitus: Grandparent(V18.0, Z83.3) Status:Active Anxiety: Mother, Sister Status:Active Family history of malignant neoplasm: Grandparent(V16.9, Z80.9) Status:Active Family history of malignant neoplasm of colon: Father(V16.0, Z80.0) Status:Active Family history of cerebrovas cular accident (CVA): Maternal Grandmother(V17.1, Z82.3) Status:Active Unknown Family Member Name Dates Details Family history of type 2 elieser betes mellitus: Grandparent(V18.0, Z83.3) Status:Active Anxiety: Mother, Sister Status:Active Family history of malignant neoplasm: Grandparent(V16.9, Z80.9) Status:Active Family history of malignant neoplasm of colon: Father(V16.0, Z80.0) Status:Active Family history of cerebrovas cular accident (CVA): Maternal Grandmother(V17.1, Z82.3) Status:Active Unknown Family Member Name Dates Details Family history of type 2 elieser betes mellitus: Grandparent(V18.0, Z83.3) Status:Active Anxiety: Mother, Sister Status:Active Family history of malignant neoplasm: Grandparent(V16.9, Z80.9) Status:Active Family history of malignant neoplasm of colon: Father(V16.0, Z80.0) Status:Active Family history of cerebrovas cular accident (CVA): Maternal Grandmother(V17.1, Z82.3) Status:Active Unknown Family Member Name Dates Details Family history of type 2 elieser betes mellitus: Grandparent(V18.0, Z83.3) Status:Active Anxiety: Mother, Sister Status:Active Family history of malignant neoplasm: Grandparent(V16.9, Z80.9) Status:Active Family history of malignant neoplasm of colon: Father(V16.0, Z80.0) Status:Active Family history of cerebrovas cular accident (CVA): Maternal Grandmother(V17.1, Z82.3) Status:Active Unknown Family Member Name Dates Details Family history of type 2 elieser betes mellitus: Grandparent(V18.0, Z83.3) Status:Active Anxiety: Mother, Sister Status:Active Family history of malignant neoplasm: Grandparent(V16.9, Z80.9) Status:Active Family history of malignant neoplasm of colon: Father(V16.0, Z80.0) Status:Active Family history of cerebrovas cular accident (CVA): Maternal Grandmother(V17.1, Z82.3) Status:Active Unknown Family Member Name Dates Details Family history of type 2 elieser betes mellitus: Grandparent(V18.0, Z83.3) Status:Active Anxiety: Mother, Sister Status:Active Family history of malignant neoplasm: Grandparent(V16.9, Z80.9) Status:Active Family history of malignant neoplasm of colon: Father(V16.0, Z80.0) Status:Active Family history of cerebrovas cular accident (CVA): Maternal Grandmother(V17.1, Z82.3) Status:Active Unknown Family Member Name Dates Details Family history of type 2 elieser betes mellitus: Grandparent(V18.0, Z83.3) Status:Active Anxiety: Mother, Sister Status:Active Family history of malignant neoplasm: Grandparent(V16.9, Z80.9) Status:Active Family history of malignant neoplasm of colon: Father(V16.0, Z80.0) Status:Active Family history of cerebrovas cular accident (CVA): Maternal Grandmother(V17.1, Z82.3) Status:Active Unknown Family Member Name Dates Details Family history of type 2 elieser betes mellitus: Grandparent(V18.0, Z83.3) Status:Active Anxiety: Mother, Sister Status:Active Family history of malignant neoplasm: Grandparent(V16.9, Z80.9) Status:Active Family history of malignant neoplasm of colon: Father(V16.0, Z80.0) Status:Active Family history of cerebrovas cular accident (CVA): Maternal Grandmother(V17.1, Z82.3) Status:Active Unknown Family Member Name Dates Details Family history of type 2 elieser betes mellitus: Grandparent(V18.0, Z83.3) Status:Active Anxiety: Mother, Sister Status:Active Family history of malignant neoplasm: Grandparent(V16.9, Z80.9) Status:Active Family history of malignant neoplasm of colon: Father(V16.0, Z80.0) Status:Active Family history of cerebrovas cular accident (CVA): Maternal Grandmother(V17.1, Z82.3) Status:Active Unknown Family Member Name Dates Details Family history of type 2 elieser betes mellitus: Grandparent(V18.0, Z83.3) Status:Active Anxiety: Mother, Sister Status:Active Family history of malignant neoplasm: Grandparent(V16.9, Z80.9) Status:Active Family history of malignant neoplasm of colon: Father(V16.0, Z80.0) Status:Active Family history of cerebrovas cular accident (CVA): Maternal Grandmother(V17.1, Z82.3) Status:Active Unknown Family Member Name Dates Details Family history of type 2 elieser betes mellitus: Grandparent(V18.0, Z83.3) Status:Active Anxiety: Mother, Sister Status:Active Family history of malignant neoplasm: Grandparent(V16.9, Z80.9) Status:Active Family history of malignant neoplasm of colon: Father(V16.0, Z80.0) Status:Active Family history of cerebrovas cular accident (CVA): Maternal Grandmother(V17.1, Z82.3) Status:Active Unknown Family Member Name Dates Details Family history of type 2 elieser betes mellitus: Grandparent(V18.0, Z83.3) Status:Active Anxiety: Mother, Sister Status:Active Family history of malignant neoplasm: Grandparent(V16.9, Z80.9) Status:Active Family history of malignant neoplasm of colon: Father(V16.0, Z80.0) Status:Active Family history of cerebrovas cular accident (CVA): Maternal Grandmother(V17.1, Z82.3) Status:Active Unknown Family Member Name Dates Details Family history of type 2 elieser betes mellitus: Grandparent(V18.0, Z83.3) Status:Active Anxiety: Mother, Sister Status:Active Family history of malignant neoplasm: Grandparent(V16.9, Z80.9) Status:Active Family history of malignant neoplasm of colon: Father(V16.0, Z80.0) Status:Active Family history of cerebrovas cular accident (CVA): Maternal Grandmother(V17.1, Z82.3) Status:Active Unknown Family Member Name Dates Details Family history of type 2 elieser betes mellitus: Grandparent(V18.0, Z83.3) Status:Active Anxiety: Mother, Sister Status:Active Family history of malignant neoplasm: Grandparent(V16.9, Z80.9) Status:Active Family history of malignant neoplasm of colon: Father(V16.0, Z80.0) Status:Active Family history of cerebrovas cular accident (CVA): Maternal Grandmother(V17.1, Z82.3) Status:Active Unknown Family Member Name Dates Details Family history of type 2 elieser betes mellitus: Grandparent(V18.0, Z83.3) Status:Active Anxiety: Mother, Sister Status:Active Family history of malignant neoplasm: Grandparent(V16.9, Z80.9) Status:Active Family history of malignant neoplasm of colon: Father(V16.0, Z80.0) Status:Active Family history of cerebrovas cular accident (CVA): Maternal Grandmother(V17.1, Z82.3) Status:Active Unknown Family Member Name Dates Details Family history of type 2 elieser betes mellitus: Grandparent(V18.0, Z83.3) Status:Active Anxiety: Mother, Sister Status:Active Family history of malignant neoplasm: Grandparent(V16.9, Z80.9) Status:Active Family history of malignant neoplasm of colon: Father(V16.0, Z80.0) Status:Active Family history of cerebrovas cular accident (CVA): Maternal Grandmother(V17.1, Z82.3) Status:Active Unknown Family Member Name Dates Details Family history of type 2 elieser betes mellitus: Grandparent(V18.0, Z83.3) Status:Active Anxiety: Mother, Sister Status:Active Family history of malignant neoplasm: Grandparent(V16.9, Z80.9) Status:Active Family history of malignant neoplasm of colon: Father(V16.0, Z80.0) Status:Active Family history of cerebrovas cular accident (CVA): Maternal Grandmother(V17.1, Z82.3) Status:Active Unknown Family Member Name Dates Details Family history of type 2 elieser betes mellitus: Grandparent(V18.0, Z83.3) Status:Active Anxiety: Mother, Sister Status:Active Family history of malignant neoplasm: Grandparent(V16.9, Z80.9) Status:Active Family history of malignant neoplasm of colon: Father(V16.0, Z80.0) Status:Active Family history of cerebrovas cular accident (CVA): Maternal Grandmother(V17.1, Z82.3) Status:Active Unknown Family Member Name Dates Details Family history of type 2 elieser betes mellitus: Grandparent(V18.0, Z83.3) Status:Active Anxiety: Mother, Sister Status:Active Family history of malignant neoplasm: Grandparent(V16.9, Z80.9) Status:Active Family history of malignant neoplasm of colon: Father(V16.0, Z80.0) Status:Active Family history of cerebrovas cular accident (CVA): Maternal Grandmother(V17.1, Z82.3) Status:Active Unknown Family Member Name Dates Details Family history of type 2 elieser betes mellitus: Grandparent(V18.0, Z83.3) Status:Active Anxiety: Mother, Sister Status:Active Family history of malignant neoplasm: Grandparent(V16.9, Z80.9) Status:Active Family history of malignant neoplasm of colon: Father(V16.0, Z80.0) Status:Active Family history of cerebrovas cular accident (CVA): Maternal Grandmother(V17.1, Z82.3) Status:Active Advance Directives No Advanced Directives Records FoundDocuments on File Type Date Recorded 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 STATES PAIN WHEN TAKING BIG STRIDES AND BENDING TOES. INCREASED SWELLING WITH ACTIVITY. XRAYS DONE. WEARING BOOT.PT HERE FOR 2 WK FU RIGHT 3RD TOE FX. STATES PAIN WHEN TAKING BIG STRIDES AND BENDING TOES. INCREASED SWELLING WITH ACTIVITY. XRAYS DONE. WEARING BOOT.Non-operative follow-up) as she is 4.5 weeks status post closed fracture of the proximal phalanx ofthe right third toe sustained on 11/12/2021. XR series of the right foot performed today. She was previously advised to use support structures such as a post-op shoe and walker boot. She was also recomm ended víctor taping the toes for further support. She states she has been compliant with wearing herboot for support and she continues to ice as needed for swelling. She mentions she has most of her pain with actively flexing the toes. She reports overall pain and discomfort has diminished with weightbearing. She reports mild tenderness and intermittent mild swelling of the digit. She has been onher feet more than she wishes due to moving.Non-operative follow-up) as she is 6.5 weeks status post closed fracture of the proximal phalanx ofthe right third toe sustained on 11/12/2021. XR series of the right foot performed today. She states relative to time she is feeling better and less symptomatic. She continues to have mild bruising andintermittent mild pain with prolonged standing or flexing her toes. She has been wearing casual foot wear.Pt presents with c/o right side neck pain radiating into right buddhist, s/p migraine 10 days ago.check up medication refillscheck up medication refillsPt presents for 3 mos check up since last apt and having blood work done.kidney stone Reason for Referral Specialty Diagnoses / Procedures Referred By Maura limon Referred To Contact Cardiology Diagnoses Palpitations Procedures Legacy Holter or Cardiac Event Monitor Yaneli Malik, SPLICER OPERATOR-PROJECT CONTROL OFFICER [address] [id number] Referral ID Status Reason Start Date Expiration Date V isits Requested Visits Authorized [id number] Authorized 06/12/2023 06/11/2024 1 1 Specialty Diagnoses / Procedures Referred By Maura limon Referred To Contact Radiology Diagnoses Cough present for greater than 3 weeks Fever, unspecified fever cause Procedures XR chest 2 views Yaneli Malik, SPLICER OPERATOR-PROJECT CONTROL OFFICER [address] [facility] [address] [phone] Referral ID Status Reason Start Date Expiration Date Visits Requested Visits Authorized [id number] Authorized Perform Procedure 3 07/01/2024 1 1 Specialty Diagnoses / Procedures Referred By Maura limon Referred To Contact Radiology Diagnoses Pancytopenia (Multi) Enlarged lymph node in neck Procedures CT soft tissue neck w IV contrast Elieser Garcia MD [address] [facility] [address] [place] [address] Referral ID Status Reason Start Date Expiration Date Visits Requested Visits Authorized [id number] Authorized Perform Procedure 11/13/2023 11/12/2024 1 1 Specialty Diagnoses / Procedures Referred By Maura limon Referred To Contact Radiology Diagnoses Sprain of left knee, initial encounter Procedures MR knee left wo IV contrast Layne Temple, SPLICER OPERATOR-PROJECT CONTROL OFFICER [address] [facility] [place], [address] [place] [address] Referral ID Status Reason Start Date Expiration Date Visits Requested Visits Authorized [id number] Pending Review Perform Procedure 01/16/2024 01/15/2025 1 1 Specialty Diagnoses / Procedures Referred By Contac t Referred To Contact Radiology Diagnoses History of kidney stones Procedures XR abdomen 1 view Kobi Sol MD [address] [place] [address] Referral ID Status Reason Start Date Expiration Date Visits Requested Visits Authorized [id number] Authorized Perform Procedure 03/25/2024 03/25/2025 1 1 Additional Source Comments Reason for Visit (unrecogniz ed section and content) Reason Comments Pain Status Reason Specialty Diagnoses / Procedures Referred By Contact Referred To Contact Closed Specialty Services Required/Patient' s Best Interest Neurology Diagnoses Numbness and tingling of left leg Na Arcos, GINO [address] [place] [address] Jocelin Hopkins MD [address] [place] [address] 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 Specialty Diagnoses / Procedures Referred By Contac t Referred To Contact [facility] Diagnoses Cyst of right ovary Procedures PELVIC US I US PELVIC NONOBSTETRIC REAL-TIME IMAGE COMPLETE Varsha Agudelo MD [address] [place] [address] [facility] [address] [place] [address] Referral ID Status Reason Start Date Expiration Date V isits Requested Visits Authorized [id number] Closed Auto-Generate d Referral 02/21/2023 02/21/2024 1 1 Reason Comments Follow-up Specialty Diagnoses / Procedures Referred By Contac t Referred To Contact Primary Care Diagnoses Anxiety Racing heart beat Heartburn Procedures Follow Up In Primary Care - Established Yaneli Malik, SPLICER OPERATOR-PROJECT CONTROL OFFICER [address] [facility] [address] [place] [address] Referral ID Status Reason Start Date Expiration Date V isits Requested Visits Authorized [id number] Authorized 01/22/2023 07/21/2023 1 1 Reason Comments Well Woman Reason Comments IUD Specialty Diagnoses / Procedures Referred By Contac t Referred To Contact Cardiology Diagnoses Palpitations Procedures Legacy Holter or Cardiac Event Monitor Yaneli Malik, SPLICER OPERATOR-PROJECT CONTROL OFFICER [address] [address] Referral ID Status Reason Start Date Expiration Date V isits Requested Visits Authorized [id number] Authorized 06/12/2023 06/11/2024 1 1 Reason Comments Nasal Congestion Specialty Diagnoses / Procedures Referred By Contac t Referred To Contact Radiology Diagnoses Cough present for greater than 3 weeks Fever, unspecified fever cause Procedures XR chest 2 views Yaneli Malik, SPLICER OPERATOR-PROJECT CONTROL OFFICER [address] [facility] [address] [place] [address] Referral ID Status Reason Start Date Expiration Date Visits Requested Visits Authorized [id number] Authorized Perform Procedure 3 07/01/2024 1 1 Reason Comments Annual Exam Reason Comments Neutropenia Specialty Diagnoses / Procedures Referred By Contac t Referred To Contact Hematology Diagnoses Neutropenia, unspecified type (CMS/HCC) Yaneli Malik SPLICER OPERATOR-PROJECT CONTROL OFFICER [address] [address] Referral ID Status Reason Start Date Expiration Date Visits Requested Visits Authorized [id number] Authorized Specialty Services Required 10/01/2023 09/30/2024 1 1 Reason Comments Knee Pain Pt comes in for knee pain. Pt states yesterday she was playing on a slip and slide with the kids yesterday and landed wrong causing a popping sensation in the left knee. Pt states that since then she has been having a hard time baring weight and bending her knee. Swelling noted to the left knee. Reason Comments Pain Specialty Diagnoses / Procedures Referred By Contac t Referred To Contact Radiology Diagnoses Pancytopenia (Multi) Enlarged lymph node in neck Procedures CT soft tissue neck w IV contrast Elieser Garcia MD [address] [place] [address] Referral ID Status Reason Start Date Expiration Date Visits Requested Visits Authorized [id number] Authorized Perform Procedure 11/13/2023 11/12/2024 1 1 Specialty Diagnoses / Procedures Referred By Maura limon Referred To Contact Radiology Diagnoses Sprain of left knee, initial encounter Procedures MR knee left wo IV contrast Layne Temple, SPLICER OPERATOR-PROJECT CONTROL OFFICER [address] [facility], [address] [place] [address] Referral ID Status Reason Start Date Expiration Date Visits Requested Visits Authorized [id number] Pending Review Perform Procedure 01/16/2024 01/15/2025 1 1 Reason Comments Pain Patient is here to r eview the results of the MRI of her left knee that was done on 01/20/24. Follow-up Patient is here to r eview the results of the MRI of her left knee that was done on 01/20/24. Results Patient is here to r eview the results of the MRI of her left knee that was done on 01/20/24. Reason Comments Follow-up Recent right knee in jury- has brace on. No other further health issues to report Reason Comments Back Pain Pt to ED with c/o lo wer back pain x 1 week. Pt also c/o nausea and shaking today. Pt recently moved houses and she thinks she might have injured herself while carrying boxes. History of herniated discs and DDD in lumbar spine. Reason Comments Follow-up Pain Reason Comments yearly follow up Specialty Diagnoses / Procedures Referred By Maura limon Referred To Contact Radiology Diagnoses History of kidney stones Procedures XR abdomen 1 view Kobi Sol MD [address] [place] [address] Referral ID Status Reason Start Date Expiration Date Visits Requested Visits Authorized [id number] Authorized Perform Procedure 03/25/2024 03/25/2025 1 1 Reason Comments Follow-up Blood pressure follo w up/ ER follow up for back . Reason Comments Follow-up Reason Comments Annual Exam Reason Comments Numbness Patient reports latoya crenshaw woke up with b/l numbness to arms and then while at work this am developed chest pressure while sitting with R side chest pain, SOB, blurry vision, dizziness and while talking during triage developed pins and needles to b/l feet. Reason Comments Follow-up Follow up doubling B P meds Specialty Diagnoses / Procedures Referred By Maura limon Referred To Contact Family Medicine / Primary Care Diagnoses Paresthesia Pressure in head Chest pain, unspecified type Dyspnea, unspecified type Estuardo Denise, DO [address] [facility] Department [place] [address] Phone: tel: fax: Referral ID Status Reason Start Date Expiration Date Visits Requested Visits Authorized [id number] Authorized Specialty Services Required 12/30/2024 12/30/2025 1 1 Reason Comments Rapid Heart Rate NPV Specialty Diagnoses / Procedures Referred By Contac t Referred To Contact Cardiology Diagnoses Abnormal EKG Yaneli Malik, SPLICER OPERATOR-PROJECT CONTROL OFFICER [address] [facility] [address] [place] [address] Phone: tel: fax: Amber Corral, SPLICER OPERATOR-PROJECT CONTROL OFFICER, DNP [address] [facility] [address] [place] [address] Phone: tel: fax: Referral ID Status Reason Start Date Expiration Date Visits Requested Visits Authorized [id number] Authorized Specialty Services Required 01/13/2025 01/13/2026 1 1 Reason Comments New Patient Visit Pain Follow-up Reason Comments Follow-up Reason Comments Pain Follow-up Reason Comments Follow-up Pain Reason Comments Follow-up 3 month INFORMATION SOURCE (unrecogn ized section and content) DATE CREATED AUTHOR 05/22/2018 [facility] DATE CREATED AUTHOR AUTHOR'S ORGANIZ ATION 04/05/2019 [facility] DATE CREATED AUTHOR AUTHOR'S ORGANIZ ATION 06/12/2022 [facility] DATE CREATED AUTHOR AUTHOR'S ORGANIZ ATION 02/21/2023 [facility] DATE CREATED AUTHOR AUTHOR'S ORGANIZ ATION 03/23/2023 [facility] DATE CREATED AUTHOR AUTHOR'S ORGANIZ ATION 09/10/2024 [facility] DATE CREATED AUTHOR AUTHOR'S ORGANIZ ATION 10/14/2024 [facility] DATE CREATED AUTHOR AUTHOR'S ORGANIZ ATION 10/26/2024 [facility] DATE CREATED AUTHOR AUTHOR'S ORGANIZ ATION 01/02/2025 [facility] DATE CREATED AUTHOR AUTHOR'S ORGANIZ ATION 03/15/2025 [facility] DATE CREATED AUTHOR AUTHOR'S ORGANIZ ATION 05/01/2025 [facility] DATE CREATED AUTHOR AUTHOR'S ORGANIZ ATION 05/12/2025 [facility] DATE CREATED AUTHOR AUTHOR'S ORGANIZ ATION 05/15/2025 [facility] <item><item> Privacy Markings (unrecogniz ed section and content) Section Author: Martine Desai PROHIBITION ON REDISCLOSURE OF CONFIDENTIAL INFORMATION This notice accompanies a disclosure of information concerning a client made to you with the consent of such client. Section Author: Martine Desai PROHIBITION ON REDISCLOSURE OF CONFIDENTIAL INFORMATION This notice accompanies a disclosure of information concerning a client made to you with the consent of such client. Care Teams (unrecognized sec tion and content) Finished Cigar Maker Relationship Specialty Start Date End Date Layne Temple, SPLICER OPERATOR-PROJECT CONTROL OFFICER [address] [facility], [address] [place] [id number] PCP - WORK MEASUREMENT ENGINEER Medicaid PCP 10/06/22 Yaneli Malik, SPLICER OPERATOR-PROJECT CONTROL OFFICER [address] [facility] [address] [place] [address] PCP - General Family Medicine 01/09/23 Finished Cigar Maker Relationship Specialty Start Date End Date Layne Temple, SPLICER OPERATOR-PROJECT CONTROL OFFICER [address] [facility], [address] [place] [address] PCP - [facility] Medicaid PCP 10/06/22 Yaneli Malik, SPLICER OPERATOR-PROJECT CONTROL OFFICER [address] [facility] [address] [place] [address] PCP - General Family Medicine 01/09/23 Finished Cigar Maker Relationship Specialty Start Date End Date Yaneli Malik, GINO [address] [place] [address] PCP - General Internal Medicine 04/10/23 Finished Cigar Maker Relationship Specialty Start Date End Date Yaneli Malik, GINO [address] [place] [address] PCP - General Internal Medicine 04/10/23 Finished Cigar Maker Relationship Specialty Start Date End Date Yaneli Malik, SPLICER OPERATOR-PROJECT CONTROL OFFICER [address] [facility] [address] [place] [address] PCP - General Family Medicine 01/09/23 Finished Cigar Maker Relationship Specialty Start Date End Date Yaneli Malik, SPLICER OPERATOR-PROJECT CONTROL OFFICER [address] [facility] [address] [place] [address] PCP - General Family Medicine 01/09/23 Finished Cigar Maker Relationship Specialty Start Date End Date Yaneli Malik, SPLICER OPERATOR-PROJECT CONTROL OFFICER [address] [facility] [address] [place] [address] PCP - General Family Medicine 01/09/23 Finished Cigar Maker Relationship Specialty Start Date End Date Yaneli Malik SPLICER OPERATOR-PROJECT CONTROL OFFICER [address] [facility] [address] [place] [address] PCP - General Family Medicine 01/09/23 Kobi Sol MD [address] [place] [address] Surgeon Urology 07/22/23 Finished Cigar Maker Relationship Specialty Start Date End Date Yaneli Malik SPLICER OPERATOR-PROJECT CONTROL OFFICER [address] [facility] [address] [place] [address] PCP - General Family Medicine 01/09/23 Kobi Sol MD [address] [place] [address] Surgeon Urology 07/22/23 Elieser Garcia MD [address] [place] [address] [place] [address] Consulting Physician Hematology and Oncology 10/11/23 Finished Cigar Maker Relationship Specialty Start Date End Date Yaneli Malik CNP [address] [place] [address] PCP - General Internal Medicine 04/10/23 Finished Cigar Maker Relationship Specialty Start Date End Date Yaneli Malik CNP [address] [place] [address] PCP - General Internal Medicine 04/10/23 Finished Cigar Maker Relationship Specialty Start Date End Date Yaneli Malik SPLICER OPERATOR-PROJECT CONTROL OFFICER [address] [facility] [address] [place] [address] PCP - General Family Medicine 01/09/23 Kobi Sol MD [address] [place] [address] Surgeon Urology 07/22/23 Elieser Garcia MD [address] [place] [address] Consulting Physician Hematology and Oncology 10/11/23 Finished Cigar Maker Relationship Specialty Start Date End Date Yaneli Malik SPLICER OPERATOR-PROJECT CONTROL OFFICER [address] [facility] [address] [place], [place] [id number] PCP - General Family Medicine 01/09/23 Kobi Sol MD [address] [place] [address] Surgeon Urology 07/22/23 Elieser Garcia MD [address] [place] [address] Consulting Physician Hematology and Oncology 10/11/23 Finished Cigar Maker Relationship Specialty Start Date End Date Yaneli Malik SPLICER OPERATOR-PROJECT CONTROL OFFICER [address] [facility] [address] [place] [address] PCP - General Family Medicine 01/09/23 Kobi Sol MD [address] [place] [address] Surgeon Urology 07/22/23 Elieser Garcia MD [address] [place] [address] Consulting Physician Hematology and Oncology 10/11/23 Finished Cigar Maker Relationship Specialty Start Date End Date Yaneli Malik SPLICER OPERATOR-PROJECT CONTROL OFFICER [address] [facility] [address] [place] [address] PCP - General Family Medicine 01/09/23 Kobi Sol MD [address] [place] [address] Surgeon Urology 07/22/23 Elieser Garcia MD [address] [place] [address] Consulting Physician Hematology and Oncology 10/11/23 Finished Cigar Maker Relationship Specialty Start Date End Date Yaneli Malik APRN-PROJECT CONTROL OFFICER [address] [address] PCP - General Family Medicine 01/09/23 Kobi Sol MD [address] [place] [id number] Surgeon Urology 07/22/23 Elieser Garcia MD [address] [place] [address] Consulting Physician Hematology and Oncology 10/11/23 Finished Cigar Maker Relationship Specialty Start Date End Date Yaneli Malik APRN-PROJECT CONTROL OFFICER [address] [address] PCP - General Family Medicine 01/09/23 Kobi Sol MD [address] [place] [address] Surgeon Urology 07/22/23 Elieser Garcia MD [address] [place] [address] Consulting Physician Hematology and Oncology 10/11/23 Finished Cigar Maker Relationship Specialty Start Date End Date Yaneli Malik APRN-PROJECT CONTROL OFFICER [address] [facility] [place] [address] PCP - General Family Medicine 01/09/23 Kobi Sol MD [address] [place] [address] Surgeon Urology 07/22/23 Elieser Garcia MD [address] [place] [address] Consulting Physician Hematology and Oncology 10/11/23 Finished Cigar Maker Relationship Specialty Start Date End Date Yaneli Malik APRN-PROJECT CONTROL OFFICER [address] [place] [id number] PCP - General Family Medicine 01/09/23 Kobi Sol MD [address] [id number] Surgeon Urology 07/22/23 Elieser Garcia MD [address] [place] [address] Consulting Physician Hematology and Oncology 10/11/23 Finished Cigar Maker Relationship Specialty Start Date End Date Yaneli Malik APRN-PROJECT CONTROL OFFICER [address] [facility] [place] [address] PCP - General Family Medicine 01/09/23 Kobi Sol MD [address] [place] [address] Surgeon Urology 07/22/23 Elieser Garcia MD [address] [place] [address] Consulting Physician Hematology and Oncology 10/11/23 Finished Cigar Maker Relationship Specialty Start Date End Date Yaneli Malik, SPLICER OPERATOR-PROJECT CONTROL OFFICER [address] [facility] [address] [place] [address] PCP - General Family Medicine 01/09/23 Kobi Sol MD [address] [place] [address] Surgeon Urology 07/22/23 Elieser Garcia MD [address] [place] [phone] Consulting Physician Hematology and Oncology 10/11/23 Finished Cigar Maker Relationship Specialty Start Date End Date Yaneli Malik, SPLICER OPERATOR-PROJECT CONTROL OFFICER [address] [address] PCP - General Family Medicine 01/09/23 Kobi Sol MD [address] [place] [address] Surgeon Urology 07/22/23 Elieser Garcia MD [address] [place] [address] Consulting Physician Hematology and Oncology 10/11/23 Finished Cigar Maker Relationship Specialty Start Date End Date Yaneli Malik, SPLICER OPERATOR-PROJECT CONTROL OFFICER [address] [facility] [place] [address] PCP - General Family Medicine 01/09/23 Kobi Sol MD [address] [place] [address] Surgeon Urology 07/22/23 Elieser Garcia MD [address] [place] [address] Consulting Physician Hematology and Oncology 10/11/23 Finished Cigar Maker Relationship Specialty Start Date End Date Yaneli Malik SPLICER OPERATOR-PROJECT CONTROL OFFICER [address] [facility] [address] [place], [place] [id number] PCP - General Family Medicine 01/09/23 Kobi Sol MD [address] [place] [address] Surgeon Urology 07/22/23 Elieser Garcia MD [address] [place] [address] Consulting Physician Hematology and Oncology 10/11/23 Finished Cigar Maker Relationship Specialty Start Date End Date Yaneli Malik APRN-PROJECT CONTROL OFFICER [address] [facility] [address] [place] [address] PCP - General Family Medicine 01/09/23 Kobi Sol MD [address] [place] [address] Surgeon Urology 07/22/23 Elieser Garcia MD [address] [place] [address] Consulting Physician Hematology and Oncology 10/11/23 Finished Cigar Maker Relationship Specialty Start Date End Date Yaneli Malik SPLICER OPERATOR-PROJECT CONTROL OFFICER [address] [facility] [address] [place] [address] PCP - General Family Medicine 01/09/23 Kobi Sol MD [address] [place] [address] Surgeon Urology 07/22/23 Elieser Garcia MD [address] [address] Consulting Physician Hematology and Oncology 10/11/23 Finished Cigar Maker Relationship Specialty Start Date End Date No, Physician [facility] PCP - General 04/17/18 Finished Cigar Maker Relationship Specialty Start Date End Date Yaneli Malik SPLICER OPERATOR-PROJECT CONTROL OFFICER [address] [facility] [place] [address] PCP - General Family Medicine 01/09/23 Kobi Sol MD [address] [place] [address] Surgeon Urology 07/22/23 Elieser Garcia MD [address] [address] Consulting Physician Hematology and Oncology 10/11/23 Finished Cigar Maker Relationship Specialty Start Date End Date No, Physician [facility] PCP - General 04/17/18 Finished Cigar Maker Relationship Specialty Start Date End Date Yaneli Malik SPLICER OPERATOR-PROJECT CONTROL OFFICER [address] [facility] [place] [address] PCP - General Family Medicine 01/09/23 Kobi Sol MD [address] [place] [address] Surgeon Urology 07/22/23 Elieser Garcia MD [address] [place] [phone] Consulting Physician Hematology and Oncology 10/11/23 Finished Cigar Maker Relationship Specialty Start Date End Date aYneli Malik CNP [address] [place] [address] PCP - General Internal Medicine 04/10/23 Finished Cigar Maker Relationship Specialty Start Date End Date Yaneli Malik CNP [address] [place] [address] PCP - General Internal Medicine 04/10/23 Finished Cigar Maker Relationship Specialty Start Date End Date Yaneli Malik SPLICER OPERATOR-PROJECT CONTROL OFFICER [address] [facility] [address] [place] [address] PCP - General Family Medicine 01/09/23 Kobi Sol MD [address] [place] [address] Surgeon Urology 07/22/23 Elieser Garcia MD [address] [place] [phone] Consulting Physician Hematology and Oncology 10/11/23 Finished Cigar Maker Relationship Specialty Start Date End Date Yaneli Malik, SPLICER OPERATOR-PROJECT CONTROL OFFICER [address] [facility] [address] [place] [address] PCP - General Family Medicine 01/09/23 Kobi Sol MD [address] [place] [address] Surgeon Urology 07/22/23 Elieser Garcia MD [address] [place] [address] Consulting Physician Hematology and Oncology 10/11/23 Finished Cigar Maker Relationship Specialty Start Date End Date Yaneli Malik PROJECT CONTROL OFFICER [address] [place] [address] PCP - General Internal Medicine 04/10/23 Finished Cigar Maker Relationship Specialty Start Date End Date Yaneli Malik, SPLICER OPERATOR-PROJECT CONTROL OFFICER [address] [facility] [address] [place] [address] PCP - General Family Medicine 01/09/23 Kobi Sol MD [address] [place] [address] Surgeon Urology 07/22/23 Elieser Garcia MD [address] [place] [address] Consulting Physician Hematology and Oncology 10/11/23 Finished Cigar Maker Relationship Specialty Start Date End Date Yaneli Malik, SPLICER OPERATOR-PROJECT CONTROL OFFICER [address] [facility] [address] [place] [address] PCP - General Family Medicine 01/09/23 Kobi Sol MD [address] [place] [address] Surgeon Urology 07/22/23 Elieser Garcia MD [address] [place] [address] Consulting Physician Hematology and Oncology 10/11/23 Finished Cigar Maker Relationship Specialty Start Date End Date Yaneli Malik, SPLICER OPERATOR-PROJECT CONTROL OFFICER [address] [facility] [address] [place] [address] PCP - General Family Medicine 01/09/23 Kobi Sol MD [address] [place] [address] Surgeon Urology 07/22/23 Elieser Garcia MD [address] [place] [address] Consulting Physician Hematology and Oncology 10/11/23 Finished Cigar Maker Relationship Specialty Start Date End Date Yaneli Malik SPLICER OPERATOR-PROJECT CONTROL OFFICER [address] [facility] [address] [place] [address] PCP - General Family Medicine 01/09/23 Kobi Sol MD [address] [place] [address] Surgeon Urology 07/22/23 Elieser Garcia MD [address] [place] [address] Consulting Physician Hematology and Oncology 10/11/23 Finished Cigar Maker Relationship Specialty Start Date End Date Yaneli Malik, SPLICER OPERATOR-PROJECT CONTROL OFFICER [address] [facility] [address] [place] [address] PCP - General Family Medicine 01/09/23 Kobi Sol MD [address] [place] [address] Surgeon Urology 07/22/23 Elieser Garcia MD [address] [place] [address] Consulting Physician Hematology and Oncology 10/11/23 Finished Cigar Maker Relationship Specialty Start Date End Date Yaneli Malik APRN-PROJECT CONTROL OFFICER [address] [facility] [place] [address] PCP - General Family Medicine 01/09/23 Kobi Sol MD [address] [place] [address] Surgeon Urology 07/22/23 Elieser Garcia MD [address] [place] [address] Consulting Physician Hematology and Oncology 10/11/23 Finished Cigar Maker Relationship Specialty Start Date End Date Yaneli Malik APRN-PROJECT CONTROL OFFICER [address] [address] PCP - General Family Medicine 01/09/23 Koib Sol MD [address] [place] [address] Surgeon Urology 07/22/23 Elieser Garcia MD [address] [place] [address] Consulting Physician Hematology and Oncology 10/11/23 Finished Cigar Maker Relationship Specialty Start Date End Date Yaneli Malik APRN-PROJECT CONTROL OFFICER [address] [address] PCP - General Family Medicine 01/09/23 Kobi Sol MD [address] [place] [address] Surgeon Urology 07/22/23 Elieser Garcia MD [address] [place] [address] [address] [place] [address] Consulting Physician Hematology and Oncology 10/11/23 Source Comments (unrecognize d section and content) In the event this informatio n is protected by the Federal Confidentiality of Alcohol and Drug Abuse Patient Records regulations: The Federal rules restrict any use of the information to criminally investigate or prosecute any alcohol or drug abuse patient.[facility] the event this information is protected by the Federal Confidentiality of Alcohol and Drug Abuse Patient Records regulations: The Federal rules restrict any use of the information to criminally investigate or prosecute any alcohol or drug abuse patient.[facility] the event this information is protected by the Federal Confidentiality of Alcohol and Drug Abuse Patient Records regulations: The Federal rules restrict any use of the information to criminally investigate or prosecute any alcohol or drug abuse patient.[facility] the event this information is protected by the Federal Confidentiality of Alcohol and Drug Abuse Patient Records regulations: The Federal rules restrict any use of the information to criminally investigate or prosecute any alcohol or drug abuse patient.[facility] the event this information is protected by the Federal Confidentiality of Alcohol and Drug Abuse Patient Records regulations: The Federal rules restrict any use of the information to criminally investigate or prosecute any alcohol or drug abuse patient.[facility] the event this information is protected by the Federal Confidentiality of Alcohol and Drug Abuse Patient Records regulations: The Federal rules restrict any use of the information to criminally investigate or prosecute any alcohol or drug abuse patient.[facility] the event this information is protected by the Federal Confidentiality of Alcohol and Drug Abuse Patient Records regulations: The Federal rules restrict any use of the information to criminally investigate or prosecute any alcohol or drug abuse patient.[facility] the event this information is protected by the Federal Confidentiality of Alcohol and Drug Abuse Patient Records regulations: The Federal rules restrict any use of the information to criminally investigate or prosecute any alcohol or drug abuse patient.[facility] the event this information is protected by the Federal Confidentiality of Alcohol and Drug Abuse Patient Records regulations: The Federal rules restrict any use of the information to criminally investigate or prosecute any alcohol or drug abuse patient.[facility] the event this information is protected by the Federal Confidentiality of Alcohol and Drug Abuse Patient Records regulations: The Federal rules restrict any use of the information to criminally investigate or prosecute any alcohol or drug abuse patient.[facility] Scheduled Active and Recently Administ ered Medications (unrecognized section and content) Medication Order 01/08/2024 01/09/2024 01/10/2024 ibuprofen tablet 600 mg (COMPLETED) 600 mg, oral, Once, On Sat01/10/24 at 1010, For 1 dose, May administer with food to reduce GI upset., If ordered PRN for pain, nurse is permitted to administer this medication for higher pain scores based on patient preference? Yes 1015 (Given - Provid er: Ifrah Spicker, RN) Scheduled Medication Order 06/16/2024 06/17/2024 06/18/2024 cloNIDine (Catapres) tablet 0.1 mg (COMPLETED) 0.1 mg, oral, Once, On Jaky 24 at 1535, For 1 dose 1535 (Given - Provid er: Sheba Luna RN) ketorolac (Toradol) injection 30 mg (COMPLETED) 30 mg, intramuscular, Once, On Jaky 24 at 1415, For 1 dose 1422 (Given - Provid er: Naomi Hernandez RN) orphenadrine (Norflex) injection 60 mg (COMPLETED) 60 mg, intramuscular, Once, On Jaky 06/18/24 at 1415, For 1 dose 1422 (Given - Provid er: Naomi Hernandez RN) FOR RECORDS PERTAINING TO PATIENTS WHO ARE OR HAVE BEEN ENROLLED IN A CHEMICAL DEPENDENCY/SUBSTANCEABUSE PROGRAM, SOME INFORMATION MAY BE OMITTED. This clinical summary was aggregated from multiple sources. Caution should be exercised in using it in the provision of clinical care. This summary normalizes information from multiple sources, and as a consequence, information in this document may materially change the coding, format and clinical context of patient data. In addition, data may be omitted in some cases. CLINICAL DECISIONS SHOULD BE BASED ON THE PRIMARY CLINICAL RECORDS. [facility] [employer] [facility]. provides no warranty or guarantee of the accuracy or completeness of information in this document.
[2025-06-04] MEDS: Lactated Ringers 1,000 ML 40 ML IV (11:31)
[2025-06-04] MEDS: Magnesium 1 GM over 15 mins IV (11:33)
[2025-06-04] MEDS: metroNIDAZOLE 500 MG/100 ML BAG 100 MG IV (11:34)
[2025-06-04] MEDS: Midazolam 2 MG/2 ML Syringe IV (12:24)
[2025-06-04] MEDS: Lactated Ringers 1,000 ML 1000 ML IV (12:24)
[2025-06-04] MEDS: Cefazolin 1 GM/5 ML Vial 2 GM IV (12:24)
[2025-06-04] MEDS: fentaNYL 100 MCG/2 ML Ampul IV (12:29)
[2025-06-04] MEDS: Lidocaine 1% (5 ml sdv) 5 ML Vial 10 ML IV (12:29)
--- NOTE | 2025-06-04 12:30 | UT_PTH ---
PATIENT: WILLIAM SOMMER LOC: [facility] – [place] U#:[id number] AGE/SX: 39/F ROOM: RE06/04/[address]: Dr. Irene Vazquez DO : 1985 BED: DIS: 06/04/2025 SPEC #: [id number] RECD: 06/04/25 15:16 STATUS: MAGALI RESeng #: [id number] TRINA: 06/04/25 12:[address]: Irene Vazquez DEPT: SURGICAL PATHOLOGY RECD BY: Manas Snowden ENTERED: 06/07/25 09:11 SP TYPE: UTERUS OTHR DR: MD Yaneli Hull, FISH BAIT PICKER-C Tissues: A - Uterus, NOS Procedures: Surgery Specimen Level V HEADER OPERATION: ERAS, total laparoscopic hysterectomy, bilateral salpingectomy PRE-OP DIAGNOSIS: Adenomyosis, chronic pelvic pain, failed medical management TISSUE SUBMITTED: A- Uterus, cervix, bilateral fallopian tubes MICROSCOPIC DIAGNOSIS A. Uterus, cervix, fallopian tubes, total hysterectomy and salpingectomy: - Cervix: dilated endocervical glands. - Endometrium: benign endometrium with pseudodecidual stromal change, autolyzed. - Myometrium: leiomyomata (up to 1.5 cm). - Fallopian tubes: no specific pathologic change x2. MICROSCOPIC DESCRIPTION Slides are reviewed. GROSS DESCRIPTION A. Received in formalin labeled with the patient's name and date of . Designated as uterus, cervix, bilateral fallopian tubes is a 169.2 g, 8.8 x 5.7 x 5.1 cm uterus with detached fallopian tubes. The serosa is harley-purple to medeiros with patchy congestion. The attached cervix is harley-medeiros and focally erythematous, measuring 4.0 x 3.1 cm; there is an undesignated suture at the 3:00 position. The 1.2 cm os is probe patent, expelling hemorrhagic mucoid material. Mucus containing cysts are present. The specimen is inked as follows: [id number] Opening reveals a 5.7 x 2.9 cm endometrial cavity lined by pink-harley granular endometrium that measures up to 0.3 cm thick. The myometrium is harley-pink trabeculated and somewhat fibrotic, measuring up to 3.0 cm thick. Multiple intramural leiomyomas are identified, 1.5 cm in greatest dimension. The purple bilateral fallopian tubes are fimbriated, measuring 3.7 x 0.6 cm and 4.3 x 0.5 cm. A 0.3 cm paratubal cyst is identified. Fur Weigher sections are submitted as follows: A1: Anterior cervixA2: Posterior cervixA3: Anterior endomyometriumA4: Posterior endomyometriumA5-A6: Fallopian tubesA7: Largest intramural leiomyoma [place] 06/07/2025 CPT:98677
--- NOTE | 2025-06-04 14:52 | PCM.DC ---
Discharge Instructions DC O2, CPAP, BIPAP needs Home O2 Discharge instructions: No Dressing / Incision Discharge Activity: May Drive (once you feel strong enough to slam on a brake or turn a steering wheel sharply, and you no longer need pain medication) and May Shower (once you are more than 24 hours out from surgery) May resume sexual activity in: 6-8 weeks (nothing in the vagina and no soaking in water until your 6 week follow up) Ice area for (Minutes): 15 Weight Bearing Status: Weight bearing as tolerated Lifting Restrictions: nothing heavier than 10 pounds for 6-8 weeks until your 6 week follow up Additional Activity Instructions:: NO heavy lifting, no soaking in water, no tampons, no intercourse, no pushing and pulling objects until your 6 week follow up Dressing / Incision Call your doctor if your incision/area has: Sudden Increased Bleeding, Increased Pain/ Swelling, Increased Redness, Foul Smelling Discharge and Swelling at the incision site Call your doctor if you observe: Fever of 101 or Higher, Numbness or Tingling, Inability to urinate, Inability to have a bowel movement, Using more than 1 pad per hour, Shortness of breath, Dizziness, Swelling in the ankles, Chest pain, Increased palpitations (irregular heartbeat), Calf discomfort and Uncontrolled pain Remove Dressing in: leave until fall off (The glue will peel off the incision site. There is suture underneath that will dissolve) Cleanse incision/area with: Soap & Water Follow Up Care Please Follow Up With: Irene Vazquez DO When: 1 week 6 weeks Test Results: Test results from this visit will be discussed in further detail at your follow-up appointment, if applicable. Discharge Plan Admission Primary Reason for Your Visit: surgery Attending Provider: Irene Vazquez Primary Care Provider: Yaneli Pringle Consulting Providers: Nathan Francis Instructions Patient Instructions: Hysterectomy Lap Dc Print Language: Lithuanian Discharge Orders/Prescriptions Prescriptions: New acetaminophen [Pain Reliever (acetaminophen)] 325 mg tablet 650 mg PO Q6H PRN (Reason: pain) Qty: 30 0RF oxycodone 5 mg capsule 5 mg PO Q6H PRN (Reason: pain) 7 Days Qty: 10 0RF docusate sodium [Colace] 100 mg capsule 100 mg PO DAILY Qty: 30 0RF Continued cetirizine [24Hour Allergy] 10 mg tablet 10 mg PO DAILY fluticasone propionate [24 Hour Allergy Relief] 50 mcg/actuation spray,suspension 1 spray intranasal DAILY Rx Instructions: administer into each nostril hydrochlorothiazide 25 mg tablet 25 mg PO DAILY desvenlafaxine succinate 50 mg tablet extended release 24 hr 50 mg PO DAILY buspirone 5 mg tablet 5 mg PO DAILY PRN (Reason: anxiety) cyclobenzaprine 10 mg tablet 10 mg PO TID PRN PRN (Reason: muscle spasm) omeprazole 20 mg capsule,delayed release(DR/EC) 20 mg PO DAILY montelukast 10 mg tablet 10 mg PO QHS meloxicam 15 mg tablet 15 mg PO DAILY PRN (Reason: moderate pain) Referrals / Follow Up: Yaneli Pringle, MAKEUP ARTISTRY INSTRUCTOR-C [Primary Care Provider, Family Practice] Disposition Disposition (needs filled in before D/C Order can be placed): .Default Discharge Orders: Discharge Patient (Routine); Ordered 06/04/25 Ordered By: Dr. Irene Vazquez
--- NOTE | 2025-06-04 15:05 | PCM.POST.ANE ---
Anesthesia: Postop Eval I Current Vital Signs Temperature: 97 F Pulse Rate: 92 Blood Pressure: 146/98 Respiratory Rate: 16 Pulse Ox: 97 Assessment Airway patent: Yes Spontaneous unlabored respirations: Yes nausea: No Vomiting: No Anesthesia Complication: No Fluid Hydration Crystalloid volume administer (ml): 1,000 Total IV fluid infused: 1,000 Progress Note Anesthesia document: Postop Eval 1 completed: Yes
--- NOTE | 2025-06-04 15:14 | OP.PCM_ITS ---
Operative Report (Standard) Operative Information Date of Procedure: 06/04/25 Pre-Operative Diagnosis: Adenomyosis, uterine fibroid, chronic pelvic pain, DUB, failed medical management Post-Operative Diagnosis: As above Surgery/Procedure Performed: TLH, BS, cystoscopy technician telecommunication systems: Yes De Alcholizer: Margaret Espinoza Tasks completed by assistant program director: Dissecting tissue, Insert Trochanter, Hemostasis: Electrocautery and Retracting Type of Anesthesia: General RN Documented Start/Stop Times: Operation Date: 06/04/25 12:30 Case Time Into Pre-Op 06/04/25 10:49 Out of Pre-Op 06/04/25 12:18 Anesthesia Start 06/04/25 12:24 Into Room 06/04/25 12:24 Procedure Start 06/04/25 12:50 Procedure End 06/04/25 14:47 Anesthesia End 06/04/25 15:00 Out of Room 06/04/25 15:00 Into Recovery 06/04/25 15:02 Procedure Start Time: 12:50 Procedure Stop Time: 14:47 Select all DRAINS/GRAFTS/IMPLANTS that apply: None Special Medications: None Estimated Blood Loss: 100 mL Fluids Replaced: See anesthesia record Specimen collected: Yes Description of specimen(s) removed: Uterus, cervix, bilateral fallopian tube remnants Description of surgery: Indications: Patient has suspected adenomyosis and a uterine fibroid with continued chronic pelvic pain despite medical management. Procedure: The patient was taken to the operating room where general anesthesia was induced. She was prepped and draped in the usual sterile fashion in dorsal lithotomy position using yellowfin stirrups. A Banuelos catheter was placed in the bladder to drain the bladder. A weighted speculum was placed in the vagina to expose the cervix. The anterior lip of the cervix was grasped with a single- tooth tenaculum. A ring forcep was used to grasp the IUD strings, and remove the IUD easily and intact. Once IUD was removed, the cervix was serially dilated to accommodate the ZUMI uterine manipulator. The uterus sounded to 9 cm in length. The ZUMI uterine manipulator was inserted into the uterus in usual sterile fashion. Gloves were changed and attention was turned to the abdominal portion of the procedure. Local was infiltrated at all port sites. An infraumbilical incision was made to accommodate a 5 mm port. The 5 mm port was placed under direct visualization using the laparoscope. Once confirmed intraperitoneal, CO2 insufflation was initiated. No injury was noted upon entry. The patient was placed in Trendelenburg position. A right lateral 5 mm port was placed. A left lateral 5 mm port was placed. The uterus was upheld from below revealing an enlarged appearing uterus, normal posterior cul-de-sac, normal bilateral ovaries, bilateral fallopian tubes with prior tubal ligation noted and otherwise normal-appearing tubes. Beginning on the right side the fallopian tube was elevated out of the pelvis to expose the mesosalpinx. Working distal to proximal the mesosalpinx was sequentially clamped, cauterized, and transected using the LigaSure device hugging adjacent to the tube. Once at the level of the prior tubal ligation, the tube was transected and removed through the port. Next the utero-ovarian ligament was clamped, sealed, and cut. The ovarian pedicle was noted to be hemostatic. Attention was then turned to the other side. The same process was repeated on the left to sequentially clamp, ligate, and cut the left mesosalpinx hugging adjacent to the fallopian tube until reaching the level of the prior tubal ligation. The left fallopian tube was then transected and removed. The left utero-ovarian ovarian ligament was then clamped, sealed, and cut. The ovarian pedicle was noted to be hemostatic. The round ligament was then ligated and cut on the left side. The anterior leaf of the broad ligament was then taken down dissecting towards the peritoneal reflection at the base of the bladder and adjacent to the cervix. The same process was then repeated on the right side such that both sides met, and the anterior leaflet had been appropriately skeletonized. The ureters were well- visualized bilaterally. Once the bladder was appropriately dissected and free from the lower anterior uterine segment and the tissue skeletonized, the uterine arteries were bilaterally clamped and ligated. Pedicles were noted to be hemostatic. At the level of the plastic cup of the uterine manipulator, the vaginal vault was incised circumferentially with a monopolar hook. The uterus and cervix were then delivered through the vagina and sent to pathology for review. The posterior cuff was run using 2-0 Vicryl in a running locked fashion to achieve hemostasis. The vaginal cuff was then closed in a horizontal fashion using interrupted [id number] 1-0 Vicryl sutures. The sutures were trimmed. The vaginal cuff was normal-appearing and hemostatic. The Banuelos catheter was removed. A cystoscopy was performed noting a normal- appearing bladder with bilateral ureteral jets noted. The cystoscope was removed and the bladder was drained using the Banuelos catheter. The Banuelos catheter was then removed. A sponge stick was placed in the vagina. Gloves were changed and attention was turned to the abdomen. The abdomen was re insufflated and a laparoscope was inserted to inspect the pedicles and vaginal cuff from above. The right Filshie clip was noted to be adhered to the right ovary, and was easily removed with gentle traction. The Filshie clip was removed from the pelvis. The left Filshie clip was unable to be found after inspection of the pelvis. Hemostasis was confirmed. Hemoblast was placed over the cuff and pedicles. Hemostasis was again confirmed. The abdomen was ex sufflated, and all ports were removed. The skin was closed with 4-0 Monocryl and glue. From below the sponge stick was removed. The instrument, sponge, and sharp counts were correct x 2. The patient was taken to the recovery room in good stable condition. Surgical Findings: Enlarged bulky uterus Bilateral fallopian tubes with prior tubal ligation noted. The right Filshie clip was on the right ovary. The left Filshie clip was unable to be identified Normal appearing bilateral ovaries Normal appearing pelvis Complications Complications: No Admit VTE Documentation VTE Present on Admission: No VTE Mechan Device Prophylaxis: SCD's
--- NOTE | 2025-06-04 15:23 | POSTOPAN2_ITS ---
Anesthesia Postop Eval I Sum Postop Eval Completion status Anesthesia document: Postop Eval 1 completed: Yes Anesthesia Postop Eval I Summary Anesthesia Postop Eval I Summary: Anesthesia Postop Eval I: Assessment Summary Airway patent Yes 06/04/25 15:05 INFORMATION SECURITY [email or web address].[email or web address] Spontaneous unlabored Yes 06/04/25 15:05 INFORMATION SECURITY [email or web address].TNES respirations Mental status nausea No 06/04/25 15:05 INFORMATION SECURITY [email or web address].TNES Vomiting No 06/04/25 15:05 INFORMATION SECURITY [email or web address].TNES Anesthesia Postop Eval I: Fluid Summary Crystalloid volume administer 1,000 06/04/25 15:05 INFORMATION SECURITY [email or web address].TNES (ml) Colloids volume administered ( ml) Blood Product volume administered (ml) Total IV fluid infused 1,000 06/04/25 15:05 INFORMATION SECURITY [email or web address].TNES Anesthesia Postop Eval I: Summary Notes Anesthesia Complication No 06/04/25 15:05 INFORMATION SECURITY [email or web address].TNES Anesthesia Complication Comment: Post-operative progress note Anesthesia: Postop Eval II Evaluation Mental status: Awake Pain Level: 1 nausea: No Vomiting: No
--- NOTE | 2025-06-04 15:23 | PCM.POSTANE2 ---
Anesthesia Postop Eval I Sum Postop Eval Completion status Anesthesia document: Postop Eval 1 completed: Yes Anesthesia Postop Eval I Summary Anesthesia Postop Eval I Summary: Anesthesia Postop Eval I: Assessment Summary Airway patent Yes 06/04/25 15:05 PRINTED CIRCUIT BOARD [email or web address] Spontaneous unlabored Yes 06/04/25 15:05 PRINTED CIRCUIT BOARD [email or web address] respirations Mental status nausea No 06/04/25 15:05 PRINTED CIRCUIT BOARD [email or web address] Vomiting No 06/04/25 15:05 PRINTED CIRCUIT BOARD [email or web address] Anesthesia Postop Eval I: Fluid Summary Crystalloid volume administer 1,000 06/04/25 15:05 PRINTED CIRCUIT BOARD DRAFTER.TNES (ml) Colloids volume administered ( ml) Blood Product volume administered (ml) Total IV fluid infused 1,000 06/04/25 15:05 PRINTED CIRCUIT BOARD [email or web address] Anesthesia Postop Eval I: Summary Notes Anesthesia Complication No 06/04/25 15:05 PRINTED CIRCUIT BOARD [email or web address] Anesthesia Complication Comment: Post-operative progress note Anesthesia: Postop Eval II Evaluation Mental status: Awake Pain Level: 1 nausea: No Vomiting: No
== END 2025-06-04 18:36 | disposition home or self-care (01) ==
LOC: SDC 10:43 → AC 10:45
PROVIDERS: Anesthesiology; PCP Nurse Practitioner Family; Referring Provider Obstetrics & Gynecology; Visit Provider Obstetrics & Gynecology
PROC: 0UT94ZZ Resection of Uterus, Percutaneous Endoscopic Approach (ICD-10-PCS; CPT 58571; principal; 2025-06-04 12:10)
DX: D25.1 Intramural leiomyoma of uterus (principal); N80.03 Adenomyosis of the uterus; K21.9 Gastro-esophageal reflux disease without esophagitis; I10 Essential (primary) hypertension; E78.5 Hyperlipidemia, unspecified; G89.29 Other chronic pain; N83.8 Other noninflammatory disorders of ovary, fallopian tube and broad ligament
CPT/HCPCS: 58571; 00840; J3475; 36415; 80053; 81025; 82962; 83735; 85027; 86850; 86900; 86901; 88307; 93005; J2405